=== PATIENT | female | born 1950 | race Caucasian/White ===

== ENCOUNTER 2023-04-22 11:38 | Emergency (ER) | payer MEDICARE, SELFPAY ==
[2023-04-22 11:50] VITALS: BP 220/110; PULSE 64; O2SAT 99; BMI 34.2
[2023-04-22 11:53] VITALS: BP 210/89; BP 237/104; PULSE 63; RESP 18; TEMP 37.1; O2SAT 97
--- NOTE | 2023-04-22 12:09 | PC.NURSE ---
a&ox4, vss and up to date aside from being hypertensive. pt did not take medications this morning. 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 denies pain/any sx. nose clip applied. no sob/noted. respirations even/unlabored. family bedside. call ness placed within reach.
--- OUTSIDE RECORDS SUMMARY | 2023-04-22 12:22 | XMS_ITS | Continuity of Care Document ---
Author Name Unknown Organization [facility] Onel Taye lt Address [address] [place] [address]- Care Team Providers Care Gym Manager Name Role Phone Virginia PEREZ, Brian Sanford Primary Care Physician [phone] Encounter [facility] Date(s): 04/25/19 - 05/05/19 [facility] Adult [address] [place] [address]- [facility] Attending Physician: Admtr, Temo8 Admitting Physician: AdmtrAnalilia Referring Physician: Admtr, Ar8 Allergies, Adverse Reactions, Alerts Substance Reaction Severity Status NIFEdipine Active amLODIPine-atorvastatin Reso lved Immunizations Given and Recorded Vaccine Date Status Refusal Reason Influenza Virus Vaccine (oldterm) 02/21/19 Recorde d Influenza Virus Vaccine (oldterm) 1 03/17/11 Given Influenza Virus Vaccine (oldterm) 2 04/07/09 Given influenza virus vaccine, inactivated 03/19/18 Marko rded influenza virus vaccine, inactivated 12/30/16 Marko rded influenza virus vaccine, inactivated 02/19/15 Marko rded influenza virus vaccine, inactivated 01/21/14 Give n influenza virus vaccine, inactivated 3 02/08/13 Gi rachael pneumococcal 13-valent vaccine 03/22/17 Given hepatitis B adult vaccine 4 10/18/13 Given hepatitis B adult vaccine 05/21/13 Given hepatitis B adult vaccine 5 04/18/13 Given Hepatitis A Adult Vaccine 6 04/18/13 Given Zoster Vaccine Live 7 02/02/13 Recorded influ virus vac, H1N1, inactive(oldterm) 8 03/12/12 Given FluLaval (oldterm) 03/08/10 Given tetanus/diphtheria/pertussis, acel(Tdap) 08/06/09 Given Influenza Inactive (IM) (oldterm) 03/26/08 Given Influenza Inactive (IM) (oldterm) 9 03/21/07 Given Tetanus Toxoid Vaccine (oldterm) 05/01/99 Given Pneumococcal Vaccine (oldterm) 10 01/31/99 Given 1Admin Note: [facility] 2Admin Note: per pt [facility]cvd [facility] 3Admin Note: FLUARIX 4Result Comment: [10/18/2013] #3 5Result Comment: [04/18/2013] #1 6Result Comment: [04/18/2013] #1 7[facility] History: [facility] [place] 8Admin Note: rcvd elsewhere 9Admin Note: rcvd elsewhere 10Admin Note: historical data Medications Aerochamber See Instructions, # 1 units, Maintenance, dx: asthma use w/ albuterol MDI, 12/01/14 15:22:56, Compound Start Date: 12/01/14 Status: Ordered aspirin 81 mg oral tablet 1 tablet, By Mouth, Daily, # 30 tablet, 0 Refills, Maintenance, Tablet Start Date: 02/19/10 Status: Ordered atorvastatin 20 mg oral tablet 1 tablet = 20 mg, By Mouth, Daily, # 90 tablet, 1 Refills, Soft Stop, 04/15/19 10:41:44 EST, [facility], 157, cm, 03/07/19 14:39:28 EST, Height, 87.9, kg, 10/21/17 9:09:44 EDT,Dry Weight Start Date: 04/15/19 Status: Ordered Caltrate 600 + D oral tablet 1 tablet, By Mouth, 2 times a day, # 60 tablet, 11 Refills, Maintenance, 02/07/18 7:34:22 EDT, Tablet Start Date: 02/07/18 Status: Ordered fluticasone 50 mcg/inh nasal spray 1 sprays, Nares, Both, 2 times a day, # 3 each, 2 Refills, Maintenance, 06/05/17 13:36:23, [place], 1sprays Nares, Both 2 times a day Start Date: 06/05/17 Status: Ordered folic acid 1 mg oral tablet 1 mg, 1, tablet, By Mouth, Daily, # 90 tablet, Refills 0, Tot. Refills 0, Maintenance, 12/06/16 9:36:33, Route to Pharmacy Electronically, [id number], [facility] Start Date: 12/06/16 Status: Ordered hydroCHLOROthiazide 12.5 mg oral capsule 1 capsule = 12.5 mg, By Mouth, Daily, # 90 capsule, 3 Refills, Maintenance, 01/04/19 7:47:00 EDT, Capsule Start Date: 01/04/19 Status: Ordered labetalol 200 mg oral tablet 1 tablet = 200 mg, By Mouth, 2 times a day, # 180 tablet, 3 Refills, Maintenance, 04/15/19 10:41:39EST, Tablet, [facility], ID# [id number], 157, cm, 03/07/19 14:39:28 EST, Height, 87.9, kg, 10/21/17 9:09:44 EDT, Dry Weight Start Date: 04/15/19 Status: Ordered levothyroxine 150 mcg (0.15 mg) oral tablet See Instructions, TAKE 1 TABLET 6 DAYS A WEEK, # 78 tablet, 3 Refills, Soft Stop, 04/15/19 10:41:38EST, [facility], 157, cm, 03/07/19 14:39:28 EST, Height, 87.9, kg, 10/21/17 9:09:44 EDT, Dry Weight Start Date: 04/15/19 Status: Ordered losartan 100 mg oral tablet 1 tablet = 100 mg, By Mouth, Daily, # 90 tablet, 3 Refills, Maintenance, 01/04/19 7:46:50 EDT, Tablet Start Date: 01/04/19 Status: Ordered metFORMIN 1000 mg oral tablet 1 tablet = 1,000 mg, By Mouth, 2 times a day, # 180 tablet, 3 Refills, Maintenance, 04/15/19 10:41:37 EST, Tablet, [facility], ID# [id number], 157, cm, 03/07/19 14:39:28 EST, Height, 87.9, kg, 10/21/17 9:09:44 EDT, Dry Weight Start Date: 04/15/19 Stop Date: 04/09/20 Status: Ordered One Touch Delica Lancets See Instructions, # 1 box, Refills 3, Tot. Refills 3, Maintenance, 1 box = 100 lancets Please use as directed to test BS bid for DM 250.00, 08/26/14 11:06:58, Compound Start Date: 08/26/14 Status: Ordered ONE TOUCH ULTRA MINI TEST STRIPS ONE TOUCH ULTRA MINI TEST STRIPS, See Instructions, # 200 each, Refills 1, Tot. Refills 1, Maintenance, dx: DM E11.9 Pt tests 2X daily, 12/22/16 9:55:04, Compound Start Date: 12/22/16 Status: Ordered ONE TOUCH ULTRA MINI TEST STRIPS ONE TOUCH ULTRA MINI TEST STRIPS, See Instructions, # 200 each, Refills 3, Tot. Refills 3, Maintenance, dx: DM E11.9 Pt tests 1X daily, 08/25/16 16:37:35, Compound Start Date: 08/25/16 Status: Ordered One Touch UltraSoft Lancets See Instructions, # 200 each, Refills 1, Tot. Refills 1, Maintenance, Test Blood sugar twice a day Dx: E11.9, 12/22/16 9:57:44, Compound Start Date: 12/22/16 Status: Ordered ProAir HFA 90 mcg/inh inhalation aerosol with adapter 2, puffs, Inhalation, Every 4 hours, PRN, # 3 each, Refills 0, Tot. Refills 0, Maintenance, 06/12/17 16:51:34, Aerosol, Route to Pharmacy Electronically, [id number], [facility] Start Date: 06/12/17 Status: Ordered traZODone 100 mg oral tablet 100 mg, 1, tablet, By Mouth, Daily at bedtime, ID # [id number], # 90 tablet, Refills 3, Tot. Refills3, Maintenance, 04/15/19 10:41:38 EST, Route to Pharmacy Electronically, [facility], 157, cm, 03/07/19 14:39:28 EST, Height, 87.... Start Date: 04/15/19 Status: Ordered Ventolin HFA 108 mcg/inh inhalation aerosol with adapter 1 puffs, Inhalation, 4 times a day, PRN for wheezing, # 3 each, 3 Refills, Maintenance, 04/25/19 14:03:00 EST, Aerosol, [facility], 157, cm, 04/25/19 13:53:00 EST, Height, 87.9, kg, 10/21/17 9:09:00 EDT, Dry Weight Start Date: 04/25/19 Status: Ordered Ventolin HFA 108 mcg/inh inhalation aerosol with adapter 1 puffs, Inhalation, 4 times a day, PRN for wheezing, [facility], # 1 each, 0 Refills, Maintenance, 04/25/19 14:04:00 EST, Aerosol, [id number], 157, cm, 04/25/19 13:53:00 EST, Height, 87.9, kg, 10/21/17 9:09:00 EDT, Dry Weight Start Date: 04/25/19 Status: Ordered Vitamin B12 See Instructions, 0, 0, 06/09/05 12:50:42, 1000 mcg Intramuscular;once a month, Print BRAYDEN Number, Constant Indicator Start Date: 06/09/05 Status: Ordered Problem List Condition Effective Dates Status Health Status Inform ant Acquired hypothyroidism(Confirmed) Active Asthma(Confirmed) 1 Active Benign Essential Hypertension(Confirmed) Active Diabetes mellitus type 2, controlled(Confirmed) 2 Active Familial hyperlipidemia(Confirmed) Active Fatty liver(Confirmed) 3, 4, 5 Active Homocysteine;elevated(Confirmed) Active Insomnia(Confirmed) Active Mitral insufficiency(Confirm ed) 6, 7, 8, 9 Active Osteopenia(Confirmed) 10 02/06/18 Active Trigger thumb(Confirmed) Active Vitamin B12 deficiency (non anemic)(Confirmed) Active 1mild intermiitent,no indication controller 2education completed 3no need biopy per Dr byers 4no other etiology per labs 5per ultrasound 6mild moderate 7discussed new AHA guidlines; no need antibiotics 8discussed new 9Echo 2004, antibiotic prophylaxis 10frax 14/0.7 Procedures Procedure Date Related Diagnosis Body Site Status Dual-energy X-ray absorptiom etry (DXA), bone density study, 1 or more sites; axial skeleton (eg, hips, pelvis, spine) 1 02/11/10 Completed Radiologic examination, ches t, 2 views, frontal and lateral; 2 11/18/09 Co mpleted 1normal 2nad Social History Social History Type Response Smoking Status Never smoker entered on: 04/18/13 Sex
--- OUTSIDE RECORDS SUMMARY | 2023-04-22 12:22 | XMS_ITS | Continuity of Care Document ---
Author Name Unknown Organization [facility] Taye lt Address [address] [place] [address]- Care Team Providers Care Scenic Designer Name Role Phone Virginia PEREZ, Brian Sanford Primary Care Physician [facility]counter [facility] Date(s): 08/09/21 - 09/08/21 [facility] Adult [address] [place] [address]- Allergies, Adverse Reactions, Alerts Substance Reaction Severity Status NIFEdipine Active amLODIPine-atorvastatin Reso lved Immunizations Given and Recorded Vaccine Date Status Refusal Reason influenza virus vaccine, inactivated 02/16/21 Give n influenza virus vaccine, inactivated 01/21/20 Give n influenza virus vaccine, inactivated 03/19/18 Marko rded influenza virus vaccine, inactivated 12/30/16 Marko rded influenza virus vaccine, inactivated 02/19/15 Marko rded influenza virus vaccine, inactivated 01/21/14 Give n influenza virus vaccine, inactivated 1 02/08/13 Gi rachael SARS-CoV-2 (COVID-19) mRNA BNT-162b2 vac 07/07/20 Given SARS-CoV-2 (COVID-19) mRNA BNT-162b2 vac 06/16/20 Given Influenza Virus Vaccine (oldterm) 02/21/19 Recorde d Influenza Virus Vaccine (oldterm) 2 03/17/11 Given Influenza Virus Vaccine (oldterm) 3 04/07/09 Given pneumococcal 13-valent vaccine 03/22/17 Given hepatitis B [...] Vaccine (oldterm) 10 01/31/99 Given 1Admin Note: FLU[facility]IX 2Admin Note: [facility] 3Admin Note: per pt rcvd [facility] 4Result Comment: [10/18/2013] #3 5Result Comment: [04/18/2013] #1 6Result Comment: [04/18/2013] #1 7Location History: [facility] 8Admin Note: rcvd elsewhere 9Admin Note: rcvd elsewhere 10Admin Note: historical data Medications Aerochamber See Instructions, # 1 units, Maintenance, dx: asthma use w/ albuterol MDI, 12/01/14 15:22:56, Compound Start Date: 12/01/14 Status: Ordered aspirin 81 mg oral tablet 1 tablet, By Mouth, Daily, # 30 tablet, 0 Refills, Maintenance, Tablet Start Date: 02/19/10 Status: Ordered atorvastatin 20 mg oral tablet 1 tablet, By Mouth, Daily, # 90 tablet, 1 Refills, [facility], 157, cm, 10/07/20 13:35:00 EDT, Height Start Date: 04/19/21 Status: Ordered Caltrate 600 + D oral tablet 1 tablet, By Mouth, 2 times a day, # 60 tablet, 11 Refills, Maintenance, 02/07/18 7:34:22 EDT, Tablet Start Date: 02/07/18 Status: Ordered fluticasone 50 mcg/inh nasal spray 1 sprays, Nares, Both, 2 times a day, # 3 each, 2 Refills, Maintenance, 05/17/19 11:44:00 EST, [place], [facility], 1 sprays Nares, Both 2 times a day, 157, cm, 05/17/19 11:39:00EST, Height, 87.9, kg, 10/21/17 9:09:00 EDT, Dry We... Start Date: 05/17/19 Status: Ordered folic acid 1 mg oral tablet 1 mg, 1, tablet, By Mouth, Daily, # 90 tablet, Refills 0, Tot. Refills 0, Maintenance, 12/06/16 9:36:33, Route to Pharmacy Electronically, [id number], [facility] Start Date: 12/06/16 Status: Ordered hydroCHLOROthiazide 12.5 mg oral capsule 1 capsule = 12.5 mg, By Mouth, Daily, # 90 capsule, 3 Refills, Maintenance, 05/06/21 11:25:00 EST, Capsule, [facility], 157, cm, 10/07/20 13:35:00 EDT, Height Start Date: 05/06/21 Status: Ordered labetalol 200 mg oral tablet 1 tablet, By Mouth, 2 times a day, # 180 tablet, 3 Refills, [facility], 157, cm, 10/07/20 13:35:00 EDT, Height Start Date: 04/21/21 Status: Ordered levothyroxine 150 mcg (0.15 mg) oral tablet See Instructions, TAKE 1 TABLET 6 DAYS A WEEK, # 78 tablet, 1 Refills, Soft Stop, 01/22/21 12:47:00EDT, [facility], 157, cm, 10/07/20 13:35:00 EDT, Height Start Date: 01/22/21 Status: Ordered losartan 100 mg oral tablet 1 tablet, By Mouth, Daily, # 90 tablet, 1 Refills, [facility], 157, cm, 10/07/20 13:35:00 EDT, Height Start Date: 04/19/21 Status: Ordered metFORMIN 1000 mg oral tablet 1 tablet, By Mouth, 2 times a day, # 180 tablet, 1 Refills, [facility], 157, cm, 10/07/20 13:35:00 EDT, Height Start Date: 04/19/21 Status: Ordered One Touch Delica Lancets See [...] 9:55:04, Compound Start Date: 12/22/16 Status: Ordered One Touch UltraSoft Lancets See Instructions, # 200 each, Refills 1, Tot. Refills 1, Maintenance, Test Blood sugar twice a day Dx: E11.9, 12/22/16 9:57:44, Compound Start Date: 12/22/16 Status: Ordered traZODone 100 mg oral tablet 1, tablet, By Mouth, Daily at bedtime, # 90 tablet, Refills 1, Route to Pharmacy Electronically, [facility], 157, cm, 10/07/20 13:35:00 EDT, Height Start Date: 04/19/21 Status: Ordered Ventolin HFA 108 mcg/inh inhalation aerosol with adapter 1 puffs, Inhalation, 4 times a day, PRN for wheezing, # 3 each, 3 Refills, Maintenance, 04/25/19 14:03:00 EST, Aerosol, [facility], 157, cm, 04/25/19 13:53:00 EST, Height, 87.9, kg, 10/21/17 9:09:00 EDT, Dry Weight Start Date: 04/25/19 Status: Ordered Vitamin B12 See Instructions, 0, 0, 06/09/05 12:50:42, 1000 mcg Intramuscular;once a month, Print BRAYDEN Number, Constant Indicator Start Date: 06/09/05 Status: Ordered Problem List Condition Effective Dates Status Health Status Inform ant Acquired hypothyroidism(Confirmed) Active Aphthous ulcer of mouth(Confirmed) Active Asthma(Confirmed) 1 Active Benign Essential Hypertension(Confirmed) Active Diabetes mellitus type 2, controlled(Confirmed) 2 Active Familial hyperlipidemia(Confirmed) Active Fatty liver(Confirmed) 3, 4, 5 Active Elevated homocysteine(Confirmed) Active Insomnia(Confirmed) Active Mitral insufficiency(Confirm ed) 6, 7, 8, 9 Active Osteopenia BMD (Confirmed) 10 02/06/18 Active Low iron per GI;scheduled EGD/colonoscvopy(Confirmed) 09/08/21 Active Trigger thumb(Confirmed) Active Vitamin B12 deficiency (non anemic)(Confirmed) Active 1mild intermiitent,no indication controller 2education completed 3no need biopy per Dr byers 4no other etiology per labs 5per ultrasound 6mild moderate 7discussed new AHA guidlines; no need antibiotics 8discussed new 9Echo 2004, antibiotic prophylaxis 10frax 14/0.7 Social History Social History Type Response Smoking Status Never smoker entered on: 04/18/13 Sex
--- OUTSIDE RECORDS SUMMARY | 2023-04-22 12:22 | XMS_ITS | Continuity of Care Document ---
Author Name Unknown Organization [facility] Address [address] [place] [address]- Care Team Providers Care Paper Plate Machine Tender Name Role Phone Emperatriz PEREZ, Benigno Stout Primary Care Physician Encounter [facility] Date(s): 02/03/22 - 03/05/22 [facility] [address] [place] [address]- Attending Physician: Analilia Morocho Admitting Physician: Analilia Morocho Referring Physician: AdmtrAnalilia Allergies, Adverse Reactions, Alerts Substance Reaction Severity Status NIFEdipine Active theophylline 1 Active amLODIPine-atorvastatin Reso lved 1extreme headache Immunizations Given and Recorded Vaccine Date Status Refusal Reason influenza virus vaccine, inactivated 1 02/07/22 Gi rachael influenza virus vaccine, inactivated 02/16/21 Give n influenza virus vaccine, inactivated 01/21/20 Give n influenza virus vaccine, inactivated 01/31/19 Marko rded influenza virus vaccine, inactivated 03/23/18 Marko rded influenza virus vaccine, inactivated 03/19/18 Marko rded influenza virus vaccine, inactivated 12/30/16 Marko rded influenza virus vaccine, inactivated 02/19/15 Marko rded influenza virus vaccine, inactivated 01/21/14 Give n influenza virus vaccine, inactivated 2 02/08/13 Gi rachael SARS-CoV-2 (COVID-19) mRNA BNT-162b2 vac 01/21/21 Recorded SARS-CoV-2 (COVID-19) mRNA BNT-162b2 vac 07/07/20 Given SARS-CoV-2 (COVID-19) mRNA BNT-162b2 vac 06/16/20 Given Influenza Virus Vaccine (oldterm) 02/21/19 Recorde d Influenza Virus Vaccine (oldterm) 3 03/17/11 Given Influenza Virus Vaccine (oldterm) 4 04/07/09 Given pneumococcal 13-valent vaccine 03/22/17 Given hepatitis B adult vaccine 5 10/18/13 Given hepatitis B adult vaccine 05/21/13 Given hepatitis B adult vaccine 6 04/18/13 Given Hepatitis A Adult Vaccine 7 04/18/13 Given Zoster Vaccine Live 8 02/02/13 Recorded influ virus vac, H1N1, inactive(oldterm) 9 03/12/12 Given FluLaval (oldterm) 03/08/10 Given tetanus/diphtheria/pertussis, acel(Tdap) 08/06/09 Given Influenza Inactive (IM) (oldterm) 03/26/08 Given Influenza Inactive (IM) (oldterm) 10 03/21/07 Give n Tetanus Toxoid Vaccine (oldterm) 05/01/99 Given Pneumococcal Vaccine (oldterm) 11 01/31/99 Given 1Result Comment: [facility]# [id number] 2Admin Note: FLUARIX 3Admin Note: [facility] 4Admin Note: per pt rcvd deven 5Result Comment: [10/18/2013] #3 6Result Comment: [04/18/2013] #1 7Result Comment: [04/18/2013] #1 8Location History: [facility] [place] 9Admin Note: rcvd elsewhere 10Admin Note: rcvd elsewhere 11Admin Note: historical data Medications aspirin 81 mg oral tablet 1 tablet, By Mouth, Daily, # 30 tablet, 0 Refills, Maintenance, Tablet Start Date: 02/19/10 Status: Ordered atorvastatin 20 mg oral tablet 1 tablet, By Mouth, Daily, # 90 tablet, 1 Refills, 09/29/21 16:13:00 EDT, [facility], 157, cm, 10/07/20 13:35:00 EDT, Height Start Date: 09/29/21 Status: Ordered Caltrate 600 + D oral tablet 1 tablet, By Mouth, 2 times a day, # 60 tablet, 11 Refills, Maintenance, 02/07/18 7:34:22 EDT, Tablet Start Date: 02/07/18 Status: Ordered ferrous sulfate 325 mg oral enteric coated tablet See Instructions, Take one tablet By Mouth every other day. Take with vitamin C to help absorption,# 45 tablet, Refills 0, Tot. Refills 0, Maintenance, 02/17/22 10:59:00 EDT, Instructions Replace Required Details, Route to Pharmacy Electronically, CV... Start Date: 02/17/22 Status: Ordered fluticasone 50 mcg/inh nasal spray 1 sprays, Nares, Both, 2 times a day, # 3 each, 1 Refills, Maintenance, 09/14/21 12:04:00 EDT, [place], [facility], 1 sprays Nares, Both 2 times a day, 157, cm, 10/07/20 13:35:00EDT, Height Start Date: 09/14/21 Status: Ordered folic acid 1 mg oral tablet 1 mg, 1, tablet, By Mouth, Daily, # 90 tablet, Refills 0, Tot. Refills 0, Maintenance, 12/06/16 9:36:33, Route to Pharmacy Electronically, [id number], [facility] Start Date: 12/06/16 Status: Ordered hydroCHLOROthiazide 12.5 mg oral capsule 1 capsule = 12.5 mg, By Mouth, Daily, # 90 capsule, 3 Refills, Maintenance, 05/06/21 11:25:00 EST, Capsule, [facility], 157, cm, 10/07/20 13:35:00 EDT, Height Start Date: 05/06/21 Status: Ordered labetalol 200 mg oral tablet 1 tablet, By Mouth, 2 times a day, # 180 tablet, 3 Refills, [facility], 157, cm, 10/07/20 13:35:00 EDT, Height Start Date: 04/21/21 Status: Ordered levothyroxine 0.112 mg oral tablet 1 tablet = 112 mcg, By Mouth, Daily, # 90 tablet, 3 Refills, Maintenance, 12/22/21 8:04:00 EDT, [facility], Partial fill upon patient request if the prescription is for a schedule II opioid drug., 157, cm, 11/18/21 13:13:00 EDT,... Start Date: 12/22/21 Status: Ordered losartan 100 mg oral tablet 1 tablet, By Mouth, Daily, # 90 tablet, 1 Refills, 10/06/21 8:52:00 EDT, [facility], 157, cm, 10/07/20 13:35:00 EDT, Height Start Date: 10/06/21 Status: Ordered metFORMIN 1000 mg oral tablet 1 tablet, By Mouth, 2 times a day, # 180 tablet, 1 Refills, 10/06/21 8:51:00 EDT, [facility], 157, cm, 10/07/20 13:35:00 EDT, Height Start Date: 10/06/21 Status: Ordered traZODone 100 mg oral tablet 1, tablet, By Mouth, Daily at bedtime, # 90 tablet, Refills 1, Tot. Refills 1, 10/06/21 8:53:00 EDT, Route to Pharmacy Electronically, [facility], 157, cm, 10/07/20 13:35:00 EDT, Height Start Date: 10/06/21 Status: Ordered Ventolin HFA 108 mcg/inh inhalation aerosol with adapter 1 puffs, Inhalation, 4 times a day, PRN for wheezing, # 3 each, 3 Refills, Maintenance, 04/25/19 14:03:00 EST, Aerosol, [facility], 157, cm, 04/25/19 13:53:00 EST, Height, 87.9, kg, 10/21/17 9:09:00 EDT, Dry Weight Start Date: 04/25/19 Status: Ordered Vitamin B12 See Instructions, 0, 0, 06/09/05 12:50:42, 1000 mcg Intramuscular;once a month, Print BRAYDEN Number, Constant Indicator Start Date: 06/09/05 Status: Ordered Problem List Condition Confirmation Course Effective Dates Status H ealth Status Informant Acquired hypothyroidism Confirmed Active Aphthous ulcer of mouth Confirmed Active Asthma 1 Confirmed Active Benign Essential Hypertension Confirmed Active Diabetes mellitus type 2, controlled 2 Confirmed Active Diverticulosis sigmoid/coloscpy 2021 Confirmed Active Familial hyperlipidemia Confirmed Active Fatty liver 3, 4, 5 Confirmed Active Elevated homocysteine Confirmed Active Insomnia Confirmed Active Anemia, iron deficiency neg colo/egd 2021 Confirmed 09/08/21 Active Mitral insufficiency 6, 7, 8, 9 Confirmed Active Obese class I Confirmed Active Osteopenia BMD 10 Confirmed 02/06/18 Active Trigger thumb Confirmed Active Vitamin B12 deficiency (non anemic) Confirmed Active 1mild intermiitent,no indication controller 2education completed 3no need biopy per Dr byers 4no other etiology per labs 5per ultrasound 6mild moderate 7discussed new AHA guidlines; no need antibiotics 8discussed new 9Echo 2004, antibiotic prophylaxis 10frax 14/0.7 Social History Social History Type Response Smoking Status Never smoker entered on: 04/18/13 Sex Patient Care team information Personnel Name: Emperatriz PEREZ, Benigno Stout Address: Address: [address] [place] [id number]
--- OUTSIDE RECORDS SUMMARY | 2023-04-22 12:22 | XMS_ITS | Continuity of Care Document ---
Author Name Unknown Organization [facility] Taye lt Address [address] [place] [address]- Care Team Providers Care Grass Farm Laborer Name Role Phone Emperatriz PEREZ, Benigno Stout Primary Care Physician [phone] Encounter [facility] Date(s): 11/16/21 - 12/16/21 [facility] [address] [place] [address]- Allergies, Adverse Reactions, Alerts Substance Reaction Severity Status NIFEdipine Active theophylline 1 Active amLODIPine-atorvastatin Reso lved 1extreme headache Immunizations Given and Recorded Vaccine Date Status Refusal Reason influenza virus vaccine, inactivated 02/16/21 Give n influenza virus vaccine, inactivated 01/21/20 Give n influenza virus vaccine, inactivated 01/31/19 Marko rded influenza virus vaccine, inactivated 03/23/18 Marko rded influenza virus vaccine, inactivated 03/19/18 Marok rded influenza virus vaccine, inactivated 12/30/16 Marko [...] 03/22/17 Given hepatitis B adult vaccine 4 6/20/14 Given hepatitis B adult vaccine 05/21/13 Given [...] center pharm 3Admin Note: per pt rcvd ekozzieewlibertad 4Result Comment: [10/18/2013] #3 5Result Comment: [04/18/2013] #1 6Result Comment: [04/18/2013] #1 7Location History: [facility] 8Admin Note: rcvd elsewhere 9Admin Note: rcvd elsewhere 10Admin Note: historical data Medications Aerochamber See Instructions, # 1 units, Maintenance, dx: asthma use w/ albuterol MDI, 12/01/14 15:22:56, Compound Start Date: 12/01/14 Status: Ordered albuterol CFC free 90 mcg/inh inhalation aerosol 2, puffs, Inhalation, Every 6 hours, # 3 each, Refills 1, Tot. Refills 1, Maintenance, 11/18/21 13:28:00 EDT, Route to Pharmacy Electronically, [id number], [facility], 157, cm, 11/18/21 13:13:00 EDT, He... Start Date: 11/18/21 Status: Ordered aspirin 81 mg oral tablet 1 tablet, By Mouth, Daily, # 30 tablet, 0 Refills, Maintenance, Tablet Start Date: 02/19/10 Status: Ordered atorvastatin 20 mg oral tablet 1 tablet, By Mouth, Daily, # 90 tablet, 1 Refills, 09/29/21 16:13:00 EDT, [facility], 157, cm, 10/07/20 13:35:00 EDT, Height Start Date: 09/29/21 Status: Ordered Caltrate 600 + D oral tablet 1 tablet, By Mouth, 2 times a day, # 60 tablet, 11 Refills, Maintenance, 02/07/18 7:34:22 EDT, Tablet Start Date: 02/07/18 Status: Ordered fluticasone 50 mcg/inh nasal spray 1 sprays, Nares, Both, 2 times a day, # 3 each, 1 Refills, Maintenance, 09/14/21 12:04:00 EDT, [place], [facility], 1 sprays Nares, Both 2 times a day, 157, cm, 10/07/20 13:35:00EDT, Height Start Date: 09/14/21 Status: Ordered folic acid 1 mg oral tablet 1 mg, 1, tablet, By Mouth, Daily, # 90 tablet, Refills 0, Tot. Refills 0, Maintenance, 12/06/16 9:36:33, Route to Pharmacy Electronically, [id number], [facility] Start Date: 12/06/16 Status: Ordered hydroCHLOROthiazide 12.5 mg oral capsule 1 capsule = 12.5 mg, By Mouth, Daily, # 90 capsule, 3 Refills, Maintenance, 05/06/21 11:25:00 EST, Capsule, [facility], 157, cm, 10/07/20 13:35:00 EDT, Height Start Date: 05/06/21 Status: Ordered labetalol 200 mg oral tablet 1 tablet, By Mouth, 2 times a day, # 180 tablet, 3 Refills, [facility], 157, cm, 10/07/20 13:35:00 EDT, Height Start Date: 04/21/21 Status: Ordered levothyroxine 150 mcg (0.15 mg) oral tablet See Instructions, TAKE 1 TABLET 5 DAYS A WEEK, # 78 tablet, 1 Refills, Soft Stop, 10/06/21 8:52:00 EDT, [facility], 157, cm, 10/07/20 13:35:00 EDT, Height Start Date: 10/06/21 Status: Ordered losartan 100 mg oral tablet 1 tablet, By Mouth, Daily, # 90 tablet, 1 Refills, 10/06/21 8:52:00 EDT, [facility], 157, cm, 10/07/20 13:35:00 EDT, Height Start Date: 10/06/21 Status: Ordered metFORMIN 1000 mg oral tablet 1 tablet, By Mouth, 2 times a day, # 180 tablet, 1 Refills, 10/06/21 8:51:00 EDT, [facility], 157, cm, 10/07/20 13:35:00 EDT, Height Start Date: 10/06/21 Status: Ordered One Touch Delica Lancets See [...] 10/06/21 8:53:00 EDT, Route to Pharmacy Electronically, [facility], 157, cm, 10/07/20 13:35:00 EDT, Height Start Date: 10/06/21 Status: Ordered Ventolin HFA 108 mcg/inh inhalation aerosol with adapter 1 puffs, Inhalation, 4 times a day, PRN for wheezing, # 3 each, 3 Refills, Maintenance, 04/25/19 14:03:00 EST, Aerosol, [facility], 157, cm, 04/25/19 13:53:00 EST, Height, [...] Diabetes mellitus type 2, controlled(Confirmed) 2 Active Diverticulosis sigmoid/colos cpy 2021(Confirmed) Active Familial hyperlipidemia(Confirmed) Active Fatty liver(Confirmed) 3, 4, 5 Active Elevated homocysteine(Confirmed) Active Insomnia(Confirmed) Active Anemia, iron deficiency neg colo/egd 2021(Confirmed) 09/08/21 Active Mitral insufficiency(Confirm ed) 6, 7, 8, 9 Active Obese class II(Confirmed) Active Osteopenia BMD (Confirmed) 10 02/06/18 Active Trigger thumb(Confirmed) Active Vitamin [...]
--- OUTSIDE RECORDS SUMMARY | 2023-04-22 12:22 | XMS_ITS | Continuity of Care Document ---
Author Name Unknown Organization [facility] Rodrigo Sykes Taye lt Address [address] [place] [address]- Care Team Providers Care Plasterer Journeyman Name Role Phone Brian Coleman MD Primary Care Physician Encounter [facility] Date(s): 05/17/19 - 05/24/19 [facility] Adult [address] [place] [address]- [place] Encounter Diagnosis Asthma exacerbation(Discharge Diagnosis) - 05/17/19 Low back pain(Discharge Diagnosis) - 05/17/19 Attending Physician: Brian Coleman MD Allergies, Adverse Reactions, Alerts Substance Reaction Severity [...] acel(Tdap) 08/06/09 Given Influenza Inactive (IM) (oldterm) 11/26/08 Given Influenza Inactive (IM) (oldterm) 9 03/21/07 Given Tetanus Toxoid Vaccine (oldterm) 05/01/99 Given Pneumococcal Vaccine (oldterm) 10 01/31/99 Given 1Admin Note: center [facility] 2Admin Note: per pt rcvd eklsewhere 3Admin Note: FLUARIX 4Result Comment: [10/18/2013] #3 5Result Comment: [04/18/2013] #1 6Result Comment: [04/18/2013] #1 7Location History: [facility] 8Admin Note: rcvd elsewhere 9Admin Note: [...] 1 Refills, Soft Stop, 04/15/19 10:41:44 EST, [facility], 157, cm, 03/07/19 14:39:28 EST, Height, 87.9, kg, 10/21/17 9:09:44 EDT,Dry Weight Start Date: 04/15/19 Status: Ordered Caltrate 600 + D oral tablet 1 tablet, By Mouth, 2 times a day, # 60 tablet, 11 Refills, Maintenance, 02/07/18 7:34:22 EDT, Tablet Start Date: 02/07/18 Status: Ordered Flovent HFA 110 mcg/inh inhalation aerosol 2 puffs, Inhalation, 2 times a day, rinse mouth and throat after use, # 12 Gm, 0 Refills, Maintenance, 05/24/19 16:05:00 EST, Aerosol, [id number], 157, cm, 05/17/19 11:39:00 EST, Height, 87.9, kg, 10/21/17 9:09:00 EDT, Dry Weight Start Date: 05/24/19 Status: Ordered fluticasone 50 mcg/inh nasal spray 1 sprays, Nares, Both, 2 times a day, # 3 each, 2 Refills, Maintenance, 05/17/19 11:44:00 EST, [place], [facility], 1 sprays Nares, Both 2 times a day, 157, cm, 05/17/19 11:39:00EST, Height, 87.9, kg, 10/21/17 9:09:00 EDT, Dry We... Start Date: 05/17/19 Status: Ordered folic acid 1 mg oral tablet 1 mg, 1, tablet, By Mouth, Daily, # 90 tablet, Refills 0, Tot. Refills 0, Maintenance, 12/06/16 9:36:33, Route to Pharmacy Electronically, [id number], [facility] Start Date: 12/06/16 Status: Ordered hydroCHLOROthiazide 12.5 mg oral capsule 1 capsule = 12.5 mg, By Mouth, Daily, # 90 capsule, 3 Refills, Maintenance, 01/04/19 7:47:00 EDT, Capsule Start Date: 01/04/19 Status: Ordered labetalol 200 mg oral tablet 1 tablet = 200 mg, By Mouth, 2 times a day, # 180 tablet, 3 Refills, Maintenance, 04/15/19 10:41:39EST, Tablet, [facility], ID# [id number], 157, cm, 03/07/19 14:39:28 EST, Height, 87.9, kg, 10/21/17 9:09:44 EDT, Dry Weight Start Date: 04/15/19 Status: Ordered levothyroxine 150 mcg (0.15 mg) oral tablet See Instructions, TAKE 1 TABLET 6 DAYS A WEEK, # 78 tablet, 3 Refills, Soft Stop, 04/15/19 10:41:38EST, [facility], 157, cm, 03/07/19 14:39:28 EST, Height, [...] 3 Refills, Maintenance, 04/15/19 10:41:37 EST, Tablet, [facility], ID# [id number], 157, cm, 03/07/19 14:39:28 EST, Height, 87.9, [...] By Mouth, Daily at bedtime, ID # [id number], # 90 tablet, Refills 3, Tot. Refills3, Maintenance, 04/15/19 10:41:38 EST, Route to Pharmacy Electronically, [facility], 157, cm, 03/07/19 14:39:28 EST, Height, 87.... Start Date: 04/15/19 Status: Ordered Ventolin HFA 108 mcg/inh inhalation aerosol with adapter 1 puffs, Inhalation, 4 times a day, PRN for wheezing, # 3 each, 3 Refills, Maintenance, 04/25/19 14:03:00 EST, Aerosol, [facility] [place] [facility], [facility], cm, 04/25/19 13:53:00 EST, Height, [...] new 9Echo 2004, antibiotic prophylaxis 10frax 14/0.7 Diagnosis Diagnosis Type Effective Dates Health Status Clinical Service Informant Asthma exacerbation Discharge Diagnosis 05/17/19 Low back pain Discharge Diagnosis 05/17/19 Vital Signs Most recent to oldest [Reference Range]: 1 2 Height 157 cm (05/17/19 11:39 AM) 157 cm (05/17/19 11:23 AM) Weight 84.8 kg (05/17/19 11:23 AM) Oxygen Saturation [94-100 %] 98 % (05/17/19 11:23 AM) Pulse Rate [55-90 bpm] 64 bpm (05/17/19 11:23 AM) Body Mass Index [18.5-24.99] 34.4 *>HHI* (05/17/19 11:23 AM) Blood Pressure [90-138/55-84 mm Hg] 124/ 80mm Hg (05/17/19 11:23 AM) Respiratory Rate [16-30 br/min] 16 br/mi n (05/17/19 11:39 AM) Temperature [96.8-100.4 DegF] 98.4 DegF (05/17/19 11:39 AM) Mode of Delivery (Oxygen) Room air (05/17/19 11:23 AM) Blood pressure sites Arm, right (05/17/19 11:23 AM) Temperature Route Oral (05/17/19 11:39 AM) Weight Obtained Via Standing scale (05/17/19 11:23 AM) Social History Social History Type Response Smoking Status Never smoker entered on: 04/18/13 Sex
--- OUTSIDE RECORDS SUMMARY | 2023-04-22 12:22 | XMS_ITS | Continuity of Care Document ---
Author Name Unknown Organization [facility] Address [address] [place] [address]- Care Team Providers Care Fixed Capital Clerk Name Role Phone Benigno Awan MD Primary Care Physician [phone] Encounter 03/18/22 - 03/25/22 [facility] [address], [address] [place] [address]- Attending Physician: Benigno Awan MD Admitting Physician: Benigno Awan MD Referring Physician: Benigno Awan MD Allergies, Adverse Reactions, Alerts Substance Reaction [...] Vaccine (oldterm) 11 01/31/99 Given 1Result Comment: [facility]# [id number] 2Admin Note: FLUARIX 3Admin Note: [facility] 4Admin Note: per pt rcvd deven 5Result Comment: [10/18/2013] #3 6Result Comment: [04/18/2013] #1 7Result Comment: [04/18/2013] #1 8Location History: [facility] daniella falk 9Admin Note: rcvd elsewhere 10Admin Note: rcvd elsewhere 11Admin Note: historical data Medications aspirin 81 mg oral tablet 1 tablet, By Mouth, Daily, # 30 tablet, 0 Refills, Maintenance, Tablet Start Date: 02/19/10 Status: Ordered atorvastatin 20 mg oral tablet 1 tablet, By Mouth, Daily, # 90 tablet, 1 Refills, 09/29/21 16:13:00 EDT, [facility], 157, cm, 10/07/20 13:35:00 [...] each, 1 Refills, Maintenance, 09/14/21 12:04:00 EDT, [place], [facility], 1 sprays Nares, Both 2 times a day, 157, cm, 10/07/20 13:35:00EDT, Height Start Date: 09/14/21 Status: Ordered folic acid 1 mg oral tablet 1 mg, 1, tablet, By Mouth, Daily, # 90 tablet, Refills 0, Tot. Refills 0, Maintenance, 12/06/16 9:36:33, Route to Pharmacy Electronically, [id number], [facility] Start Date: 12/06/16 Status: Ordered hydroCHLOROthiazide 12.5 mg oral capsule 1 capsule = 12.5 mg, By Mouth, Daily, # 90 capsule, 3 Refills, Maintenance, 05/06/21 11:25:00 EST, Capsule, [facility], 157, cm, 10/07/20 13:35:00 EDT, Height Start Date: 05/06/21 Status: Ordered labetalol 200 mg oral tablet 1 tablet, By Mouth, 2 times a day, # 180 tablet, 3 Refills, [facility], 157, cm, 10/07/20 13:35:00 EDT, Height Start Date: 04/21/21 Status: Ordered levothyroxine 0.112 mg oral tablet 1 tablet = 112 mcg, By Mouth, Daily, # 90 tablet, 3 Refills, Maintenance, 12/22/21 8:04:00 EDT, [facility], Partial fill upon patient request if the prescription is for a schedule II opioid drug., 157, cm, 11/18/21 13:13:00 EDT,... Start Date: 12/22/21 Status: Ordered losartan 100 mg oral tablet 1 tablet, By Mouth, Daily, # 90 tablet, 1 Refills, 10/06/21 8:52:00 EDT, [facility], 157, cm, 10/07/20 13:35:00 EDT, Height Start Date: 10/06/21 Status: Ordered metFORMIN 1000 mg oral tablet 1 tablet, By Mouth, 2 times a day, # 180 tablet, 1 Refills, 10/06/21 8:51:00 EDT, [facility], 157, cm, 10/07/20 13:35:00 EDT, Height Start Date: 10/06/21 Status: Ordered traZODone 100 mg oral tablet 1, tablet, By Mouth, Daily at bedtime, # 90 tablet, Refills 1, Tot. Refills 1, 10/06/21 8:53:00 EDT, Route to Pharmacy Electronically, [facility], 157, cm, 10/07/20 13:35:00 EDT, Height Start Date: 10/06/21 Status: Ordered Ventolin HFA 108 mcg/inh inhalation aerosol with adapter 1 puffs, Inhalation, 4 times a day, PRN for wheezing, # 3 each, 3 Refills, Maintenance, 04/25/19 14:03:00 EST, Aerosol, [facility], 157, cm, 04/25/19 13:53:00 [...] new 9Echo 2004, antibiotic prophylaxis 10frax 14/0.7 Results Radiology Reports * Exam Date Time Procedure Performing Provider Status 03/18/22 12:04 PM MM Digital Mammo Screening Rashard Merlos; Auth (Verified) Notes: (MM Digital Mammo Screening) Reason For Exam: z12.31 screening RESULT: MM Digital Mammo Screening PROCEDURE: MM Digital Mammo Screening INDICATION: Screening for breast cancer. No known palpable abnormalities. COMPARISON: Priors, most recent dated 03/17/2021 TECHNIQUE: Full-field digital CC and MLO 3D tomosynthesis images of both breasts were acquired. Computer-aided detection (CAD) was utilized in the interpretation of this study. DENSITY: The breast tissue is almost entirely fatty. FINDINGS: No suspicious masses, suspicious microcalcifications, or areas of architectural distortion are seen in either breast to suggest malignancy. IMPRESSION: No mammographic evidence of malignancy. RECOMMENDATION: Annual mammographic screening BI-RADS: 1 (Negative) Lay letter mailed to patient WSN: [id number] Ordering Physician: Benigno Awan Dictated By: Latesha Tovar MD Dictated Date/Time: 03/18/22 3:04 pm Reviewed By: Latesha Tovar MD Signed By: Latesha Tovar MD Signed Date/Time: 03/18/22 3:04 pm Transcribed By: ABIMAEL Jockey Valet Date/Time: 03/18/22 3:01 pm Birads: Social History Social History Type Response Smoking Status Never smoker entered on: 04/18/13 Sex MG Breast Screening * [facility] , CIS S: TRANSCRIBE Latesha Tovar MD: VERIFY Event Display: Result: Authored Date: [id number] PROCEDURE: MM Digital Mammo Screening INDICATION: Screening for breast cancer. No known palpable abnormalities. COMPARISON: Priors, most recent dated 03/17/2021 TECHNIQUE: Full-field digital CC and MLO 3D tomosynthesis images of both breasts were acquired. Computer-aided detection (CAD) was utilized in the interpretation of this study. DENSITY: The breast tissue is almost entirely fatty. FINDINGS: No suspicious masses, suspicious microcalcifications, or areas of architectural distortion are seen in either breast to suggest malignancy. IMPRESSION: No mammographic evidence of malignancy. RECOMMENDATION: Annual mammographic screening BI-RADS: 1 (Negative) Lay letter mailed to patient WSN: [id number] Ordering Physician: Benigno Awan Dictated By: Latesha Tovar MD Dictated Date/Time: 03/18/22 3:04 pm Reviewed By: Latesha Tovar MD Signed By: Latesha Tovar MD Signed Date/Time: 03/18/22 3:04 pm Transcribed By: ABIMAEL Jockey Valet Date/Time: 03/18/22 3:01 pm Birads: Patient Care team information Care Team Personnel Name: Jazz Wakefield NP Position: [facility] PCO Associate Professional Member Role: Lifetime Consulting Provider Address: Address: [address] [place] [id number]- Name: Benigno Awan MD Position: [facility] Primary Care Physician Member Role: PCP Address: Address: [address] [place] [id number]- Name: Nati Salomon RN Position: [facility] RN Member Role: Primary Care Nurse Care Team Related Persons Name: JOSE ALFONSO Address: home [address] [place] [id number]
--- OUTSIDE RECORDS SUMMARY | 2023-04-22 12:22 | XMS_ITS | Continuity of Care Document ---
Author Name Unknown Organization [facility] Taye lt Address [address] [place] [address]- Care Team Providers Care Test Conductor Name Role Phone Emperatriz PEREZ, Benigno Stout Primary Care Physician Encounter [facility] Date(s): 03/15/23 - 04/14/23 [facility] Adult [address] [place] [address]- Allergies, Adverse Reactions, Alerts Substance Reaction Severity Status NIFEdipine Active theophylline 1 Active amLODIPine-atorvastatin Reso lved 1extreme headache Immunizations Given and Recorded Vaccine Date Status Refusal Reason influenza virus vaccine, inactivated 04/11/23 Marko rded influenza virus vaccine, inactivated 1 02/07/22 Gi archael influenza virus vaccine, inactivated 02/16/21 Give n [...] vaccine, inactivated 2 02/08/13 Gi rachael SARS-CoV-2 mRNA ([id number]) vax 12/08/21 Recorded SARS-CoV-2 (COVID-19) mRNA BNT-162b2 vac 01/21/21 Recorded [...] Vaccine (oldterm) 11 01/31/99 Given 1Result Comment: [facility]# [id number] 2Admin Note: [facility] 3Admin Note: [facility] 4Admin Note: per pt rcvd deven 5Result Comment: [10/18/2013] #3 6Result Comment: [04/18/2013] #1 7Result Comment: [04/18/2013] #1 8Location History: [facility] d[facility]ella [place] 9Admin Note: rcvd elsewhere 10Admin Note: rcvd elsewhere 11Admin Note: historical data Medications aspirin 81 mg oral tablet 1 tablet, By Mouth, Daily, # 30 tablet, 0 Refills, Maintenance, Tablet Start Date: 02/19/10 Status: Ordered atorvastatin 20 mg oral tablet 1 tablet, By Mouth, Daily, # 90 tablet, 1 Refills, 01/30/23 11:50:00 EDT, [facility], 155.2, cm, 11/22/22 14:28:00 EDT, Height, 83.8, kg, 05/26/22 11:19:00 EST, Dry Weight Start Date: 01/30/23 Status: Ordered Caltrate 600 + D oral tablet 1 tablet, By Mouth, 2 times a day, # 60 tablet, 11 Refills, Maintenance, 02/07/18 7:34:22 EDT, Tablet Start Date: 02/07/18 Status: Ordered chlorhexidine topical 0.12% liquid 15 mL = 0.018 Gm, By Mouth, 2 times a day, swish and spit; do not swallow, # 473 mL, 0 Refills, Maintenance, 04/20/22 16:50:00 EST, Liquid, [facility]/pharmacy #[id number], Partial fill upon patient request if the prescription is for a schedule II opioid drug., 15... Start Date: 04/20/22 Status: Ordered ferrous sulfate 325 mg oral [...] day, # 3 each, 1 Refills, Maintenance, 12/12/22 7:03:00 EDT, [place], [facility], 1 sprays Nares, Both 2 times a day, 155.2, cm, 11/22/22 14:28:00 EDT, Height, 83.8, kg, 05/26/22 11:19:00 EST, Dry... Start Date: 12/12/22 Status: Ordered folic acid 1 mg oral tablet 1 mg, 1, tablet, By Mouth, Daily, # 90 tablet, Refills 0, Tot. Refills 0, Maintenance, 12/06/16 9:36:33, Route to Pharmacy Electronically, [id number], [facility] Start Date: 12/06/16 Status: Ordered Freestyle Lite Lancets See Instructions, # 200 each, Refills 3, Tot. Refills 3, Maintenance, use as directed for Type 2 Diabetes Mellitus, E11.65, 03/30/23 5:38:00 EST, Supply, 155.2, cm, 11/22/22 14:28:00 EDT, Height, 83.8, kg, 05/26/22 11:19:00 EST, Dry Weight Start Date: 03/30/23 Stop Date: 07/28/23 Status: Ordered Freestyle Lite Monitor See Instructions, # 1 each, Maintenance, Check BS daily and prn, Dx: T2DM, E11.65, 12/14/22 6:58:00EDT, Supply, 155.2, cm, 11/22/22 14:28:00 EDT, Height, 83.8, kg, 05/26/22 11:19:00 EST, Dry Weight Start Date: 12/14/22 Status: Ordered Freestyle Lite Test Strips See Instructions, # 200 each, Refills 3, Tot. Refills 3, Maintenance, use as directed for Type 2 Diabetes Mellitus, E11.65, 03/30/23 5:38:00 EST, Supply, 155.2, cm, 11/22/22 14:28:00 EDT, Height, 83.8, kg, 05/26/22 11:19:00 EST, Dry Weight Start Date: 03/30/23 Stop Date: 07/28/23 Status: Ordered hydroCHLOROthiazide 12.5 mg oral capsule 1 capsule = 12.5 mg, By Mouth, Daily, # 90 capsule, 3 Refills, Maintenance, 07/15/22 5:49:00 EDT, Capsule, [facility], 157, cm, 06/17/22 10:48:00 EST, Height, 83.8, kg, 05/26/22 11:19:00 EST, Dry Weight Start Date: 07/15/22 Status: Ordered labetalol 200 mg oral tablet 1 tablet, By Mouth, 2 times a day, # 180 tablet, 3 Refills, 07/15/22 5:49:00 EDT, [facility], 157, cm, 06/17/22 10:48:00 EST, Height, 83.8, kg, 05/26/22 11:19:00 EST, Dry Weight Start Date: 07/15/22 Status: Ordered levothyroxine 0.112 mg oral tablet 1 tablet = 112 mcg, By Mouth, Daily, # 90 tablet, 1 Refills, Maintenance, 02/14/23 12:23:00 EDT, [facility], Partial fill upon patient request if the prescription is for a schedule II opioid drug., 155.2, cm, 11/22/22 14:28:00 E... Start Date: 02/14/23 Status: Ordered losartan 100 mg oral tablet 1 tablet, By Mouth, Daily, # 90 tablet, 1 Refills, Maintenance, 11/18/22 15:06:00 EDT, [facility], 157, cm, 06/17/22 10:48:00 EST, Height, 83.8, kg, 05/26/22 11:19:00 EST, Dry Weight Start Date: 11/18/22 Status: Ordered metFORMIN 1000 mg oral tablet 1 tablet, By Mouth, 2 times a day, # 180 tablet, 1 Refills, 01/30/23 11:49:00 EDT, [facility], 155.2, cm, 11/22/22 14:28:00 EDT, Height, 83.8, kg, 05/26/22 11:19:00 EST, Dry Weight Start Date: 01/30/23 Status: Ordered ONE TOUCH ULTRA MINI TEST STRIPS ONE TOUCH ULTRA MINI TEST STRIPS, See Instructions, # 200 each, Refills 3, Tot. Refills 3, Maintenance, dx: DM E11.9 Pt tests 2X daily, 06/20/22 5:28:00 EST, Compound, 157, cm, 06/17/22 10:48:00 EST,Height, 83.8, kg, 05/26/22 11:19:00 EST, Dry Weight Start Date: 06/20/22 Status: Ordered traZODone 100 mg oral tablet 1, tablet, By Mouth, Daily at bedtime, # 90 tablet, Refills 1, Tot. Refills 1, 01/30/23 11:50:00 EDT, Route to Pharmacy Electronically, [facility], 155.2, cm, 11/22/22 14:28:00EDT, Height, 83.8, kg, 05/26/22 11:19:00 EST, Dry W... Start Date: 01/30/23 Status: Ordered Ventolin HFA 108 mcg/inh inhalation aerosol with adapter 1 puffs, Inhalation, 4 times a day, PRN for wheezing, # 3 each, 2 Refills, Maintenance, 03/28/23 10:30:00 EST, Aerosol, [facility], 155.2, cm, 03/16/23 8:41:00 EST, Height, 83.8, kg, 05/26/22 11:19:00 EST, Dry Weight Start Date: 03/28/23 Status: Ordered Vitamin B12 See Instructions, 0, [...] on: 04/18/13 Sex Patient Care team information Care Team Personnel Name: Ashu GRAY, Jazz Valentin Position: [facility] PCO Associate Professional Member Role: Lifetime Consulting Provider Address: Address: [address] [place] [id number]- Name: Emperatriz PEREZ, Benigno Stout Position: [facility] Physician - Primary Care Member Role: PCP Address: Address: [address] [place] [address]- [place] Name: Nati Salomon RN Position: [facility] RN Member Role: Primary Care Nurse Care Team Related Persons Name: JOSE ALFONSO Address: home [address] [place] [address]
--- OUTSIDE RECORDS SUMMARY | 2023-04-22 12:22 | XMS_ITS | Continuity of Care Document ---
Author Name Unknown Organization [facility] Taye lt Address [address] [place] [address]- Care Team Providers Care Play Therapist Name Role Phone Virginia PEREZ, Brian Sanford Primary Care Physician Encounter [facility] Date(s): 04/25/19 - 05/02/19 [facility] Adult [address] [place] [address]- [place] Encounter Diagnosis Sinusitis, acute(Discharge Diagnosis) - 04/25/19 Cough(Discharge Diagnosis) - 04/25/19 Attending Physician: Brynn GRAY, Karin Lamas Allergies, Adverse Reactions, Alerts Substance Reaction Severity [...] Comment: [04/18/2013] #1 7[facility] 8Admin Note: rcvd elsewhere 9Admin Note: rcvd elsewhere 10Admin Note: historical data Medications Aerochamber See Instructions, # 1 units, Maintenance, dx: asthma use w/ albuterol MDI, 12/01/14 15:22:56, Compound Start Date: 12/01/14 Status: Ordered amoxicillin 500 mg oral tablet 1 tablet = 500 mg, By Mouth, 3 times a day, for 10 days, # 30 tablet, 0 Refills, Acute 05/05/19 14:07:00 EST, 04/25/19 14:07:00 EST, Tablet, [facility]/pharmacy #[id number], 157, cm, 04/25/19 13:53:00 EST, Height, 87.9, kg, 10/21/17 9:09:00 EDT, Dry Weight Start Date: 04/25/19 Stop Date: 05/05/19 Status: Ordered aspirin 81 mg oral tablet 1 tablet, By Mouth, Daily, # 30 tablet, 0 Refills, Maintenance, Tablet Start Date: 02/19/10 Status: Ordered atorvastatin 20 mg oral tablet 1 tablet = 20 mg, By Mouth, Daily, # 90 tablet, 1 Refills, Soft Stop, 04/15/19 10:41:44 EST, [facility], 157, cm, 03/07/19 14:39:28 EST, [...] 3 each, 2 Refills, Maintenance, 06/05/17 13:36:23, [place], 1sprays Nares, Both 2 times a day Start Date: 06/05/17 Status: Ordered folic acid 1 mg oral tablet 1 mg, 1, tablet, By Mouth, Daily, # 90 tablet, Refills 0, Tot. Refills 0, Maintenance, 12/06/16 9:36:33, Route to Pharmacy Electronically, [id number], [facility] Start Date: 12/06/16 Status: Ordered hydroCHLOROthiazide 12.5 mg oral capsule 1 capsule = 12.5 mg, By Mouth, Daily, # 90 capsule, 3 Refills, Maintenance, 01/04/19 7:47:00 EDT, Capsule Start Date: 01/04/19 Status: Ordered labetalol 200 mg oral tablet 1 tablet = 200 mg, By Mouth, 2 times a day, # 180 tablet, 3 Refills, Maintenance, 04/15/19 10:41:39EST, Tablet, [facility], ID# [id number], 157, cm, 03/07/19 14:39:28 EST, Height, 87.9, kg, 10/21/17 9:09:44 EDT, Dry Weight Start Date: 04/15/19 Status: Ordered levothyroxine 150 mcg (0.15 mg) oral tablet See Instructions, TAKE 1 TABLET 6 DAYS A WEEK, # 78 tablet, 3 Refills, Soft Stop, 04/15/19 10:41:38EST, [facility], 157, cm, 03/07/19 14:39:28 EST, [...] 3 Refills, Maintenance, 04/15/19 10:41:37 EST, Tablet, [facility], ID# [id number], 157, cm, 03/07/19 14:39:28 EST, Height, 87.9, [...] 06/12/17 16:51:34, Aerosol, Route to Pharmacy Electronically, [id number], [facility] Start Date: 06/12/17 Status: Ordered traZODone 100 mg oral tablet 100 mg, 1, tablet, By Mouth, Daily at bedtime, ID # [id number], # 90 tablet, Refills 3, Tot. Refills3, Maintenance, 04/15/19 10:41:38 EST, Route to Pharmacy Electronically, [facility], 157, cm, 03/07/19 14:39:28 EST, Height, 87.... Start Date: 04/15/19 Status: Ordered Ventolin HFA 108 mcg/inh inhalation aerosol with adapter 1 puffs, Inhalation, 4 times a day, PRN for wheezing, # 3 each, 3 Refills, Maintenance, 04/25/19 14:03:00 EST, Aerosol, [facility], 157, cm, 04/25/19 13:53:00 EST, Height, 87.9, kg, 10/21/17 9:09:00 EDT, Dry Weight Start Date: 04/25/19 Status: Ordered Ventolin HFA 108 mcg/inh inhalation aerosol with adapter 1 puffs, Inhalation, 4 times a day, PRN for wheezing, [facility], # 1 each, 0 Refills, Maintenance, 04/25/19 14:04:00 EST, Aerosol, [facility]/pharmacy #[id number], 157, cm, 04/25/19 13:53:00 EST, Height, [...] Diagnosis Diagnosis Type Effective Dates Health Status Cl inical Service Informant Sinusitis, acute Discharge Diagnosis 04/25/19 Cough Discharge Diagnosis 04/25/19 Vital Signs Most recent to oldest [Reference Range]: 1 Height 157 cm (04/25/19 1:53 PM) Weight 85.8 kg (04/25/19 1:53 PM) Oxygen Saturation [94-100 %] 97 % (04/25/19 1:53 PM) Pulse Rate [55-90 bpm] 63 bpm (04/25/19 1:53 PM) Body Mass Index [18.5-24.99] 34.81 *>HHI* (04/25/19 1:53 PM) Blood Pressure [90-138/55-84 mm Hg] 128/ 82mm Hg (04/25/19 1:53 PM) Temperature [96.8-100.4 DegF] 98.1 DegF (04/25/19 1:53 PM) Blood pressure sites Arm, left (04/25/19 1:53 PM) Temperature Route Oral (04/25/19 1:53 PM) Social History Social History Type Response Smoking Status Never smoker entered on: 04/18/13 Sex
--- OUTSIDE RECORDS SUMMARY | 2023-04-22 12:22 | XMS_ITS | Continuity of Care Document ---
Author Name Unknown Organization [facility] Taye lt Address [address] [place] [address]- Care Team Providers Care Firearms Model Maker Name Role Phone Brian Coleman MD Primary Care Physician Encounter [facility] Date(s): 02/16/21 - 02/23/21 [facility] Adult [address] [place] [address]- Attending Physician: Brian Coleman MD Allergies, Adverse [...] #1 6Result Comment: [04/18/2013] #1 7Location History: [facility] [place] 8Admin Note: rcvd elsewhere 9Admin Note: rcvd [...] # 90 tablet, 1 Refills, Soft Stop, 10/30/20 13:20:00 EDT, [facility], 157, cm, 10/07/20 13:35:00 EDT, Height Start Date: 10/30/20 Status: Ordered Caltrate 600 + D oral tablet 1 tablet, By Mouth, 2 times a day, # 60 tablet, 11 Refills, Maintenance, 02/07/18 7:34:22 EDT, Tablet Start Date: 02/07/18 Status: Ordered fluticasone 50 mcg/inh nasal spray 1 sprays, Nares, Both, 2 times a day, # 3 each, 2 Refills, Maintenance, 05/17/19 11:44:00 EST, [place], [facility], 1 sprays Nares, Both 2 times a day, 157, cm, 05/17/19 11:39:00EST, Height, 87.9, kg, 10/21/17 9:09:00 EDT, Dry We... Start Date: 05/17/19 Status: Ordered folic acid 1 mg oral tablet 1 mg, 1, tablet, By Mouth, Daily, # 90 tablet, Refills 0, Tot. Refills 0, Maintenance, 12/06/16 9:36:33, Route to Pharmacy Electronically, [id number], [facility] Start Date: 12/06/16 Status: Ordered hydroCHLOROthiazide 12.5 mg oral capsule 1 capsule = 12.5 mg, By Mouth, Daily, # 90 capsule, 3 Refills, Maintenance, 02/03/20 8:25:00 EDT, Capsule, [facility], 157, cm, 10/21/19 16:24:00 EDT, Height Start Date: 02/03/20 Status: Ordered labetalol 200 mg oral tablet 1 tablet = 200 mg, By Mouth, 2 times a day, # 180 tablet, 3 Refills, Maintenance, 05/06/20 11:26:00EST, Tablet, [facility], ID# [id number], 157, cm, 10/21/19 16:24:00 EDT, Height Start Date: 05/06/20 Status: Ordered levothyroxine 150 mcg (0.15 mg) oral tablet See Instructions, TAKE 1 TABLET 6 DAYS A WEEK, # 78 tablet, 1 Refills, Soft Stop, 01/22/21 12:47:00EDT, [facility], 157, cm, 10/07/20 13:35:00 EDT, Height Start Date: 01/22/21 Status: Ordered losartan 100 mg oral tablet 1 tablet = 100 mg, By Mouth, Daily, # 90 tablet, 1 Refills, Maintenance, 10/30/20 13:20:00 EDT, Tablet, [facility], 157, cm, 10/07/20 13:35:00 EDT, Height Start Date: 10/30/20 Status: Ordered metFORMIN 1000 mg oral tablet 1 tablet = 1,000 mg, By Mouth, 2 times a day, # 180 tablet, 1 Refills, Maintenance, 10/30/20 13:20:00 EDT, Tablet, [facility], ID# [id number], 157, cm, 10/07/20 13:35:00 EDT, Height Start Date: 10/30/20 Status: Ordered One Touch Delica Lancets See [...] By Mouth, Daily at bedtime, ID # [id number], # 90 tablet, Refills 1, Tot. Refills1, Maintenance, 10/30/20 13:20:00 EDT, Route to Pharmacy Electronically, [facility], 157, cm, 10/07/20 13:35:00 EDT, Height Start Date: 10/30/20 Status: Ordered Ventolin HFA 108 mcg/inh inhalation aerosol with adapter 1 puffs, Inhalation, 4 times a day, PRN for wheezing, # 3 each, 3 Refills, Maintenance, 04/25/19 14:03:00 EST, Aerosol, [facility], 157, cm, 04/25/19 13:53:00 EST, Height, [...]
--- OUTSIDE RECORDS SUMMARY | 2023-04-22 12:22 | XMS_ITS | Continuity of Care Document ---
Author Name Unknown Organization [facility] Taye lt Address [address] [place] [address]- Care Team Providers Care Railroad Commissioner Name Role Phone Virginia PEREZ, Brian Sanford Primary Care Physician [phone] [facility]counter [facility] Date(s): 12/26/19 - 01/25/20 [facility] Adult [address] [place] [address]- [facility] Allergies, Adverse Reactions, Alerts Substance Reaction Severity Status NIFEdipine Active amLODIPine-atorvastatin Reso lved Immunizations Given and Recorded Vaccine Date Status Refusal Reason influenza virus vaccine, inactivated 01/21/20 Give n influenza virus vaccine, inactivated 03/19/18 Marko rded influenza virus vaccine, inactivated 12/30/16 Marko rded influenza virus vaccine, inactivated 02/19/15 Marko rded influenza virus vaccine, inactivated 01/21/14 Give n influenza virus vaccine, inactivated 1 02/08/13 Gi rachael Influenza Virus Vaccine (oldterm) 02/21/19 Recorde d [...] center pharm 3Admin Note: per pt rcvd deven 4Result Comment: [10/18/2013] #3 5Result Comment: [04/18/2013] #1 6Result Comment: [04/18/2013] #1 7Location History: [facility] [place] 8Admin Note: rcvd elsewhere 9Admin Note: rcvd [...] # 90 tablet, 1 Refills, Soft Stop, 11/11/19 11:08:00 EDT, [facility], 157, cm, 10/21/19 16:24:00 EDT, Height, Dry Weight Start Date: 11/11/19 Status: Ordered atorvastatin 20 mg oral tablet 1 tablet = 20 mg, By Mouth, Daily, # 14 tablet, 0 Refills, Soft Stop, 11/11/19 11:08:00 EDT, [facility]/pharmacy #[id number], Emergency supply pt awaiting mailorder shipment., 157, cm, 10/21/19 16:24:00 EDT, Height, Dry Weight Start Date: 11/11/19 Stop Date: 11/25/19 Status: Ordered Caltrate 600 + D oral tablet 1 tablet, By Mouth, 2 times a day, # 60 tablet, 11 Refills, Maintenance, 02/07/18 7:34:22 EDT, Tablet Start Date: 02/07/18 Status: Ordered fluticasone 50 mcg/inh nasal spray 1 sprays, Nares, Both, 2 times a day, # 3 each, 2 Refills, Maintenance, 05/17/19 11:44:00 EST, [place], [facility], 1 sprays Nares, Both 2 times a day, 157, cm, 05/17/19 11:39:00EST, Height, 87.9, kg, 10/21/17 9:09:00 EDT, Dry We... Start Date: 05/17/19 Status: Ordered folic acid 1 mg oral tablet 1 mg, 1, tablet, By Mouth, Daily, # 90 tablet, Refills 0, Tot. Refills 0, Maintenance, 12/06/16 9:36:33, Route to Pharmacy Electronically, [id number], [facility] Start Date: 12/06/16 Status: Ordered hydroCHLOROthiazide 12.5 mg oral capsule 1 capsule = 12.5 mg, By Mouth, Daily, # 90 capsule, 3 Refills, Maintenance, 01/04/19 7:47:00 EDT, Capsule Start Date: 01/04/19 Status: Ordered labetalol 200 mg oral tablet 1 tablet = 200 mg, By Mouth, 2 times a day, # 180 tablet, 3 Refills, Maintenance, 04/15/19 10:41:39EST, Tablet, [facility], ID# [id number], 157, cm, 03/07/19 14:39:28 EST, Height, 87.9, kg, 10/21/17 9:09:44 EDT, Dry Weight Start Date: 04/15/19 Status: Ordered levothyroxine 150 mcg (0.15 mg) oral tablet See Instructions, TAKE 1 TABLET 6 DAYS A WEEK, # 78 tablet, 3 Refills, Soft Stop, 04/15/19 10:41:38EST, [facility], 157, cm, 03/07/19 14:39:28 EST, Height, 87.9, kg, 10/21/17 9:09:44 EDT, Dry Weight Start Date: 04/15/19 Status: Ordered losartan 100 mg oral tablet 1 tablet = 100 mg, By Mouth, Daily, # 90 tablet, 1 Refills, Maintenance, 12/18/19 12:19:00 EDT, Tablet, [facility], 157, cm, 10/21/19 16:24:00 EDT, Height Start Date: 12/18/19 Status: Ordered metFORMIN 1000 mg oral tablet 1 tablet = 1,000 mg, By Mouth, 2 times a day, # 180 tablet, 1 Refills, Maintenance, 06/04/19 6:30:00 EST, Tablet, [facility], ID# [id number], 157, cm, 05/30/19 15:57:00 EST, Height, 87.9, kg, 10/21/17 9:09:00 EDT, Dry Weight Start Date: 06/04/19 Status: Ordered One Touch Delica Lancets See [...] By Mouth, Daily at bedtime, ID # [id number], # 90 tablet, Refills 3, Tot. Refills3, Maintenance, 04/15/19 10:41:38 EST, Route to Pharmacy Electronically, [facility], 157, cm, 03/07/19 14:39:28 EST, Height, 87.... Start Date: 04/15/19 Status: Ordered Ventolin HFA 108 mcg/inh inhalation aerosol with adapter 1 puffs, Inhalation, 4 times a day, PRN for wheezing, # 3 each, 3 Refills, Maintenance, 04/25/19 14:03:00 EST, Aerosol, [facility], 157, cm, 04/25/19 13:53:00 EST, Height, [...]
--- OUTSIDE RECORDS SUMMARY | 2023-04-22 12:22 | XMS_ITS | Continuity of Care Document ---
Author Name Unknown Organization [facility] Taye lt Address [address] [place] [address]- Care Team Providers Care Cobbler Mckay Name Role Phone Emperatriz PEREZ, Benigno Stout Primary Care Physician Encounter [facility] Date(s): 06/08/22 - 07/08/22 [facility] Adult [address] [place] [address]- Allergies, Adverse Reactions, Alerts Substance Reaction Severity [...] inactivated 2 02/08/13 Gi rachael SARS-CoV-2 mRNA ([id number]-[id number]) vax 12/08/21 Recorded SARS-CoV-2 (COVID-19) mRNA BNT-162b2 vac 01/21/21 Recorded SARS-CoV-2 (COVID-19) mRNA BNT-162b2 vac 07/07/20 Given SARS-CoV-2 (COVID-19) mRNA BNT-162b2 vac 06/16/20 Given Influenza Virus Vaccine (oldterm) 02/21/19 Recorde d Influenza Virus Vaccine (oldterm) 3 11/17/11 Given Influenza Virus Vaccine (oldterm) 4 04/07/09 [...] Vaccine (oldterm) 11 01/31/99 Given 1Result Comment: [facility]# [id number] 2Admin Note: FLUARIX 3Admin Note: [facility] 4Admin Note: per pt rcvd deven 5Result Comment: [10/18/2013] #3 6Result Comment: [04/18/2013] #1 7Result Comment: [04/18/2013] #1 8Location History: [facility] daniella falk 9Admin Note: rcvd elsewhere 10Admin Note: rcvd elsewhere 11Admin Note: historical data Medications aspirin 81 mg oral tablet 1 tablet, By Mouth, Daily, # 30 tablet, 0 Refills, Maintenance, Tablet Start Date: 02/19/10 Status: Ordered atorvastatin 20 mg oral tablet 1 tablet, By Mouth, Daily, # 90 tablet, 1 Refills, 05/06/22 11:13:00 EST, [facility], 157, cm, 04/20/22 16:03:00 EST, Height, 83.9, kg, 02/16/22 14:17:00 EDT, Dry Weight Start Date: 05/06/22 Status: Ordered Caltrate 600 + D oral tablet 1 tablet, By Mouth, 2 times a day, # 60 tablet, 11 Refills, Maintenance, 02/07/18 7:34:22 EDT, Tablet Start Date: 02/07/18 Status: Ordered chlorhexidine topical 0.12% liquid 15 mL = 0.018 Gm, By Mouth, 2 times a day, swish and spit; do not swallow, # 473 mL, 0 Refills, Maintenance, 04/20/22 16:50:00 EST, Liquid, [facility]/pharmacy #[id number], Partial fill upon patient [...] each, 1 Refills, Maintenance, 09/14/21 12:04:00 EDT, [place], [facility], 1 sprays Nares, Both 2 times a day, 157, cm, 10/07/20 13:35:00EDT, Height Start Date: 09/14/21 Status: Ordered folic acid 1 mg oral tablet 1 mg, 1, tablet, By Mouth, Daily, # 90 tablet, Refills 0, Tot. Refills 0, Maintenance, 12/06/16 9:36:33, Route to Pharmacy Electronically, [id number], [facility] Start Date: 12/06/16 Status: Ordered hydroCHLOROthiazide 12.5 mg oral capsule 1 capsule = 12.5 mg, By Mouth, Daily, # 90 capsule, 3 Refills, Maintenance, 05/06/21 11:25:00 EST, Capsule, [facility], 157, cm, 10/07/20 13:35:00 EDT, Height Start Date: 05/06/21 Status: Ordered labetalol 200 mg oral tablet 1 tablet, By Mouth, 2 times a day, # 180 tablet, 3 Refills, [facility], 157, cm, 10/07/20 13:35:00 EDT, Height Start Date: 04/21/21 Status: Ordered levothyroxine 0.112 mg oral tablet 1 tablet = 112 mcg, By Mouth, Daily, # 90 tablet, 3 Refills, Maintenance, 12/22/21 8:04:00 EDT, [facility], Partial fill upon patient request if the prescription is for a schedule II opioid drug., 157, cm, 11/18/21 13:13:00 EDT,... Start Date: 12/22/21 Status: Ordered losartan 100 mg oral tablet 1 tablet, By Mouth, Daily, # 90 tablet, 1 Refills, 10/06/21 8:52:00 EDT, [facility], 157, cm, 10/07/20 13:35:00 EDT, Height Start Date: 10/06/21 Status: Ordered metFORMIN 1000 mg oral tablet 1 tablet, By Mouth, 2 times a day, # 180 tablet, 1 Refills, 07/04/22 12:11:00 EST, [facility], 157, cm, 06/17/22 10:48:00 EST, Height, 83.8, kg, 05/26/22 11:19:00 EST, Dry Weight Start Date: 07/04/22 Status: Ordered ONE TOUCH ULTRA MINI TEST [...] 90 tablet, Refills 1, Tot. Refills 1, 05/06/22 11:14:00 EST, Route to Pharmacy Electronically, [facility], 157, cm, 04/20/22 16:03:00 EST, Height, 83.9, kg, 02/16/22 14:17:00 EDT, Dry Weight Start Date: 05/06/22 Status: Ordered Ventolin HFA 108 mcg/inh inhalation aerosol with adapter 1 puffs, Inhalation, 4 times a day, PRN for wheezing, # 3 each, 3 Refills, Maintenance, 04/25/19 14:03:00 EST, Aerosol, [facility], 157, cm, 04/25/19 13:53:00 [...] Team Personnel Name: Jazz Wakefield NP [facility] PC[facility] Associate Professional Member Role: Lifetime Consulting Provider Address: Address: [address] [place] [address]- Name: Benigno Awan MD Position[facility] Primary Care Physician Member Role: PCP Address: Address: [address] [place] [address]- Name: Nati Salomon RN Position[facility] RN Member Role: Primary Care Nurse Care Team Related Persons Name: LILYMOONJOSE Address: home [address] [place] [address]
--- OUTSIDE RECORDS SUMMARY | 2023-04-22 12:22 | XMS_ITS | Continuity of Care Document ---
Author Name Unknown Organization [facility] Taye lt Address [address] [place] [address]- Care Team Providers Care Roof Panel Hanger Name Role Phone Virginia PEREZ, Brian Sanford Primary Care Physician Encounter [facility] Date(s): 05/07/20 - 06/06/20 [facility] [address] [place] [address]- Allergies, Adverse Reactions, Alerts Substance Reaction Severity [...] #1 6Result Comment: [04/18/2013] #1 7Location History: [facility] daniella [facility] 8Admin Note: rcvd elsewhere 9Admin Note: rcvd [...] # 90 tablet, 1 Refills, Soft Stop, 05/06/20 11:26:00 EST, [facility], 157, cm, 10/21/19 16:24:00 EDT, Height Start Date: 05/06/20 Status: Ordered Caltrate 600 + D oral tablet 1 tablet, By Mouth, 2 times a day, # 60 tablet, 11 Refills, Maintenance, 02/07/18 7:34:22 EDT, Tablet Start Date: 02/07/18 Status: Ordered fluticasone 50 mcg/inh nasal spray 1 sprays, Nares, Both, 2 times a day, # 3 each, 2 Refills, Maintenance, 05/17/19 11:44:00 EST, [place], [facility], 1 sprays Nares, Both 2 times a day, 157, cm, 05/17/19 11:39:00EST, Height, 87.9, kg, 10/21/17 9:09:00 EDT, Dry We... Start Date: 05/17/19 Status: Ordered folic acid 1 mg oral tablet 1 mg, 1, tablet, By Mouth, Daily, # 90 tablet, Refills 0, Tot. Refills 0, Maintenance, 12/06/16 9:36:33, Route to Pharmacy Electronically, [id number], [facility] Start Date: 12/06/16 Status: Ordered hydroCHLOROthiazide 12.5 mg oral capsule 1 capsule = 12.5 mg, By Mouth, Daily, # 90 capsule, 3 Refills, Maintenance, 02/03/20 8:25:00 EDT, Capsule, [facility], 157, cm, 10/21/19 16:24:00 EDT, Height Start Date: 02/03/20 Status: Ordered labetalol 200 mg oral tablet 1 tablet = 200 mg, By Mouth, 2 times a day, # 180 tablet, 3 Refills, Maintenance, 05/06/20 11:26:00EST, Tablet, [facility], ID# [id number], 157, cm, 10/21/19 16:24:00 EDT, Height Start Date: 05/06/20 Status: Ordered levothyroxine 150 mcg (0.15 mg) oral tablet See Instructions, TAKE 1 TABLET 6 DAYS A WEEK, # 78 tablet, 3 Refills, Soft Stop, 02/03/20 8:25:00 EDT, [facility], 157, cm, 10/21/19 16:24:00 EDT, Height, Dry Weight Start Date: 02/03/20 Status: Ordered losartan 100 mg oral tablet 1 tablet = 100 mg, By Mouth, Daily, # 90 tablet, 0 Refills, Maintenance, 05/06/20 10:56:00 EST, Tablet, [facility], 157, cm, 10/21/19 16:24:00 EDT, Height Start Date: 05/06/20 Status: Ordered metFORMIN 1000 mg oral tablet 1 tablet = 1,000 mg, By Mouth, 2 times a day, # 180 tablet, 0 Refills, Maintenance, 05/06/20 10:56:00 EST, Tablet, [facility], ID# [id number], 157, cm, 10/21/19 16:24:00 EDT, Height Start Date: 05/06/20 Status: Ordered One Touch Delica Lancets See [...] By Mouth, Daily at bedtime, ID # [id number], # 90 tablet, Refills 1, Tot. Refills1, Maintenance, 05/06/20 10:56:00 EST, Route to Pharmacy Electronically, [facility], 157, cm, 10/21/19 16:24:00 EDT, Height Start Date: 05/06/20 Status: Ordered Ventolin HFA 108 mcg/inh inhalation aerosol with adapter 1 puffs, Inhalation, 4 times a day, PRN for wheezing, # 3 each, 3 Refills, Maintenance, 04/25/19 14:03:00 EST, Aerosol, [facility], 157, cm, 04/25/19 13:53:00 EST, Height, [...]
--- OUTSIDE RECORDS SUMMARY | 2023-04-22 12:23 | XMS_ITS | Continuity of Care Document ---
Author Name Unknown Organization [facility] Taye lt Address [address] [place] [id number]- Care Team Providers Care Resource Technician Name Role Phone Emperatriz PEREZ, Benigno Stout Primary Care Physician Encounter [facility] Date(s): 04/20/22 - 04/27/22 [facility] Adult [address] [place] [address]- Encounter Diagnosis Aphthous ulcer of mouth(Discharge Diagnosis) - 04/20/22 Attending Physician: Not on Staff, Attending MD Allergies, Adverse Reactions, Alerts Substance Reaction [...] 11 01/31/99 Given 1Result Comment: [facility]# [id number] 2Admin Note: FLUARIX 3Admin Note: [facility] 4Admin Note: per pt rcvd deven 5Result Comment: [10/18/2013] #3 6Result Comment: [04/18/2013] #1 7Result Comment: [04/18/2013] #1 8Location History: [facility] daniella [place] 9Admin Note: rcvd elsewhere 10Admin Note: rcvd elsewhere 11Admin Note: historical data Medications aspirin 81 mg oral tablet 1 tablet, By Mouth, Daily, # 30 tablet, 0 Refills, Maintenance, Tablet Start Date: 02/19/10 Status: Ordered atorvastatin 20 mg oral tablet 1 tablet, By Mouth, Daily, # 90 tablet, 1 Refills, 09/29/21 16:13:00 EDT, [facility], 157, cm, 10/07/20 13:35:00 [...] 0 Refills, Maintenance, 04/20/22 16:50:00 EST, Liquid, [facility]/pharmacy #[id number], Partial fill upon patient request if [...] each, 1 Refills, Maintenance, 09/14/21 12:04:00 EDT, [place], [facility], 1 sprays Nares, Both 2 times a day, 157, cm, 10/07/20 13:35:00EDT, Height Start Date: 09/14/21 Status: Ordered folic acid 1 mg oral tablet 1 mg, 1, tablet, By Mouth, Daily, # 90 tablet, Refills 0, Tot. Refills 0, Maintenance, 12/06/16 9:36:33, Route to Pharmacy Electronically, [id number], [facility] Start Date: 12/06/16 Status: Ordered hydroCHLOROthiazide 12.5 mg oral capsule 1 capsule = 12.5 mg, By Mouth, Daily, # 90 capsule, 3 Refills, Maintenance, 05/06/21 11:25:00 EST, Capsule, [facility], 157, cm, 10/07/20 13:35:00 EDT, Height Start Date: 05/06/21 Status: Ordered labetalol 200 mg oral tablet 1 tablet, By Mouth, 2 times a day, # 180 tablet, 3 Refills, [facility], 157, cm, 10/07/20 13:35:00 EDT, Height Start Date: 04/21/21 Status: Ordered levothyroxine 0.112 mg oral tablet 1 tablet = 112 mcg, By Mouth, Daily, # 90 tablet, 3 Refills, Maintenance, 12/22/21 8:04:00 EDT, [facility], Partial fill upon patient request if the prescription is for a schedule II opioid drug., 157, cm, 11/18/21 13:13:00 EDT,... Start Date: 12/22/21 Status: Ordered losartan 100 mg oral tablet 1 tablet, By Mouth, Daily, # 90 tablet, 1 Refills, 10/06/21 8:52:00 EDT, [facility], 157, cm, 10/07/20 13:35:00 EDT, Height Start Date: 10/06/21 Status: Ordered metFORMIN 1000 mg oral tablet 1 tablet, By Mouth, 2 times a day, # 180 tablet, 1 Refills, 10/06/21 8:51:00 EDT, [facility], 157, cm, 10/07/20 13:35:00 EDT, Height Start Date: 10/06/21 Status: Ordered traZODone 100 mg oral tablet 1, tablet, By Mouth, Daily at bedtime, # 90 tablet, Refills 1, Tot. Refills 1, 10/06/21 8:53:00 EDT, Route to Pharmacy Electronically, [facility], 157, cm, 10/07/20 13:35:00 EDT, Height Start Date: 10/06/21 Status: Ordered Ventolin HFA 108 mcg/inh inhalation aerosol with adapter 1 puffs, Inhalation, 4 times a day, PRN for wheezing, # 3 each, 3 Refills, Maintenance, 04/25/19 14:03:00 EST, Aerosol, [facility], 157, cm, 04/25/19 13:53:00 [...] Dates Health Status Cl inical Service Informant Aphthous ulcer of mouth Discharge Diagnosis 04/20/22 Vital Signs Most recent to oldest [Reference Range]: 1 Height 157 cm (04/20/22 4:03 PM) Weight 83.7 kg (04/20/22 4:03 PM) Oxygen Saturation [94-100 %] 99 % (04/20/22 4:03 PM) Pulse Rate [55-90 bpm] 57 bpm (04/20/22 4:03 PM) Body Mass Index [18.5-24.99 kg/m2] 33.96 kg/m2 *>HHI* (04/20/22 4:03 PM) Blood Pressure [90-138/55-84 mm Hg] 160/ 88mm Hg *H* (04/20/22 4:03 PM) Respiratory Rate [16-30 br/min] 20 br/mi n (04/20/22 4:03 PM) Temperature [96.8-100.4 DegF] 98.3 DegF (04/20/22 4:03 PM) Mode of Delivery (Oxygen) Room air (04/20/22 4:03 PM) Temperature Route Oral (04/20/22 4:03 PM) Weight Obtained Via Standing scale (04/20/22 4:03 PM) Social History Social History Type Response Smoking Status Never smoker entered on: 04/18/13 Sex Patient Care team information Care Team Personnel Name: Jazz Wakefield NP Position: [facility] PCO Associate Professional Member Role: Lifetime Consulting Provider Address: Address: [address] [place] [id number]- [place] Name: Emperatriz PEREZ, Benigno Stout Position: [facility] Primary Care Physician Member Role: PCP Address: Address: [address] [place] [address]- Name: Nati Salomon RN Position: [facility] RN Member Role: Primary Care Nurse Care Team Related Persons Name: JOSE ALFONSO Address: home [address] [place] [address]
--- OUTSIDE RECORDS SUMMARY | 2023-04-22 12:23 | XMS_ITS | Continuity of Care Document ---
Author Name Unknown Organization [facility] Address [address] [facility], [address] [place] [address]- Care Team Providers Care Propagation Manager Name Role Phone Brian Coleman MD Primary Care Physician Encounter 03/17/21 - 03/24/21 [facility] [address], [address] [place] [address]- Attending Physician: Brian Coleman MD Admitting Physician: Brian Coleman MD Referring Physician: Brian Coleman MD Allergies, Adverse Reactions, [...] #1 6Result Comment: [04/18/2013] #1 7Location History: [facility]ella [facility] 8Admin Note: rcvd elsewhere 9Admin Note: rcvd [...] 1 Refills, Soft Stop, 10/30/20 13:20:00 EDT, [facility], 157, cm, 10/07/20 13:35:00 EDT, Height Start Date: 10/30/20 Status: Ordered Caltrate 600 + D oral tablet 1 tablet, By Mouth, 2 times a day, # 60 tablet, 11 Refills, Maintenance, 02/07/18 7:34:22 EDT, Tablet Start Date: 02/07/18 Status: Ordered fluticasone 50 mcg/inh nasal spray 1 sprays, Nares, Both, 2 times a day, # 3 each, 2 Refills, Maintenance, 05/17/19 11:44:00 EST, [place], [facility], 1 sprays Nares, Both 2 times a day, 157, cm, 05/17/19 11:39:00EST, Height, 87.9, kg, 10/21/17 9:09:00 EDT, Dry We... Start Date: 05/17/19 Status: Ordered folic acid 1 mg oral tablet 1 mg, 1, tablet, By Mouth, Daily, # 90 tablet, Refills 0, Tot. Refills 0, Maintenance, 12/06/16 9:36:33, Route to Pharmacy Electronically, [id number], [facility] Start Date: 12/06/16 Status: Ordered hydroCHLOROthiazide 12.5 mg oral capsule 1 capsule = 12.5 mg, By Mouth, Daily, # 90 capsule, 3 Refills, Maintenance, 02/03/20 8:25:00 EDT, Capsule, [facility], 157, cm, 10/21/19 16:24:00 EDT, Height Start Date: 02/03/20 Status: Ordered labetalol 200 mg oral tablet 1 tablet = 200 mg, By Mouth, 2 times a day, # 180 tablet, 3 Refills, Maintenance, 05/06/20 11:26:00EST, Tablet, [facility], ID# [id number], 157, cm, 10/21/19 16:24:00 EDT, Height Start Date: 05/06/20 Status: Ordered levothyroxine 150 mcg (0.15 mg) oral tablet See Instructions, TAKE 1 TABLET 6 DAYS A WEEK, # 78 tablet, 1 Refills, Soft Stop, 01/22/21 12:47:00EDT, [facility], 157, cm, 10/07/20 13:35:00 EDT, Height Start Date: 01/22/21 Status: Ordered losartan 100 mg oral tablet 1 tablet = 100 mg, By Mouth, Daily, # 90 tablet, 1 Refills, Maintenance, 10/30/20 13:20:00 EDT, Tablet, [facility], 157, cm, 10/07/20 13:35:00 EDT, Height Start Date: 10/30/20 Status: Ordered metFORMIN 1000 mg oral tablet 1 tablet = 1,000 mg, By Mouth, 2 times a day, # 180 tablet, 1 Refills, Maintenance, 10/30/20 13:20:00 EDT, Tablet, [facility], ID# [id number], 157, cm, 10/07/20 13:35:00 EDT, Height Start [...] By Mouth, Daily at bedtime, ID # [id number], # 90 tablet, Refills 1, Tot. Refills1, Maintenance, 10/30/20 13:20:00 EDT, Route to Pharmacy Electronically, [facility], 157, cm, 10/07/20 13:35:00 EDT, Height Start Date: 10/30/20 Status: Ordered Ventolin HFA 108 mcg/inh inhalation aerosol with adapter 1 puffs, Inhalation, 4 times a day, PRN for wheezing, # 3 each, 3 Refills, Maintenance, 04/25/19 14:03:00 EST, Aerosol, [facility], 157, cm, 04/25/19 13:53:00 EST, Height, [...] guidlines; no need antibiotics 8discussed new 9Echo 2003, antibiotic prophylaxis 10frax 14/0.7 Social History Social History Type Response Smoking Status Never smoker entered on: 04/18/13 Sex
--- OUTSIDE RECORDS SUMMARY | 2023-04-22 12:23 | XMS_ITS | Continuity of Care Document ---
Author Name Unknown Organization [facility] Address [address] [place] [address]- Care Team Providers Care Environmental Health Sanitarian Name Role Phone Emperatriz PEREZ, Benigno Stout Primary Care Physician [phone] [place] [facility] [place]/21[place]22 - 12/21/22 [facility] [address] [place] [address]- Allergies, Adverse Reactions, Alerts Substance Reaction Severity [...] inactivated 2 02/08/13 Gi rachael SARS-CoV-2 mRNA (kxloflf-lggb-ifmwm) vax 12/08/21 Recorded SARS-CoV-2 (COVID-19) mRNA BNT-162b2 [...] Vaccine (oldterm) 11 01/31/99 Given 1Result Comment: [facility]# [id number] 2Admin Note: FLUARIX 3Admin Note: [facility] 4Admin Note: per pt rcvd deven 5Result Comment: [10/18/2013] #3 6Result Comment: [04/18/2013] #1 7Result Comment: [04/18/2013] #1 8Location History: [facility] daniella falk 9Admin Note: rcvd elsewhere 10Admin Note: rcvd elsewhere 11Admin Note: historical data Medications aspirin 81 mg oral tablet 1 tablet, By Mouth, Daily, # 30 tablet, 0 Refills, Maintenance, Tablet Start Date: 02/19/10 Status: Ordered atorvastatin 20 mg oral tablet 1 tablet, By Mouth, Daily, # 90 tablet, 1 Refills, 09/21/22 13:03:00 EDT, [facility], 157, cm, 06/17/22 10:48:00 EST, Height, 83.8, kg, 05/26/22 11:19:00 EST, Dry Weight Start Date: 09/21/22 Status: Ordered Caltrate 600 + D oral tablet 1 tablet, By Mouth, 2 times a day, # 60 tablet, 11 Refills, Maintenance, 02/07/18 7:34:22 EDT, Tablet Start Date: 02/07/18 Status: Ordered chlorhexidine topical 0.12% liquid 15 mL = 0.018 Gm, By Mouth, 2 times a day, swish and spit; do not swallow, # 473 mL, 0 Refills, Maintenance, 04/20/22 16:50:00 EST, Liquid, [facility]/pharmacy #[id number], Partial fill upon patient request [...] each, 1 Refills, Maintenance, 12/12/22 7:03:00 EDT, [place], [facility], 1 sprays Nares, Both 2 times a day, 155.2, cm, 11/22/22 14:28:00 EDT, Height, 83.8, kg, 05/26/22 11:19:00 EST, Dry... Start Date: 12/12/22 Status: Ordered folic acid 1 mg oral tablet 1 mg, 1, tablet, By Mouth, Daily, # 90 tablet, Refills 0, Tot. Refills 0, Maintenance, 12/06/16 9:36:33, Route to Pharmacy Electronically, [id number], [facility] Start Date: 12/06/16 Status: Ordered Freestyle Lite Lancets See Instructions, for 30 days, # 200 each, Refills 3, Tot. Refills 3, Hard Stop 03/30/23 5:38:00 EST, use as directed for Type 2 Diabetes Mellitus, 11/30/22 5:38:00 EDT, Supply, 155.2, cm, 11/22/22 14:28:00 EDT, Height, 83.8, kg, 05/26/22 11:19:00 EST... Start Date: 11/30/22 Stop Date: 03/30/23 Status: Ordered Freestyle Lite Lancets See Instructions, [...] Ordered Freestyle Lite Test Strips See Instructions, for 30 days, # 200 each, Refills 3, Tot. Refills 3, Hard Stop 03/30/23 5:38:00 EST, use as directed for Type 2 Diabetes Mellitus, 11/30/22 5:38:00 EDT, Supply, 155.2, cm, 11/22/22 14:28:00 EDT, Height, 83.8, kg, 05/26/22 11:19:00 EST... Start Date: 11/30/22 Stop Date: 03/30/23 Status: Ordered Freestyle Lite Test Strips See [...] 3 Refills, Maintenance, 07/15/22 5:49:00 EDT, Capsule, [facility], 157, cm, 06/17/22 10:48:00 EST, Height, 83.8, kg, 05/26/22 11:19:00 EST, Dry Weight Start Date: 07/15/22 Status: Ordered labetalol 200 mg oral tablet 1 tablet, By Mouth, 2 times a day, # 180 tablet, 3 Refills, 07/15/22 5:49:00 EDT, [facility], 157, cm, 06/17/22 10:48:00 EST, Height, 83.8, kg, 05/26/22 11:19:00 EST, Dry Weight Start Date: 07/15/22 Status: Ordered levothyroxine 0.112 mg oral tablet 1 tablet = 112 mcg, By Mouth, Daily, # 90 tablet, 3 Refills, Maintenance, 12/22/21 8:04:00 EDT, [facility], Partial fill upon patient request if the prescription is for a schedule II opioid drug., 157, cm, 11/18/21 13:13:00 EDT,... Start Date: 12/22/21 Status: Ordered losartan 100 mg oral tablet 1 tablet, By Mouth, Daily, # 90 tablet, 1 Refills, Maintenance, 11/18/22 15:06:00 EDT, Pharmacy, 157, cm, 06/17/22 10:48:00 EST, Height, 83.8, kg, 05/26/22 11:19:00 EST, Dry Weight Start Date: 11/18/22 Status: Ordered metFORMIN 1000 mg oral tablet 1 tablet, By Mouth, 2 times a day, # 180 tablet, 1 Refills, 07/04/22 12:11:00 EST, [facility], 157, cm, 06/17/22 10:48:00 EST, [...] 90 tablet, Refills 1, Tot. Refills 1, 09/21/22 13:03:00 EDT, Route to Pharmacy Electronically, [facility], 157, cm, 06/17/22 10:48:00 EST, Height, 83.8, kg, 05/26/22 11:19:00 EST, Dry Weight Start Date: 09/21/22 Status: Ordered triamcinolone 0.1% topical ointment 1 application, Topically, 3 times a day, for 7 days, # 30 Gm, 5 Refills, Acute 01/03/23 5:10:00 EDT, 11/22/22 5:10:00 EDT, Ointment, [facility], Partial fill upon patient request if the prescription is for a schedule II opioid d... Start Date: 11/22/22 Stop Date: 01/03/23 Status: Ordered Ventolin HFA 108 mcg/inh inhalation aerosol with adapter 1 puffs, Inhalation, 4 times a day, PRN for wheezing, # 3 each, 3 Refills, Maintenance, 04/25/19 14:03:00 EST, Aerosol, [facility], 157, cm, 04/25/19 13:53:00 EST, [...] 7, 8, 9 Confirmed Active Obese class II Confirmed Active Osteopenia BMD 10 Confirmed 02/06/18 [...] Personnel Name: Ashu GRAY, Jazz Valentin Position: [facility] PCO Associate Professional Member Role: Lifetime Consulting Provider Address: Address: [address] [place] [address]- Name: Emperatriz PEREZ, Benigno Stout Position: [facility] Physician - Primary Care Member Role: PCP Address: Address: [address] [place] [address]- Name: Nati Salomon RN Position: [facility] RN Member Role: Primary Care Nurse Care Team Related Persons Name: JOSE ALFONSO Address: home [address] [place] [address]
--- OUTSIDE RECORDS SUMMARY | 2023-04-22 12:23 | XMS_ITS | Continuity of Care Document ---
Author Name Unknown Organization [facility] Taye lt Address [address] [place] [address]- Care Team Providers Care Corporate Concierge Name Role Phone Virginia PEREZ, Brian Sanford Primary Care Physician [facility] Date[facility]s): 06/04/21 - 07/04/21 [facility] Adult [address] [place] [address]- Allergies, Adverse Reactions, Alerts Substance Reaction Severity [...] #1 6Result Comment: [04/18/2013] #1 7Location History: [facility] 8Admin Note: rcvd elsewhere 9Admin Note: rcvd [...] Mouth, Daily, # 90 tablet, 1 Refills, [facility], 157, cm, 10/07/20 [...] each, 2 Refills, Maintenance, 05/17/19 11:44:00 EST, [place], Pharmacy, 1 sprays Nares, Both 2 times a day, 157, cm, 05/17/19 11:39:00EST, Height, 87.9, kg, 10/21/17 9:09:00 EDT, Dry We... Start Date: 05/17/19 Status: Ordered folic acid 1 mg oral tablet 1 mg, 1, tablet, By Mouth, Daily, # 90 tablet, Refills 0, Tot. Refills 0, Maintenance, 12/06/16 9:36:33, Route to Pharmacy Electronically, [id number], [facility] Start Date: 12/06/16 Status: Ordered hydroCHLOROthiazide 12.5 mg oral capsule 1 capsule = 12.5 mg, By Mouth, Daily, # 90 capsule, 3 Refills, Maintenance, 05/06/21 11:25:00 EST, Caps[place], Pharmacy, 157, cm, 10/07/20 13:35:00 EDT, Height Start Date: 05/06/21 Status: Ordered labetalol 200 mg oral tablet 1 tablet, By Mouth, 2 times a day, # 180 tablet, 3 Refills, [facility], 157, cm, 10/07/20 13:35:00 EDT, Height Start Date: 04/21/21 Status: Ordered levothyroxine 150 mcg (0.15 mg) oral tablet See Instructions, TAKE 1 TABLET 6 DAYS A WEEK, # 78 tablet, 1 Refills, Soft Stop, 01/22/21 12:47:00EDT, Pharmacy, 157, cm, 10/07/20 13:35:00 EDT, Height Start Date: 01/22/21 Status: Ordered losartan 100 mg oral tablet 1 tablet, By Mouth, Daily, # 90 tablet, 1 Refills, [facility], 157, cm, 10/07/20 13:35:00 EDT, Height Start Date: 04/19/21 Status: Ordered metFORMIN 1000 mg oral tablet 1 tablet, By Mouth, 2 times a day, # 180 tablet, 1 Refills, [facility], 157, cm, 10/07/20 [...] tablet, Refills 1, Route to Pharmacy Electronically, [facility], 157, cm, 10/07/20 13:35:00 EDT, Height Start Date: 04/19/21 Status: Ordered Ventolin HFA 108 mcg/inh inhalation aerosol with adapter 1 puffs, Inhalation, 4 times a day, PRN for wheezing, # 3 each, 3 Refills, Maintenance, 04/25/19 14:03:00 EST, Aerosol, Pharmacy, 157, cm, 04/25/19 13:53:00 EST, Height, [...]
--- OUTSIDE RECORDS SUMMARY | 2023-04-22 12:23 | XMS_ITS | Continuity of Care Document ---
Author Name Unknown Organization [facility] Taye lt Address [address] [place] [address]- Care Team Providers Care Frame Wirer Name Role Phone Virginia PEREZ, Brian Sanford Primary Care Physician Encounter [facility] Date(s): 07/03/20 - 08/02/20 [facility] Adult [address] [place] [address]- Allergies, Adverse Reactions, Alerts Substance Reaction Severity Status NIFEdipine Active amLODIPine-atorvastatin Reso lved Immunizations Given and Recorded Vaccine Date Status Refusal Reason SARS-CoV-2 (COVID-19) mRNA BNT-162b2 vac 07/07/20 Given SARS-CoV-2 (COVID-19) mRNA BNT-162b2 vac 06/16/20 Given influenza virus vaccine, inactivated 01/21/20 Give n [...] #1 6Result Comment: [04/18/2013] #1 7Location History: [facility] 8Admin Note: rcvd elsewhere 9Admin Note: rcvd [...] 1 Refills, Soft Stop, 05/06/20 11:26:00 EST, [facility], 157, cm, 10/21/19 16:24:00 EDT, Height Start Date: 05/06/20 Status: Ordered Caltrate 600 + D oral tablet 1 tablet, By Mouth, 2 times a day, # 60 tablet, 11 Refills, Maintenance, 02/07/18 7:34:22 EDT, Tablet Start Date: 02/07/18 Status: Ordered fluticasone 50 mcg/inh nasal spray 1 sprays, Nares, Both, 2 times a day, # 3 each, 2 Refills, Maintenance, 05/17/19 11:44:00 EST, [place], [facility], 1 sprays Nares, Both 2 times a day, 157, cm, 05/17/19 11:39:00EST, Height, 87.9, kg, 10/21/17 9:09:00 EDT, Dry We... Start Date: 05/17/19 Status: Ordered folic acid 1 mg oral tablet 1 mg, 1, tablet, By Mouth, Daily, # 90 tablet, Refills 0, Tot. Refills 0, Maintenance, 12/06/16 9:36:33, Route to Pharmacy Electronically, [id number], [facility] Start Date: 12/06/16 Status: Ordered hydroCHLOROthiazide 12.5 mg oral capsule 1 capsule = 12.5 mg, By Mouth, Daily, # 90 capsule, 3 Refills, Maintenance, 02/03/20 8:25:00 EDT, Capsule, [facility], 157, cm, 10/21/19 16:24:00 EDT, Height Start Date: 02/03/20 Status: Ordered labetalol 200 mg oral tablet 1 tablet = 200 mg, By Mouth, 2 times a day, # 180 tablet, 3 Refills, Maintenance, 05/06/20 11:26:00EST, Tablet, [facility], ID# [id number], 157, cm, 10/21/19 16:24:00 EDT, Height Start Date: 05/06/20 Status: Ordered levothyroxine 150 mcg (0.15 mg) oral tablet See Instructions, TAKE 1 TABLET 6 DAYS A WEEK, # 78 tablet, 3 Refills, Soft Stop, 02/03/20 8:25:00 EDT, [facility], 157, cm, 10/21/19 16:24:00 EDT, Height, Dry Weight Start Date: 02/03/20 Status: Ordered losartan 100 mg oral tablet 1 tablet = 100 mg, By Mouth, Daily, # 90 tablet, 0 Refills, Maintenance, 05/06/20 10:56:00 EST, Tablet, [facility], 157, cm, 10/21/19 16:24:00 EDT, Height Start Date: 05/06/20 Status: Ordered meclizine 25 mg oral tablet 1 tablet = 25 mg, By Mouth, 3 times a day, PRN for dizziness, for 30 days, # 30 tablet, 0 Refills, Acute 08/19/20 10:30:00 EDT, 07/20/20 10:30:00 EDT, Tablet, [facility] #[id number], 157, cm, 07/20/20 10:11:00 EDT, Height Start Date: 07/20/20 Stop Date: 08/19/20 Status: Ordered metFORMIN 1000 mg oral tablet 1 tablet = 1,000 mg, By Mouth, 2 times a day, # 180 tablet, 0 Refills, Maintenance, 05/06/20 10:56:00 EST, Tablet, [facility], ID# [id number], 157, cm, 10/21/19 16:24:00 EDT, Height Start [...] By Mouth, Daily at bedtime, ID # [id number], # 90 tablet, Refills 1, Tot. Refills1, Maintenance, 05/06/20 10:56:00 EST, Route to Pharmacy Electronically, [facility], 157, cm, 10/21/19 16:24:00 EDT, Height Start Date: 05/06/20 Status: Ordered Ventolin HFA 108 mcg/inh inhalation aerosol with adapter 1 puffs, Inhalation, 4 times a day, PRN for wheezing, # 3 each, 3 Refills, Maintenance, 04/25/19 14:03:00 EST, Aerosol, [facility], 157, cm, 04/25/19 [...]
--- OUTSIDE RECORDS SUMMARY | 2023-04-22 12:23 | XMS_ITS | Continuity of Care Document ---
Author Name Unknown Organization [facility] Taye lt Address [address] [place] [phone]- Care Team Providers Care Guide Dog Trainer Name Role Phone Emperatriz PEREZ, Benigno Stout Primary Care Physician [phone] Encounter [facility] Date(s): 11/18/21 - 11/25/21 [facility] Adult [address] [place] [address]- Encounter Diagnosis Medicare annual wellness visit, subsequent(Discharge Diagnosis) - 11/16/21 Diabetes mellitus type 2, controlled(Discharge Diagnosis) - 11/16/21 Benign Essential Hypertension(Discharge Diagnosis) - 11/16/21 Familial hyperlipidemia(Discharge Diagnosis) - 11/16/21 Acquired hypothyroidism(Discharge Diagnosis) - 11/16/21 Elevated homocysteine(Discharge Diagnosis) - 11/16/21 Vitamin B12 deficiency (non anemic)(Discharge Diagnosis) - 11/16/21 Asthma(Discharge Diagnosis) - 11/16/21 Fatty liver(Discharge Diagnosis) - 11/16/21 Mitral insufficiency(Discharge Diagnosis) - 11/16/21 Osteopenia BMD (Discharge Diagnosis) - 11/16/21 Anemia, iron deficiency neg colo/egd 2021(Discharge Diagnosis) - 11/16/21 Attending Physician: Virginia PEREZ, Brian Sanford Allergies, Adverse Reactions, Alerts Substance Reaction Severity [...] [04/18/2013] #1 7[facility] 8Admin Note: rcvd elsewhere 9Admin Note: rcvd elsewhere 10Admin Note: historical data Medications Aerochamber See Instructions, # 1 units, Maintenance, dx: asthma use w/ albuterol MDI, 12/01/14 15:22:56, Compound Start Date: 12/01/14 Status: Ordered albuterol CFC free 90 mcg/inh inhalation aerosol 2, puffs, Inhalation, Every 6 hours, # 3 each, Refills 1, Tot. Refills 1, Maintenance, 11/18/21 13:28:00 EDT, Route to Pharmacy Electronically, [id number], [facility], 157, cm, 11/18/21 13:13:00 EDT, He... Start Date: 11/18/21 Status: Ordered aspirin 81 mg oral tablet 1 tablet, By Mouth, Daily, # 30 tablet, 0 Refills, Maintenance, Tablet Start Date: 02/19/10 Status: Ordered atorvastatin 20 mg oral tablet 1 tablet, By Mouth, Daily, # 90 tablet, 1 Refills, 09/29/21 16:13:00 EDT, [facility], 157, cm, 10/07/20 13:35:00 EDT, [...] each, 1 Refills, Maintenance, 09/14/21 12:04:00 EDT, [place], [facility], 1 sprays Nares, Both 2 times a day, 157, cm, 10/07/20 13:35:00EDT, Height Start Date: 09/14/21 Status: Ordered folic acid 1 mg oral tablet 1 mg, 1, tablet, By Mouth, Daily, # 90 tablet, Refills 0, Tot. Refills 0, Maintenance, 12/06/16 9:36:33, Route to Pharmacy Electronically, [id number], [facility] Start Date: 12/06/16 Status: Ordered hydroCHLOROthiazide 12.5 mg oral capsule 1 capsule = 12.5 mg, By Mouth, Daily, # 90 capsule, 3 Refills, Maintenance, 05/06/21 11:25:00 EST, Capsule, [facility], 157, cm, 10/07/20 13:35:00 EDT, Height Start Date: 05/06/21 Status: Ordered labetalol 200 mg oral tablet 1 tablet, By Mouth, 2 times a day, # 180 tablet, 3 Refills, [facility], 157, cm, 10/07/20 13:35:00 EDT, Height Start Date: 04/21/21 Status: Ordered levothyroxine 150 mcg (0.15 mg) oral tablet See Instructions, TAKE 1 TABLET 5 DAYS A WEEK, # 78 tablet, 1 Refills, Soft Stop, 10/06/21 8:52:00 EDT, [facility], 157, cm, 10/07/20 13:35:00 EDT, Height Start Date: 10/06/21 Status: Ordered losartan 100 mg oral tablet 1 tablet, By Mouth, Daily, # 90 tablet, 1 Refills, 10/06/21 8:52:00 EDT, [facility], 157, cm, 10/07/20 13:35:00 EDT, Height Start Date: 10/06/21 Status: Ordered metFORMIN 1000 mg oral tablet 1 tablet, By Mouth, 2 times a day, # 180 tablet, 1 Refills, 10/06/21 8:51:00 EDT, [facility], 157, cm, 10/07/20 13:35:00 EDT, [...] to Pharmacy Electronically, [facility], 157, cm, 10/07/20 13:35:00 EDT, Height Start Date: 10/06/21 Status: Ordered Ventolin HFA 108 mcg/inh inhalation aerosol with adapter 1 puffs, Inhalation, 4 times a day, PRN for wheezing, # 3 each, 3 Refills, Maintenance, 04/25/19 14:03:00 EST, Aerosol, [facility], 157, cm, 04/25/19 13:53:00 EST, [...] new 9Echo 2003, antibiotic prophylaxis 10frax 14/0.7 Diagnosis Diagnosis Type Effective Dates Health Status Clinical Service Informant Medicare annual wellness visit, subsequent Discharge Diagnosis 11/16/21 Diabetes mellitus type 2, controlled Discharge Diagnosis 11/16/21 Benign Essential Hypertension Discharge Diagnosis 11/16/21 Familial hyperlipidemia Discharge Diagnosis 11/16/21 Acquired hypothyroidism Discharge Diagnosis 11/16/21 Elevated homocysteine Discharge Diagnosis 11/16/21 Asthma Discharge Diagnosis 11/16/21 Fatty liver Discharge Diagnosis 11/16/21 Vitamin B12 deficiency (non anemic) Discharge Diagnosis 11/16/21 Osteopenia BMD Discharge Diagnosis 11/16/21 Mitral insufficiency Discharge Diagnosis 11/16/21 Anemia, iron deficiency neg colo/egd 2021 Discharge Diagnosis 11/16/21 Vital Signs Most recent to oldest [Reference Range]: 1 2 Height 157 cm (11/18/21 1:13 PM) 157 cm (11/18/21 12:51 PM) Weight 86.6 kg (11/18/21 12:51 PM) Oxygen Saturation [94-100 %] 98 % (11/18/21 12:51 PM) Pulse Rate [55-90 bpm] 61 bpm (11/18/21 12:51 PM) Body Mass Index [18.5-24.99] 35.13 *>HHI* (11/18/21 12:51 PM) Blood Pressure [90-138/55-84 mm Hg] 139/ 76mm Hg *H* (11/18/21 12:51 PM) Respiratory Rate [16-30 br/min] 16 br/mi n (11/18/21 12:51 PM) Temperature [96.8-100.4 DegF] 98.0 DegF (11/18/21 12:51 PM) Mode of Delivery (Oxygen) Room air (11/18/21 12:51 PM) Blood pressure sites Arm, left (11/18/21 12:51 PM) Temperature Route Oral (11/18/21 12:51 PM) Weight Obtained Via Standing scale (11/18/21 12:51 PM) Social History Social History Type Response Smoking Status Never smoker entered on: 04/18/13 Sex
--- OUTSIDE RECORDS SUMMARY | 2023-04-22 12:23 | XMS_ITS | Continuity of Care Document ---
Author Name Unknown Organization [facility] [place] Taye lt Address [address] [place] [address]- Care Team Providers Care Project Architect Name Role Phone Emperatriz PEREZ, Benigno Stout Primary Care Physician [facility] Date[facility]s): 12/20/21 - 01/19/22 [facility] [place] Adult [address] [place] [address]- Allergies, Adverse Reactions, Alerts Substance Reaction Severity [...] #1 6Result Comment: [04/18/2013] #1 7Location History: [facility] 8Admin Note: rcvd elsewhere 9Admin [...] 11/18/21 13:28:00 EDT, Route to Pharmacy Electronically, [id number], [facility], 157, cm, 11/18/21 13:13:00 EDT, He... Start Date: 11/18/21 Status: Ordered aspirin 81 mg oral tablet 1 tablet, By Mouth, Daily, # 30 tablet, 0 Refills, Maintenance, Tablet Start Date: 02/19/10 Status: Ordered atorvastatin 20 mg oral tablet 1 tablet, By Mouth, Daily, # 90 tablet, 1 Refills, 09/29/21 16:13:00 EDT, [facility], 157, cm, 10/07/20 13:35:00 [...] each, 1 Refills, Maintenance, 09/14/21 12:04:00 EDT, [place], [facility], 1 sprays Nares, Both 2 times a day, 157, cm, 10/07/20 13:35:00EDT, Height Start Date: 09/14/21 Status: Ordered folic acid 1 mg oral tablet 1 mg, 1, tablet, By Mouth, Daily, # 90 tablet, Refills 0, Tot. Refills 0, Maintenance, 12/06/16 9:36:33, Route to Pharmacy Electronically, [id number], [facility] Start Date: 12/06/16 Status: Ordered hydroCHLOROthiazide 12.5 mg oral capsule 1 capsule = 12.5 mg, By Mouth, Daily, # 90 capsule, 3 Refills, Maintenance, 05/06/21 11:25:00 EST, Capsule, [facility], 157, cm, 10/07/20 13:35:00 EDT, Height Start Date: 05/06/21 Status: Ordered labetalol 200 mg oral tablet 1 tablet, By Mouth, 2 times a day, # 180 tablet, 3 Refills, [facility], 157, cm, 10/07/20 13:35:00 EDT, Height Start Date: 04/21/21 Status: Ordered levothyroxine 0.112 mg oral tablet 1 tablet = 112 mcg, By Mouth, Daily, # 90 tablet, 3 Refills, Maintenance, 12/22/21 8:04:00 EDT, [facility], Partial fill upon patient request if the prescription is for a schedule II opioid drug., 157, cm, 11/18/21 13:13:00 EDT,... Start Date: 12/22/21 Status: Ordered losartan 100 mg oral tablet 1 tablet, By Mouth, Daily, # 90 tablet, 1 Refills, 10/06/21 8:52:00 EDT, [facility], 157, cm, 10/07/20 13:35:00 EDT, Height Start Date: 10/06/21 Status: Ordered metFORMIN 1000 mg oral tablet 1 tablet, By Mouth, 2 times a day, # 180 tablet, 1 Refills, 10/06/21 8:51:00 EDT, [facility], 157, cm, 10/07/20 13:35:00 [...] 10/06/21 8:53:00 EDT, Route to Pharmacy Electronically, [facility], 157, cm, 10/07/20 13:35:00 EDT, Height Start Date: 10/06/21 Status: Ordered Ventolin HFA 108 mcg/inh inhalation aerosol with adapter 1 puffs, Inhalation, 4 times a day, PRN for wheezing, # 3 each, 3 Refills, Maintenance, 04/25/19 14:03:00 EST, Aerosol, [facility], 157, cm, 04/25/19 13:53:00 EST, [...] Status Never smoker entered on: 04/18/13 Sex Care Team Personnel Name: Benigno Awan MD Address: [address] [place] [address] [place] [address]-
--- OUTSIDE RECORDS SUMMARY | 2023-04-22 12:23 | XMS_ITS | Continuity of Care Document ---
Author Name Unknown Organization [facility] Taye Address [address] [place] [id number]- Care Team Providers Care Portal Architect Name Role Phone Brian Coleman MD Primary Care Physician [phone] [facility]s): 03[facility]21 - 07/04/21 [facility] Adult [address] [place] [address]- Encounter Diagnosis Medicare annual wellness visit, subsequent(Discharge Diagnosis) - 05/18/21 Diabetes mellitus type 2, controlled(Discharge Diagnosis) - 05/18/21 Familial hyperlipidemia(Discharge Diagnosis) - 05/18/21 Benign Essential Hypertension(Discharge Diagnosis) - 05/18/21 Osteopenia BMD (Discharge Diagnosis) - 05/18/21 Acquired hypothyroidism(Discharge Diagnosis) - 05/18/21 Elevated homocysteine(Discharge Diagnosis) - 05/18/21 Vitamin B12 deficiency (non anemic)(Discharge Diagnosis) - 05/18/21 Fatty liver(Discharge Diagnosis) - 05/18/21 Mitral insufficiency(Discharge Diagnosis) - 05/18/21 Attending Physician: Brian Coleman MD Allergies, Adverse [...] Comment: [04/18/2013] #1 7[facility] History[facility] 8Admin Note: rcvd elsewhere 9Admin Note: [...] Mouth, Daily, # 90 tablet, 1 Refills, [facility], 157, cm, 10/07/20 13:35:00 [...] each, 2 Refills, Maintenance, 05/17/19 11:44:00 EST, [place], [facility], 1 sprays Nares, Both 2 times a day, 157, cm, 05/17/19 11:39:00EST, Height, 87.9, kg, 10/21/17 9:09:00 EDT, Dry We... Start Date: 05/17/19 Status: Ordered folic acid 1 mg oral tablet 1 mg, 1, tablet, By Mouth, Daily, # 90 tablet, Refills 0, Tot. Refills 0, Maintenance, 12/06/16 9:36:33, Route to Pharmacy Electronically, [id number], [facility] Start Date: 12/06/16 Status: Ordered hydroCHLOROthiazide 12.5 mg oral capsule 1 capsule = 12.5 mg, By Mouth, Daily, # 90 capsule, 3 Refills, Maintenance, 05/06/21 11:25:00 EST, Capsule, [facility], 157, cm, 10/07/20 13:35:00 EDT, Height Start Date: 05/06/21 Status: Ordered labetalol 200 mg oral tablet 1 tablet, By Mouth, 2 times a day, # 180 tablet, 3 Refills, [facility], 157, cm, 10/07/20 13:35:00 EDT, Height Start Date: 04/21/21 Status: Ordered levothyroxine 150 mcg (0.15 mg) oral tablet See Instructions, TAKE 1 TABLET 6 DAYS A WEEK, # 78 tablet, 1 Refills, Soft Stop, 01/22/21 12:47:00EDT, [facility], 157, cm, 10/07/20 13:35:00 EDT, Height Start Date: 01/22/21 Status: Ordered losartan 100 mg oral tablet 1 tablet, By Mouth, Daily, # 90 tablet, 1 Refills, [facility], 157, cm, 10/07/20 13:35:00 EDT, Height Start Date: 04/19/21 Status: Ordered metFORMIN 1000 mg oral tablet 1 tablet, By Mouth, 2 times a day, # 180 tablet, 1 Refills, [facility], 157, cm, [...] tablet, Refills 1, Route to Pharmacy Electronically, [facility], 157, cm, 10/07/20 13:35:00 EDT, Height Start Date: 04/19/21 Status: Ordered Ventolin HFA 108 mcg/inh inhalation aerosol with adapter 1 puffs, Inhalation, 4 times a day, PRN for wheezing, # 3 each, 3 Refills, Maintenance, 04/25/19 14:03:00 EST, Aerosol, [facility], 157, cm, 04/25/19 13:53:00 EST, Height, [...] Medicare annual wellness visit, subsequent Discharge Diagnosis 05/18/21 Diabetes mellitus type 2, controlled Discharge Diagnosis 05/18/21 Familial hyperlipidemia Discharge Diagnosis 05/18/21 Benign Essential Hypertension Discharge Diagnosis 05/18/21 Osteopenia BMD Discharge Diagnosis 05/18/21 Acquired hypothyroidism Discharge Diagnosis 05/18/21 Elevated homocysteine Discharge Diagnosis 05/18/21 Vitamin B12 deficiency (non anemic) Discharge Diagnosis 05/18/21 Fatty liver Discharge Diagnosis 05/18/21 Mitral insufficiency Discharge Diagnosis 05/18/21 Social History Social History Type Response Smoking Status Never smoker entered on: 04/18/13 Sex
--- OUTSIDE RECORDS SUMMARY | 2023-04-22 12:23 | XMS_ITS | Continuity of Care Document ---
Author Name Unknown Organization [facility] Address [address] [place] [address]- Care Team Providers Care Varnish Thinner Name Role Phone Emperatriz PEREZ, Benigno Stout Primary Care Physician [phone] [place] [facility] [place](s): 02/16/22 - 03/18/22 [facility] [address] [place] [address]- Allergies, Adverse Reactions, Alerts Substance Reaction Severity [...] Vaccine (oldterm) 11 01/31/99 Given 1Result Comment: [facility]# [id number] 2Admin Note: FLUARIX 3Admin Note: center [facility] 4Admin Note: per pt rcvd eklsewhere 5Result Comment: [10/18/2013] #3 6Result Comment: [04/18/2013] #1 7Result Comment: [04/18/2013] #1 8Location History: [facility] 9Admin Note: rcvd elsewhere 10Admin Note: rcvd elsewhere 11Admin Note: historical data Medications aspirin 81 mg oral tablet 1 tablet, By Mouth, Daily, # 30 tablet, 0 Refills, Maintenance, Tablet Start Date: 02/19/10 Status: Ordered atorvastatin 20 mg oral tablet 1 tablet, By Mouth, Daily, # 90 tablet, 1 Refills, 09/29/21 16:13:00 EDT, [facility], 157, cm, 10/07/20 13:35:00 EDT, [...] each, 1 Refills, Maintenance, 09/14/21 12:04:00 EDT, [place], [facility], 1 sprays Nares, Both 2 times a day, 157, cm, 10/07/20 13:35:00EDT, Height Start Date: 09/14/21 Status: Ordered folic acid 1 mg oral tablet 1 mg, 1, tablet, By Mouth, Daily, # 90 tablet, Refills 0, Tot. Refills 0, Maintenance, 12/06/16 9:36:33, Route to Pharmacy Electronically, [id number], [facility] Start Date: 12/06/16 Status: Ordered hydroCHLOROthiazide 12.5 mg oral capsule 1 capsule = 12.5 mg, By Mouth, Daily, # 90 capsule, 3 Refills, Maintenance, 05/06/21 11:25:00 EST, Capsule, [facility], 157, cm, 10/07/20 13:35:00 EDT, Height Start Date: 05/06/21 Status: Ordered labetalol 200 mg oral tablet 1 tablet, By Mouth, 2 times a day, # 180 tablet, 3 Refills, [facility], 157, cm, 10/07/20 13:35:00 EDT, Height Start Date: 04/21/21 Status: Ordered levothyroxine 0.112 mg oral tablet 1 tablet = 112 mcg, By Mouth, Daily, # 90 tablet, 3 Refills, Maintenance, 12/22/21 8:04:00 EDT, [facility], Partial fill upon patient request if the prescription is for a schedule II opioid drug., 157, cm, 11/18/21 13:13:00 EDT,... Start Date: 12/22/21 Status: Ordered losartan 100 mg oral tablet 1 tablet, By Mouth, Daily, # 90 tablet, 1 Refills, 10/06/21 8:52:00 EDT, [facility], 157, cm, 10/07/20 13:35:00 EDT, Height Start Date: 10/06/21 Status: Ordered metFORMIN 1000 mg oral tablet 1 tablet, By Mouth, 2 times a day, # 180 tablet, 1 Refills, 10/06/21 8:51:00 EDT, [facility], 157, cm, 10/07/20 13:35:00 EDT, Height Start Date: 10/06/21 Status: Ordered traZODone 100 mg oral tablet 1, tablet, By Mouth, Daily at bedtime, # 90 tablet, Refills 1, Tot. Refills 1, 10/06/21 8:53:00 EDT, Route to Pharmacy Electronically, [facility], 157, cm, 10/07/20 13:35:00 EDT, [...] team information Care Team Personnel Name: Ashu APPLICATION TESTER, Jazz Valentin Position: [facility] PCO Associate Professional Member Role: Lifetime Consulting Provider Address: Address: [address] [place] [address]- Name: Benigno Awan MD Position: [facility] Primary Care Physician Member Role: PCP Address: Address: [address] [place] [id number]- Name: Nati Salomon RN Position: [facility] RN Member Role: Primary Care Nurse Care Team Related Persons Name: JOSE ALFONSO Address: home [address] [place] [address]
--- OUTSIDE RECORDS SUMMARY | 2023-04-22 12:23 | XMS_ITS | Continuity of Care Document ---
Author Name Unknown Organization [facility] Taye lt Address [address] [place] [address]- Care Team Providers Care Dressed Poultry Grader Name Role Phone Brian Coleman MD Primary Care Physician [place] [facility] [place]/20 [facility] Adult [address] [place] [address]- Attending Physician: Brian Coleman MD Allergies, Adverse [...] #1 6Result Comment: [04/18/2013] #1 7Location History: [facility] [place] 8Admin Note: rcvd elsewhere 9Admin Note: rcvd [...] 1 Refills, Soft Stop, 05/06/20 11:26:00 EST, [facility], 157, cm, 10/21/19 16:24:00 EDT, [...] each, 2 Refills, Maintenance, 05/17/19 11:44:00 EST, [place], [facility], 1 sprays Nares, Both 2 times a day, 157, cm, 05/17/19 11:39:00EST, Height, 87.9, kg, 10/21/17 9:09:00 EDT, Dry We... Start Date: 05/17/19 Status: Ordered folic acid 1 mg oral tablet 1 mg, 1, tablet, By Mouth, Daily, # 90 tablet, Refills 0, Tot. Refills 0, Maintenance, 12/06/16 9:36:33, Route to Pharmacy Electronically, [id number], [facility] Start Date: 12/06/16 Status: Ordered hydroCHLOROthiazide 12.5 mg oral capsule 1 capsule = 12.5 mg, By Mouth, Daily, # 90 capsule, 3 Refills, Maintenance, 02/03/20 8:25:00 EDT, Caps[place], [facility], 157, cm, 10/21/19 16:24:00 EDT, Height Start Date: 02/03/20 Status: Ordered labetalol 200 mg oral tablet 1 tablet = 200 mg, By Mouth, 2 times a day, # 180 tablet, 3 Refills, Maintenance, 05/06/20 11:26:00EST, Tablet, [facility], ID# [id number], 157, cm, 10/21/19 16:24:00 EDT, Height Start Date: 05/06/20 Status: Ordered levothyroxine 150 mcg (0.15 mg) oral tablet See Instructions, TAKE 1 TABLET 6 DAYS A WEEK, # 78 tablet, 3 Refills, Soft Stop, 02/03/20 8:25:00 EDT, [facility], 157, cm, 10/21/19 16:24:00 EDT, Height, Dry Weight Start Date: 02/03/20 Status: Ordered losartan 100 mg oral tablet 1 tablet = 100 mg, By Mouth, Daily, # 90 tablet, 0 Refills, Maintenance, 05/06/20 10:56:00 EST, Tablet, [facility], 157, cm, 10/21/19 16:24:00 EDT, Height Start Date: 05/06/20 Status: Ordered metFORMIN 1000 mg oral tablet 1 tablet = 1,000 mg, By Mouth, 2 times a day, # 180 tablet, 0 Refills, Maintenance, 05/06/20 10:56:00 EST, Tablet, [facility], ID# [id number], 157, cm, 10/21/19 16:24:00 EDT, Height Start [...] By Mouth, Daily at bedtime, ID # [id number], # 90 tablet, Refills 1, Tot. Refills1, Maintenance, 05/06/20 10:56:00 EST, Route to Pharmacy Electronically, [facility], 157, cm, 10/21/19 16:24:00 EDT, Height Start Date: 05/06/20 Status: Ordered Ventolin HFA 108 mcg/inh inhalation aerosol with adapter 1 puffs, Inhalation, 4 times a day, PRN for wheezing, # 3 each, 3 Refills, Maintenance, 04/25/19 14:03:00 EST, Aerosol, [facility], 157, cm, 04/25/19 13:53:00 EST, [...] 6, 7, 8, 9 Active Osteopenia BMD 2017(Confirmed) 10 02/06/18 Active Trigger thumb(Confirmed) Active Vitamin [...]
--- OUTSIDE RECORDS SUMMARY | 2023-04-22 12:23 | XMS_ITS | Continuity of Care Document ---
Author Name Unknown Organization [facility] Taye lt Address [address] [place] [address]- Care Team Providers Care Farm Consultant Name Role Phone Virginia PEREZ, Brian Sanford Primary Care Physician [phone] Encounter [facility] Date(s): 05/28/20 - 06/27/20 [facility] Adult [address] [place] [address]- Allergies, Adverse Reactions, Alerts Substance Reaction Severity Status NIFEdipine Active amLODIPine-atorvastatin Reso lved Immunizations Given and Recorded Vaccine Date Status Refusal Reason SARS-CoV-2 (COVID-19) mRNA BNT-162b2 vac 06/16/20 Given [...] Given FluLaval (oldterm) 03/08/10 Given tetanus/diphtheria/pertussis, acel(Tdap) 4/8/10 Given Influenza Inactive (IM) (oldterm) 03/26/08 Given Influenza Inactive (IM) (oldterm) 9 03/21/07 Given Tetanus Toxoid Vaccine (oldterm) 05/01/99 Given Pneumococcal Vaccine (oldterm) 10 01/31/99 Given 1Admin Note: FLUARIX 2Admin Note: [facility] 3Admin Note: per pt rcvd [facility]klsewhere 4Result Comment: [10/18/2013] #3 5Result Comment: [04/18/2013] #1 6Result Comment: [04/18/2013] #1 7[facility] History[facility] [place] 8Admin Note: rcvd elsewhere 9Admin Note: rcvd [...] 1 Refills, Soft Stop, 05/06/20 11:26:00 EST, [facility], 157, cm, 10/21/19 16:24:00 EDT, Height Start Date: 05/06/20 Status: Ordered Caltrate 600 + D oral tablet 1 tablet, By Mouth, 2 times a day, # 60 tablet, 11 Refills, Maintenance, 02/07/18 7:34:22 EDT, Tablet Start Date: 02/07/18 Status: Ordered fluticasone 50 mcg/inh nasal spray 1 sprays, Nares, Both, 2 times a day, # 3 each, 2 Refills, Maintenance, 05/17/19 11:44:00 EST, [place], [facility], 1 sprays Nares, Both 2 times a day, 157, cm, 05/17/19 11:39:00EST, Height, 87.9, kg, 10/21/17 9:09:00 EDT, Dry We... Start Date: 05/17/19 Status: Ordered folic acid 1 mg oral tablet 1 mg, 1, tablet, By Mouth, Daily, # 90 tablet, Refills 0, Tot. Refills 0, Maintenance, 12/06/16 9:36:33, Route to Pharmacy Electronically, [id number], [facility] Start Date: 12/06/16 Status: Ordered hydroCHLOROthiazide 12.5 mg oral capsule 1 capsule = 12.5 mg, By Mouth, Daily, # 90 capsule, 3 Refills, Maintenance, 02/03/20 8:25:00 EDT, Capsule, [facility], 157, cm, 10/21/19 16:24:00 EDT, Height Start Date: 02/03/20 Status: Ordered labetalol 200 mg oral tablet 1 tablet = 200 mg, By Mouth, 2 times a day, # 180 tablet, 3 Refills, Maintenance, 05/06/20 11:26:00EST, Tablet, [facility], ID# [id number], 157, cm, 10/21/19 16:24:00 EDT, Height Start Date: 05/06/20 Status: Ordered levothyroxine 150 mcg (0.15 mg) oral tablet See Instructions, TAKE 1 TABLET 6 DAYS A WEEK, # 78 tablet, 3 Refills, Soft Stop, 02/03/20 8:25:00 EDT, [facility], 157, cm, 10/21/19 16:24:00 EDT, Height, Dry Weight Start Date: 02/03/20 Status: Ordered losartan 100 mg oral tablet 1 tablet = 100 mg, By Mouth, Daily, # 90 tablet, 0 Refills, Maintenance, 05/06/20 10:56:00 EST, Tablet, [facility], 157, cm, 10/21/19 16:24:00 EDT, Height Start Date: 05/06/20 Status: Ordered metFORMIN 1000 mg oral tablet 1 tablet = 1,000 mg, By Mouth, 2 times a day, # 180 tablet, 0 Refills, Maintenance, 05/06/20 10:56:00 EST, Tablet, [facility], ID# [id number], 157, cm, 10/21/19 16:24:00 EDT, Height Start [...] By Mouth, Daily at bedtime, ID # [id number], # 90 tablet, Refills 1, Tot. Refills1, Maintenance, 05/06/20 10:56:00 EST, Route to Pharmacy Electronically, [facility], 157, cm, 10/21/19 16:24:00 EDT, Height [...]
--- OUTSIDE RECORDS SUMMARY | 2023-04-22 12:23 | XMS_ITS | Continuity of Care Document ---
Author Name Unknown Organization [facility] Taye [facility] Address [address] [place] [address]- Care Team Providers Care Senior Linux Engineer Name Role Phone Emperatriz PEREZ, Benigno Stout Primary Care Physician [phone] [facility] [place] Date(s): 02/07/22 - 02/14/22 [facility] Adult [address] [place] [address]- Attending Physician: Phillip Hill MD Allergies, Adverse Reactions, Alerts Substance Reaction [...] (oldterm) 4 04/07/09 Given pneumococcal 13-valent vaccine 11/22/17 Given hepatitis B adult vaccine 5 10/18/13 [...] Vaccine (oldterm) 11 01/31/99 Given 1Result Comment: [facility]# [id number] 2Admin Note: FLUARIX 3Admin Note: [facility] 4Admin Note: per pt rcvd eklsewhere 5Result Comment: [10/18/2013] #3 6Result Comment: [04/18/2013] #1 7Result Comment: [04/18/2013] #1 8Location History: [facility] 9Admin Note: rcvd elsewhere 10Admin Note: rcvd elsewhere 11Admin Note: historical data Medications Aerochamber See Instructions, # 1 units, Maintenance, dx: asthma use w/ albuterol MDI, 12/01/14 15:22:56, Compound Start Date: 12/01/14 Status: Ordered albuterol CFC free 90 mcg/inh inhalation aerosol 2, puffs, Inhalation, Every 6 hours, # 3 each, Refills 1, Tot. Refills 1, Maintenance, 11/18/21 13:28:00 EDT, Route to Pharmacy Electronically, [id number], [facility], 157, cm, 11/18/21 13:13:00 EDT, He... Start Date: 11/18/21 Status: Ordered aspirin 81 mg oral tablet 1 tablet, By Mouth, Daily, # 30 tablet, 0 Refills, Maintenance, Tablet Start Date: 02/19/10 Status: Ordered atorvastatin 20 mg oral tablet 1 tablet, By Mouth, Daily, # 90 tablet, 1 Refills, 09/29/21 16:13:00 EDT, [facility], 157, cm, 10/07/20 13:35:00 [...] each, 1 Refills, Maintenance, 09/14/21 12:04:00 EDT, [place], [facility], 1 sprays Nares, Both 2 times a day, 157, cm, 10/07/20 13:35:00EDT, Height Start Date: 09/14/21 Status: Ordered folic acid 1 mg oral tablet 1 mg, 1, tablet, By Mouth, Daily, # 90 tablet, Refills 0, Tot. Refills 0, Maintenance, 12/06/16 9:36:33, Route to Pharmacy Electronically, [id number], [facility] Start Date: 12/06/16 Status: Ordered hydroCHLOROthiazide 12.5 mg oral capsule 1 capsule = 12.5 mg, By Mouth, Daily, # 90 capsule, 3 Refills, Maintenance, 05/06/21 11:25:00 EST, Capsule, [facility], 157, cm, 10/07/20 13:35:00 EDT, Height Start Date: 05/06/21 Status: Ordered labetalol 200 mg oral tablet 1 tablet, By Mouth, 2 times a day, # 180 tablet, 3 Refills, [facility], 157, cm, 10/07/20 13:35:00 EDT, Height Start Date: 04/21/21 Status: Ordered levothyroxine 0.112 mg oral tablet 1 tablet = 112 mcg, By Mouth, Daily, # 90 tablet, 3 Refills, Maintenance, 12/22/21 8:04:00 EDT, [facility], Partial fill upon patient request if the prescription is for a schedule II opioid drug., 157, cm, 11/18/21 13:13:00 EDT,... Start Date: 12/22/21 Status: Ordered losartan 100 mg oral tablet 1 tablet, By Mouth, Daily, # 90 tablet, 1 Refills, 10/06/21 8:52:00 EDT, [facility], 157, cm, 10/07/20 13:35:00 EDT, Height Start Date: 10/06/21 Status: Ordered metFORMIN 1000 mg oral tablet 1 tablet, By Mouth, 2 times a day, # 180 tablet, 1 Refills, 10/06/21 8:51:00 EDT, [facility], 157, cm, 10/07/20 13:35:00 [...] 10/06/21 8:53:00 EDT, Route to Pharmacy Electronically, [facility], 157, cm, 10/07/20 13:35:00 EDT, Height Start Date: 10/06/21 Status: Ordered Ventolin HFA 108 mcg/inh inhalation aerosol with adapter 1 puffs, Inhalation, 4 times a day, PRN for wheezing, # 3 each, 3 Refills, Maintenance, 04/25/19 14:03:00 EST, Aerosol, [facility], 157, cm, 04/25/19 13:53:00 [...] Name: Emperatriz PEREZ, Benigno Stout Address: Address: [address] [place] [address], [place] [address]
--- OUTSIDE RECORDS SUMMARY | 2023-04-22 12:23 | XMS_ITS | Continuity of Care Document ---
Author Name Unknown Organization [facility] Taye lt Address [address] [place] [address]- Care Team Providers Care Medical Claims Analyst Name Role Phone Virginia PEREZ, Brian Sanford Primary Care Physician Encounter [facility] [place] Date(s): 07/20/20 - 07/27/20 [facility] Adult [address] [place] [address]- Encounter Diagnosis Vertigo(Discharge Diagnosis) - 07/20/20 Attending Physician: Ashu SECTION REPAIRER, Jazz Valentin Allergies, Adverse Reactions, Alerts Substance Reaction Severity [...] #1 6Result Comment: [04/18/2013] #1 7Location History: [facility] [place] 8Admin Note: rcvd elsewhere 9Admin Note: rcvd [...] 1 Refills, Soft Stop, 05/06/20 11:26:00 EST, [facility], 157, cm, 10/21/19 16:24:00 EDT, Height Start Date: 05/06/20 Status: Ordered Caltrate 600 + D oral tablet 1 tablet, By Mouth, 2 times a day, # 60 tablet, 11 Refills, Maintenance, 02/07/18 7:34:22 EDT, Tablet Start Date: 02/07/18 Status: Ordered fluticasone 50 mcg/inh nasal spray 1 sprays, Nares, Both, 2 times a day, # 3 each, 2 Refills, Maintenance, 05/17/19 11:44:00 EST, [place], [facility], 1 sprays Nares, Both 2 times a day, 157, cm, 05/17/19 11:39:00EST, Height, 87.9, kg, 10/21/17 9:09:00 EDT, Dry We... Start Date: 05/17/19 Status: Ordered folic acid 1 mg oral tablet 1 mg, 1, tablet, By Mouth, Daily, # 90 tablet, Refills 0, Tot. Refills 0, Maintenance, 12/06/16 9:36:33, Route to Pharmacy Electronically, [id number], [facility] Start Date: 12/06/16 Status: Ordered hydroCHLOROthiazide 12.5 mg oral capsule 1 capsule = 12.5 mg, By Mouth, Daily, # 90 capsule, 3 Refills, Maintenance, 02/03/20 8:25:00 EDT, Capsule, [facility], 157, cm, 10/21/19 16:24:00 EDT, Height Start Date: 02/03/20 Status: Ordered labetalol 200 mg oral tablet 1 tablet = 200 mg, By Mouth, 2 times a day, # 180 tablet, 3 Refills, Maintenance, 05/06/20 11:26:00EST, Tablet, [facility], ID# [id number], 157, cm, 10/21/19 16:24:00 EDT, Height Start Date: 05/06/20 Status: Ordered levothyroxine 150 mcg (0.15 mg) oral tablet See Instructions, TAKE 1 TABLET 6 DAYS A WEEK, # 78 tablet, 3 Refills, Soft Stop, 02/03/20 8:25:00 EDT, [facility], 157, cm, 10/21/19 16:24:00 EDT, Height, Dry Weight Start Date: 02/03/20 Status: Ordered losartan 100 mg oral tablet 1 tablet = 100 mg, By Mouth, Daily, # 90 tablet, 0 Refills, Maintenance, 05/06/20 10:56:00 EST, Tablet, [facility], 157, cm, 10/21/19 16:24:00 EDT, Height Start Date: 05/06/20 Status: Ordered meclizine 25 mg oral tablet 1 tablet = 25 mg, By Mouth, 3 times a day, PRN for dizziness, for 30 days, # 30 tablet, 0 Refills, Acute 04/21/21 10:30:00 EDT, 07/20/20 10:30:00 EDT, Tablet, [id number], 157, cm, 07/20/20 10:11:00 EDT, Height Start Date: 07/20/20 Stop Date: 08/19/20 Status: Ordered metFORMIN 1000 mg oral tablet 1 tablet = 1,000 mg, By Mouth, 2 times a day, # 180 tablet, 0 Refills, Maintenance, 05/06/20 10:56:00 EST, Tablet, [facility], ID# [id number], 157, cm, 10/21/19 16:24:00 EDT, Height Start [...] By Mouth, Daily at bedtime, ID # [id number], # 90 tablet, Refills 1, Tot. Refills1, Maintenance, 05/06/20 10:56:00 EST, Route to Pharmacy Electronically, [facility], 157, cm, 10/21/19 16:24:00 EDT, Height Start Date: 05/06/20 Status: Ordered Ventolin HFA 108 mcg/inh inhalation aerosol with adapter 1 puffs, Inhalation, 4 times a day, PRN for wheezing, # 3 each, 3 Refills, Maintenance, 04/25/19 14:03:00 EST, Aerosol, [facility], 157, cm, 04/25/19 13:53:00 EST, Height, [...] Diagnosis Diagnosis Type Effective Dates Health Status Clini shawn Service Informant Vertigo Discharge Diagnosis 07/20/20 Vital Signs Most recent to oldest [Reference Range]: 1 Height 157 cm (07/20/20 10:11 AM) Weight 83.0 kg (07/20/20 10:11 AM) Oxygen Saturation [94-100 %] 98 % (07/20/20 10:11 AM) Pulse Rate [55-90 bpm] 66 bpm (07/20/20 10:11 AM) Body Mass Index [18.5-24.99] 33.67 *>HHI* (07/20/20 10:11 AM) Blood Pressure [90-138/55-84 mm Hg] 146/ 84mm Hg *H* (07/20/20 10:11 AM) Respiratory Rate [16-30 br/min] 12 br/mi n *L* (07/20/20 10:11 AM) Temperature [96.8-100.4 DegF] 98.2 DegF (07/20/20 10:11 AM) Mode of Delivery (Oxygen) Room air (07/20/20 10:11 AM) Blood pressure sites Arm, left (07/20/20 10:11 AM) Temperature Route Oral (07/20/20 10:11 AM) Weight Obtained Via Standing scale (07/20/20 10:11 AM) Social History Social History Type Response Smoking Status Never smoker entered on: 04/18/13 Sex
--- OUTSIDE RECORDS SUMMARY | 2023-04-22 12:23 | XMS_ITS | Continuity of Care Document ---
Author Name Unknown Organization [facility] Taye lt Address [address] [place] [address]- Care Team Providers Care Receiving Worker Name Role Phone Virginia PEREZ, Brian Sanford Primary Care Physician [phone] [place] [facility] [place] 05/06/20 - 06/05/20 [facility] Adult [address] [place] [address]- Allergies, Adverse Reactions, Alerts Substance Reaction Severity [...] [04/18/2013] #1 7[facility] History[facility] [place] 8Admin Note: rcvd elsewhere 9Admin Note: rcvd [...] 1 Refills, Soft Stop, 05/06/20 11:26:00 EST, [facility], 157, cm, 10/21/19 16:24:00 EDT, Height Start Date: 05/06/20 Status: Ordered Caltrate 600 + D oral tablet 1 tablet, By Mouth, 2 times a day, # 60 tablet, 11 Refills, Maintenance, 02/07/18 7:34:22 EDT, Tablet Start Date: 02/07/18 Status: Ordered fluticasone 50 mcg/inh nasal spray 1 sprays, Nares, Both, 2 times a day, # 3 each, 2 Refills, Maintenance, 05/17/19 11:44:00 EST, [place], [facility], 1 sprays Nares, Both 2 times a day, 157, cm, 05/17/19 11:39:00EST, Height, 87.9, kg, 10/21/17 9:09:00 EDT, Dry We... Start Date: 05/17/19 Status: Ordered folic acid 1 mg oral tablet 1 mg, 1, tablet, By Mouth, Daily, # 90 tablet, Refills 0, Tot. Refills 0, Maintenance, 12/06/16 9:36:33, Route to Pharmacy Electronically, [id number], [facility] Start Date: 12/06/16 Status: Ordered hydroCHLOROthiazide 12.5 mg oral capsule 1 capsule = 12.5 mg, By Mouth, Daily, # 90 capsule, 3 Refills, Maintenance, 02/03/20 8:25:00 EDT, Capsule, [facility], 157, cm, 10/21/19 16:24:00 EDT, Height Start Date: 02/03/20 Status: Ordered labetalol 200 mg oral tablet 1 tablet = 200 mg, By Mouth, 2 times a day, # 180 tablet, 3 Refills, Maintenance, 05/06/20 11:26:00EST, Tablet, [facility], ID# [id number], 157, cm, 10/21/19 16:24:00 EDT, Height Start Date: 05/06/20 Status: Ordered levothyroxine 150 mcg (0.15 mg) oral tablet See Instructions, TAKE 1 TABLET 6 DAYS A WEEK, # 78 tablet, 3 Refills, Soft Stop, 02/03/20 8:25:00 EDT, [facility], 157, cm, 10/21/19 16:24:00 EDT, Height, Dry Weight Start Date: 02/03/20 Status: Ordered losartan 100 mg oral tablet 1 tablet = 100 mg, By Mouth, Daily, # 90 tablet, 0 Refills, Maintenance, 05/06/20 10:56:00 EST, Tablet, [facility], 157, cm, 10/21/19 16:24:00 EDT, Height Start Date: 05/06/20 Status: Ordered metFORMIN 1000 mg oral tablet 1 tablet = 1,000 mg, By Mouth, 2 times a day, # 180 tablet, 0 Refills, Maintenance, 05/06/20 10:56:00 EST, Tablet, [facility], ID# [id number], 157, cm, 10/21/19 16:24:00 EDT, Height Start [...] By Mouth, Daily at bedtime, ID # [id number], # 90 tablet, Refills 1, Tot. Refills1, Maintenance, 05/06/20 10:56:00 EST, Route to Pharmacy Electronically, [facility], 157, cm, 10/21/19 16:24:00 EDT, Height Start Date: 05/06/20 Status: Ordered Ventolin HFA 108 mcg/inh inhalation aerosol with adapter 1 puffs, Inhalation, 4 times a day, PRN for wheezing, # 3 each, 3 Refills, Maintenance, 04/25/19 14:03:00 EST, Aerosol, [facility], 157, cm, 04/25/19 13:53:00 EST, [...]
--- OUTSIDE RECORDS SUMMARY | 2023-04-22 12:23 | XMS_ITS | Continuity of Care Document ---
Author Name Unknown Organization [facility] Onel Taye lt Address [address] [place] [id number]- Care Team Providers Care Menswear Salesperson Name Role Phone Brian Coleman MD Primary Care Physician Encounter [facility] Date(s): 05/30/19 - 06/06/19 [facility] Adult [address] [place] [address]- [place] Encounter Diagnosis Thrush(Discharge Diagnosis) - 05/30/19 Aphthous ulcer of mouth(Discharge Diagnosis) - 05/30/19 Attending Physician: Brian Coleman MD Allergies, Adverse [...] [04/18/2013] #1 7[facility] History[facility] 8Admin Note: rcvd elsewhere 9Admin Note: rcvd [...] 1 Refills, Soft Stop, 04/15/19 10:41:44 EST, [facility], 157, cm, 03/07/19 14:39:28 EST, Height, 87.9, kg, 10/21/17 9:09:44 EDT,Dry Weight Start Date: 04/15/19 Status: Ordered Caltrate 600 + D oral tablet 1 tablet, By Mouth, 2 times a day, # 60 tablet, 11 Refills, Maintenance, 02/07/18 7:34:22 EDT, Tablet Start Date: 02/07/18 Status: Ordered chlorhexidine topical 0.12% liquid 15 mL = 0.018 Gm, By Mouth, 2 times a day, # 480 mL, 0 Refills, Maintenance, 05/30/19 16:01:00 EST,Liquid, [facility]/pharmacy #[id number], 15 mL By Mouth 2 times a day, 157, cm, 05/30/19 15:57:00 EST, Height, 87.9, kg, 10/21/17 9:09:00 EDT, Dry Weight Start Date: 05/30/19 Status: Ordered fluticasone 50 mcg/inh nasal spray 1 sprays, Nares, Both, 2 times a day, # 3 each, 2 Refills, Maintenance, 05/17/19 11:44:00 EST, [place], [facility], 1 sprays Nares, Both 2 times a day, 157, cm, 05/17/19 11:39:00EST, Height, 87.9, kg, 10/21/17 9:09:00 EDT, Dry We... Start Date: 05/17/19 Status: Ordered folic acid 1 mg oral tablet 1 mg, 1, tablet, By Mouth, Daily, # 90 tablet, Refills 0, Tot. Refills 0, Maintenance, 12/06/16 9:36:33, Route to Pharmacy Electronically, [id number], [facility] Start Date: 12/06/16 Status: Ordered hydroCHLOROthiazide 12.5 mg oral capsule 1 capsule = 12.5 mg, By Mouth, Daily, # 90 capsule, 3 Refills, Maintenance, 01/04/19 7:47:00 EDT, Capsule Start Date: 01/04/19 Status: Ordered labetalol 200 mg oral tablet 1 tablet = 200 mg, By Mouth, 2 times a day, # 180 tablet, 3 Refills, Maintenance, 04/15/19 10:41:39EST, Tablet, [facility], ID# [id number], 157, cm, 03/07/19 14:39:28 EST, Height, 87.9, kg, 10/21/17 9:09:44 EDT, Dry Weight Start Date: 04/15/19 Status: Ordered levothyroxine 150 mcg (0.15 mg) oral tablet See Instructions, TAKE 1 TABLET 6 DAYS A WEEK, # 78 tablet, 3 Refills, Soft Stop, 04/15/19 10:41:38EST, [facility], 157, cm, 03/07/19 14:39:28 EST, Height, [...] 1 Refills, Maintenance, 06/04/19 6:30:00 EST, Tablet, [facility], ID# [id number], 157, cm, 05/30/19 15:57:00 EST, Height, 87.9, [...] By Mouth, Daily at bedtime, ID # [id number], # 90 tablet, Refills 3, Tot. Refills3, Maintenance, 04/15/19 10:41:38 EST, Route to Pharmacy Electronically, [facility], 157, cm, 03/07/19 14:39:28 EST, Height, 87.... Start Date: 04/15/19 Status: Ordered Ventolin HFA 108 mcg/inh inhalation aerosol with adapter 1 puffs, Inhalation, 4 times a day, PRN for wheezing, # 3 each, 3 Refills, Maintenance, 04/25/19 14:03:00 EST, Aerosol, [facility], 157, cm, 04/25/19 13:53:00 EST, Height, [...] Dates Health Status Cl inical Service Informant Thrush Discharge Diagnosis 05/30/19 Aphthous ulcer of mouth Discharge Diagnosis 05/30/19 Vital Signs Most recent to oldest [Reference Range]: 1 2 Height 157 cm (05/30/19 3:57 PM) 157 cm (05/30/19 3:40 PM) Weight 84.7 kg (05/30/19 3:40 PM) Oxygen Saturation [94-100 %] 98 % (05/30/19 3:40 PM) Pulse Rate [55-90 bpm] 70 bpm (05/30/19 3:40 PM) Body Mass Index [18.5-24.99] 34.36 *>HHI* (05/30/19 3:40 PM) Blood Pressure [90-138/55-84 mm Hg] 134/ 76mm Hg (05/30/19 3:57 PM) 162/80mm Hg *H* (05/30/19 3:40 PM) Respiratory Rate [16-30 br/min] 18 br/mi n (05/30/19 3:40 PM) Temperature [96.8-100.4 DegF] 97.9 DegF (05/30/19 3:40 PM) Blood pressure sites Arm, left (05/30/19 3:57 PM) Arm, left (05/30/19 3:40 PM) Temperature Route Oral (05/30/19 3:40 PM) Social History Social History Type Response Smoking Status Never smoker entered on: 04/18/13 Sex
--- OUTSIDE RECORDS SUMMARY | 2023-04-22 12:23 | XMS_ITS | Continuity of Care Document ---
Author Name Unknown Organization [facility] [place] Address [address] [place] [address]- Care Team Providers Care Contract Law Specialist Name Role Phone Brian Coleman MD Primary Care Physician [phone] Encounter 01/06/21 - 01/13/21 [facility] [address], [address] [place] [address]- Attending Physician: Brian Coleman MD Admitting Physician: [...] #1 6Result Comment: [04/18/2013] #1 7Location History: [facility] 8Admin Note: rcvd elsewhere 9Admin Note: rcvd [...] 1 Refills, Soft Stop, 10/30/20 13:20:00 EDT, [facility], 157, cm, 10/07/20 13:35:00 [...] each, 2 Refills, Maintenance, 05/17/19 11:44:00 EST, [place], [facility], 1 sprays Nares, Both 2 times a day, 157, cm, 05/17/19 11:39:00EST, Height, 87.9, kg, 10/21/17 9:09:00 EDT, Dry We... Start Date: 05/17/19 Status: Ordered folic acid 1 mg oral tablet 1 mg, 1, tablet, By Mouth, Daily, # 90 tablet, Refills 0, Tot. Refills 0, Maintenance, 12/06/16 9:36:33, Route to Pharmacy Electronically, [id number], [facility] Start Date: 12/06/16 Status: Ordered hydroCHLOROthiazide 12.5 mg oral capsule 1 capsule = 12.5 mg, By Mouth, Daily, # 90 capsule, 3 Refills, Maintenance, 02/03/20 8:25:00 EDT, Capsule, [facility], 157, cm, 10/21/19 16:24:00 EDT, Height Start Date: 02/03/20 Status: Ordered labetalol 200 mg oral tablet 1 tablet = 200 mg, By Mouth, 2 times a day, # 180 tablet, 3 Refills, Maintenance, 05/06/20 11:26:00EST, Tablet, [facility], ID# [id number], 157, cm, 10/21/19 16:24:00 EDT, Height Start Date: 05/06/20 Status: Ordered levothyroxine 150 mcg (0.15 mg) oral tablet See Instructions, TAKE 1 TABLET 6 DAYS A WEEK, # 78 tablet, 3 Refills, Soft Stop, 02/03/20 8:25:00 EDT, [facility], 157, cm, 10/21/19 16:24:00 EDT, Height, Dry Weight Start Date: 02/03/20 Status: Ordered losartan 100 mg oral tablet 1 tablet = 100 mg, By Mouth, Daily, # 90 tablet, 1 Refills, Maintenance, 10/30/20 13:20:00 EDT, Tablet, [facility], 157, cm, 10/07/20 13:35:00 EDT, Height Start Date: 10/30/20 Status: Ordered metFORMIN 1000 mg oral tablet 1 tablet = 1,000 mg, By Mouth, 2 times a day, # 180 tablet, 1 Refills, Maintenance, 10/30/20 13:20:00 EDT, Tablet, [facility], ID# [id number], 157, cm, 10/07/20 13:35:00 EDT, Height Start [...] By Mouth, Daily at bedtime, ID # [id number], # 90 tablet, Refills 1, Tot. Refills1, Maintenance, 10/30/20 13:20:00 EDT, Route to Pharmacy Electronically, [facility], 157, cm, 10/07/20 13:35:00 EDT, Height Start Date: 10/30/20 Status: Ordered Ventolin HFA 108 mcg/inh inhalation aerosol with adapter 1 puffs, Inhalation, 4 times a day, PRN for wheezing, # 3 each, 3 Refills, Maintenance, 04/25/19 14:03:00 EST, Aerosol, [facility], 157, cm, 04/25/19 13:53:00 [...] Procedure Date Related Diagnosis Body Site Status DEXA of hip and spine osteoenia 01/13/21 Completed Results Radiology Reports * Exam Date Time Procedure Performing Provider Status 01/06/21 2:04 PM Dexa Bone Density (Axial) Ashleigh Hankins (Verified) Notes: (Dexa Bone Density (Axial)) Reason For Exam: Osteopenia RESULT: DEXA BONE DENSITY (AXIAL) Bone Density Report Name: YAN MCGINNIS Age: 71 Sex: Female Ethnicity: White Date of : 1950 Indication: POSTMENOPAUSAL. Referring Provider: BRIAN COLEMAN Study: Bone densitometry was performed. Exam Date: January 06, 2021 Accession number: [id number] Bone Density: Region BMD T-score Z-score Classification AP Spine (L2, L3) 1.025 -0.3 1.8 Normal Femoral Neck (Left) 0.729 -1.1 0.7 Osteopenia Total Hip (Left) 0.868 -0.6 0.8 Normal World Health Organization criteria for BMD impression classify patients as: Normal (T-score at or above -1.0), Osteopenia (T-score between -1.0 and -2.5), or Osteoporosis (T-score at or below -2.5). 10-year Fracture Risk(1): Major Osteoporotic Fracture 14% Hip Fracture 1.5% Reported Risk Factors: [place] (), Neck BMD=0.729, BMI=32.8, parental fracture (1) FRAX(R) Version 3.00. Fracture probability calculated for an untreated patient. Fracture probability may be lower if the patient has received treatment. Previous Exams: Region Exam Age BMD T-score BMD Change BMD Change Date g/cm2 vs Baseline vs Previous AP Spine(L2, L3) 01/06/2021 71 1.025 -0.3 -11.9%* -4.1%* 02/01/2018 68 1.069 0.1 -8.1%* -8.1%* 02/11/2010 60 1.164 1.0 Total Hip(Left) 01/06/2021 71 0.868 -0.6 -7.0%* -7.4%* 02/01/2018 68 0.938 0.0 0.5% 0.5% 02/11/2010 60 0.933 -0.1 Femoral Neck(Left) 01/06/2021 71 0.729 -1.1 -5.6%* -0.2% 02/01/2018 68 0.731 -1.1 -5.4%* -5.4%* 02/11/2010 60 0.773 -0.7 *Denotes significance at 95% confidence level, LSC for AP Spine = 0.022 g/cm2, LSC for Total Hip = 0.027 g/cm2 Clinical Information Provided by Patient: Parent has had a hip fracture Has used the following medications: Vitamin D, Calcium, LEVOTHYROXINE Patient maximum height was 63.5 Menopause Age: 57 Onset of m[age] at age 65.5 Number of children 1 Impression: The patient has osteopenia as determined by WHO criteria. Based on the results of the patient's bone density assessment, the risk of future fracture increases approximately two fold for each 1.0 SD decrease in T-score. However, low BMD is not the only risk factor for a future fragility fracture. Other clinical risk factors for osteoporotic fracture should be considered in ascertaining this patient's future fracture risk including the patient's age, previous osteoporotic (fragility) fracture, estrogen deficiency/hypogonadism, risk of falling, use of medications implicated in bone loss (glucocorticoids), family history of osteoporotic fracture, diseases and conditions associated with bone loss, low body weight, smoking, high bone turnover, etc. Combining low BMD and other clinical risk factors result in a more precise assessment of future fracture risk. Secondary causes for osteoporosis, such as osteomalacia, other metabolic bone disorders, and diseases and conditions that may contribute to accelerated bone loss may have to be considered depending on the clinical situation. A repeat bone density assessment should be considered in two years. Reported by: Kylee Fernandes M.D. on 01/13/2021 1:30:00 PM. Dictated By: Kylee Fernandes MD Dictated Date/Time: 01/13/21 1:30 pm Reviewed By: Kylee Fernandes MD Signed By: Kylee Fernandes MD Signed Date/Time: 01/13/21 1:30 pm Transcribed By: ABIMAEL Transcribed Date/Time: 01/13/21 1:30 pm Social History Social History Type Response Smoking Status Never smoker entered on: 04/18/13 Sex
--- OUTSIDE RECORDS SUMMARY | 2023-04-22 12:23 | XMS_ITS | Continuity of Care Document ---
Author Name Unknown Organization [facility] Address [address] [place] [address]- Care Team Providers Care Meter Changes Records Clerk Name Role Phone Benigno Awan MD Primary Care Physician [phone] Encounter [facility] Date(s): 02/03/22 - 11/12/22 [facility] [address] [place] [address]- Discharge Disposition: A-D/C Home Attending Physician: Chaz Potter MD Admitting Physician: hCaz Potter MD Referring Physician: Benigno Awan MD Allergies, [...] inactivated 2 02/08/13 Gi rachael SARS-CoV-2 mRNA ([id number]) vax 12/08/21 Recorded SARS-CoV-2 (COVID-19) mRNA BNT-162b2 [...] Vaccine (oldterm) 11 01/31/99 Given 1Result Comment: [facility]# [id number] 2Admin Note: FLUARIX 3Admin Note: center pharm 4Admin Note: per pt rcvd eklsewhere 5Result Comment: [10/18/2013] #3 6Result Comment: [04/18/2013] #1 7Result Comment: [04/18/2013] #1 8Location History: [facility] 9Admin Note: rcvd elsewhere 10Admin Note: rcvd elsewhere 11Admin Note: historical data Medications aspirin 81 mg oral tablet 1 tablet, By Mouth, Daily, # 30 tablet, 0 Refills, Maintenance, Tablet Start Date: 02/19/10 Status: Ordered atorvastatin 20 mg oral tablet 1 tablet, By Mouth, Daily, # 90 tablet, 1 Refills, 09/21/22 13:03:00 EDT, [facility], 157, cm, 06/17/22 10:48:00 [...] 0 Refills, Maintenance, 04/20/22 16:50:00 EST, Liquid, [facility]/pharmacy #[id number], Partial fill upon [...] each, 1 Refills, Maintenance, 09/14/21 12:04:00 EDT, [place], [facility], 1 sprays Nares, Both 2 times a day, 157, cm, 10/07/20 13:35:00EDT, Height Start Date: 09/14/21 Status: Ordered folic acid 1 mg oral tablet 1 mg, 1, tablet, By Mouth, Daily, # 90 tablet, Refills 0, Tot. Refills 0, Maintenance, 12/06/16 9:36:33, Route to Pharmacy Electronically, [id number], [facility] Start Date: 12/06/16 Status: Ordered hydroCHLOROthiazide 12.5 mg oral capsule 1 capsule = 12.5 mg, By Mouth, Daily, # 90 capsule, 3 Refills, Maintenance, 07/15/22 5:49:00 EDT, Capsule, [facility], 157, cm, 06/17/22 10:48:00 EST, Height, 83.8, kg, 05/26/22 11:19:00 EST, Dry Weight Start Date: 07/15/22 Status: Ordered labetalol 200 mg oral tablet 1 tablet, By Mouth, 2 times a day, # 180 tablet, 3 Refills, 07/15/22 5:49:00 EDT, [facility], 157, cm, 06/17/22 10:48:00 EST, Height, 83.8, kg, 05/26/22 11:19:00 EST, Dry Weight Start Date: 07/15/22 Status: Ordered levothyroxine 0.112 mg oral tablet 1 tablet = 112 mcg, By Mouth, Daily, # 90 tablet, 3 Refills, Maintenance, 12/22/21 8:04:00 EDT, [facility], Partial fill upon patient request if the prescription is for a schedule II opioid drug., 157, cm, 11/18/21 13:13:00 EDT,... Start Date: 12/22/21 Status: Ordered losartan 100 mg oral tablet 1 tablet, By Mouth, Daily, # 90 tablet, 1 Refills, Maintenance, 11/11/22 4:47:00 EDT, [facility], 157, cm, 06/17/22 10:48:00 EST, Height, 83.8, kg, 05/26/22 11:19:00 EST, Dry Weight Start Date: 11/11/22 Status: Ordered metFORMIN 1000 mg oral tablet 1 tablet, By Mouth, 2 times a day, # 180 tablet, 1 Refills, 07/04/22 12:11:00 EST, [facility], 157, cm, 06/17/22 10:48:00 [...] 09/21/22 13:03:00 EDT, Route to Pharmacy Electronically, [facility], 157, cm, 06/17/22 10:48:00 EST, Height, 83.8, kg, 05/26/22 11:19:00 EST, Dry Weight Start Date: 09/21/22 Status: Ordered Ventolin HFA 108 mcg/inh inhalation aerosol with adapter 1 puffs, Inhalation, 4 times a day, PRN for wheezing, # 3 each, 3 Refills, Maintenance, 04/25/19 14:03:00 EST, Aerosol, [facility], 157, cm, 04/25/19 13:53:00 [...] new 9Echo 2004, antibiotic prophylaxis 10frax 14/0.7 Vital Signs Most recent to oldest [Reference Range]: 1 2 Height 157 cm (05/26/22 11:19 AM) 157 cm (02/16/22 2:17 PM) Weight 83.8 kg (05/26/22 11:19 AM) 83.9 kg (02/16/22 2:17 PM) Oxygen Saturation [94-100 %] 95 % (05/26/22 11:19 AM) 98 % (02/16/22 2:17 PM) Pulse Rate [55-90 bpm] 61 bpm (05/26/22 11:19 AM) 55 bpm (02/16/22 2:17 PM) Body Mass Index [18.5-24.99 kg/m2] 34 kg /m2 *>HHI* (05/26/22 11:19 AM) 34.04 kg/m2 *>HHI* (02/16/22 2:17 PM) Blood Pressure [90-138/55-84 mm Hg] 170/ 80mm Hg *H* (05/26/22 11:19 AM) 186/76mm Hg *H* (02/16/22 2:17 PM) Temperature [96.8-100.4 DegF] 98.1 DegF (05/26/22 11:19 AM) 98.6 DegF (02/16/22 2:17 PM) Blood pressure sites Arm, left (05/26/22 11:19 AM) Arm, left (02/16/22 2:17 PM) Temperature Route Temporal (05/26/22 11:19 AM) Oral (02/16/22 2:17 PM) Dry Weight 83.8 kg (05/26/22 11:19 AM) 83.9 kg (02/16/22 2:17 PM) Weight Obtained Via Standing scale (05/26/22 11:19 AM) Standing scale (02/16/22 2:17 PM) Dry Weight Obtained Via Standing scale (05/26/22 11:19 AM) Standing scale (02/16/22 2:17 PM) Social History Social History Type Response Smoking Status Never smoker entered on: 04/18/13 Sex Laboratory * Event Display: Serological Investigation Report Authored Date: Patient Name: YAN MCGINNIS Lab Patient : 1950 (Age: 72) Collection Date: 02/16/2022 Accession Date: 02/16/2022 Sign Out Date: 02/23/2022 Tissue Source: 1:TMS Direct Antiglobulin Test Final Diagnosis: SEROLOGICAL INVESTIGATION/CONSULTATION REPORT REASON FOR REPORT: Results from Direct Antiglobulin Testing Clinical Data: Diagnosis: Iron Deficiency Anemia Previous History: Serological Testing Problems: No record of serological testing problems at [facility] Transfusion History: No electronic record of transfusion at [facility] LABORATORY INVESTIGATION RED CELL STUDIES DIRECT ANTIGLOBULIN TEST: Negative with Polyspecific, Anti-IgG and Dajx-R9s-G9t antisera ASSESSMENT: Antibody or complement binding to the red blood cell is undetectable using conventional antiglobulin testing. Absence of immunoglobulin or complement binding to the red blood cell membrane usually implies non-immune causes for the anemia. Clinical correlation and pertinent additional laboratory testing are advised. It should be noted that a subset of patient with immune mediated hemolysis, however, can have a negative direct antiglobulin test (i.e., Augie??? Negative Autoimmune Hemolytic Anemia). RECOMMENDATIONS: Continued hemolysis of unknown etiology, or suspicion of enhanced immune mediated red blood cell clearance are indications for repeat and/or more sensitive immunoserologic investigations. For a further discussion of this report, please contact the Transfusion Medicine Service at [phone]. Primary Pathologist:Jeffrey Leung, Ph.D, M.D. electronically signed out by: Jeffrey Leung, Ph.D, M.D. / JEREMIAS Phone #: [phone], On-Call Pathologist: [id number] Note * Vicki Damon: PERFORM, SIGN, VERIFY Event Display: Patient Education/Instruction Authored Date: [id number] [facility] *Heme/Onc Adult Clinical Summary Name YAN MCGINNIS Age 72 Years 1950 PCP Benigno Awan MD PCP Visit Date 02/03/2022 09:15:00 Additional Instructions: Scheduled Appointments?? Future Appointments ?*B[facility] ?[address],??[address] ?Phone:??--?Fax:??-- ?Appt. Date:??06/13/2022?11:05 AM ?Scheduled Provider:??Emperatriz PEREZ, Benigno Stout Follow-Up Instructions ?? With: Address: When: Chaz Potter [address] [place] [address] [place] [address] Business (1) 02/24/2023 1:00 AM Diagnosis Medications: Please continue your medications until treatment is completed or stopped by your provider. Discuss any questions related to medications with your provider. New Medications [facility], [address] [place] [address] [phone], [phone] Ferrous Sulfate (ferrous sulfate 325 mg oral enteric coated tablet) Take one tablet By Mouth every other day. Take with vitamin C to help absorption. Refills: 0. Next Dose: Medications to Continue Taking That Have Changed These medications were not printed or sent to your pharmacy - Albuterol (Ventolin HFA 108 mcg/inh inhalation aerosol with adapter) 1 puff(s) Inhalation 4 timesa day as needed for wheezing. Refills: 3. Next Dose: Medications to Continue with No Changes These medications were not printed or sent to your pharmacy Aspirin (aspirin 81 mg oral tablet) 1 tab(s) Oral Daily. Next Dose: Atorvastatin (atorvastatin 20 mg oral tablet) 1 tab(s) Oral Daily. Refills: 1. Next Dose: Calcium And Vitamin D Combination (Caltrate 600 + D oral tablet) 1 tab(s) Oral twice a day. Refills: 11. Next Dose: Chlorhexidine Topical (chlorhexidine topical 0.12% liquid) 15 Milliliter Oral twice a day. swish and spit; do not swallow. Refills: 0. Next Dose: Cyanocobalamin (Vitamin B12) See Instructions. 1000 mcg Intramuscular;once a month. Next Dose: Fluticasone Nasal (fluticasone 50 mcg/inh nasal spray) 1 spray(s) Nares, Both twice a day. Refills:1. Next Dose: Folic Acid (folic acid 1 mg oral tablet) 1 tab(s) Oral Daily. Refills: 0. Next Dose: Hydrochlorothiazide (hydroCHLOROthiazide 12.5 mg oral capsule) 1 capsule Oral Daily. Refills: 3. Next Dose: Labetalol (labetalol 200 mg oral tablet) 1 tab(s) Oral twice a day. Refills: 3. Next Dose: Levothyroxine (levothyroxine 0.112 mg oral tablet) 1 tab(s) Oral Daily. Refills: 3. Next Dose: Losartan (losartan 100 mg oral tablet) 1 tab(s) Oral Daily. Refills: 1. Next Dose: Metformin (metFORMIN 1000 mg oral tablet) 1 tab(s) Oral twice a day. Refills: 1. Next Dose: Trazodone (traZODone 100 mg oral tablet) 1 tab(s) Oral Daily at Bedtime. Refills: 1. Next Dose: No Longer Take the Following Medications Durable Medical Equipment (Aerochamber) dx: asthma use w/ albuterol MDI. Refills: 0. Durable Medical Equipment (One Touch Delica Lancets) 1 box = 100 lancets Please use as directed to test BS bid for DM 250.00. Refills: 3. Durable Medical Equipment (ONE TOUCH ULTRA MINI TEST STRIPS) dx: DM E11.9 Pt tests 2X daily. Refills: 1. Durable Medical Equipment (One Touch UltraSoft Lancets) Test Blood sugar twice a day Dx: E11.9. Refills: 1. Allergy Info:?? amLODIPine-atorvastatin; theophylline; NIFEdipine Medications Given This Visit Future Orders ?No future orders Vital Signs Height 157 cm Weight 83.8 kg BMI 34 kg/m2 Blood Pressure 170 mm Hg/80 mm Hg Temperature 98.1 DegF Pulse Rate 61 bpm Respiratory Rate 02 Sat Mode of Delivery 95 %/ You can now view a summary of your hospital visit from the comfort of your home through a free online portal called [employer] is a website that allows you to securely view your medical information including discharge summary, medications and follow-up visits. ??You can alsosend a secure electronic message to your doctor???s office to request appointments, renew medications or just ask a question. You can enroll at [email or web address] or register during your next office visit. Disclaimer:?? The information provided is of a general nature and is intended to be used in conjunction with the recommendations and advice of your health care practitioner. ??Every effort has been made to ensure that the information provided is accurate and complete at the time it is provided to you however, as your needs change, or, as new ??information becomes available, different or additional instructions may be required. If you have questions, please consult with your primary care provider or pharmacist, as appropriate. ??This information is not intended to serve as substitution for assessment and evaluation by a qualified health care provider. If you do not have a primary care provider, you may find a [facility] provider by calling [facility] [employer] at [phone]. For information about the plan of care including goals and instructions for your diagnosis, please see the patient education orders section of this document. Patient Education Materials?? The content of this educational material or handout may have been modified, supplemented, or adapted from its original content and format to support your individualized medical care. Patient Care team information Care Team Personnel Name: Ashu GARY, Jazz Valentin Position: [facility] PCO Associate Professional Member Role: Lifetime Consulting Provider Address: Address: [address] [place] [address] Name: Emperatriz PEREZ, Benigno Stout Position: [facility] Physician - Primary Care Member Role: PCP Address: Address: [address] [place] [address] Name: Nait Salomon RN Position: [facility] RN Member Role: Primary Care Nurse Care Team Related Persons Name: LILYJOSE MUSTAFA Address: home [address] [place] [address]
--- OUTSIDE RECORDS SUMMARY | 2023-04-22 12:23 | XMS_ITS | Continuity of Care Document ---
Author Name Unknown Organization [facility] Address [address] [place] [address]- Care Team Providers Care Email Developer Name Role Phone Emperatriz PEREZ, Benigno Stout Primary Care Physician Encounter [facility] Date(s): 11/10/22 - 12/10/22 [facility] [address] [place] [address]- Allergies, Adverse Reactions, Alerts Substance Reaction Severity [...] inactivated 2 02/08/13 Gi rachael SARS-CoV-2 mRNA (ynrdwkp-gquj-bcskc) vax 12/08/21 Recorded SARS-CoV-2 (COVID-19) mRNA BNT-162b2 [...] Vaccine (oldterm) 11 01/31/99 Given 1Result Comment: [facility]# [id number] 2Admin Note: FLUARIX 3Admin Note: [facility] 4Admin Note: per pt rcvd deven 5Result Comment: [10/18/2013] #3 6Result Comment: [04/18/2013] #1 7Result Comment: [04/18/2013] #1 8Location History: [facility] daniella falk 9Admin Note: rcvd elsewhere 10Admin Note: rcvd elsewhere 11Admin Note: historical data Medications aspirin 81 mg oral tablet 1 tablet, By Mouth, Daily, # 30 tablet, 0 Refills, Maintenance, Tablet Start Date: 02/19/10 Status: Ordered atorvastatin 20 mg oral tablet 1 tablet, By Mouth, Daily, # 90 tablet, 1 Refills, 09/21/22 13:03:00 EDT, [facility], 157, cm, 06/17/22 10:48:00 EST, Height, [...] 0 Refills, Maintenance, 04/20/22 16:50:00 EST, Liquid, [facility]/pharmacy #[id number], Partial fill upon patient request if [...] each, 1 Refills, Maintenance, 09/14/21 12:04:00 EDT, [place], [facility], 1 sprays Nares, Both 2 times a day, 157, cm, 10/07/20 13:35:00EDT, Height Start Date: 09/14/21 Status: Ordered folic acid 1 mg oral tablet 1 mg, 1, tablet, By Mouth, Daily, # 90 tablet, Refills 0, Tot. Refills 0, Maintenance, 12/06/16 9:36:33, Route to Pharmacy Electronically, [id number], [facility] Start Date: 12/06/16 Status: Ordered Freestyle Lite Lancets See Instructions, # 200 each, Refills 3, Tot. Refills 3, Maintenance, use as directed for Type 2 Diabetes Mellitus, 11/30/22 5:38:00 EDT, Supply, 155.2, cm, 11/22/22 14:28:00 EDT, Height, 83.8, kg, 05/26/22 11:19:00 EST, Dry Weight Start Date: 11/30/22 Stop Date: 03/30/23 Status: Ordered Freestyle Lite Monitor See Instructions, # 1 each, Maintenance, Check BS daily and prn, Dx: T2DM, 11/30/22 5:37:00 EDT, Supply, 155.2, cm, 11/22/22 14:28:00 EDT, Height, 83.8, kg, 05/26/22 11:19:00 EST, Dry Weight Start Date: 11/30/22 Status: Ordered Freestyle Lite Test Strips See Instructions, # 200 each, Refills 3, Tot. Refills 3, Maintenance, use as directed for Type 2 Diabetes Mellitus, 11/30/22 5:38:00 EDT, Supply, 155.2, cm, 11/22/22 14:28:00 EDT, Height, 83.8, kg, 05/26/22 11:19:00 EST, Dry Weight Start Date: 11/30/22 Stop Date: 03/30/23 Status: Ordered hydroCHLOROthiazide 12.5 mg oral capsule 1 capsule = 12.5 mg, By Mouth, Daily, # 90 capsule, 3 Refills, Maintenance, 07/15/22 5:49:00 EDT, Capsule, [facility], 157, cm, 06/17/22 10:48:00 EST, Height, 83.8, kg, 05/26/22 11:19:00 EST, Dry Weight Start Date: 07/15/22 Status: Ordered labetalol 200 mg oral tablet 1 tablet, By Mouth, 2 times a day, # 180 tablet, 3 Refills, 07/15/22 5:49:00 EDT, [facility], 157, cm, 06/17/22 10:48:00 EST, Height, 83.8, kg, 05/26/22 11:19:00 EST, Dry Weight Start Date: 07/15/22 Status: Ordered levothyroxine 0.112 mg oral tablet 1 tablet = 112 mcg, By Mouth, Daily, # 90 tablet, 3 Refills, Maintenance, 12/22/21 8:04:00 EDT, [facility], Partial fill upon patient request if the prescription is for a schedule II opioid drug., 157, cm, 11/18/21 13:13:00 EDT,... Start Date: 12/22/21 Status: Ordered losartan 100 mg oral tablet 1 tablet, By Mouth, Daily, # 90 tablet, 1 Refills, Maintenance, 11/18/22 15:06:00 EDT, [facility], 157, cm, 06/17/22 10:48:00 EST, Height, 83.8, kg, 05/26/22 11:19:00 EST, Dry Weight Start Date: 11/18/22 Status: Ordered metFORMIN 1000 mg oral tablet 1 tablet, By Mouth, 2 times a day, # 180 tablet, 1 Refills, 07/04/22 12:11:00 EST, [facility], 157, cm, 06/17/22 10:48:00 EST, Height, [...] 09/21/22 13:03:00 EDT, Route to Pharmacy Electronically, [facility], 157, cm, 06/17/22 10:48:00 EST, Height, 83.8, kg, 05/26/22 11:19:00 EST, Dry Weight Start Date: 09/21/22 Status: Ordered triamcinolone 0.1% topical ointment 1 application, Topically, 3 times a day, for 7 days, # 30 Gm, 5 Refills, Acute 01/03/23 5:10:00 EDT, 11/22/22 5:10:00 EDT, Ointment, [facility], Partial fill upon patient request if the prescription is for a schedule II opioid d... Start Date: 11/22/22 Stop Date: 01/03/23 Status: Ordered Ventolin HFA 108 mcg/inh inhalation aerosol with adapter 1 puffs, Inhalation, 4 times a day, PRN for wheezing, # 3 each, 3 Refills, Maintenance, 04/25/19 14:03:00 EST, Aerosol, [facility], 157, cm, 04/25/19 13:53:00 EST, Height, [...] Personnel Name: Ashu GRAY, Jazz Valentin Position: [facility] PCO Associate Professional Member Role: Lifetime Consulting Provider Address: Address: [address] [place] [phone]- Name: Benigno Awan MD Position: [facility] Physician - Primary Care Member Role: PCP Address: Address: [address] [place] [address]- Name: Nati Salomon RN Position: [facility] RN Member Role: Primary Care Nurse Care Team Related Persons Name: JOSE ALFONSO Address: home [address] [place] [address]
--- OUTSIDE RECORDS SUMMARY | 2023-04-22 12:23 | XMS_ITS | Continuity of Care Document ---
Author Name Unknown Organization [facility] Address [address] [place] [address]- Care Team Providers Care Tire Setter Name Role Phone Virginia PEREZ, Brian Sanford Primary Care Physician Encounter [facility] Date(s): 07/30/20 - 08/29/20 [facility] [address] [place] [address]- Allergies, Adverse Reactions, Alerts Substance Reaction Severity [...] #1 6Result Comment: [04/18/2013] #1 7Location History: [facility] daniella ne 8Admin Note: rcvd elsewhere 9Admin Note: rcvd [...] 1 Refills, Soft Stop, 05/06/20 11:26:00 EST, [facility], 157, cm, 10/21/19 16:24:00 EDT, [...] each, 2 Refills, Maintenance, 05/17/19 11:44:00 EST, [place], [facility], 1 sprays Nares, Both 2 times a day, 157, cm, 05/17/19 11:39:00EST, Height, 87.9, kg, 10/21/17 9:09:00 EDT, Dry We... Start Date: 05/17/19 Status: Ordered folic acid 1 mg oral tablet 1 mg, 1, tablet, By Mouth, Daily, # 90 tablet, Refills 0, Tot. Refills 0, Maintenance, 12/06/16 9:36:33, Route to Pharmacy Electronically, [id number], [facility] Start Date: 12/06/16 Status: Ordered hydroCHLOROthiazide 12.5 mg oral capsule 1 capsule = 12.5 mg, By Mouth, Daily, # 90 capsule, 3 Refills, Maintenance, 02/03/20 8:25:00 EDT, Capsule, [facility], 157, cm, 10/21/19 16:24:00 EDT, Height Start Date: 02/03/20 Status: Ordered labetalol 200 mg oral tablet 1 tablet = 200 mg, By Mouth, 2 times a day, # 180 tablet, 3 Refills, Maintenance, 05/06/20 11:26:00EST, Tablet, [facility], ID# [id number], 157, cm, 10/21/19 16:24:00 EDT, Height Start Date: 05/06/20 Status: Ordered levothyroxine 150 mcg (0.15 mg) oral tablet See Instructions, TAKE 1 TABLET 6 DAYS A WEEK, # 78 tablet, 3 Refills, Soft Stop, 02/03/20 8:25:00 EDT, [facility], 157, cm, 10/21/19 16:24:00 EDT, Height, Dry Weight Start Date: 02/03/20 Status: Ordered losartan 100 mg oral tablet 1 tablet = 100 mg, By Mouth, Daily, # 90 tablet, 0 Refills, Maintenance, 05/06/20 10:56:00 EST, Tablet, [facility], 157, cm, 10/21/19 16:24:00 EDT, Height Start Date: 05/06/20 Status: Ordered metFORMIN 1000 mg oral tablet 1 tablet = 1,000 mg, By Mouth, 2 times a day, # 180 tablet, 0 Refills, Maintenance, 05/06/20 10:56:00 EST, Tablet, [facility], ID# [id number], 157, cm, 10/21/19 16:24:00 EDT, Height Start [...] By Mouth, Daily at bedtime, ID # [id number], # 90 tablet, Refills 1, Tot. Refills1, Maintenance, 05/06/20 10:56:00 EST, Route to Pharmacy Electronically, [facility], 157, cm, 10/21/19 16:24:00 EDT, Height Start Date: 05/06/20 Status: Ordered Ventolin HFA 108 mcg/inh inhalation aerosol with adapter 1 puffs, Inhalation, 4 times a day, PRN for wheezing, # 3 each, 3 Refills, Maintenance, 04/25/19 14:03:00 EST, Aerosol, [facility], 157, cm, 04/25/19 13:53:00 EST, [...]
--- OUTSIDE RECORDS SUMMARY | 2023-04-22 12:23 | XMS_ITS | Continuity of Care Document ---
Author Name Unknown Organization [facility] Taye lt Address [address] [place] [address]- Care Team Providers Care Blood Bank Booking Clerk Name Role Phone Virginia PEREZ, Brian Sanford Primary Care Physician [phone] [facility]counter [facility] Date(s): 07/08/21 - 08/07/21 [facility] Adult [address] [place] [address]- Allergies, Adverse Reactions, Alerts Substance Reaction Severity [...] #1 6Result Comment: [04/18/2013] #1 7Location History: [facility] 8Admin Note: rcvd elsewhere 9Admin Note: [...] Mouth, Daily, # 90 tablet, 1 Refills, [facility], 157, cm, 10/07/20 13:35:00 [...] each, 2 Refills, Maintenance, 05/17/19 11:44:00 EST, [place], [facility], 1 sprays Nares, Both 2 times a day, 157, cm, 05/17/19 11:39:00EST, Height, 87.9, kg, 10/21/17 9:09:00 EDT, Dry We... Start Date: 05/17/19 Status: Ordered folic acid 1 mg oral tablet 1 mg, 1, tablet, By Mouth, Daily, # 90 tablet, Refills 0, Tot. Refills 0, Maintenance, 12/06/16 9:36:33, Route to Pharmacy Electronically, [id number], [facility] Start Date: 12/06/16 Status: Ordered hydroCHLOROthiazide 12.5 mg oral capsule 1 capsule = 12.5 mg, By Mouth, Daily, # 90 capsule, 3 Refills, Maintenance, 05/06/21 11:25:00 EST, Caps[place], [facility], 157, cm, 10/07/20 13:35:00 EDT, Height Start Date: 05/06/21 Status: Ordered labetalol 200 mg oral tablet 1 tablet, By Mouth, 2 times a day, # 180 tablet, 3 Refills, [facility], 157, cm, 10/07/20 13:35:00 EDT, Height Start Date: 04/21/21 Status: Ordered levothyroxine 150 mcg (0.15 mg) oral tablet See Instructions, TAKE 1 TABLET 6 DAYS A WEEK, # 78 tablet, 1 Refills, Soft Stop, 01/22/21 12:47:00EDT, [facility], 157, cm, 10/07/20 13:35:00 EDT, Height Start Date: 01/22/21 Status: Ordered losartan 100 mg oral tablet 1 tablet, By Mouth, Daily, # 90 tablet, 1 Refills, [facility], 157, cm, 10/07/20 13:35:00 EDT, Height Start Date: 04/19/21 Status: Ordered metFORMIN 1000 mg oral tablet 1 tablet, By Mouth, 2 times a day, # 180 tablet, 1 Refills, [facility], 157, cm, 10/07/20 13:35:00 [...] tablet, Refills 1, Route to Pharmacy Electronically, [facility], 157, cm, 10/07/20 13:35:00 EDT, Height Start Date: 04/19/21 Status: Ordered Ventolin HFA 108 mcg/inh inhalation aerosol with adapter 1 puffs, Inhalation, 4 times a day, PRN for wheezing, # 3 each, 3 Refills, Maintenance, 04/25/19 14:03:00 EST, Aerosol, [facility], 157, cm, 04/25/19 13:53:00 [...]
--- OUTSIDE RECORDS SUMMARY | 2023-04-22 12:23 | XMS_ITS | Continuity of Care Document ---
Author Name Unknown Organization [facility] Taye lt Address [address] [place] [address]- Care Team Providers Care Grades 7 8 Tutor Name Role Phone Emperatriz PEREZ, Benigno Stout Primary Care Physician [facility] Date[facility]s): 11/18/22 - 12/18/22 [facility] Adult [address] [place] [address]- Allergies, Adverse Reactions, Alerts Substance Reaction Severity [...] inactivated 2 02/08/13 Gi rachael SARS-CoV-2 mRNA ([id number]) vax 12/08/21 Recorded SARS-CoV-2 (COVID-19) mRNA BNT-162b2 [...] Vaccine (oldterm) 11 01/31/99 Given 1Result Comment: [facility]# [id number] 2Admin Note: FLUARIX 3Admin Note: [facility] 4Admin Note: per pt rcvd deven 5Result Comment: [10/18/2013] #3 6Result Comment: [04/18/2013] #1 7Result Comment: [04/18/2013] #1 8Location History: [facility] 9Admin Note: rcvd elsewhere 10Admin Note: rcvd elsewhere 11Admin Note: historical data Medications aspirin 81 mg oral tablet 1 tablet, By Mouth, Daily, # 30 tablet, 0 Refills, Maintenance, Tablet Start Date: 02/19/10 Status: Ordered atorvastatin 20 mg oral tablet 1 tablet, By Mouth, Daily, # 90 tablet, 1 Refills, 09/21/22 13:03:00 EDT, [facility], 157, cm, 06/17/22 10:48:00 EST, [...] 0 Refills, Maintenance, 04/20/22 16:50:00 EST, Liquid, [facility]/pharmacy #[id number], Partial fill upon patient [...] each, 1 Refills, Maintenance, 12/12/22 7:03:00 EDT, [place], [facility], 1 sprays Nares, Both 2 times a day, 155.2, cm, 11/22/22 14:28:00 EDT, Height, 83.8, kg, 05/26/22 11:19:00 EST, Dry... Start Date: 12/12/22 Status: Ordered folic acid 1 mg oral tablet 1 mg, 1, tablet, By Mouth, Daily, # 90 tablet, Refills 0, Tot. Refills 0, Maintenance, 12/06/16 9:36:33, Route to Pharmacy Electronically, [id number], [facility] Start Date: 12/06/16 [...] 3 Refills, Maintenance, 07/15/22 5:49:00 EDT, Capsule, [facility], 157, cm, 06/17/22 10:48:00 EST, Height, 83.8, kg, 05/26/22 11:19:00 EST, Dry Weight Start Date: 07/15/22 Status: Ordered labetalol 200 mg oral tablet 1 tablet, By Mouth, 2 times a day, # 180 tablet, 3 Refills, 07/15/22 5:49:00 EDT, [facility], 157, cm, 06/17/22 10:48:00 EST, Height, 83.8, kg, 05/26/22 11:19:00 EST, Dry Weight Start Date: 07/15/22 Status: Ordered levothyroxine 0.112 mg oral tablet 1 tablet = 112 mcg, By Mouth, Daily, # 90 tablet, 3 Refills, Maintenance, 12/22/21 8:04:00 EDT, [facility], Partial fill upon patient request if the prescription is for a schedule II opioid drug., 157, cm, 11/18/21 13:13:00 EDT,... Start Date: 12/22/21 Status: Ordered losartan 100 mg oral tablet 1 tablet, By Mouth, Daily, # 90 tablet, 1 Refills, Maintenance, 11/18/22 15:06:00 EDT, [facility], 157, cm, 06/17/22 10:48:00 EST, Height, 83.8, kg, 05/26/22 11:19:00 EST, Dry Weight Start Date: 11/18/22 Status: Ordered metFORMIN 1000 mg oral tablet 1 tablet, By Mouth, 2 times a day, # 180 tablet, 1 Refills, 07/04/22 12:11:00 EST, [facility], 157, cm, 06/17/22 10:48:00 EST, [...] 09/21/22 13:03:00 EDT, Route to Pharmacy Electronically, [facility], 157, cm, 06/17/22 10:48:00 EST, Height, 83.8, kg, 05/26/22 11:19:00 EST, Dry Weight Start Date: 09/21/22 Status: Ordered triamcinolone 0.1% topical ointment 1 application, Topically, 3 times a day, for 7 days, # 30 Gm, 5 Refills, Acute 01/03/23 5:10:00 EDT, 11/22/22 5:10:00 EDT, Ointment, [facility], Partial fill upon patient request if the prescription is for a schedule II opioid d... Start Date: 11/22/22 Stop Date: 01/03/23 Status: Ordered Ventolin HFA 108 mcg/inh inhalation aerosol with adapter 1 puffs, Inhalation, 4 times a day, PRN for wheezing, # 3 each, 3 Refills, Maintenance, 04/25/19 14:03:00 EST, Aerosol, [facility], 157, cm, 04/25/19 13:53:00 EST, [...] Personnel Name: Ashu GRAY, Jazz Valentin Position: [facility] PCO Associate Professional Member Role: Lifetime Consulting Provider Address: Address: [address] [place] [address]- Name: Emperatriz PEREZ, Benigno Stout Position: [facility] Physician - Primary Care Member Role: PCP Address: Address: [address] [place] [address]- Name: Aime GEIGER, Nati Position: [facility] RN Member Role: Primary Care Nurse Care Team Related Persons Name: JOSE ALFONSO Address: home [address] [place] [address]
--- OUTSIDE RECORDS SUMMARY | 2023-04-22 12:24 | XMS_ITS | Continuity of Care Document ---
Author Name Unknown Organization [facility] Taye lt Address [address] [place] [address]- Care Team Providers Care Engineer Geophysical Laboratory Name Role Phone Virginia PEREZ, Brian Sanford Primary Care Physician [facility] Date[facility]s): 12/18/19 - 01/17/20 [facility] Adult [address] [place] [address]- [facility] Allergies, Adverse Reactions, Alerts Substance Reaction Severity [...] #1 6Result Comment: [04/18/2013] #1 7Location History: [facility] [place] 8Admin Note: rcvd elsewhere [...] 1 Refills, Soft Stop, 11/11/19 11:08:00 EDT, [facility], 157, cm, 10/21/19 16:24:00 EDT, Height, Dry Weight Start Date: 11/11/19 Status: Ordered atorvastatin 20 mg oral tablet 1 tablet = 20 mg, By Mouth, Daily, # 14 tablet, 0 Refills, Soft Stop, 11/11/19 11:08:00 EDT, [facility]/pharmacy #[id number], Emergency supply pt awaiting mailorder shipment., [...] each, 2 Refills, Maintenance, 05/17/19 11:44:00 EST, [place], [facility], 1 sprays Nares, Both 2 times a day, 157, cm, 05/17/19 11:39:00EST, Height, 87.9, kg, 10/21/17 9:09:00 EDT, Dry We... Start Date: 05/17/19 Status: Ordered folic acid 1 mg oral tablet 1 mg, 1, tablet, By Mouth, Daily, # 90 tablet, Refills 0, Tot. Refills 0, Maintenance, 12/06/16 9:36:33, Route to Pharmacy Electronically, [id number], [facility] Start Date: 12/06/16 Status: Ordered hydroCHLOROthiazide 12.5 mg oral capsule 1 capsule = 12.5 mg, By Mouth, Daily, # 90 capsule, 3 Refills, Maintenance, 01/04/19 7:47:00 EDT, Capsule Start Date: 01/04/19 Status: Ordered labetalol 200 mg oral tablet 1 tablet = 200 mg, By Mouth, 2 times a day, # 180 tablet, 3 Refills, Maintenance, 04/15/19 10:41:39EST, Tablet, [facility], ID# [id number], 157, cm, 03/07/19 14:39:28 EST, Height, 87.9, kg, 10/21/17 9:09:44 EDT, Dry Weight Start Date: 04/15/19 Status: Ordered levothyroxine 150 mcg (0.15 mg) oral tablet See Instructions, TAKE 1 TABLET 6 DAYS A WEEK, # 78 tablet, 3 Refills, Soft Stop, 04/15/19 10:41:38EST, [facility], 157, cm, 03/07/19 14:39:28 EST, Height, 87.9, kg, 10/21/17 9:09:44 EDT, Dry Weight Start Date: 04/15/19 Status: Ordered losartan 100 mg oral tablet 1 tablet = 100 mg, By Mouth, Daily, # 90 tablet, 1 Refills, Maintenance, 12/18/19 12:19:00 EDT, Tablet, [facility], 157, cm, 10/21/19 16:24:00 EDT, Height Start Date: 8/19/20 Status: Ordered metFORMIN 1000 mg oral tablet 1 tablet = 1,000 mg, By Mouth, 2 times a day, # 180 tablet, 1 Refills, Maintenance, 06/04/19 6:30:00 EST, Tablet, [facility], ID# [id number], 157, cm, 05/30/19 15:57:00 EST, Height, 87.9, [...] By Mouth, Daily at bedtime, ID # [id number], # 90 tablet, Refills 3, Tot. Refills3, Maintenance, 04/15/19 10:41:38 EST, Route to Pharmacy Electronically, [facility], 157, cm, 03/07/19 14:39:28 EST, Height, 87.... Start Date: 04/15/19 Status: Ordered Ventolin HFA 108 mcg/inh inhalation aerosol with adapter 1 puffs, Inhalation, 4 times a day, PRN for wheezing, # 3 each, 3 Refills, Maintenance, 04/25/19 14:03:00 EST, Aerosol, [facility], 157, cm, 04/25/19 13:53:00 EST, [...]
--- OUTSIDE RECORDS SUMMARY | 2023-04-22 12:24 | XMS_ITS | Continuity of Care Document ---
Author Name Unknown Organization [facility] Taye lt Address [address] [place] [address]- Care Team Providers Care Transformer Inspector Name Role Phone Emperatriz PEREZ, Benigno Stout Primary Care Physician Encounter [facility] Date(s): 02/08/23 - 03/10/23 [facility] Adult [address] [place] [address]- Allergies, Adverse Reactions, Alerts Substance Reaction Severity [...] inactivated 2 02/08/13 Gi rachael SARS-CoV-2 mRNA ([id number]) vax 12/08/21 Recorded SARS-CoV-2 (COVID-19) mRNA BNT-162b2 [...] 11 01/31/99 Given 1Result Comment: [facility]# [id number] 2Admin Note: FLUARIX 3Admin Note: [facility] 4Admin Note: per pt rcvd ekrodrick 5Result Comment: [10/18/2013] #3 6Result Comment: [04/18/2013] #1 7Result Comment: [04/18/2013] #1 8Location History: [facility] [place] 9Admin Note: rcvd elsewhere 10Admin Note: rcvd elsewhere 11Admin Note: historical data Medications aspirin 81 mg oral tablet 1 tablet, By Mouth, Daily, # 30 tablet, 0 Refills, Maintenance, Tablet Start Date: 02/19/10 Status: Ordered atorvastatin 20 mg oral tablet 1 tablet, By Mouth, Daily, # 90 tablet, 1 Refills, 01/30/23 11:50:00 EDT, [facility], 155.2, cm, 11/22/22 14:28:00 EDT, Height, [...] 0 Refills, Maintenance, 04/20/22 16:50:00 EST, Liquid, [facility]/pharmacy #[id number], Partial fill upon [...] each, 1 Refills, Maintenance, 12/12/22 7:03:00 EDT, [place], [facility], 1 sprays Nares, Both 2 times a day, 155.2, cm, 11/22/22 14:28:00 EDT, Height, 83.8, kg, 05/26/22 11:19:00 EST, Dry... Start Date: 12/12/22 Status: Ordered folic acid 1 mg oral tablet 1 mg, 1, tablet, By Mouth, Daily, # 90 tablet, Refills 0, Tot. Refills 0, Maintenance, 12/06/16 9:36:33, Route to Pharmacy Electronically, [id number], [facility] Start Date: 12/06/16 [...] 3 Refills, Maintenance, 07/15/22 5:49:00 EDT, Capsule, [facility], 157, cm, 06/17/22 10:48:00 EST, Height, 83.8, kg, 05/26/22 11:19:00 EST, Dry Weight Start Date: 07/15/22 Status: Ordered labetalol 200 mg oral tablet 1 tablet, By Mouth, 2 times a day, # 180 tablet, 3 Refills, 07/15/22 5:49:00 EDT, [facility], 157, cm, 06/17/22 10:48:00 EST, Height, 83.8, kg, 05/26/22 11:19:00 EST, Dry Weight Start Date: 07/15/22 Status: Ordered levothyroxine 0.112 mg oral tablet 1 tablet = 112 mcg, By Mouth, Daily, # 90 tablet, 1 Refills, Maintenance, 02/14/23 12:23:00 EDT, [facility], Partial fill upon patient request if the prescription is for a schedule II opioid drug., 155.2, cm, 11/22/22 14:28:00 E... Start Date: 02/14/23 Status: Ordered losartan 100 mg oral tablet 1 tablet, By Mouth, Daily, # 90 tablet, 1 Refills, Maintenance, 11/18/22 15:06:00 EDT, [facility], 157, cm, 06/17/22 10:48:00 EST, Height, 83.8, kg, 05/26/22 11:19:00 EST, Dry Weight Start Date: 11/18/22 Status: Ordered metFORMIN 1000 mg oral tablet 1 tablet, By Mouth, 2 times a day, # 180 tablet, 1 Refills, 01/30/23 11:49:00 EDT, [facility], 155.2, cm, 11/22/22 14:28:00 EDT, Height, [...] 01/30/23 11:50:00 EDT, Route to Pharmacy Electronically, [facility], 155.2, cm, 11/22/22 14:28:00EDT, Height, 83.8, kg, 05/26/22 11:19:00 EST, Dry W... Start Date: 01/30/23 Status: Ordered Ventolin HFA 108 mcg/inh inhalation aerosol with adapter 1 puffs, Inhalation, 4 times a day, PRN for wheezing, # 3 each, 3 Refills, Maintenance, 02/17/23 6:33:00 EDT, Aerosol, [facility], 155.2, cm, 11/22/22 14:28:00 EDT, Height, 83.8, kg, 05/26/22 11:19:00 EST, Dry Weight Start Date: 02/17/23 Status: Ordered Vitamin B12 See Instructions, 0, [...] Team Personnel Name: Jazz Wakefield NP Position: [facility] PCO Associate Professional Member Role: Lifetime Consulting Provider Address: Address: [address] [place] [id number]- Name: Benigno Awan MD Position: [facility] Physician - Primary Care Member Role: PCP Address: Address: [address] [place] [id number]- Name: Nati Salomon RN Position: [facility] RN Member Role: Primary Care Nurse Care Team Related Persons Name: JOSE ALFONSO Address: home [address] [place] [address]
--- OUTSIDE RECORDS SUMMARY | 2023-04-22 12:24 | XMS_ITS | Continuity of Care Document ---
Author Name Unknown Organization [facility] Taye lt Address [address] [place] [address]- Care Team Providers Care Vegetable Thinner Name Role Phone Virginia PEREZ, Brian Sanford Primary Care Physician [facility] Date(s): 08/03/21 - 09/02/21 [facility] Adult [address] [place] [address]- Allergies, Adverse Reactions, Alerts Substance Reaction Severity [...] #1 6Result Comment: [04/18/2013] #1 7Location History: [facility] 8Admin Note: rcvd elsewhere 9Admin [...] Mouth, Daily, # 90 tablet, 1 Refills, [facility], 157, cm, 10/07/20 [...] each, 2 Refills, Maintenance, 05/17/19 11:44:00 EST, [place], [facility], 1 sprays Nares, Both 2 times a day, 157, cm, 05/17/19 11:39:00EST, Height, 87.9, kg, 10/21/17 9:09:00 EDT, Dry We... Start Date: 05/17/19 Status: Ordered folic acid 1 mg oral tablet 1 mg, 1, tablet, By Mouth, Daily, # 90 tablet, Refills 0, Tot. Refills 0, Maintenance, 12/06/16 9:36:33, Route to Pharmacy Electronically, [id number], [facility] Start Date: 12/06/16 Status: Ordered hydroCHLOROthiazide 12.5 mg oral capsule 1 capsule = 12.5 mg, By Mouth, Daily, # 90 capsule, 3 Refills, Maintenance, 05/06/21 11:25:00 EST, Capsule, [facility], 157, cm, 10/07/20 13:35:00 EDT, Height Start Date: 05/06/21 Status: Ordered labetalol 200 mg oral tablet 1 tablet, By Mouth, 2 times a day, # 180 tablet, 3 Refills, [facility], 157, cm, 10/07/20 13:35:00 EDT, Height Start Date: 04/21/21 Status: Ordered levothyroxine 150 mcg (0.15 mg) oral tablet See Instructions, TAKE 1 TABLET 6 DAYS A WEEK, # 78 tablet, 1 Refills, Soft Stop, 01/22/21 12:47:00EDT, [facility], 157, cm, 10/07/20 13:35:00 EDT, Height Start Date: 01/22/21 Status: Ordered losartan 100 mg oral tablet 1 tablet, By Mouth, Daily, # 90 tablet, 1 Refills, [facility], 157, cm, 10/07/20 13:35:00 EDT, Height Start Date: 04/19/21 Status: Ordered metFORMIN 1000 mg oral tablet 1 tablet, By Mouth, 2 times a day, # 180 tablet, 1 Refills, [facility], 157, cm, 10/07/20 [...] tablet, Refills 1, Route to Pharmacy Electronically, [facility], 157, cm, 10/07/20 13:35:00 EDT, Height Start Date: 04/19/21 Status: Ordered Ventolin HFA 108 mcg/inh inhalation aerosol with adapter 1 puffs, Inhalation, 4 times a day, PRN for wheezing, # 3 each, 3 Refills, Maintenance, 04/25/19 14:03:00 EST, Aerosol, [facility], 157, cm, 04/25/19 13:53:00 EST, [...]
--- OUTSIDE RECORDS SUMMARY | 2023-04-22 12:24 | XMS_ITS | Continuity of Care Document ---
Author Name Unknown Organization [facility] Taye lt Address [address] [place] [address]- Care Team Providers Care Rn New Graduate Name Role Phone Virginia PEREZ, Brian Sanford Primary Care Physician [phone] [place] [facility] [place] Date(s): 04/13/20 - 05/13/20 [facility] Adult [address] [place] [address]- Allergies, Adverse Reactions, Alerts Substance Reaction Severity [...] #1 6Result Comment: [04/18/2013] #1 7Location History: [facility] 8Admin Note: rcvd elsewhere [...] 1 Refills, Soft Stop, 05/06/20 11:26:00 EST, [facility], 157, cm, 10/21/19 16:24:00 EDT, [...] each, 2 Refills, Maintenance, 05/17/19 11:44:00 EST, [place], [facility], 1 sprays Nares, Both 2 times a day, 157, cm, 05/17/19 11:39:00EST, Height, 87.9, kg, 10/21/17 9:09:00 EDT, Dry We... Start Date: 05/17/19 Status: Ordered folic acid 1 mg oral tablet 1 mg, 1, tablet, By Mouth, Daily, # 90 tablet, Refills 0, Tot. Refills 0, Maintenance, 12/06/16 9:36:33, Route to Pharmacy Electronically, [id number], [facility] Start Date: 12/06/16 Status: Ordered hydroCHLOROthiazide 12.5 mg oral capsule 1 capsule = 12.5 mg, By Mouth, Daily, # 90 capsule, 3 Refills, Maintenance, 02/03/20 8:25:00 EDT, Capsule, [facility], 157, cm, 10/21/19 16:24:00 EDT, Height Start Date: 02/03/20 Status: Ordered labetalol 200 mg oral tablet 1 tablet = 200 mg, By Mouth, 2 times a day, # 180 tablet, 3 Refills, Maintenance, 05/06/20 11:26:00EST, Tablet, [facility], ID# [id number], 157, cm, 10/21/19 16:24:00 EDT, Height Start Date: 05/06/20 Status: Ordered levothyroxine 150 mcg (0.15 mg) oral tablet See Instructions, TAKE 1 TABLET 6 DAYS A WEEK, # 78 tablet, 3 Refills, Soft Stop, 02/03/20 8:25:00 EDT, [facility], 157, cm, 10/21/19 16:24:00 EDT, Height, Dry Weight Start Date: 02/03/20 Status: Ordered losartan 100 mg oral tablet 1 tablet = 100 mg, By Mouth, Daily, # 90 tablet, 0 Refills, Maintenance, 05/06/20 10:56:00 EST, Tablet, [facility], 157, cm, 10/21/19 16:24:00 EDT, Height Start Date: 05/06/20 Status: Ordered metFORMIN 1000 mg oral tablet 1 tablet = 1,000 mg, By Mouth, 2 times a day, # 180 tablet, 0 Refills, Maintenance, 05/06/20 10:56:00 EST, Tablet, [facility], ID# [id number], 157, cm, 10/21/19 16:24:00 EDT, Height Start Date: 05/06/20 Status: Ordered nystatin 825906 u/ml oral suspension 5 mL = 500,000 units, By Mouth, 4 times a day, for 7 days, swish and swallow, # 140 mL, 0 Refills, Acute 05/14/20 11:55:00 EST, 05/07/20 11:55:00 EST, Suspension, [facility]/pharmacy #[id number], Partial fill upon patient request if the prescription is for a sched... Start Date: 05/07/20 Stop Date: 05/14/20 Status: Ordered One Touch Delica Lancets See [...] By Mouth, Daily at bedtime, ID # [id number], # 90 tablet, Refills 1, Tot. Refills1, Maintenance, 05/06/20 10:56:00 EST, Route to Pharmacy Electronically, [facility], 157, cm, 10/21/19 16:24:00 EDT, Height Start Date: 05/06/20 Status: Ordered Ventolin HFA 108 mcg/inh inhalation aerosol with adapter 1 puffs, Inhalation, 4 times a day, PRN for wheezing, # 3 each, 3 Refills, Maintenance, 04/25/19 14:03:00 EST, Aerosol, [facility], 157, cm, 04/25/19 13:53:00 EST, [...]
--- OUTSIDE RECORDS SUMMARY | 2023-04-22 12:24 | XMS_ITS | Continuity of Care Document ---
Author Name Unknown Organization [facility] Taye lt Address [address] [place] [address]- Care Team Providers Care Machine Lead Burner Name Role Phone Benigno Awan MD Primary Care Physician [phone] [place] [facility] [place]22 - 11/29/22 [facility] Adult [address] [place] [address]- Attending Physician: Benigno Awan MD Allergies, Adverse Reactions, [...] inactivated 2 02/08/13 Gi rachael SARS-CoV-2 mRNA (xmwmqjt-deri-tzmap) vax 12/08/21 Recorded SARS-CoV-2 (COVID-19) mRNA BNT-162b2 [...] 11 01/31/99 Given 1Result Comment: [facility]# [id number] 2Admin Note: FLUARIX 3Admin Note: [facility] 4Admin Note: per pt rcvd deven 5Result Comment: [10/18/2013] #3 6Result Comment: [04/18/2013] #1 7Result Comment: [04/18/2013] #1 8[facility] 9Admin Note: rcvd elsewhere 10Admin Note: rcvd elsewhere 11Admin Note: historical data Medications aspirin 81 mg oral tablet 1 tablet, By Mouth, Daily, # 30 tablet, 0 Refills, Maintenance, Tablet Start Date: 02/19/10 Status: Ordered atorvastatin 20 mg oral tablet 1 tablet, By Mouth, Daily, # 90 tablet, 1 Refills, 09/21/22 13:03:00 EDT, [facility], 157, cm, 06/17/22 10:48:00 [...] 0 Refills, Maintenance, 04/20/22 16:50:00 EST, Liquid, [facility]/pharmacy #[id number], Partial fill upon patient [...] each, 1 Refills, Maintenance, 09/14/21 12:04:00 EDT, [place], [facility], 1 sprays Nares, Both 2 times a day, 157, cm, 10/07/20 13:35:00EDT, Height Start Date: 09/14/21 Status: Ordered folic acid 1 mg oral tablet 1 mg, 1, tablet, By Mouth, Daily, # 90 tablet, Refills 0, Tot. Refills 0, Maintenance, 12/06/16 9:36:33, Route to Pharmacy Electronically, [id number], [facility] Start Date: 12/06/16 Status: Ordered hydroCHLOROthiazide 12.5 mg oral capsule 1 capsule = 12.5 mg, By Mouth, Daily, # 90 capsule, 3 Refills, Maintenance, 07/15/22 5:49:00 EDT, Caps[place], [facility], 157, cm, 06/17/22 10:48:00 EST, Height, 83.8, kg, 05/26/22 11:19:00 EST, Dry Weight Start Date: 07/15/22 Status: Ordered labetalol 200 mg oral tablet 1 tablet, By Mouth, 2 times a day, # 180 tablet, 3 Refills, 07/15/22 5:49:00 EDT, [facility], 157, cm, 06/17/22 10:48:00 EST, Height, 83.8, kg, 05/26/22 11:19:00 EST, Dry Weight Start Date: 07/15/22 Status: Ordered levothyroxine 0.112 mg oral tablet 1 tablet = 112 mcg, By Mouth, Daily, # 90 tablet, 3 Refills, Maintenance, 12/22/21 8:04:00 EDT, [facility], Partial fill upon patient request if the prescription is for a schedule II opioid drug., 157, cm, 11/18/21 13:13:00 EDT,... Start Date: 12/22/21 Status: Ordered losartan 100 mg oral tablet 1 tablet, By Mouth, Daily, # 90 tablet, 1 Refills, Maintenance, 11/18/22 15:06:00 EDT, [facility], 157, cm, 06/17/22 10:48:00 EST, Height, 83.8, kg, 05/26/22 11:19:00 EST, Dry Weight Start Date: 11/18/22 Status: Ordered metFORMIN 1000 mg oral tablet 1 tablet, By Mouth, 2 times a day, # 180 tablet, 1 Refills, 07/04/22 12:11:00 EST, [facility], 157, cm, 06/17/22 10:48:00 [...] 09/21/22 13:03:00 EDT, Route to Pharmacy Electronically, [facility], 157, cm, 06/17/22 10:48:00 EST, Height, 83.8, kg, 05/26/22 11:19:00 EST, Dry Weight Start Date: 09/21/22 Status: Ordered triamcinolone 0.1% topical ointment 1 application, Topically, 3 times a day, for 7 days, # 30 Gm, 5 Refills, Acute 01/03/23 5:10:00 EDT, 11/22/22 5:10:00 EDT, Oint[place], [facility], Partial fill upon patient [...] recent to oldest [Reference Range]: 1 Height 155.2 cm (11/22/22 2:28 PM) Weight 86.5 kg (11/22/22 2:28 PM) Oxygen Saturation [94-100 %] 96 % (11/22/22 2:28 PM) Pulse Rate [55-90 bpm] 59 bpm (11/22/22 2:28 PM) Body Mass Index [18.5-24.99 kg/m2] 35.91 kg/m2 *>HHI* (11/22/22 2:28 PM) Blood Pressure [90-138/55-84 mm Hg] 137/ 84mm Hg (11/22/22 2:28 PM) Mode of Delivery (Oxygen) Room air (11/22/22 2:28 PM) Blood pressure sites Arm, left (11/22/22 2:28 PM) Weight Obtained Via Standing scale (11/22/22 2:28 PM) Social History Social History Type Response Smoking Status Never smoker entered on: 04/18/13 Sex Patient Care team information Care Team Personnel Name: Ashu GRAY, Jazz Valentin Position: [facility] PCO Associate Professional Member Role: Lifetime Consulting Provider Address: Address: [address] [place] [address]- Name: Benigno Awan MD Position: [facility] Physician - Primary Care Member Role: PCP Address: Address: [address] [place] [address]- Name: Nati Salomon RN Position: [facility] RN Member Role: Primary Care Nurse Care Team Related Persons Name: JOSE ALFONSO Address: home [address] [place] [address]
--- OUTSIDE RECORDS SUMMARY | 2023-04-22 12:24 | XMS_ITS | Continuity of Care Document ---
Author Name Unknown Organization [facility] Onel Taye lt Address [address] [place] [address]- Care Team Providers Care Male Model Name Role Phone Emperatriz PEREZ, Benigno Stout Primary Care Physician Encounter [facility] Date(s): 03/08/23 - 04/07/23 [facility] Adult [address] [place] [address]- Allergies, Adverse Reactions, Alerts Substance Reaction Severity [...] inactivated 2 02/08/13 Gi rachael SARS-CoV-2 mRNA (pumipco-wjuh-sfmns) vax 12/08/21 Recorded SARS-CoV-2 (COVID-19) mRNA BNT-162b2 vac 01/21/21 Recorded SARS-CoV-2 (COVID-19) mRNA BNT-162b2 vac 07/07/20 Given SARS-CoV-2 (COVID-19) mRNA BNT-162b2 vac 06/16/20 Given Influenza Virus Vaccine (oldterm) 02/21/19 Recorde d Influenza Virus Vaccine (oldterm) 3 03/17/11 Given Influenza Virus Vaccine (oldterm) 4 12/8/09 Given pneumococcal 13-valent vaccine 03/22/17 Given hepatitis [...] Vaccine (oldterm) 11 01/31/99 Given 1Result Comment: [facility]# [id number] 2Admin Note: FLUARIX 3Admin Note: [facility] 4Admin Note: per pt rcvd deven 5Result Comment: [10/18/2013] #3 6Result Comment: [04/18/2013] #1 7Result Comment: [04/18/2013] #1 8Location History: [facility] daniella falk 9Admin Note: rcvd elsewhere 10Admin Note: rcvd elsewhere 11Admin Note: historical data Medications aspirin 81 mg oral tablet 1 tablet, By Mouth, Daily, # 30 tablet, 0 Refills, Maintenance, Tablet Start Date: 02/19/10 Status: Ordered atorvastatin 20 mg oral tablet 1 tablet, By Mouth, Daily, # 90 tablet, 1 Refills, 01/30/23 11:50:00 EDT, [facility], 155.2, cm, 11/22/22 14:28:00 EDT, Height, [...] 0 Refills, Maintenance, 04/20/22 16:50:00 EST, Liquid, [facility]/pharmacy #[id number], Partial fill upon patient request if [...] each, 1 Refills, Maintenance, 12/12/22 7:03:00 EDT, [place], [facility], 1 sprays Nares, Both 2 times a day, 155.2, cm, 11/22/22 14:28:00 EDT, Height, 83.8, kg, 05/26/22 11:19:00 EST, Dry... Start Date: 12/12/22 Status: Ordered folic acid 1 mg oral tablet 1 mg, 1, tablet, By Mouth, Daily, # 90 tablet, Refills 0, Tot. Refills 0, Maintenance, 12/06/16 9:36:33, Route to Pharmacy Electronically, [id number], [facility] Start Date: 12/06/16 [...] 3 Refills, Maintenance, 07/15/22 5:49:00 EDT, Caps[place], [facility], 157, cm, 06/17/22 10:48:00 EST, Height, 83.8, kg, 05/26/22 11:19:00 EST, Dry Weight Start Date: 07/15/22 Status: Ordered labetalol 200 mg oral tablet 1 tablet, By Mouth, 2 times a day, # 180 tablet, 3 Refills, 07/15/22 5:49:00 EDT, [facility], 157, cm, 06/17/22 10:48:00 EST, Height, 83.8, kg, 05/26/22 11:19:00 EST, Dry Weight Start Date: 07/15/22 Status: Ordered levothyroxine 0.112 mg oral tablet 1 tablet = 112 mcg, By Mouth, Daily, # 90 tablet, 1 Refills, Maintenance, 02/14/23 12:23:00 EDT, [facility], Partial fill upon patient request if the prescription is for a schedule II opioid drug., 155.2, cm, 11/22/22 14:28:00 E... Start Date: 02/14/23 Status: Ordered losartan 100 mg oral tablet 1 tablet, By Mouth, Daily, # 90 tablet, 1 Refills, Maintenance, 11/18/22 15:06:00 EDT, [facility], 157, cm, 06/17/22 10:48:00 EST, Height, 83.8, kg, 05/26/22 11:19:00 EST, Dry Weight Start Date: 11/18/22 Status: Ordered metFORMIN 1000 mg oral tablet 1 tablet, By Mouth, 2 times a day, # 180 tablet, 1 Refills, 01/30/23 11:49:00 EDT, [facility], 155.2, cm, 11/22/22 14:28:00 EDT, Height, [...] Dry Weight Start Date: 06/20/22 Status: Ordered oxymetazoline 0.05% nasal spray 2 sprays, Nares, Both, 2 times a day, for 4 week(s), not to exceed 2 doses/day. When used in combination with Flonase can be used up to 4 weeks without rhinitis medicamentosa. Stop use once symptoms resolve., # 15 mL, 0 Refills, Acute 04/13/23 9:48:00... Start Date: 03/16/23 Stop Date: 04/13/23 Status: Ordered traZODone 100 mg oral tablet 1, tablet, By Mouth, Daily at bedtime, # 90 tablet, Refills 1, Tot. Refills 1, 01/30/23 11:50:00 EDT, Route to Pharmacy Electronically, [facility], 155.2, cm, 11/22/22 14:28:00EDT, Height, 83.8, kg, 05/26/22 11:19:00 EST, Dry W... Start Date: 01/30/23 Status: Ordered Ventolin HFA 108 mcg/inh inhalation aerosol with adapter 1 puffs, Inhalation, 4 times a day, PRN for wheezing, # 3 each, 2 Refills, Maintenance, 03/28/23 10:30:00 EST, Aerosol, [facility], 155.2, cm, 03/16/23 8:41:00 EST, Height, [...] Team Personnel Name: Jazz Wakefield NP Position: [facility] PCO Associate Professional Member Role: Lifetime Consulting Provider Address: Address: [address] [place] [address]- Name: Benigno Awan MD Position: [facility] Physician - Primary Care Member Role: PCP Address: Address: [address] [place], [place] [address], [place] [address]- [place] Name: Aime GEIGER, Nati Position: S RN Member Role: Primary Care Nurse Care Team Related Persons Name: JOSE ALFONSO Address: home [address] [place] [address]
--- OUTSIDE RECORDS SUMMARY | 2023-04-22 12:24 | XMS_ITS | Continuity of Care Document ---
Author Name Unknown Organization [facility] Taye lt Address [address] [place] [address]- Care Team Providers Care Crown Assembly Machine Set Up Mechanic Name Role Phone Emperatriz PEREZ, Benigno Stout Primary Care Physician [phone] Encounter [facility] Date(s): 03/16/23 - 03/23/23 [facility] Adult [address] [place] [address]- Attending Physician: Alyx Beavers Brian Allergies, Adverse Reactions, Alerts Substance Reaction Severity [...] inactivated 2 02/08/13 Gi rachael SARS-CoV-2 mRNA (vdneggw-lgkj-hsoke) vax 12/08/21 Recorded SARS-CoV-2 (COVID-19) mRNA BNT-162b2 [...] Vaccine (oldterm) 11 01/31/99 Given 1Result Comment: [facility]# [id number] 2Admin Note: FLUARIX 3Admin Note: [facility] 4Admin Note: per pt rcvd deven 5Result Comment: [10/18/2013] #3 6Result Comment: [04/18/2013] #1 7Result Comment: [04/18/2013] #1 8[facility] 9Admin Note: rcvd elsewhere 10Admin Note: rcvd elsewhere 11Admin Note: historical data Medications aspirin 81 mg oral tablet 1 tablet, By Mouth, Daily, # 30 tablet, 0 Refills, Maintenance, Tablet Start Date: 02/19/10 Status: Ordered atorvastatin 20 mg oral tablet 1 tablet, By Mouth, Daily, # 90 tablet, 1 Refills, 01/30/23 11:50:00 EDT, [facility], 155.2, cm, 11/22/22 14:28:00 EDT, [...] Maintenance, 04/20/22 16:50:00 EST, Liquid, [facility]/pharmacy #[id number], Partial fill upon patient request if [...] each, 1 Refills, Maintenance, 12/12/22 7:03:00 EDT, [place], [facility], 1 sprays Nares, Both 2 times a day, 155.2, cm, 11/22/22 14:28:00 EDT, Height, 83.8, kg, 05/26/22 11:19:00 EST, Dry... Start Date: 12/12/22 Status: Ordered folic acid 1 mg oral tablet 1 mg, 1, tablet, By Mouth, Daily, # 90 tablet, Refills 0, Tot. Refills 0, Maintenance, 12/06/16 9:36:33, Route to Pharmacy Electronically, [id number], [facility] Start Date: 12/06/16 [...] 5:49:00 EDT, Capsule, [facility], 157, cm, 06/17/22 10:48:00 EST, Height, 83.8, kg, 05/26/22 11:19:00 EST, Dry Weight Start Date: 07/15/22 Status: Ordered labetalol 200 mg oral tablet 1 tablet, By Mouth, 2 times a day, # 180 tablet, 3 Refills, 07/15/22 5:49:00 EDT, [facility], 157, cm, 06/17/22 10:48:00 EST, Height, 83.8, kg, 05/26/22 11:19:00 EST, Dry Weight Start Date: 07/15/22 Status: Ordered levothyroxine 0.112 mg oral tablet 1 tablet = 112 mcg, By Mouth, Daily, # 90 tablet, 1 Refills, Maintenance, 02/14/23 12:23:00 EDT, [facility], Partial fill upon patient request if the prescription is for a schedule II opioid drug., 155.2, cm, 11/22/22 14:28:00 E... Start Date: 02/14/23 Status: Ordered losartan 100 mg oral tablet 1 tablet, By Mouth, Daily, # 90 tablet, 1 Refills, Maintenance, 11/18/22 15:06:00 EDT, [facility], 157, cm, 06/17/22 10:48:00 EST, Height, 83.8, kg, 05/26/22 11:19:00 EST, Dry Weight Start Date: 11/18/22 Status: Ordered metFORMIN 1000 mg oral tablet 1 tablet, By Mouth, 2 times a day, # 180 tablet, 1 Refills, 01/30/23 11:49:00 EDT, [facility], 155.2, cm, 11/22/22 14:28:00 EDT, [...] 01/30/23 11:50:00 EDT, Route to Pharmacy Electronically, [facility], 155.2, cm, 11/22/22 14:28:00EDT, Height, 83.8, kg, 05/26/22 11:19:00 EST, Dry W... Start Date: 01/30/23 Status: Ordered Ventolin HFA 108 mcg/inh inhalation aerosol with adapter 1 puffs, Inhalation, 4 times a day, PRN for wheezing, # 3 each, 3 Refills, Maintenance, 02/17/23 6:33:00 EDT, Aerosol, [facility], 155.2, cm, 11/22/22 14:28:00 EDT, [...] oldest [Reference Range]: 1 Height 155.2 cm (03/16/23 8:41 AM) Weight 82 kg (03/16/23 8:41 AM) Body Mass Index [18.5-24.99 kg/m2] 34.04 kg/m2 *>HHI* (03/16/23 8:41 AM) Social History Social History Type Response Smoking Status Never smoker entered on: 04/18/13 Sex Patient Care team information Care Team Personnel Name: Ashu MOTORCYCLE BUILDER, Jazz Valentin Position: [facility] PCO Associate Professional Member Role: Lifetime Consulting Provider Address: Address: [address] [place] [id number]- Name: Benigno Awan MD Position: [facility] Physician - Primary Care Member Role: PCP Address: Address: [address] [place] [id number]- Name: Nati Salomon RN Position: [facility] RN Member Role: Primary Care Nurse Care Team Related Persons Name: JOSE ALFONSO Address: home [address] [place] [address]
--- OUTSIDE RECORDS SUMMARY | 2023-04-22 12:24 | XMS_ITS | Continuity of Care Document ---
Author Name Unknown Organization [facility] Taye lt Address [address] [place] [address]- Care Team Providers Care Quality Technician Fiberglass Name Role Phone Brian Coleman MD Primary Care Physician [phone] Encounter [facility] Date(s): 10/07/20 - 10/14/20 [facility] Adult [address] [place] [address]- Encounter Diagnosis Diabetes mellitus type 2, controlled(Discharge Diagnosis) - 10/05/20 Benign Essential Hypertension(Discharge Diagnosis) - 10/05/20 Familial hyperlipidemia(Discharge Diagnosis) - 10/05/20 Acquired hypothyroidism(Discharge Diagnosis) - 10/05/20 Asthma(Discharge Diagnosis) - 10/05/20 Vitamin B12 deficiency (non anemic)(Discharge Diagnosis) - 10/05/20 Fatty liver(Discharge Diagnosis) - 10/05/20 Osteopenia BMD 2018(Discharge Diagnosis) - 10/05/20 BMI 34.0-34.9,adult(Discharge Diagnosis) - 10/07/20 Attending Physician: Brian Coleman MD Allergies, Adverse [...] center pharm 3Admin Note: per pt rcvd ekrodrick 4Result Comment: [10/18/2013] #3 5Result Comment: [04/18/2013] #1 6Result Comment: [04/18/2013] #1 7Location History: [facility] 8Admin Note: rcvd elsewhere 9Admin Note: [...] 1 Refills, Soft Stop, 05/06/20 11:26:00 EST, [facility], 157, cm, 10/21/19 16:24:00 [...] each, 2 Refills, Maintenance, 05/17/19 11:44:00 EST, [place], [facility], 1 sprays Nares, Both 2 times a day, 157, cm, 05/17/19 11:39:00EST, Height, 87.9, kg, 10/21/17 9:09:00 EDT, Dry We... Start Date: 05/17/19 Status: Ordered folic acid 1 mg oral tablet 1 mg, 1, tablet, By Mouth, Daily, # 90 tablet, Refills 0, Tot. Refills 0, Maintenance, 12/06/16 9:36:33, Route to Pharmacy Electronically, [id number], [facility] Start Date: 12/06/16 Status: Ordered hydroCHLOROthiazide 12.5 mg oral capsule 1 capsule = 12.5 mg, By Mouth, Daily, # 90 capsule, 3 Refills, Maintenance, 02/03/20 8:25:00 EDT, Capsule, [facility], 157, cm, 10/21/19 16:24:00 EDT, Height Start Date: 02/03/20 Status: Ordered labetalol 200 mg oral tablet 1 tablet = 200 mg, By Mouth, 2 times a day, # 180 tablet, 3 Refills, Maintenance, 05/06/20 11:26:00EST, Tablet, [facility], ID# [id number], 157, cm, 10/21/19 16:24:00 EDT, Height Start Date: 05/06/20 Status: Ordered levothyroxine 150 mcg (0.15 mg) oral tablet See Instructions, TAKE 1 TABLET 6 DAYS A WEEK, # 78 tablet, 3 Refills, Soft Stop, 02/03/20 8:25:00 EDT, [facility], 157, cm, 10/21/19 16:24:00 EDT, Height, Dry Weight Start Date: 02/03/20 Status: Ordered losartan 100 mg oral tablet 1 tablet = 100 mg, By Mouth, Daily, # 90 tablet, 0 Refills, Maintenance, 05/06/20 10:56:00 EST, Tablet, [facility], 157, cm, 10/21/19 16:24:00 EDT, Height Start Date: 05/06/20 Status: Ordered metFORMIN 1000 mg oral tablet 1 tablet = 1,000 mg, By Mouth, 2 times a day, # 180 tablet, 0 Refills, Maintenance, 05/06/20 10:56:00 EST, Tablet, [facility], ID# [id number], 157, cm, 10/21/19 16:24:00 EDT, Height Start [...] By Mouth, Daily at bedtime, ID # [id number], # 90 tablet, Refills 1, Tot. Refills1, Maintenance, 05/06/20 10:56:00 EST, Route to Pharmacy Electronically, [facility], 157, cm, 10/21/19 16:24:00 EDT, Height Start Date: 05/06/20 Status: Ordered Ventolin HFA 108 mcg/inh inhalation aerosol with adapter 1 puffs, Inhalation, 4 times a day, PRN for wheezing, # 3 each, 3 Refills, Maintenance, 04/25/19 14:03:00 EST, Aerosol, [facility], 157, cm, 04/25/19 13:53:00 [...] Effective Dates Health Status Clinical Service Informant Diabetes mellitus type 2, controlled Discharge Diagnosis 10/05/20 Benign Essential Hypertension Discharge Diagnosis 10/05/20 Familial hyperlipidemia Discharge Diagnosis 10/05/20 Acquired hypothyroidism Discharge Diagnosis 10/05/20 Asthma Discharge Diagnosis 10/05/20 Vitamin B12 deficiency (non anemic) Discharge Diagnosis 10/05/20 Fatty liver Discharge Diagnosis 10/05/20 Osteopenia BMD 2017 Discharge Diagnosis 10/05/20 BMI 34.0-34.9,adult Discharge Diagnosis 10/07/20 Vital Signs Most recent to oldest [Reference Range]: 1 2 3 Height 157 cm (10/07/20 1:35 PM) 157 cm (10/07/20 1:26 PM) 157 cm (10/07/20 1:22 PM) Weight 84.3 kg (10/07/20 1:22 PM) Oxygen Saturation [94-100 %] 97 % (10/07/20 1:22 PM) Pulse Rate [55-90 bpm] 60 bpm (10/07/20 1:22 PM) Body Mass Index [18.5-24.99] 34.2 *>HHI* (10/07/20 1:22 PM) Blood Pressure [90-138/55-84 mm Hg] 110/76mm Hg (10/07/20 1:35 PM) 138/70mm Hg (10/07/20 1:26 PM) 160/88mm Hg *H* (10/07/20 1:22 PM) Respiratory Rate [16-30 br/min] 16 br/min (10/07/20 1:22 PM) Blood pressure sites Arm, left (10/07/20 1:35 PM) Arm, left (10/07/20 1:26 PM) Arm, left (10/07/20 1:22 PM) Social History Social History Type Response Smoking Status Never smoker entered on: 04/18/13 Sex
--- OUTSIDE RECORDS SUMMARY | 2023-04-22 12:24 | XMS_ITS | Continuity of Care Document ---
Author Name Unknown Organization [facility] Taye lt Address [address] [place] [address]- Care Team Providers Care Truck Shop Mechanic Name Role Phone Virginia PEREZ, Brian Sanford Primary Care Physician [phone] Encounter [facility] Date(s): 07/20/20 - 08/19/20 [facility] Adult [address] [place] [address]- Attending Physician: Admtr, Ar8 Admitting Physician: Admtr, Ar8 Referring Physician: Admtr, Ar8 Allergies, Adverse Reactions, [...] #1 6Result Comment: [04/18/2013] #1 7Location History: [facility] 8Admin Note: rcvd elsewhere [...] 1 Refills, Soft Stop, 05/06/20 11:26:00 EST, [facility], 157, cm, 10/21/19 16:24:00 EDT, Height Start Date: 05/06/20 Status: Ordered Caltrate 600 + D oral tablet 1 tablet, By Mouth, 2 times a day, # 60 tablet, 11 Refills, Maintenance, 02/07/18 7:34:22 EDT, Tablet Start Date: 02/07/18 Status: Ordered fluticasone 50 mcg/inh nasal spray 1 sprays, Nares, Both, 2 times a day, # 3 each, 2 Refills, Maintenance, 05/17/19 11:44:00 EST, [place], [facility], 1 sprays Nares, Both 2 times a day, 157, cm, 05/17/19 11:39:00EST, Height, 87.9, kg, 10/21/17 9:09:00 EDT, Dry We... Start Date: 05/17/19 Status: Ordered folic acid 1 mg oral tablet 1 mg, 1, tablet, By Mouth, Daily, # 90 tablet, Refills 0, Tot. Refills 0, Maintenance, 12/06/16 9:36:33, Route to Pharmacy Electronically, [id number], [facility] Start Date: 12/06/16 Status: Ordered hydroCHLOROthiazide 12.5 mg oral capsule 1 capsule = 12.5 mg, By Mouth, Daily, # 90 capsule, 3 Refills, Maintenance, 02/03/20 8:25:00 EDT, Capsule, [facility], 157, cm, 10/21/19 16:24:00 EDT, Height Start Date: 02/03/20 Status: Ordered labetalol 200 mg oral tablet 1 tablet = 200 mg, By Mouth, 2 times a day, # 180 tablet, 3 Refills, Maintenance, 05/06/20 11:26:00EST, Tablet, [facility], ID# [id number], 157, cm, 10/21/19 16:24:00 EDT, Height Start Date: 05/06/20 Status: Ordered levothyroxine 150 mcg (0.15 mg) oral tablet See Instructions, TAKE 1 TABLET 6 DAYS A WEEK, # 78 tablet, 3 Refills, Soft Stop, 02/03/20 8:25:00 EDT, [facility], 157, cm, 10/21/19 16:24:00 EDT, Height, Dry Weight Start Date: 02/03/20 Status: Ordered losartan 100 mg oral tablet 1 tablet = 100 mg, By Mouth, Daily, # 90 tablet, 0 Refills, Maintenance, 05/06/20 10:56:00 EST, Tablet, [facility], 157, cm, 10/21/19 16:24:00 EDT, Height Start Date: 05/06/20 Status: Ordered metFORMIN 1000 mg oral tablet 1 tablet = 1,000 mg, By Mouth, 2 times a day, # 180 tablet, 0 Refills, Maintenance, 05/06/20 10:56:00 EST, Tablet, [facility], ID# [id number], 157, cm, 10/21/19 16:24:00 EDT, Height Start [...] By Mouth, Daily at bedtime, ID # [id number], # 90 tablet, Refills 1, Tot. Refills1, Maintenance, 05/06/20 10:56:00 EST, Route to Pharmacy Electronically, [facility], 157, cm, 10/21/19 16:24:00 EDT, Height Start Date: 05/06/20 Status: Ordered Ventolin HFA 108 mcg/inh inhalation aerosol with adapter 1 puffs, Inhalation, 4 times a day, PRN for wheezing, # 3 each, 3 Refills, Maintenance, 04/25/19 14:03:00 EST, Aerosol, [facility], 157, cm, 04/25/19 13:53:00 EST, Height, 87.9, kg, 10/21/17 9:09:00 EDT, Dry Weight Start Date: 04/25/19 Status: Ordered Vitamin B12 See Instructions, 0, 0, 06/09/05 12:50:42, 1000 mcg Intramuscular;once a month, Print BRAYDEN Number, Constant Indicator Start Date: 2/9/06 Status: Ordered Problem List Condition Effective Dates [...] new 9Echo 2003, antibiotic prophylaxis 10frax 14/0.7 Procedures Procedure Date [...]
--- OUTSIDE RECORDS SUMMARY | 2023-04-22 12:24 | XMS_ITS | Continuity of Care Document ---
Author Name Unknown Organization [facility] Taye lt Address [address] [place] [address]- Care Team Providers Care Warning Analyst Name Role Phone Virginia PEREZ, Brian Sanford Primary Care Physician [facility] Date[facility]s): 05/30/19 - 06/09/19 [facility] Adult [address] [place] [address]- [facility] Attending Physician: Admtr, Temo8 Admitting Physician: AdmtrAnalilia [...] [04/18/2013] #1 7Location History[facility] [place] 8Admin Note: rcvd elsewhere 9Admin Note: rcvd [...] 1 Refills, Soft Stop, 04/15/19 10:41:44 EST, [facility], 157, cm, 03/07/19 14:39:28 EST, [...] mL, 0 Refills, Maintenance, 05/30/19 16:01:00 EST,Liquid, [id number], 15 mL By Mouth 2 times a day, 157, cm, 05/30/19 15:57:00 EST, Height, 87.9, kg, 10/21/17 9:09:00 EDT, Dry Weight Start Date: 05/30/19 Status: Ordered fluticasone 50 mcg/inh nasal spray 1 sprays, Nares, Both, 2 times a day, # 3 each, 2 Refills, Maintenance, 05/17/19 11:44:00 EST, [employer], [facility], 1 sprays Nares, Both 2 times a day, 157, cm, 05/17/19 11:39:00EST, Height, 87.9, kg, 10/21/17 9:09:00 EDT, Dry We... Start Date: 05/17/19 Status: Ordered folic acid 1 mg oral tablet 1 mg, 1, tablet, By Mouth, Daily, # 90 tablet, Refills 0, Tot. Refills 0, Maintenance, 12/06/16 9:36:33, Route to Pharmacy Electronically, [id number], [facility] Start Date: 12/06/16 Status: Ordered hydroCHLOROthiazide 12.5 mg oral capsule 1 capsule = 12.5 mg, By Mouth, Daily, # 90 capsule, 3 Refills, Maintenance, 01/04/19 7:47:00 EDT, Capsule Start Date: 01/04/19 Status: Ordered labetalol 200 mg oral tablet 1 tablet = 200 mg, By Mouth, 2 times a day, # 180 tablet, 3 Refills, Maintenance, 04/15/19 10:41:39EST, Tablet, [facility], ID# [id number], 157, cm, 03/07/19 14:39:28 EST, Height, 87.9, kg, 10/21/17 9:09:44 EDT, Dry Weight Start Date: 04/15/19 Status: Ordered levothyroxine 150 mcg (0.15 mg) oral tablet See Instructions, TAKE 1 TABLET 6 DAYS A WEEK, # 78 tablet, 3 Refills, Soft Stop, 04/15/19 10:41:38EST, [facility], 157, cm, 03/07/19 14:39:28 EST, [...] 1 Refills, Maintenance, 06/04/19 6:30:00 EST, Tablet, [facility], ID# [id number], 157, cm, 05/30/19 15:57:00 EST, Height, 87.9, [...] By Mouth, Daily at bedtime, ID # [id number], # 90 tablet, Refills 3, Tot. Refills3, Maintenance, 04/15/19 10:41:38 EST, Route to Pharmacy Electronically, [facility], 157, cm, 03/07/19 14:39:28 EST, Height, 87.... Start Date: 04/15/19 Status: Ordered Ventolin HFA 108 mcg/inh inhalation aerosol with adapter 1 puffs, Inhalation, 4 times a day, PRN for wheezing, # 3 each, 3 Refills, Maintenance, 04/25/19 14:03:00 EST, Aerosol, [facility], 157, cm, 04/25/19 13:53:00 EST, [...]
--- OUTSIDE RECORDS SUMMARY | 2023-04-22 12:24 | XMS_ITS | Continuity of Care Document ---
Author Name Unknown Organization [facility] Taye lt Address [address] [place] [address]- Care Team Providers Care Sustainable Agriculture Specialist Name Role Phone Emperatriz PEREZ, Benigno Stout Primary Care Physician [facility] Date[facility]s): 11/08/22 - 12/08/22 [facility] Adult [address] [place] [address]- Allergies, Adverse Reactions, Alerts Substance Reaction Severity [...] inactivated 2 02/08/13 Gi rachael SARS-CoV-2 mRNA ([id number]) vax 12/08/21 Recorded SARS-CoV-2 (COVID-19) mRNA BNT-162b2 [...] Vaccine (oldterm) 11 01/31/99 Given 1Result Comment: [facility]# [id number] 2Admin Note: FLU[facility]IX 3Admin Note: [facility] 4Admin Note: per pt rcvd deven 5Result Comment: [10/18/2013] #3 6Result Comment: [04/18/2013] #1 7Result Comment: [04/18/2013] #1 8Location History: [facility] [place] 9Admin Note: rcvd elsewhere [...] 0 Refills, Maintenance, 04/20/22 16:50:00 EST, Liquid, [id number], Partial fill upon patient request if [...] each, 1 Refills, Maintenance, 09/14/21 12:04:00 EDT, [place], [facility], 1 sprays Nares, Both 2 times a day, 157, cm, 10/07/20 13:35:00EDT, Height Start Date: 09/14/21 Status: Ordered folic acid 1 mg oral tablet 1 mg, 1, tablet, By Mouth, Daily, # 90 tablet, Refills 0, Tot. Refills 0, Maintenance, 12/06/16 9:36:33, Route to Pharmacy Electronically, [id number], [facility] Start Date: 12/06/16 [...] tablet, 3 Refills, Maintenance, 12/22/21 8:04:00 EDT, [facility], Partial fill upon patient request if the prescription is for a schedule II opioid drug., 157, cm, 11/18/21 13:13:00 EDT,... Start Date: 12/22/21 Status: Ordered losartan 100 mg oral tablet 1 tablet, By Mouth, Daily, # 90 tablet, 1 Refills, Maintenance, 11/18/22 15:06:00 EDT, [facility], 157, cm, 06/17/22 10:48:00 EST, [...] Refills, Maintenance, 04/25/19 14:03:00 EST, Aerosol, [facility], 157, cm, 04/25/19 13:53:00 EST, Height, [...] Personnel Name: Ashu GRAY, Jazz Valentin Position: [facility] PCO Associate Professional Member Role: Lifetime Consulting Provider Address: Address: [address] [place] [address]- Name: Benigno Awan MD Position: [facility] Physician - Primary Care Member Role: PCP Address: Address: [address] [place] [address]- Name: Nati Salomon RN Position: [facility] RN Member Role: Primary Care Nurse Care Team Related Persons Name: LILYJOSE MUSTAFA Address: home [address] [place] [address]
--- OUTSIDE RECORDS SUMMARY | 2023-04-22 12:24 | XMS_ITS | Continuity of Care Document ---
Author Name Unknown Organization [facility] Taye lt Address [address] [place] [address]- Care Team Providers Care Syrup Shed Supervisor Name Role Phone Virginia PEREZ, Brian Sanford Primary Care Physician Encounter [facility] Date(s): 07/28/20 - 08/27/20 [facility] Adult [address] [place] [address]- Allergies, Adverse Reactions, Alerts Substance Reaction Severity [...] #1 6Result Comment: [04/18/2013] #1 7Location History: [facility] [place] 8Admin Note: rcvd elsewhere 9Admin Note: rcvd [...] 1 Refills, Soft Stop, 05/06/20 11:26:00 EST, [facility], 157, cm, 10/21/19 16:24:00 [...] each, 2 Refills, Maintenance, 05/17/19 11:44:00 EST, [place], [facility], 1 sprays Nares, Both 2 times a day, 157, cm, 05/17/19 11:39:00EST, Height, 87.9, kg, 10/21/17 9:09:00 EDT, Dry We... Start Date: 05/17/19 Status: Ordered folic acid 1 mg oral tablet 1 mg, 1, tablet, By Mouth, Daily, # 90 tablet, Refills 0, Tot. Refills 0, Maintenance, 12/06/16 9:36:33, Route to Pharmacy Electronically, [id number], [facility] Start Date: 12/06/16 Status: Ordered hydroCHLOROthiazide 12.5 mg oral capsule 1 capsule = 12.5 mg, By Mouth, Daily, # 90 capsule, 3 Refills, Maintenance, 02/03/20 8:25:00 EDT, Capsule, [facility], 157, cm, 10/21/19 16:24:00 EDT, Height Start Date: 02/03/20 Status: Ordered labetalol 200 mg oral tablet 1 tablet = 200 mg, By Mouth, 2 times a day, # 180 tablet, 3 Refills, Maintenance, 05/06/20 11:26:00EST, Tablet, [facility], ID# [id number], 157, cm, 10/21/19 16:24:00 EDT, Height Start Date: 05/06/20 Status: Ordered levothyroxine 150 mcg (0.15 mg) oral tablet See Instructions, TAKE 1 TABLET 6 DAYS A WEEK, # 78 tablet, 3 Refills, Soft Stop, 02/03/20 8:25:00 EDT, [facility], 157, cm, 10/21/19 16:24:00 EDT, Height, Dry Weight Start Date: 02/03/20 Status: Ordered losartan 100 mg oral tablet 1 tablet = 100 mg, By Mouth, Daily, # 90 tablet, 0 Refills, Maintenance, 05/06/20 10:56:00 EST, Tablet, [facility], 157, cm, 10/21/19 16:24:00 EDT, Height Start Date: 05/06/20 Status: Ordered metFORMIN 1000 mg oral tablet 1 tablet = 1,000 mg, By Mouth, 2 times a day, # 180 tablet, 0 Refills, Maintenance, 05/06/20 10:56:00 EST, Tablet, [facility], ID# [id number], 157, cm, 10/21/19 16:24:00 EDT, Height Start [...] By Mouth, Daily at bedtime, ID # [id number], # 90 tablet, Refills 1, Tot. Refills1, Maintenance, 05/06/20 10:56:00 EST, Route to Pharmacy Electronically, [facility], 157, cm, 10/21/19 16:24:00 EDT, Height Start Date: 05/06/20 Status: Ordered Ventolin HFA 108 mcg/inh inhalation aerosol with adapter 1 puffs, Inhalation, 4 times a day, PRN for wheezing, # 3 each, 3 Refills, Maintenance, 04/25/19 14:03:00 EST, Aerosol, [facility], 157, cm, 04/25/19 13:53:00 [...]
--- OUTSIDE RECORDS SUMMARY | 2023-04-22 12:24 | XMS_ITS | Continuity of Care Document ---
Author Name Unknown Organization [facility] Taye lt Address [address] [place] [address]- Care Team Providers Care Vacuum Cleaner Repair Person Name Role Phone Emperatriz PEREZ, Benigno Stout Primary Care Physician [facility] Date[facility]s): 12/22/21 - 01/21/22 [facility] Adult [address] [place] [address]- Allergies, Adverse Reactions, Alerts Substance Reaction Severity [...] #1 6Result Comment: [04/18/2013] #1 7Location History: [facility] 8Admin Note: rcvd elsewhere 9Admin [...] 11/18/21 13:28:00 EDT, Route to Pharmacy Electronically, [id number], [facility], 157, cm, 11/18/21 13:13:00 EDT, He... Start Date: 11/18/21 Status: Ordered aspirin 81 mg oral tablet 1 tablet, By Mouth, Daily, # 30 tablet, 0 Refills, Maintenance, Tablet Start Date: 02/19/10 Status: Ordered atorvastatin 20 mg oral tablet 1 tablet, By Mouth, Daily, # 90 tablet, 1 Refills, 09/29/21 16:13:00 EDT, [facility], 157, cm, 10/07/20 13:35:00 EDT, [...] each, 1 Refills, Maintenance, 09/14/21 12:04:00 EDT, [place], [facility], 1 sprays Nares, Both 2 times a day, 157, cm, 10/07/20 13:35:00EDT, Height Start Date: 09/14/21 Status: Ordered folic acid 1 mg oral tablet 1 mg, 1, tablet, By Mouth, Daily, # 90 tablet, Refills 0, Tot. Refills 0, Maintenance, 12/06/16 9:36:33, Route to Pharmacy Electronically, [id number], [facility] Start Date: 12/06/16 Status: Ordered hydroCHLOROthiazide 12.5 mg oral capsule 1 capsule = 12.5 mg, By Mouth, Daily, # 90 capsule, 3 Refills, Maintenance, 05/06/21 11:25:00 EST, Capsule, [facility], 157, cm, 10/07/20 13:35:00 EDT, [...] tablet, 3 Refills, Maintenance, 12/22/21 8:04:00 EDT, [facility], Partial fill upon patient request if the prescription is for a schedule II opioid drug., 157, cm, 11/18/21 13:13:00 EDT,... Start Date: 12/22/21 Status: Ordered losartan 100 mg oral tablet 1 tablet, By Mouth, Daily, # 90 tablet, 1 Refills, 10/06/21 8:52:00 EDT, [facility], 157, cm, 10/07/20 13:35:00 EDT, Height Start Date: 10/06/21 Status: Ordered metFORMIN 1000 mg oral tablet 1 tablet, By Mouth, 2 times a day, # 180 tablet, 1 Refills, 10/06/21 8:51:00 EDT, [facility], 157, cm, 10/07/20 13:35:00 EDT, [...] 8:53:00 EDT, Route to Pharmacy Electronically, [facility], 157, cm, 10/07/20 13:35:00 EDT, Height Start Date: 10/06/21 Status: Ordered Ventolin HFA 108 mcg/inh inhalation aerosol with adapter 1 puffs, Inhalation, 4 times a day, PRN for wheezing, # 3 each, 3 Refills, Maintenance, 04/25/19 14:03:00 EST, Aerosol, [facility], 157, cm, 04/25/19 13:53:00 [...] Team Personnel Name: Benigno Awan MD Address: [address] [place] [address] [place] [address]-
--- OUTSIDE RECORDS SUMMARY | 2023-04-22 12:24 | XMS_ITS | Continuity of Care Document ---
Author Name Unknown Organization [facility] Taye lt Address [address] [place] [address]- Care Team Providers Care Film Or Tape Librarian Name Role Phone Emperatriz PEREZ, Benigno Stout Primary Care Physician [facility]s): 11/16/21 - 12/16/21 [facility] Adult [address] [place] [address]- Allergies, Adverse Reactions, Alerts Substance Reaction Severity [...] #1 6Result Comment: [04/18/2013] #1 7Location History: [facility] 8Admin Note: rcvd elsewhere 9Admin Note: [...] 11/18/21 13:28:00 EDT, Route to Pharmacy Electronically, [id number], [facility], 157, cm, 11/18/21 13:13:00 EDT, He... Start Date: 11/18/21 Status: Ordered aspirin 81 mg oral tablet 1 tablet, By Mouth, Daily, # 30 tablet, 0 Refills, Maintenance, Tablet Start Date: 02/19/10 Status: Ordered atorvastatin 20 mg oral tablet 1 tablet, By Mouth, Daily, # 90 tablet, 1 Refills, 09/29/21 16:13:00 EDT, [facility], 157, cm, 10/07/20 13:35:00 EDT, [...] each, 1 Refills, Maintenance, 09/14/21 12:04:00 EDT, [place], [facility], 1 sprays Nares, Both 2 times a day, 157, cm, 10/07/20 13:35:00EDT, Height Start Date: 09/14/21 Status: Ordered folic acid 1 mg oral tablet 1 mg, 1, tablet, By Mouth, Daily, # 90 tablet, Refills 0, Tot. Refills 0, Maintenance, 12/06/16 9:36:33, Route to Pharmacy Electronically, [id number], [facility] Start Date: 12/06/16 Status: Ordered hydroCHLOROthiazide 12.5 mg oral capsule 1 capsule = 12.5 mg, By Mouth, Daily, # 90 capsule, 3 Refills, Maintenance, 05/06/21 11:25:00 EST, Capsule, [facility], 157, cm, 10/07/20 13:35:00 EDT, Height Start Date: 05/06/21 Status: Ordered labetalol 200 mg oral tablet 1 tablet, By Mouth, 2 times a day, # 180 tablet, 3 Refills, [facility], 157, cm, 10/07/20 13:35:00 EDT, Height Start Date: 04/21/21 Status: Ordered levothyroxine 150 mcg (0.15 mg) oral tablet See Instructions, TAKE 1 TABLET 5 DAYS A WEEK, # 78 tablet, 1 Refills, Soft Stop, 10/06/21 8:52:00 EDT, [facility], 157, cm, 10/07/20 13:35:00 EDT, Height Start Date: 10/06/21 Status: Ordered losartan 100 mg oral tablet 1 tablet, By Mouth, Daily, # 90 tablet, 1 Refills, 10/06/21 8:52:00 EDT, [facility], 157, cm, 10/07/20 13:35:00 EDT, Height Start Date: 10/06/21 Status: Ordered metFORMIN 1000 mg oral tablet 1 tablet, By Mouth, 2 times a day, # 180 tablet, 1 Refills, 10/06/21 8:51:00 EDT, [facility], 157, cm, 10/07/20 13:35:00 EDT, [...] 10/06/21 8:53:00 EDT, Route to Pharmacy Electronically, [facility], 157, cm, 10/07/20 13:35:00 EDT, Height Start Date: 10/06/21 Status: Ordered Ventolin HFA 108 mcg/inh inhalation aerosol with adapter 1 puffs, Inhalation, 4 times a day, PRN for wheezing, # 3 each, 3 Refills, Maintenance, 04/25/19 14:03:00 EST, Aerosol, [facility], 157, cm, 04/25/19 13:53:00 [...]
--- OUTSIDE RECORDS SUMMARY | 2023-04-22 12:24 | XMS_ITS | Continuity of Care Document ---
Author Name Unknown Organization [facility] Taye Address [address] [place] [id number]- Care Team Providers Care Electrotype Finisher Name Role Phone Virginia PEREZ, Brian Sanford Primary Care Physician [phone] [facility] Date[facility]s): 06/04/21 - 07/04/21 [facility] Adult [address] [place] [address]- Attending Physician: AdmAnalilia schuster Admitting Physician: AdmtrAnalilia Referring Physician: Admtr, Ar8 [...] #1 6Result Comment: [04/18/2013] #1 7Location History: [facility] 8Admin Note: rcvd elsewhere 9Admin Note: [...] Mouth, Daily, # 90 tablet, 1 Refills, [facility], 157, cm, 10/07/20 [...] each, 2 Refills, Maintenance, 05/17/19 11:44:00 EST, [place], [facility], 1 sprays Nares, Both 2 times a day, 157, cm, 05/17/19 11:39:00EST, Height, 87.9, kg, 10/21/17 9:09:00 EDT, Dry We... Start Date: 05/17/19 Status: Ordered folic acid 1 mg oral tablet 1 mg, 1, tablet, By Mouth, Daily, # 90 tablet, Refills 0, Tot. Refills 0, Maintenance, 12/06/16 9:36:33, Route to Pharmacy Electronically, [id number], [facility] Start Date: 12/06/16 Status: Ordered hydroCHLOROthiazide 12.5 mg oral capsule 1 capsule = 12.5 mg, By Mouth, Daily, # 90 capsule, 3 Refills, Maintenance, 05/06/21 11:25:00 EST, Capsule, [facility], 157, cm, 10/07/20 13:35:00 EDT, Height Start Date: 05/06/21 Status: Ordered labetalol 200 mg oral tablet 1 tablet, By Mouth, 2 times a day, # 180 tablet, 3 Refills, [facility], 157, cm, 10/07/20 13:35:00 EDT, Height Start Date: 04/21/21 Status: Ordered levothyroxine 150 mcg (0.15 mg) oral tablet See Instructions, TAKE 1 TABLET 6 DAYS A WEEK, # 78 tablet, 1 Refills, Soft Stop, 01/22/21 12:47:00EDT, [facility], 157, cm, 10/07/20 13:35:00 EDT, Height Start Date: 01/22/21 Status: Ordered losartan 100 mg oral tablet 1 tablet, By Mouth, Daily, # 90 tablet, 1 Refills, [facility], 157, cm, 10/07/20 13:35:00 EDT, Height Start Date: 04/19/21 Status: Ordered metFORMIN 1000 mg oral tablet 1 tablet, By Mouth, 2 times a day, # 180 tablet, 1 Refills, [facility], [...] tablet, Refills 1, Route to Pharmacy Electronically, [facility], 157, cm, 10/07/20 [...]
--- OUTSIDE RECORDS SUMMARY | 2023-04-22 12:24 | XMS_ITS | Continuity of Care Document ---
Author Name Unknown Organization [facility] Taye lt Address [address] [place] [address]- Care Team Providers Care Information Systems Project Manager Name Role Phone Brian Coleman MD Primary Care Physician [phone] Encounter [facility] Date(s): 05/07/20 - 05/14/20 [facility] Adult [address] [place] [address]- Encounter Diagnosis Thrush(Discharge Diagnosis) - 05/07/20 Attending Physician: Brian Coleman MD Allergies, Adverse [...] #1 6Result Comment: [04/18/2013] #1 7Location History: [facility] [place] 8Admin Note: rcvd elsewhere 9Admin Note: rcvd [...] 1 Refills, Soft Stop, 05/06/20 11:26:00 EST, [facility], 157, cm, 10/21/19 16:24:00 [...] each, 2 Refills, Maintenance, 05/17/19 11:44:00 EST, [place], [facility], 1 sprays Nares, Both 2 times a day, 157, cm, 05/17/19 11:39:00EST, Height, 87.9, kg, 10/21/17 9:09:00 EDT, Dry We... Start Date: 05/17/19 Status: Ordered folic acid 1 mg oral tablet 1 mg, 1, tablet, By Mouth, Daily, # 90 tablet, Refills 0, Tot. Refills 0, Maintenance, 12/06/16 9:36:33, Route to Pharmacy Electronically, [id number], [facility] Start Date: 12/06/16 Status: Ordered hydroCHLOROthiazide 12.5 mg oral capsule 1 capsule = 12.5 mg, By Mouth, Daily, # 90 capsule, 3 Refills, Maintenance, 02/03/20 8:25:00 EDT, Capsule, [facility], 157, cm, 10/21/19 16:24:00 EDT, Height Start Date: 02/03/20 Status: Ordered labetalol 200 mg oral tablet 1 tablet = 200 mg, By Mouth, 2 times a day, # 180 tablet, 3 Refills, Maintenance, 05/06/20 11:26:00EST, Tablet, [facility], ID# [id number], 157, cm, 10/21/19 16:24:00 EDT, Height Start Date: 05/06/20 Status: Ordered levothyroxine 150 mcg (0.15 mg) oral tablet See Instructions, TAKE 1 TABLET 6 DAYS A WEEK, # 78 tablet, 3 Refills, Soft Stop, 02/03/20 8:25:00 EDT, [facility], 157, cm, 10/21/19 16:24:00 EDT, Height, Dry Weight Start Date: 02/03/20 Status: Ordered losartan 100 mg oral tablet 1 tablet = 100 mg, By Mouth, Daily, # 90 tablet, 0 Refills, Maintenance, 05/06/20 10:56:00 EST, Tablet, [facility], 157, cm, 10/21/19 16:24:00 EDT, Height Start Date: 05/06/20 Status: Ordered metFORMIN 1000 mg oral tablet 1 tablet = 1,000 mg, By Mouth, 2 times a day, # 180 tablet, 0 Refills, Maintenance, 05/06/20 10:56:00 EST, Tablet, [facility], ID# [id number], 157, cm, 10/21/19 16:24:00 EDT, Height Start [...] By Mouth, Daily at bedtime, ID # [id number], # 90 tablet, Refills 1, Tot. Refills1, Maintenance, 05/06/20 10:56:00 EST, Route to Pharmacy Electronically, [facility], 157, cm, 10/21/19 16:24:00 [...] Dates Health Status Clini shawn Service Informant Thrush Discharge Diagnosis 05/07/20 Vital Signs Most recent to oldest [Reference Range]: 1 Height 157 cm (05/07/20 9:45 AM) Social History Social History Type Response Smoking Status Never smoker entered on: 04/18/13 Sex
--- OUTSIDE RECORDS SUMMARY | 2023-04-22 12:24 | XMS_ITS | Continuity of Care Document ---
Author Name Unknown Organization [facility] Onel Taye lt Address [address] [place] [address]- Care Team Providers Care Insurance Solicitor Name Role Phone Emperatriz PEREZ, Benigno Stout Primary Care Physician [phone] Encounter [facility] Date(s): 02/20/23 - 03/22/23 [facility] Adult [address] [place] [address]- Allergies, Adverse Reactions, Alerts Substance Reaction Severity [...] inactivated 2 02/08/13 Gi rachael SARS-CoV-2 mRNA ([id number]) vax 12/08/21 Recorded SARS-CoV-2 (COVID-19) mRNA BNT-162b2 [...] Vaccine (oldterm) 11 01/31/99 Given 1Result Comment: [facility]# [id number] 2Admin Note: [facility] 3Admin Note: [facility] 4Admin Note: per pt rcvd deven 5Result Comment: [10/18/2013] #3 6Result Comment: [04/18/2013] #1 7Result Comment: [04/18/2013] #1 8Location History: [facility] [place] 9Admin Note: rcvd elsewhere 10Admin Note: rcvd elsewhere 11Admin Note: historical data Medications aspirin 81 mg oral tablet 1 tablet, By Mouth, Daily, # 30 tablet, 0 Refills, Maintenance, Tablet Start Date: 02/19/10 Status: Ordered atorvastatin 20 mg oral tablet 1 tablet, By Mouth, Daily, # 90 tablet, 1 Refills, 01/30/23 11:50:00 EDT, [facility], 155.2, cm, 11/22/22 14:28:00 EDT, Height, [...] 0 Refills, Maintenance, 04/20/22 16:50:00 EST, [place], [facility]/pharmacy #[id number], Partial fill upon patient [...] each, 1 Refills, Maintenance, 12/12/22 7:03:00 EDT, [place], [facility], 1 sprays Nares, Both 2 times a day, 155.2, cm, 11/22/22 14:28:00 EDT, Height, 83.8, kg, 05/26/22 11:19:00 EST, Dry... Start Date: 12/12/22 Status: Ordered folic acid 1 mg oral tablet 1 mg, 1, tablet, By Mouth, Daily, # 90 tablet, Refills 0, Tot. Refills 0, Maintenance, 12/06/16 9:36:33, Route to Pharmacy Electronically, [id number], [facility] Start Date: 12/06/16 [...] 02/14/23 12:23:00 EDT, [facility], Partial fill upon patient request if the prescription is for a schedule II opioid drug., 155.2, cm, 11/22/22 14:28:00 E... Start Date: 02/14/23 Status: Ordered losartan 100 mg oral tablet 1 tablet, By Mouth, Daily, # 90 tablet, 1 Refills, Maintenance, 11/18/22 15:06:00 EDT, [facility], 157, cm, 06/17/22 10:48:00 EST, Height, 83.8, kg, 05/26/22 11:19:00 EST, Dry Weight Start Date: 11/18/22 Status: Ordered metFORMIN 1000 mg oral tablet 1 tablet, By Mouth, 2 times a day, # 180 tablet, 1 Refills, 01/30/23 11:49:00 EDT, [facility], 155.2, cm, 11/22/22 14:28:00 EDT, Height, [...] [facility], 155.2, cm, 11/22/22 14:28:00EDT, Height, 83.8, kg, 05/26/22 11:19:00 EST, Dry W... Start Date: 01/30/23 Status: Ordered Ventolin HFA 108 mcg/inh inhalation aerosol with adapter 1 puffs, Inhalation, 4 times a day, PRN for wheezing, # 3 each, 3 Refills, Maintenance, 02/17/23 6:33:00 EDT, Aerosol, [facility], 155.2, cm, 11/22/22 14:28:00 EDT, Height, 83.8, kg, 05/26/22 11:19:00 EST, Dry Weight Start Date: 02/17/23 Status: Ordered Vitamin B12 See Instructions, 0, 0, 06/09/05 12:50:42, 1000 mcg Intramuscular;once a month, Print BARYDEN Number, Constant Indicator Start Date: 06/09/05 Status: [...] Personnel Name: Ashu GRAY, Jazz Valentin Position: [facility] PCO Associate Professional Member Role: Lifetime Consulting Provider Address: Address: [address] [place] [id number]- Name: Benigno Aawn MD Position: [facility] Physician - Primary Care Member Role: PCP Address: Address: [address] [place] [id number]- Name: Nati Salomon RN Position: [facility] RN Member Role: Primary Care Nurse Care Team Related Persons Name: JOSE ALFONSO Address: home [address] [place] [address]
--- OUTSIDE RECORDS SUMMARY | 2023-04-22 12:24 | XMS_ITS | Continuity of Care Document ---
Author Name Unknown Organization [facility] Onel Taye lt Address [address] [place] [address]- Care Team Providers Care Gear Cutter Name Role Phone Brian Coleman MD Primary Care Physician Encounter [facility] Date(s): 01/21/20 - 01/28/20 [facility] Adult [address] [place] [address]- [facility] Attending Physician: Brian Coleman MD Allergies, Adverse [...] #1 6Result Comment: [04/18/2013] #1 7Location History: [facility] [place] 8Admin Note: rcvd elsewhere 9Admin Note: rcvd [...] 1 Refills, Soft Stop, 11/11/19 11:08:00 EDT, [facility], [facility], cm, 10/21/19 16:24:00 EDT, Height, Dry Weight Start Date: 11/11/19 Status: Ordered atorvastatin 20 mg oral tablet 1 tablet = 20 mg, By Mouth, Daily, # 14 tablet, 0 Refills, Soft Stop, 11/11/19 11:08:00 EDT, [facility]/pharmacy #[id number], Emergency supply pt awaiting mailorder [...] each, 2 Refills, Maintenance, 05/17/19 11:44:00 EST, [place], [facility], 1 sprays Nares, Both 2 times a day, 157, cm, 05/17/19 11:39:00EST, Height, 87.9, kg, 10/21/17 9:09:00 EDT, Dry We... Start Date: 05/17/19 Status: Ordered folic acid 1 mg oral tablet 1 mg, 1, tablet, By Mouth, Daily, # 90 tablet, Refills 0, Tot. Refills 0, Maintenance, 12/06/16 9:36:33, Route to Pharmacy Electronically, [id number], [facility] Start Date: 12/06/16 Status: Ordered hydroCHLOROthiazide 12.5 mg oral capsule 1 capsule = 12.5 mg, By Mouth, Daily, # 90 capsule, 3 Refills, Maintenance, 01/04/19 7:47:00 EDT, Capsule Start Date: 01/04/19 Status: Ordered labetalol 200 mg oral tablet 1 tablet = 200 mg, By Mouth, 2 times a day, # 180 tablet, 3 Refills, Maintenance, 04/15/19 10:41:39EST, Tablet, [facility], ID# [id number], 157, cm, 03/07/19 14:39:28 EST, Height, 87.9, kg, 10/21/17 9:09:44 EDT, Dry Weight Start Date: 04/15/19 Status: Ordered levothyroxine 150 mcg (0.15 mg) oral tablet See Instructions, TAKE 1 TABLET 6 DAYS A WEEK, # 78 tablet, 3 Refills, Soft Stop, 04/15/19 10:41:38EST, [facility], 157, cm, 03/07/19 14:39:28 EST, Height, 87.9, kg, 10/21/17 9:09:44 EDT, Dry Weight Start Date: 04/15/19 Status: Ordered losartan 100 mg oral tablet 1 tablet = 100 mg, By Mouth, Daily, # 90 tablet, 1 Refills, Maintenance, 12/18/19 12:19:00 EDT, Tablet, [facility], 157, cm, 10/21/19 16:24:00 EDT, Height Start Date: 12/18/19 Status: Ordered metFORMIN 1000 mg oral tablet 1 tablet = 1,000 mg, By Mouth, 2 times a day, # 180 tablet, 1 Refills, Maintenance, 06/04/19 6:30:00 EST, Tablet, [facility], ID# [id number], 157, cm, 05/30/19 15:57:00 EST, Height, 87.9, [...] By Mouth, Daily at bedtime, ID # [id number], # 90 tablet, Refills 3, Tot. Refills3, Maintenance, 04/15/19 10:41:38 EST, Route to Pharmacy Electronically, [facility], 157, cm, 03/07/19 14:39:28 EST, Height, 87.... Start Date: 04/15/19 Status: Ordered Ventolin HFA 108 mcg/inh inhalation aerosol with adapter 1 puffs, Inhalation, 4 times a day, PRN for wheezing, # 3 each, 3 Refills, Maintenance, 04/25/19 14:03:00 EST, Aerosol, [facility], 157, cm, 04/25/19 13:53:00 EST, [...]
--- OUTSIDE RECORDS SUMMARY | 2023-04-22 12:24 | XMS_ITS | Continuity of Care Document ---
Author Name Unknown Organization [facility] Taye lt Address [address] [place] [address]- Care Team Providers Care Certified Pedorthotist Name Role Phone [place] PEREZ, Brian Sanford Primary Care Physician Encounter [facility] Date(s): 09/04/20 - 10/04/20 [facility] Adult [address] [place] [address]- Allergies, Adverse Reactions, Alerts Substance Reaction Severity [...] #1 6Result Comment: [04/18/2013] #1 7Location History: [facility] [place] 8Admin Note: rcvd elsewhere 9Admin Note: rcvd [...] 1 Refills, Soft Stop, 05/06/20 11:26:00 EST, [facility], 157, cm, 10/21/19 16:24:00 [...] each, 2 Refills, Maintenance, 05/17/19 11:44:00 EST, [place], [facility], 1 sprays Nares, Both 2 times a day, 157, cm, 05/17/19 11:39:00EST, Height, 87.9, kg, 10/21/17 9:09:00 EDT, Dry We... Start Date: 05/17/19 Status: Ordered folic acid 1 mg oral tablet 1 mg, 1, tablet, By Mouth, Daily, # 90 tablet, Refills 0, Tot. Refills 0, Maintenance, 12/06/16 9:36:33, Route to Pharmacy Electronically, [id number], [facility] Start Date: 12/06/16 Status: Ordered hydroCHLOROthiazide 12.5 mg oral capsule 1 capsule = 12.5 mg, By Mouth, Daily, # 90 capsule, 3 Refills, Maintenance, 02/03/20 8:25:00 EDT, Capsule, [facility], 157, cm, 10/21/19 16:24:00 EDT, Height Start Date: 02/03/20 Status: Ordered labetalol 200 mg oral tablet 1 tablet = 200 mg, By Mouth, 2 times a day, # 180 tablet, 3 Refills, Maintenance, 05/06/20 11:26:00EST, Tablet, [facility], ID# [id number], 157, cm, 10/21/19 16:24:00 EDT, Height Start Date: 05/06/20 Status: Ordered levothyroxine 150 mcg (0.15 mg) oral tablet See Instructions, TAKE 1 TABLET 6 DAYS A WEEK, # 78 tablet, 3 Refills, Soft Stop, 02/03/20 8:25:00 EDT, [facility], 157, cm, 10/21/19 16:24:00 EDT, Height, Dry Weight Start Date: 02/03/20 Status: Ordered losartan 100 mg oral tablet 1 tablet = 100 mg, By Mouth, Daily, # 90 tablet, 0 Refills, Maintenance, 05/06/20 10:56:00 EST, Tablet, [facility], 157, cm, 10/21/19 16:24:00 EDT, Height Start Date: 05/06/20 Status: Ordered metFORMIN 1000 mg oral tablet 1 tablet = 1,000 mg, By Mouth, 2 times a day, # 180 tablet, 0 Refills, Maintenance, 05/06/20 10:56:00 EST, Tablet, [facility], ID# [id number], 157, cm, 10/21/19 16:24:00 EDT, Height Start [...] By Mouth, Daily at bedtime, ID # [id number], # 90 tablet, Refills 1, Tot. Refills1, Maintenance, 05/06/20 10:56:00 EST, Route to Pharmacy Electronically, [facility], 157, cm, 10/21/19 16:24:00 EDT, Height Start Date: 05/06/20 Status: Ordered Ventolin HFA 108 mcg/inh inhalation aerosol with adapter 1 puffs, Inhalation, 4 times a day, PRN for wheezing, # 3 each, 3 Refills, Maintenance, 04/25/19 14:03:00 EST, Aerosol, [facility], 157, cm, 04/25/19 13:53:00 [...]
--- OUTSIDE RECORDS SUMMARY | 2023-04-22 12:24 | XMS_ITS | Continuity of Care Document ---
Author Name Unknown Organization [facility] Taye lt Address [address] [place] [address]- Care Team Providers Care Clinical Trial Data Manager Name Role Phone [place] PEREZ, Brian Sanford Primary Care Physician [phone] Encounter [facility] Date(s): 05/06/20 - 06/05/20 [facility] Adult [address] [place] [address]- Allergies, Adverse Reactions, Alerts Substance Reaction Severity [...] [04/18/2013] #1 7[facility] [place] 8Admin Note: rcvd elsewhere 9Admin Note: rcvd [...] 1 Refills, Soft Stop, 05/06/20 11:26:00 EST, Pharmacy, 157, cm, 10/21/19 16:24:00 EDT, Height Start Date: 05/06/20 Status: Ordered Caltrate 600 + D oral tablet 1 tablet, By Mouth, 2 times a day, # 60 tablet, 11 Refills, Maintenance, 02/07/18 7:34:22 EDT, Tablet Start Date: 02/07/18 Status: Ordered fluticasone 50 mcg/inh nasal spray 1 sprays, Nares, Both, 2 times a day, # 3 each, 2 Refills, Maintenance, 05/17/19 11:44:00 EST, [place], Pharmacy, 1 sprays Nares, Both 2 times a day, 157, cm, 05/17/19 11:39:00EST, Height, 87.9, kg, 10/21/17 9:09:00 EDT, Dry We... Start Date: 05/17/19 Status: Ordered folic acid 1 mg oral tablet 1 mg, 1, tablet, By Mouth, Daily, # 90 tablet, Refills 0, Tot. Refills 0, Maintenance, 12/06/16 9:36:33, Route to Pharmacy Electronically, [id number], [facility] Start Date: 12/06/16 Status: Ordered hydroCHLOROthiazide 12.5 mg oral capsule 1 capsule = 12.5 mg, By Mouth, Daily, # 90 capsule, 3 Refills, Maintenance, 02/03/20 8:25:00 EDT, Capsule, Pharmacy, 157, cm, 10/21/19 16:24:00 EDT, Height Start Date: 02/03/20 Status: Ordered labetalol 200 mg oral tablet 1 tablet = 200 mg, By Mouth, 2 times a day, # 180 tablet, 3 Refills, Maintenance, 05/06/20 11:26:00EST, Tablet, Pharmacy, ID# [id number], 157, cm, 10/21/19 16:24:00 EDT, Height Start Date: 05/06/20 Status: Ordered levothyroxine 150 mcg (0.15 mg) oral tablet See Instructions, TAKE 1 TABLET 6 DAYS A WEEK, # 78 tablet, 3 Refills, Soft Stop, 02/03/20 8:25:00 EDT, Pharmacy, 157, cm, 10/21/19 16:24:00 EDT, Height, Dry Weight Start Date: 02/03/20 Status: Ordered losartan 100 mg oral tablet 1 tablet = 100 mg, By Mouth, Daily, # 90 tablet, 0 Refills, Maintenance, 05/06/20 10:56:00 EST, Tablet, Pharmacy, 157, cm, 10/21/19 16:24:00 EDT, Height Start Date: 05/06/20 Status: Ordered metFORMIN 1000 mg oral tablet 1 tablet = 1,000 mg, By Mouth, 2 times a day, # 180 tablet, 0 Refills, Maintenance, 05/06/20 10:56:00 EST, Tablet, Pharmacy, ID# [id number], 157, cm, 10/21/19 16:24:00 EDT, Height Start [...] By Mouth, Daily at bedtime, ID # [id number], # 90 tablet, Refills 1, Tot. Refills1, Maintenance, 05/06/20 10:56:00 EST, Route to Pharmacy Electronically, Pharmacy, 157, cm, 10/21/19 16:24:00 EDT, Height [...] 2education completed 3no need biopy per Dr ybers 4no other etiology per labs 5per ultrasound 6mild moderate 7discussed new AHA guidlines; no need antibiotics 8discussed new 9Echo 2004, antibiotic prophylaxis 10frax 14/0.7 Social History Social History Type Response Smoking Status Never smoker entered on: 04/18/13 Sex
--- OUTSIDE RECORDS SUMMARY | 2023-04-22 12:24 | XMS_ITS | Continuity of Care Document ---
Author Name Unknown Organization [facility] Taye lt Address [address] [place] [address]- Care Team Providers Care Speech Language Pathologist Travel Name Role Phone [place] PEREZ, Brian Sanford Primary Care Physician [phone] Encounter [facility] Date(s): 04/30/20 - 05/30/20 [facility] Adult [address] [place] [address]- Allergies, Adverse Reactions, Alerts Substance Reaction Severity [...] #1 6Result Comment: [04/18/2013] #1 7Location History: [facility] [place] 8Admin Note: rcvd elsewhere [...] 1 Refills, Soft Stop, 05/06/20 11:26:00 EST, [facility], 157, cm, 10/21/19 16:24:00 EDT, Height Start Date: 05/06/20 Status: Ordered Caltrate 600 + D oral tablet 1 tablet, By Mouth, 2 times a day, # 60 tablet, 11 Refills, Maintenance, 02/07/18 7:34:22 EDT, Tablet Start Date: 02/07/18 Status: Ordered fluticasone 50 mcg/inh nasal spray 1 sprays, Nares, Both, 2 times a day, # 3 each, 2 Refills, Maintenance, 05/17/19 11:44:00 EST, [place], [facility], 1 sprays Nares, Both 2 times a day, 157, cm, 05/17/19 11:39:00EST, Height, 87.9, kg, 10/21/17 9:09:00 EDT, Dry We... Start Date: 05/17/19 Status: Ordered folic acid 1 mg oral tablet 1 mg, 1, tablet, By Mouth, Daily, # 90 tablet, Refills 0, Tot. Refills 0, Maintenance, 12/06/16 9:36:33, Route to Pharmacy Electronically, [id number], [facility] Start Date: 12/06/16 Status: Ordered hydroCHLOROthiazide 12.5 mg oral capsule 1 capsule = 12.5 mg, By Mouth, Daily, # 90 capsule, 3 Refills, Maintenance, 02/03/20 8:25:00 EDT, Capsule, [facility], 157, cm, 10/21/19 16:24:00 EDT, Height Start Date: 02/03/20 Status: Ordered labetalol 200 mg oral tablet 1 tablet = 200 mg, By Mouth, 2 times a day, # 180 tablet, 3 Refills, Maintenance, 05/06/20 11:26:00EST, Tablet, [facility], ID# [id number], 157, cm, 10/21/19 16:24:00 EDT, Height Start Date: 05/06/20 Status: Ordered levothyroxine 150 mcg (0.15 mg) oral tablet See Instructions, TAKE 1 TABLET 6 DAYS A WEEK, # 78 tablet, 3 Refills, Soft Stop, 02/03/20 8:25:00 EDT, [facility], 157, cm, 10/21/19 16:24:00 EDT, Height, Dry Weight Start Date: 02/03/20 Status: Ordered losartan 100 mg oral tablet 1 tablet = 100 mg, By Mouth, Daily, # 90 tablet, 0 Refills, Maintenance, 05/06/20 10:56:00 EST, Tablet, [facility], 157, cm, 10/21/19 16:24:00 EDT, Height Start Date: 05/06/20 Status: Ordered metFORMIN 1000 mg oral tablet 1 tablet = 1,000 mg, By Mouth, 2 times a day, # 180 tablet, 0 Refills, Maintenance, 05/06/20 10:56:00 EST, Tablet, [facility], ID# [id number], 157, cm, 10/21/19 16:24:00 EDT, Height Start Date: 05/06/20 Status: Ordered nystatin 343482 u/ml oral suspension 5 mL = 500,000 units, By Mouth, 4 times a day, for 7 days, swish and swallow, # 140 mL, 0 Refills, Acute 06/04/20 9:33:00 EST, 05/28/20 9:33:00 EST, Susp[place], [facility]/pharmacy #[id number], Partial fill upon patient request if the prescription is for a schedul... Start Date: 05/28/20 Stop Date: 06/04/20 Status: Ordered One Touch Delica Lancets See [...] By Mouth, Daily at bedtime, ID # [id number], # 90 tablet, Refills 1, Tot. Refills1, Maintenance, 05/06/20 10:56:00 EST, Route to Pharmacy Electronically, [facility], 157, cm, 10/21/19 16:24:00 EDT, Height Start Date: 05/06/20 Status: Ordered Ventolin HFA 108 mcg/inh inhalation aerosol with adapter 1 puffs, Inhalation, 4 times a day, PRN for wheezing, # 3 each, 3 Refills, Maintenance, 04/25/19 14:03:00 EST, Aerosol, [facility], 157, cm, 04/25/19 13:53:00 EST, Height, [...]
--- OUTSIDE RECORDS SUMMARY | 2023-04-22 12:24 | XMS_ITS | Continuity of Care Document ---
Author Name Unknown Organization [facility] Taye lt Address [address] [place] [address]- Care Team Providers Care Mold Capper Helper Name Role Phone Virginia PEREZ, Brian Sanford Primary Care Physician [place] [facility]06[place] - 08/05/20 [facility] Adult [address] [place] [address]- Allergies, Adverse Reactions, Alerts Substance Reaction Severity [...] #1 6Result Comment: [04/18/2013] #1 7Location History: [facility] [place] 8Admin Note: rcvd elsewhere 9Admin Note: [...] Refills, Soft Stop, 05/06/20 11:26:00 EST, [facility], 157, cm, 10/21/19 16:24:00 EDT, [...] each, 2 Refills, Maintenance, 05/17/19 11:44:00 EST, [place], [facility], 1 sprays Nares, Both 2 times a day, 157, cm, 05/17/19 11:39:00EST, Height, 87.9, kg, 10/21/17 9:09:00 EDT, Dry We... Start Date: 05/17/19 Status: Ordered folic acid 1 mg oral tablet 1 mg, 1, tablet, By Mouth, Daily, # 90 tablet, Refills 0, Tot. Refills 0, Maintenance, 12/06/16 9:36:33, Route to Pharmacy Electronically, [id number], [facility] Start Date: 12/06/16 Status: Ordered hydroCHLOROthiazide 12.5 mg oral capsule 1 capsule = 12.5 mg, By Mouth, Daily, # 90 capsule, 3 Refills, Maintenance, 02/03/20 8:25:00 EDT, Capsule, [facility], 157, cm, 10/21/19 16:24:00 EDT, Height Start Date: 02/03/20 Status: Ordered labetalol 200 mg oral tablet 1 tablet = 200 mg, By Mouth, 2 times a day, # 180 tablet, 3 Refills, Maintenance, 05/06/20 11:26:00EST, Tablet, [facility], ID# [id number], 157, cm, 10/21/19 16:24:00 EDT, Height Start Date: 05/06/20 Status: Ordered levothyroxine 150 mcg (0.15 mg) oral tablet See Instructions, TAKE 1 TABLET 6 DAYS A WEEK, # 78 tablet, 3 Refills, Soft Stop, 02/03/20 8:25:00 EDT, [facility], 157, cm, 10/21/19 16:24:00 EDT, Height, Dry Weight Start Date: 02/03/20 Status: Ordered losartan 100 mg oral tablet 1 tablet = 100 mg, By Mouth, Daily, # 90 tablet, 0 Refills, Maintenance, 05/06/20 10:56:00 EST, Tablet, [facility], 157, cm, 10/21/19 16:24:00 EDT, Height Start Date: 05/06/20 Status: Ordered meclizine 25 mg oral tablet 1 tablet = 25 mg, By Mouth, 3 times a day, PRN for dizziness, for 30 days, # 30 tablet, 0 Refills, Acute 08/19/20 10:30:00 EDT, 07/20/20 10:30:00 EDT, Tablet, [facility]/pharmacy #[id number], 157, cm, 07/20/20 10:11:00 EDT, Height Start Date: 07/20/20 Stop Date: 08/19/20 Status: Ordered metFORMIN 1000 mg oral tablet 1 tablet = 1,000 mg, By Mouth, 2 times a day, # 180 tablet, 0 Refills, Maintenance, 05/06/20 10:56:00 EST, Tablet, [facility], ID# [id number], 157, cm, 10/21/19 16:24:00 EDT, Height Start [...] By Mouth, Daily at bedtime, ID # [id number], # 90 tablet, Refills 1, Tot. Refills1, Maintenance, 05/06/20 10:56:00 EST, Route to Pharmacy Electronically, [facility], 157, cm, 10/21/19 16:24:00 EDT, [...]
--- OUTSIDE RECORDS SUMMARY | 2023-04-22 12:25 | XMS_ITS | Continuity of Care Document ---
Author Name Unknown Organization [facility] Taye lt Address [address] [place] [address]- Care Team Providers Care Mail Room Clerk Name Role Phone Emperatriz PEREZ, Benigno Stout Primary Care Physician [phone] Encounter [facility] Date(s): 11/19/21 - 12/19/21 [facility] [address] [place] [address]- Allergies, Adverse Reactions, Alerts Substance Reaction Severity Status NIFEdipine Active theophylline 1 Active amLODIPine-atorvastatin Reso lved 1extreme headache Immunizations Given and Recorded Vaccine Date Status Refusal Reason influenza virus vaccine, inactivated 02/16/21 Give n influenza virus vaccine, inactivated 01/21/20 Give n influenza virus vaccine, inactivated 01/31/19 Marko rded influenza virus vaccine, inactivated 03/23/18 Amrko rded influenza virus vaccine, inactivated 03/19/18 Marko [...] #1 6Result Comment: [04/18/2013] #1 7Location History: [facility] 8Admin Note: rcvd elsewhere 9Admin [...] 11/18/21 13:28:00 EDT, Route to Pharmacy Electronically, [id number], [facility], 157, cm, 11/18/21 13:13:00 EDT, He... Start Date: 11/18/21 Status: Ordered aspirin 81 mg oral tablet 1 tablet, By Mouth, Daily, # 30 tablet, 0 Refills, Maintenance, Tablet Start Date: 02/19/10 Status: Ordered atorvastatin 20 mg oral tablet 1 tablet, By Mouth, Daily, # 90 tablet, 1 Refills, 09/29/21 16:13:00 EDT, [facility], 157, [...] each, 1 Refills, Maintenance, 09/14/21 12:04:00 EDT, [place], [facility], 1 sprays Nares, Both 2 times a day, 157, cm, 10/07/20 13:35:00EDT, Height Start Date: 09/14/21 Status: Ordered folic acid 1 mg oral tablet 1 mg, 1, tablet, By Mouth, Daily, # 90 tablet, Refills 0, Tot. Refills 0, Maintenance, 12/06/16 9:36:33, Route to Pharmacy Electronically, [id number], [facility] Start Date: 12/06/16 Status: Ordered hydroCHLOROthiazide 12.5 mg oral capsule 1 capsule = 12.5 mg, By Mouth, Daily, # 90 capsule, 3 Refills, Maintenance, 05/06/21 11:25:00 EST, Capsule, [facility], 157, cm, 10/07/20 13:35:00 EDT, Height Start Date: 05/06/21 Status: Ordered labetalol 200 mg oral tablet 1 tablet, By Mouth, 2 times a day, # 180 tablet, 3 Refills, [facility], 157, cm, 10/07/20 13:35:00 EDT, Height Start Date: 04/21/21 Status: Ordered levothyroxine 150 mcg (0.15 mg) oral tablet See Instructions, TAKE 1 TABLET 5 DAYS A WEEK, # 78 tablet, 1 Refills, Soft Stop, 10/06/21 8:52:00 EDT, [facility], 157, cm, 10/07/20 13:35:00 EDT, Height Start Date: 10/06/21 Status: Ordered losartan 100 mg oral tablet 1 tablet, By Mouth, Daily, # 90 tablet, 1 Refills, 10/06/21 8:52:00 EDT, [facility], 157, cm, 10/07/20 13:35:00 EDT, Height Start Date: 10/06/21 Status: Ordered metFORMIN 1000 mg oral tablet 1 tablet, By Mouth, 2 times a day, # 180 tablet, 1 Refills, 10/06/21 8:51:00 EDT, [facility], 157, [...] 10/06/21 8:53:00 EDT, Route to Pharmacy Electronically, [facility] [...]
--- OUTSIDE RECORDS SUMMARY | 2023-04-22 12:25 | XMS_ITS | Continuity of Care Document ---
Author Name Unknown Organization [facility] Taye lt Address [address] [place] [address]- Care Team Providers Care Furniture Crater Name Role Phone Virginia PEREZ, Brian Sanford Primary Care Physician Encounter [facility] Date(s): 07/27/20 - 08/26/20 [facility] [address] [place] [address]- Allergies, Adverse Reactions, Alerts Substance Reaction Severity [...] #1 6Result Comment: [04/18/2013] #1 7Location History: [facility] [place] 8Admin Note: rcvd elsewhere 9Admin Note: rcvd [...] each, 2 Refills, Maintenance, 05/17/19 11:44:00 EST, [place], Pharmacy, 1 sprays Nares, Both 2 times a day, 157, cm, 05/17/19 11:39:00EST, Height, 87.9, kg, 10/21/17 9:09:00 EDT, Dry We... Start Date: 05/17/19 Status: Ordered folic acid 1 mg oral tablet 1 mg, 1, tablet, By Mouth, Daily, # 90 tablet, Refills 0, Tot. Refills 0, Maintenance, 12/06/16 9:36:33, Route to Pharmacy Electronically, [id number], [facility] Start Date: 12/06/16 [...] Refills, Maintenance, 05/06/20 11:26:00EST, Tablet, Pharmacy, ID# [id number], 157, cm, 10/21/19 16:24:00 EDT, Height Start [...] Maintenance, 05/06/20 10:56:00 EST, Tablet, Pharmacy, ID# [id number], 157, cm, 10/21/19 16:24:00 EDT, Height Start [...] By Mouth, Daily at bedtime, ID # [id number], # 90 tablet, Refills 1, Tot. Refills1, [...]
--- OUTSIDE RECORDS SUMMARY | 2023-04-22 12:25 | XMS_ITS | Continuity of Care Document ---
Author Name Unknown Organization [facility] Taye lt Address [address] [place] [address]- Care Team Providers Care Crutch Maker Name Role Phone Emperatriz PEREZ, Benigno Stout Primary Care Physician Encounter [facility] Date(s): 11/16/22 - 12/16/22 [facility] [address] [place] [address]- Allergies, Adverse Reactions, Alerts Substance Reaction Severity [...] inactivated 2 02/08/13 Gi rachael SARS-CoV-2 mRNA ([id number]) vax 12/08/21 Recorded SARS-CoV-2 (COVID-19) mRNA BNT-162b2 [...] Vaccine (oldterm) 11 01/31/99 Given 1Result Comment: [facility]# [id number] 2Admin Note: [facility] 3Admin Note: [facility] 4Admin Note: per pt rcvd deven 5Result Comment: [10/18/2013] #3 6Result Comment: [04/18/2013] #1 7Result Comment: [04/18/2013] #1 8Location History: [facility] [place] 9Admin Note: rcvd elsewhere 10Admin Note: rcvd elsewhere 11Admin Note: historical data Medications aspirin 81 mg oral tablet 1 tablet, By Mouth, Daily, # 30 tablet, 0 Refills, Maintenance, Tablet Start Date: 02/19/10 Status: Ordered atorvastatin 20 mg oral tablet 1 tablet, By Mouth, Daily, # 90 tablet, 1 Refills, 09/21/22 13:03:00 EDT, [facility], 157, cm, 06/17/22 10:48:00 EST, [...] 0 Refills, Maintenance, 04/20/22 16:50:00 EST, [place], [facility]/pharmacy #[id number], Partial fill upon patient request if [...] each, 1 Refills, Maintenance, 12/12/22 7:03:00 EDT, [place], [facility], 1 sprays Nares, Both 2 times a day, 155.2, cm, 11/22/22 14:28:00 EDT, Height, 83.8, kg, 05/26/22 11:19:00 EST, Dry... Start Date: 12/12/22 Status: Ordered folic acid 1 mg oral tablet 1 mg, 1, tablet, By Mouth, Daily, # 90 tablet, Refills 0, Tot. Refills 0, Maintenance, 12/06/16 9:36:33, Route to Pharmacy Electronically, [id number], [facility] Start Date: 12/06/16 [...] 3 Refills, Maintenance, 07/15/22 5:49:00 EDT, Capsule, [facility], 157, cm, 06/17/22 10:48:00 EST, Height, 83.8, kg, 05/26/22 11:19:00 EST, Dry Weight Start Date: 07/15/22 Status: Ordered labetalol 200 mg oral tablet 1 tablet, By Mouth, 2 times a day, # 180 tablet, 3 Refills, 07/15/22 5:49:00 EDT, [facility], 157, cm, 06/17/22 10:48:00 EST, Height, 83.8, kg, 05/26/22 11:19:00 EST, Dry Weight Start Date: 07/15/22 Status: Ordered levothyroxine 0.112 mg oral tablet 1 tablet = 112 mcg, By Mouth, Daily, # 90 tablet, 3 Refills, Maintenance, 12/22/21 8:04:00 EDT, [facility], Partial fill upon patient request if [...] 180 tablet, 1 Refills, 07/04/22 12:11:00 EST, [facility], 157, cm, 06/17/22 10:48:00 EST, [...] 09/21/22 13:03:00 EDT, Route to Pharmacy Electronically, [facility], 157, cm, 06/17/22 10:48:00 EST, Height, 83.8, kg, 05/26/22 11:19:00 EST, Dry Weight Start Date: 09/21/22 Status: Ordered triamcinolone 0.1% topical ointment 1 application, Topically, 3 times a day, for 7 days, # 30 Gm, 5 Refills, Acute 01/03/23 5:10:00 EDT, 11/22/22 5:10:00 EDT, Ointment, [facility], Partial fill upon patient request [...] Personnel Name: Ashu GRAY, Jazz Valentin Position: [facility] PCO Associate Professional Member Role: Lifetime Consulting Provider Address: Address: [address] [place] [address]- Name: Emperatriz PEREZ, Benigno Stout Position: [facility] Physician - Primary Care Member Role: PCP Address: Address: [address] [place] [phone]- Name: Aime GEIGER, Nati Position: [facility] RN Member Role: Primary Care Nurse Care Team Related Persons Name: JOSE ALFONSO Address: home [address] [place] [address]
--- OUTSIDE RECORDS SUMMARY | 2023-04-22 12:25 | XMS_ITS | Continuity of Care Document ---
Author Name Unknown Organization [facility] Address [address] [place] [address]- Care Team Providers Care Custodial Supervisor Name Role Phone Emperatriz PEREZ, Benigno Stout Primary Care Physician [phone] Encounter [facility] Date(s): 11/19/21 - 12/19/21 [facility] [address] [place] [address]- Attending Physician: Analilia Morocho Admitting Physician: AdmAnalilia schuster Referring Physician: AdmtrAnalilia Allergies, Adverse Reactions, Alerts [...] 01/31/99 Given 1Admin Note: FLUARIX 2Admin Note: [facility] 3Admin Note: per pt rcvd ekozzieewlibertad 4Result Comment: [10/18/2013] #3 5Result Comment: [04/18/2013] #1 6Result Comment: [04/18/2013] #1 7Location History: [facility] 8Admin Note: rcvd elsewhere 9Admin Note: rcvd elsewhere 10Admin Note: historical data Medications Aerochamber See Instructions, # 1 units, Maintenance, dx: asthma use w/ albuterol MDI, 12/01/14 15:22:56, Compound Start Date: 12/01/14 Status: Ordered albuterol CFC free 90 mcg/inh inhalation aerosol 2, puffs, Inhalation, Every 6 hours, # 3 each, Refills 1, Tot. Refills 1, Maintenance, 11/18/21 13:28:00 EDT, Route to Pharmacy Electronically, [id number], [facility], 157, cm, 11/18/21 13:13:00 EDT, He... Start Date: 11/18/21 Status: Ordered aspirin 81 mg oral tablet 1 tablet, By Mouth, Daily, # 30 tablet, 0 Refills, Maintenance, Tablet Start Date: 02/19/10 Status: Ordered atorvastatin 20 mg oral tablet 1 tablet, By Mouth, Daily, # 90 tablet, 1 Refills, 09/29/21 16:13:00 EDT, [facility], 157, cm, 10/07/20 13:35:00 EDT, Height Start Date: 09/29/21 Status: Ordered Caltrate 600 + D oral tablet 1 tablet, By Mouth, 2 times a day, # 60 tablet, 11 Refills, Maintenance, 02/07/18 7:34:22 EDT, Tablet Start Date: 02/07/18 Status: Ordered fluticasone 50 mcg/inh nasal spray 1 sprays, Nares, Both, 2 times a day, # 3 each, 1 Refills, Maintenance, 09/14/21 12:04:00 EDT, [place], [facility], 1 sprays Nares, Both 2 times a day, 157, cm, 10/07/20 13:35:00EDT, Height Start Date: 09/14/21 Status: Ordered folic acid 1 mg oral tablet 1 mg, 1, tablet, By Mouth, Daily, # 90 tablet, Refills 0, Tot. Refills 0, Maintenance, 12/06/16 9:36:33, Route to Pharmacy Electronically, [id number], [facility] Start Date: 12/06/16 Status: Ordered hydroCHLOROthiazide 12.5 mg oral capsule 1 capsule = 12.5 mg, By Mouth, Daily, # 90 capsule, 3 Refills, Maintenance, 05/06/21 11:25:00 EST, Capsule, [facility], 157, cm, 10/07/20 13:35:00 EDT, Height Start Date: 05/06/21 Status: Ordered labetalol 200 mg oral tablet 1 tablet, By Mouth, 2 times a day, # 180 tablet, 3 Refills, [facility], 157, cm, 10/07/20 13:35:00 EDT, Height Start Date: 04/21/21 Status: Ordered levothyroxine 150 mcg (0.15 mg) oral tablet See Instructions, TAKE 1 TABLET 5 DAYS A WEEK, # 78 tablet, 1 Refills, Soft Stop, 10/06/21 8:52:00 EDT, [facility], 157, cm, 10/07/20 13:35:00 EDT, Height Start Date: 10/06/21 Status: Ordered losartan 100 mg oral tablet 1 tablet, By Mouth, Daily, # 90 tablet, 1 Refills, 10/06/21 8:52:00 EDT, [facility], 157, cm, 10/07/20 13:35:00 EDT, Height Start Date: 10/06/21 Status: Ordered metFORMIN 1000 mg oral tablet 1 tablet, By Mouth, 2 times a day, # 180 tablet, 1 Refills, 10/06/21 8:51:00 EDT, [facility], 157, cm, 10/07/20 13:35:00 EDT, Height [...] 10/06/21 8:53:00 EDT, Route to Pharmacy Electronically, [facility], 157, cm, 10/07/20 13:35:00 EDT, Height Start Date: 10/06/21 Status: Ordered Ventolin HFA 108 mcg/inh inhalation aerosol with adapter 1 puffs, Inhalation, 4 times a day, PRN for wheezing, # 3 each, 3 Refills, Maintenance, 04/25/19 14:03:00 EST, Aerosol, [facility], 157, cm, 04/25/19 13:53:00 EST, Height, [...]
--- OUTSIDE RECORDS SUMMARY | 2023-04-22 12:25 | XMS_ITS | Continuity of Care Document ---
Author Name Unknown Organization [facility] Address [address] [facility] [place] [address]- Care Team Providers Care Legal Entity Controller Name Role Phone Benigno Awan MD Primary Care Physician Encounter 04/12/23 - 04/19/23 [facility] [address], [address] [place] [address]- Attending Physician: Benigno Awan MD Admitting Physician: [...] inactivated 2 02/08/13 Gi rachael SARS-CoV-2 mRNA (dbrswzv-axkh-[id number]) vax 12/08/21 Recorded SARS-CoV-2 (COVID-19) mRNA BNT-162b2 [...] Vaccine (oldterm) 11 01/31/99 Given 1Result Comment: [facility]# [id number] 2Admin Note: [facility] 3[facility] 4Admin Note: per pt rcvd [facility]where 5Result Comment: [10/18/2013] #3 6Result Comment: [04/18/2013] #1 7Result Comment: [04/18/2013] #1 8Location History: [facility] 9Admin Note: rcvd elsewhere 10Admin Note: rcvd [...] each, 1 Refills, Maintenance, 12/12/22 7:03:00 EDT, [place], [facility], 1 sprays Nares, Both 2 times a day, 155.2, cm, 11/22/22 14:28:00 EDT, Height, 83.8, kg, 05/26/22 11:19:00 EST, Dry... Start Date: 12/12/22 Status: Ordered folic acid 1 mg oral tablet 1 mg, 1, tablet, By Mouth, Daily, # 90 tablet, Refills 0, Tot. Refills 0, Maintenance, 12/06/16 9:36:33, Route to Pharmacy Electronically, [id number], [facility] Start Date: 12/06/16 [...] tablet, 1 Refills, Maintenance, 11/18/22 15:06:00 EDT, [facility], 157, [...] 2 Refills, Maintenance, 03/28/23 10:30:00 EST, Aerosol, [facility], 155.2, cm, 03/16/23 8:41:00 EST, Height, [...] Exam Date Time Procedure Performing Provider Status 04/12/23 3:18 PM MM Digital Mammo Screening Anna Marie Trevino; Auth (Verified) Notes: (MM Digital Mammo Screening) Reason For Exam: Z12.31 SCREEN RESULT: MM Digital Mammo Screening PROCEDURE: MM Digital Mammo Screening INDICATION: Screening for breast cancer. No known palpable abnormalities. COMPARISON: [facility] dating back to 03/16/2020. TECHNIQUE: Full-field digital CC and MLO 3D tomosynthesis images of both breasts were acquired. Computer-aided detection (CAD) was utilized in the interpretation of this study. DENSITY: The breast tissue contains scattered areas of fibroglandular density. FINDINGS: No suspicious masses, suspicious microcalcifications, or areas of architectural distortion are seen in either breast to suggest malignancy. IMPRESSION: No mammographic evidence of malignancy. RECOMMENDATION: Annual mammographic screening BI-RADS: 1 (Negative) Lay letter mailed to patient WSN: [id number] Ordering Physician: Benigno Awan Dictated By: Jaci Del Castillo MD, I Dictated Date/Time: 04/12/23 4:46 pm Reviewed By: Jaci Del Castillo MD, I Signed By: Jaci Del Castillo MD, I Signed Date/Time: 04/12/23 4:46 pm Transcribed By: ABIMAEL Meter Installer Date/Time: 04/12/23 4:44 pm Birads: Social History Social History Type Response Smoking Status Never smoker entered on: 04/18/13 Sex Patient Care team information Care Team Personnel Name: Ashu OFFSET PRESS OPERATOR APPRENTICE, Jazz Valentin Position: [facility] PCO Associate Professional Member Role: Lifetime Consulting Provider Address: Address: [address] [place] [address]- Name: Benigno Awan MD Position: [facility] Physician - Primary Care Member Role: PCP Address: Address: [address] [place] [address]- Name: Nati Salomon RN Position: [facility] RN Member Role: Primary Care Nurse Care Team Related Persons Name: JOSE ALFONSO Address: home [address] [place] [id number]
--- OUTSIDE RECORDS SUMMARY | 2023-04-22 12:25 | XMS_ITS | Continuity of Care Document ---
Author Name Unknown Organization [facility] Address [address] [place] [address]- Care Team Providers Care Vehicle Return Associate Name Role Phone Emperatriz PEREZ, Benigno Stout Primary Care Physician Encounter [facility] [facility] Date(s): 11/15/22 - 12/15/22 [facility] [address] [place] [address]- Allergies, Adverse Reactions, Alerts Substance Reaction Severity [...] inactivated 2 02/08/13 Gi rachael SARS-CoV-2 mRNA (utepxck-hvro-oxmen) vax 12/08/21 Recorded SARS-CoV-2 (COVID-19) mRNA BNT-162b2 [...] Vaccine (oldterm) 11 01/31/99 Given 1Result Comment: [employer]# [id number] 2Admin Note: [facility] 3Admin Note: [facility] 4Admin Note: per pt rcvd deven 5Result Comment: [10/18/2013] #3 6Result Comment: [04/18/2013] #1 7Result Comment: [04/18/2013] #1 8Location History: [facility] daniella falk 9Admin Note: rcvd elsewhere 10Admin Note: rcvd elsewhere 11Admin Note: historical data Medications aspirin 81 mg oral tablet 1 tablet, By Mouth, Daily, # 30 tablet, 0 Refills, Maintenance, Tablet Start Date: 02/19/10 Status: Ordered atorvastatin 20 mg oral tablet 1 tablet, By Mouth, Daily, # 90 tablet, 1 Refills, 09/21/22 13:03:00 EDT, [facility], 157, cm, 06/17/22 10:48:00 [...] 0 Refills, Maintenance, 04/20/22 16:50:00 EST, Liquid, [facility] #[id number], Partial fill upon patient request if [...] each, 1 Refills, Maintenance, 12/12/22 7:03:00 EDT, [place], [facility], 1 sprays Nares, Both 2 times a day, 155.2, cm, 11/22/22 14:28:00 EDT, Height, 83.8, kg, 05/26/22 11:19:00 EST, Dry... Start Date: 12/12/22 Status: Ordered folic acid 1 mg oral tablet 1 mg, 1, tablet, By Mouth, Daily, # 90 tablet, Refills 0, Tot. Refills 0, Maintenance, 12/06/16 9:36:33, Route to Pharmacy Electronically, [id number], [facility] Start Date: 12/06/16 [...] 3 Refills, Maintenance, 07/15/22 5:49:00 EDT, Capsule, [facility], 157, cm, 06/17/22 10:48:00 EST, Height, 83.8, kg, 05/26/22 11:19:00 EST, Dry Weight Start Date: 07/15/22 Status: Ordered labetalol 200 mg oral tablet 1 tablet, By Mouth, 2 times a day, # 180 tablet, 3 Refills, 07/15/22 5:49:00 EDT, [facility], 157, cm, 06/17/22 10:48:00 [...] tablet, 1 Refills, Maintenance, 11/18/22 15:06:00 EDT, [facility], 157, cm, 06/17/22 10:48:00 EST, Height, 83.8, kg, 05/26/22 11:19:00 EST, Dry Weight Start Date: 11/18/22 Status: Ordered metFORMIN 1000 mg oral tablet 1 tablet, By Mouth, 2 times a day, # 180 tablet, 1 Refills, 07/04/22 12:11:00 EST, [facility], 157, cm, 06/17/22 10:48:00 [...] 13:03:00 EDT, Route to Pharmacy Electronically, [facility], 157, cm, 06/17/22 10:48:00 EST, Height, 83.8, kg, 05/26/22 11:19:00 EST, Dry Weight Start Date: 09/21/22 Status: Ordered triamcinolone 0.1% topical ointment 1 application, Topically, 3 times a day, for 7 days, # 30 Gm, 5 Refills, Acute 01/03/23 5:10:00 EDT, 11/22/22 5:10:00 EDT, Ointment, [facility], Partial fill upon patient request if the prescription is for a schedule II opioid d... Start Date: 11/22/22 Stop Date: 01/03/23 Status: Ordered Ventolin HFA 108 mcg/inh inhalation aerosol with adapter 1 puffs, Inhalation, 4 times a day, PRN for wheezing, # 3 each, 3 Refills, Maintenance, 04/25/19 14:03:00 EST, Aerosol, [facility], 157, cm, 04/25/19 13:53:00 [...] team information Care Team Personnel Name: Ashu LINER MAN, Jazz Valentin Position: [facility] PCO Associate Professional Member Role: Lifetime Consulting Provider Address: Address: [address] [place] [address]- Name: Emperatriz PEREZ, Benigno Stout Position: [facility] Physician - Primary Care Member Role: PCP Address: Address: [address] [place] [address]- Name: Nati Salomon RN Position: [facility] RN Member Role: Primary Care Nurse Care Team Related Persons Name: JOSE ALFONSO Address: home [address] [place] [address]
--- OUTSIDE RECORDS SUMMARY | 2023-04-22 12:25 | XMS_ITS | Continuity of Care Document ---
Author Name Unknown Organization [facility] [place] Taye lt Address [address] [place] [address]- Care Team Providers Care Integration Assistant Name Role Phone Virginia PEREZ, Brian Sanford Primary Care Physician Encounter [facility] Date(s): 06/01/21 - 07/01/21 [facility] [place] Adult [address] [place] [address]- Allergies, Adverse Reactions, Alerts Substance Reaction Severity [...] #1 6Result Comment: [04/18/2013] #1 7Location History: [facility] 8Admin Note: rcvd elsewhere 9Admin Note: [...] Mouth, Daily, # 90 tablet, 1 Refills, [facility] [...] each, 2 Refills, Maintenance, 05/17/19 11:44:00 EST, [place], [facility], 1 sprays Nares, Both 2 times a day, 157, cm, 05/17/19 11:39:00EST, Height, 87.9, kg, 10/21/17 9:09:00 EDT, Dry We... Start Date: 05/17/19 Status: Ordered folic acid 1 mg oral tablet 1 mg, 1, tablet, By Mouth, Daily, # 90 tablet, Refills 0, Tot. Refills 0, Maintenance, 12/06/16 9:36:33, Route to Pharmacy Electronically, [id number], [facility] Start Date: 12/06/16 Status: Ordered hydroCHLOROthiazide 12.5 mg oral capsule 1 capsule = 12.5 mg, By Mouth, Daily, # 90 capsule, 3 Refills, Maintenance, 05/06/21 11:25:00 EST, Capsule, [facility], 157, cm, 10/07/20 13:35:00 EDT, [...] tablet, 1 Refills, Soft Stop, 01/22/21 12:47:00EDT, [facility], 157, cm, 10/07/20 13:35:00 EDT, Height Start Date: 01/22/21 Status: Ordered losartan 100 mg oral tablet 1 tablet, By Mouth, Daily, # 90 tablet, 1 Refills, [facility], 157, cm, 10/07/20 13:35:00 EDT, Height Start Date: 04/19/21 Status: Ordered metFORMIN 1000 mg oral tablet 1 tablet, By Mouth, 2 times a day, # 180 tablet, 1 Refills, [facility] [...] tablet, Refills 1, Route to Pharmacy Electronically, [facility], [...]
--- OUTSIDE RECORDS SUMMARY | 2023-04-22 12:25 | XMS_ITS | Continuity of Care Document ---
Author Name [facility] Address [address] [place] [address]- Care Team Providers Care Wet Process Miller Head Assistant Name Role Phone Virginia PEREZ, Brian Sanford Primary Care Physician Encounter [facility] Date(s): 01/21/21 - [facility]20/[facility] [address] [place] [address]- [place] Allergies, Adverse Reactions, Alerts Substance Reaction Severity [...] #1 6Result Comment: [04/18/2013] #1 7Location History: [facility] daniella falk 8Admin Note: rcvd elsewhere 9Admin Note: rcvd [...] 1 Refills, Soft Stop, 10/30/20 13:20:00 EDT, [facility], [...] each, 2 Refills, Maintenance, 05/17/19 11:44:00 EST, [place], [facility], 1 sprays Nares, Both 2 times a day, 157, cm, 05/17/19 11:39:00EST, Height, 87.9, kg, 10/21/17 9:09:00 EDT, Dry We... Start Date: 05/17/19 Status: Ordered folic acid 1 mg oral tablet 1 mg, 1, tablet, By Mouth, Daily, # 90 tablet, Refills 0, Tot. Refills 0, Maintenance, 12/06/16 9:36:33, Route to Pharmacy Electronically, [id number], [facility] Start Date: 12/06/16 Status: Ordered hydroCHLOROthiazide 12.5 mg oral capsule 1 capsule = 12.5 mg, By Mouth, Daily, # 90 capsule, 3 Refills, Maintenance, 02/03/20 8:25:00 EDT, Capsule, [facility], 157, cm, 10/21/19 16:24:00 EDT, Height Start Date: 02/03/20 Status: Ordered labetalol 200 mg oral tablet 1 tablet = 200 mg, By Mouth, 2 times a day, # 180 tablet, 3 Refills, Maintenance, 05/06/20 11:26:00EST, Tablet, [facility], ID# [id number], 157, cm, 10/21/19 16:24:00 EDT, Height Start Date: 05/06/20 Status: Ordered levothyroxine 150 mcg (0.15 mg) oral tablet See Instructions, TAKE 1 TABLET 6 DAYS A WEEK, # 78 tablet, 1 Refills, Soft Stop, 01/22/21 12:47:00EDT, [facility], 157, cm, 10/07/20 13:35:00 EDT, Height Start Date: 01/22/21 Status: Ordered losartan 100 mg oral tablet 1 tablet = 100 mg, By Mouth, Daily, # 90 tablet, 1 Refills, Maintenance, 10/30/20 13:20:00 EDT, Tablet, [facility], 157, cm, 10/07/20 13:35:00 EDT, Height Start Date: 10/30/20 Status: Ordered metFORMIN 1000 mg oral tablet 1 tablet = 1,000 mg, By Mouth, 2 times a day, # 180 tablet, 1 Refills, Maintenance, 10/30/20 13:20:00 EDT, Tablet, [facility], ID# [id number], 157, cm, 10/07/20 13:35:00 EDT, Height Start [...] By Mouth, Daily at bedtime, ID # [id number], # 90 tablet, Refills 1, Tot. Refills1, Maintenance, 10/30/20 13:20:00 EDT, Route to Pharmacy Electronically, [facility], 157, cm, 10/07/20 13:35:00 EDT, Height Start Date: 10/30/20 Status: Ordered Ventolin HFA 108 mcg/inh inhalation aerosol with adapter 1 puffs, Inhalation, 4 times a day, PRN for wheezing, # 3 each, 3 Refills, Maintenance, 04/25/19 14:03:00 EST, Aerosol, [facility], 157, cm, 04/25/19 13:53:00 [...]
--- OUTSIDE RECORDS SUMMARY | 2023-04-22 12:25 | XMS_ITS | Continuity of Care Document ---
Author Name Unknown Organization [facility] Address [address] [place] [address]- Care Team Providers Care Projector Operator Name Role Phone Emperatriz PEREZ, Benigno Stout Primary Care Physician [phone] Encounter [facility] [place] Date(s): 11/19/21 - 02/03/22 [facility] [address] [place] [address]- Discharge Disposition: A-D/C Home Attending Physician: Chaz Potter MD Admitting Physician: Chaz Potter MD Referring Physician: Brian Coleman MD Allergies, [...] #1 6Result Comment: [04/18/2013] #1 7Location History: [facility] 8Admin Note: rcvd elsewhere 9Admin Note: [...] 11/18/21 13:28:00 EDT, Route to Pharmacy Electronically, [id number], [facility], 157, cm, 11/18/21 13:13:00 EDT, He... [...] each, 1 Refills, Maintenance, 09/14/21 12:04:00 EDT, [place], [facility], 1 sprays Nares, Both 2 times a day, 157, cm, 10/07/20 13:35:00EDT, Height Start Date: 09/14/21 Status: Ordered folic acid 1 mg oral tablet 1 mg, 1, tablet, By Mouth, Daily, # 90 tablet, Refills 0, Tot. Refills 0, Maintenance, 12/06/16 9:36:33, Route to Pharmacy Electronically, [id number], [facility] Start Date: 12/06/16 [...] day, # 180 tablet, 3 Refills, [facility], 157, cm, 10/07/20 13:35:00 EDT, Height Start Date: 04/21/21 Status: Ordered levothyroxine 0.112 mg oral tablet 1 tablet = 112 mcg, By Mouth, Daily, # 90 tablet, 3 Refills, Maintenance, 12/22/21 8:04:00 EDT, [facility], Partial fill upon patient [...] 3 Refills, Maintenance, 04/25/19 14:03:00 EST, Aerosol, [facility], [facility], cm, 04/25/19 13:53:00 EST, Height, [...] Name: Emperatriz PEREZ, Benigno Stout Address: Address: [address] [place] [id number]
--- OUTSIDE RECORDS SUMMARY | 2023-04-22 12:25 | XMS_ITS | Continuity of Care Document ---
Author Name Unknown Organization [facility] [place] Address [address] [place] [address]- Care Team Providers Care Bag Shop Worker Name Role Phone Emperatriz PEREZ, Benigno Stout Primary Care Physician Encounter [facility] Date(s): 12/22/21 - 01/21/22 [facility] [place] [address] [place] [address]- Allergies, Adverse Reactions, Alerts Substance Reaction Severity [...] #1 6Result Comment: [04/18/2013] #1 7Location History: [facility] 8Admin Note: rcvd elsewhere 9Admin Note: rcvd elsewhere 10Admin Note: historical data Medications Aerochamber See Instructions, # 1 units, Maintenance, dx: asthma use w/ albuterol MDI, 12/01/14 15:22:56, Compound Start Date: 12/01/14 Status: Ordered albuterol CFC free 90 mcg/inh inhalation aerosol 2, puffs, Inhalation, Every 6 hours, # 3 each, Refills 1, Tot. Refills 1, Maintenance, 11/18/21 13:28:00 EDT, Route to Pharmacy Electronically, [id number], [facility], 157, cm, 11/18/21 13:13:00 EDT, He... Start Date: 11/18/21 Status: Ordered aspirin 81 mg oral tablet 1 tablet, By Mouth, Daily, # 30 tablet, 0 Refills, Maintenance, Tablet Start Date: 02/19/10 Status: Ordered atorvastatin 20 mg oral tablet 1 tablet, By Mouth, Daily, # 90 tablet, 1 Refills, 09/29/21 16:13:00 EDT, [facility], 157, cm, 10/07/20 13:35:00 EDT, [...] each, 1 Refills, Maintenance, 09/14/21 12:04:00 EDT, [place], [facility], 1 sprays Nares, Both 2 times a day, 157, cm, 10/07/20 13:35:00EDT, Height Start Date: 09/14/21 Status: Ordered folic acid 1 mg oral tablet 1 mg, 1, tablet, By Mouth, Daily, # 90 tablet, Refills 0, Tot. Refills 0, Maintenance, 12/06/16 9:36:33, Route to Pharmacy Electronically, [id number], [facility] Start Date: 12/06/16 Status: Ordered hydroCHLOROthiazide 12.5 mg oral capsule 1 capsule = 12.5 mg, By Mouth, Daily, # 90 capsule, 3 Refills, Maintenance, 05/06/21 11:25:00 EST, Capsule, [facility], 157, cm, 10/07/20 13:35:00 EDT, Height Start Date: 05/06/21 Status: Ordered labetalol 200 mg oral tablet 1 tablet, By Mouth, 2 times a day, # 180 tablet, 3 Refills, [facility], 157, cm, 10/07/20 [...] 90 tablet, 1 Refills, 10/06/21 8:52:00 EDT, [facility], 157, cm, 10/07/20 13:35:00 EDT, Height Start Date: 10/06/21 Status: Ordered metFORMIN 1000 mg oral tablet 1 tablet, By Mouth, 2 times a day, # 180 tablet, 1 Refills, 10/06/21 8:51:00 EDT, [facility], 157, cm, 10/07/20 13:35:00 EDT, [...] 10/06/21 8:53:00 EDT, Route to Pharmacy Electronically, [facility], 157, cm, 10/07/20 13:35:00 EDT, [...] Team Personnel Name: Benigno Awan MD Address: [address] [place] [address] [place] [address]-
--- OUTSIDE RECORDS SUMMARY | 2023-04-22 12:25 | XMS_ITS | Continuity of Care Document ---
Author Name Unknown Organization [facility]aye lt Address [address] [place] [address]- Care Team Providers Care Assembly Worker Name Role Phone Virginia PEREZ, Brian Sanford Primary Care Physician Encounter [facility] Date(s): 01/22/21 - 02/21/21 [facility] [address] [place] [address]- Allergies, Adverse Reactions, Alerts Substance Reaction Severity [...] #1 6Result Comment: [04/18/2013] #1 7Location History: [facility] 8Admin Note: rcvd elsewhere [...] Soft Stop, 10/30/20 13:20:00 EDT, [facility], 157, cm, 10/07/20 13:35:00 EDT, [...] each, 2 Refills, Maintenance, 05/17/19 11:44:00 EST, [place], [facility], 1 sprays Nares, Both 2 times a day, 157, cm, 05/17/19 11:39:00EST, Height, 87.9, kg, 10/21/17 9:09:00 EDT, Dry We... Start Date: 05/17/19 Status: Ordered folic acid 1 mg oral tablet 1 mg, 1, tablet, By Mouth, Daily, # 90 tablet, Refills 0, Tot. Refills 0, Maintenance, 12/06/16 9:36:33, Route to Pharmacy Electronically, [id number], [facility] Start Date: 12/06/16 Status: Ordered hydroCHLOROthiazide 12.5 mg oral capsule 1 capsule = 12.5 mg, By Mouth, Daily, # 90 capsule, 3 Refills, Maintenance, 02/03/20 8:25:00 EDT, Caps[place], [facility], 157, cm, 10/21/19 16:24:00 EDT, Height Start Date: 02/03/20 Status: Ordered labetalol 200 mg oral tablet 1 tablet = 200 mg, By Mouth, 2 times a day, # 180 tablet, 3 Refills, Maintenance, 05/06/20 11:26:00EST, Tablet, [facility], ID# [id number], 157, cm, 10/21/19 16:24:00 EDT, Height Start Date: 05/06/20 Status: Ordered levothyroxine 150 mcg (0.15 mg) oral tablet See Instructions, TAKE 1 TABLET 6 DAYS A WEEK, # 78 tablet, 1 Refills, Soft Stop, 01/22/21 12:47:00EDT, [facility], 157, cm, 10/07/20 13:35:00 EDT, Height Start Date: 01/22/21 Status: Ordered losartan 100 mg oral tablet 1 tablet = 100 mg, By Mouth, Daily, # 90 tablet, 1 Refills, Maintenance, 10/30/20 13:20:00 EDT, Tablet, [facility], 157, cm, 10/07/20 13:35:00 EDT, Height Start Date: 10/30/20 Status: Ordered metFORMIN 1000 mg oral tablet 1 tablet = 1,000 mg, By Mouth, 2 times a day, # 180 tablet, 1 Refills, Maintenance, 10/30/20 13:20:00 EDT, Tablet, [facility], ID# [id number], 157, cm, 10/07/20 13:35:00 EDT, Height Start [...] By Mouth, Daily at bedtime, ID # [id number], # 90 tablet, Refills 1, Tot. Refills1, Maintenance, 10/30/20 13:20:00 EDT, Route to Pharmacy Electronically, [facility], 157, cm, 10/07/20 13:35:00 EDT, Height Start Date: 10/30/20 Status: Ordered Ventolin HFA 108 mcg/inh inhalation aerosol with adapter 1 puffs, Inhalation, 4 times a day, PRN for wheezing, # 3 each, 3 Refills, Maintenance, 04/25/19 14:03:00 EST, Aerosol, [facility], 157, cm, 04/25/19 13:53:00 EST, [...]
--- OUTSIDE RECORDS SUMMARY | 2023-04-22 12:25 | XMS_ITS | Continuity of Care Document ---
Author Name Unknown Organization [facility] Address [address] [place] [address]- Care Team Providers Care Radar Tester Name Role Phone Emperatriz PEREZ, Benigno Stout Primary Care Physician [phone] Encounter [facility] Date(s): 01/04/22 - 02/03/22 [facility] [address] [place] [address]- Allergies, Adverse Reactions, Alerts Substance Reaction Severity [...] #1 6Result Comment: [04/18/2013] #1 7Location History: [facility] 8Admin Note: rcvd elsewhere 9Admin [...] 11/18/21 13:28:00 EDT, Route to Pharmacy Electronically, [id number], [facility], 157, cm, 11/18/21 13:13:00 EDT, He... Start Date: 11/18/21 Status: Ordered aspirin 81 mg oral tablet 1 tablet, By Mouth, Daily, # 30 tablet, 0 Refills, Maintenance, Tablet Start Date: 02/19/10 Status: Ordered atorvastatin 20 mg oral tablet 1 tablet, By Mouth, Daily, # 90 tablet, 1 Refills, 09/29/21 16:13:00 EDT, [facility], 157, cm, 10/07/20 13:35:00 EDT, Height Start Date: 09/29/21 Status: Ordered Caltrate 600 + D oral tablet 1 tablet, By Mouth, 2 times a day, # 60 tablet, 11 Refills, Maintenance, 02/07/18 7:34:22 EDT, Tablet Start Date: 02/07/18 Status: Ordered fluticasone 50 mcg/inh nasal spray 1 sprays, Nares, Both, 2 times a day, # 3 each, 1 Refills, Maintenance, 09/14/21 12:04:00 EDT, [place], [facility], 1 sprays Nares, Both 2 times a day, 157, cm, 10/07/20 13:35:00EDT, Height Start Date: 09/14/21 Status: Ordered folic acid 1 mg oral tablet 1 mg, 1, tablet, By Mouth, Daily, # 90 tablet, Refills 0, Tot. Refills 0, Maintenance, 12/06/16 9:36:33, Route to Pharmacy Electronically, [id number], [facility] Start Date: 12/06/16 Status: Ordered hydroCHLOROthiazide 12.5 mg oral capsule 1 capsule = 12.5 mg, By Mouth, Daily, # 90 capsule, 3 Refills, Maintenance, 05/06/21 11:25:00 EST, Caps[place], [facility], 157, cm, 10/07/20 13:35:00 EDT, Height Start Date: 05/06/21 Status: Ordered labetalol 200 mg oral tablet 1 tablet, By Mouth, 2 times a day, # 180 tablet, 3 Refills, [facility], 157, cm, 10/07/20 13:35:00 EDT, Height Start Date: 04/21/21 Status: Ordered levothyroxine 0.112 mg oral tablet 1 tablet = 112 mcg, By Mouth, Daily, # 90 tablet, 3 Refills, Maintenance, 12/22/21 8:04:00 EDT, [facility], Partial fill upon patient request if the prescription is for a schedule II opioid drug., 157, cm, 11/18/21 13:13:00 EDT,... Start Date: 12/22/21 Status: Ordered losartan 100 mg oral tablet 1 tablet, By Mouth, Daily, # 90 tablet, 1 Refills, 10/06/21 8:52:00 EDT, [facility], 157, cm, 10/07/20 13:35:00 EDT, Height Start Date: 10/06/21 Status: Ordered metFORMIN 1000 mg oral tablet 1 tablet, By Mouth, 2 times a day, # 180 tablet, 1 Refills, 10/06/21 8:51:00 EDT, [facility], 157, cm, 10/07/20 13:35:00 EDT, Height [...] 10/06/21 8:53:00 EDT, Route to Pharmacy Electronically, [facility], 157, cm, 10/07/20 13:35:00 EDT, Height [...] Emperatriz PEREZ, Benigno Stout Address: Address: [address] [place] [id number]
--- OUTSIDE RECORDS SUMMARY | 2023-04-22 12:25 | XMS_ITS | Continuity of Care Document ---
Author Name Unknown Organization [facility] Taye lt Address [address] [place] [address]- Care Team Providers Care Registered Phlebotomist Part Time Name Role Phone Emperatriz PEREZ, Benigno Stout Primary Care Physician [facility] 07/13/22 - 08/12/22 [facility] Adult [address] [place] [address]- Allergies, Adverse Reactions, Alerts Substance Reaction Severity [...] inactivated 2 02/08/13 Gi rachael SARS-CoV-2 mRNA (fbrxfmd-skbq-fadkg) vax 12/08/21 Recorded SARS-CoV-2 (COVID-19) mRNA BNT-162b2 [...] 01/31/99 Given 1Result Comment: [facility]# [id number] 2Admin Note: FLU[facility]IX 3Admin Note: [facility] 4Admin Note: per pt rcvd deven 5Result Comment: [10/18/2013] #3 6Result Comment: [04/18/2013] #1 7Result Comment: [04/18/2013] #1 8Location History: [facility] 9Admin Note: rcvd elsewhere 10Admin Note: rcvd elsewhere 11Admin Note: historical data Medications aspirin 81 mg oral tablet 1 tablet, By Mouth, Daily, # 30 tablet, 0 Refills, Maintenance, Tablet Start Date: 02/19/10 Status: Ordered atorvastatin 20 mg oral tablet 1 tablet, By Mouth, Daily, # 90 tablet, 1 Refills, 05/06/22 11:13:00 EST, [facility], 157, cm, 04/20/22 16:03:00 [...] Refills, Maintenance, 04/20/22 16:50:00 EST, Liquid, [facility]/pharmacy #[id number], Partial fill upon patient request if the [...] each, 1 Refills, Maintenance, 09/14/21 12:04:00 EDT, [place], [facility], 1 sprays Nares, Both 2 times a day, 157, cm, 10/07/20 13:35:00EDT, Height Start Date: 09/14/21 Status: Ordered folic acid 1 mg oral tablet 1 mg, 1, tablet, By Mouth, Daily, # 90 tablet, Refills 0, Tot. Refills 0, Maintenance, 12/06/16 9:36:33, Route to Pharmacy Electronically, [id number], [facility] Start Date: 12/06/16 Status: Ordered hydroCHLOROthiazide 12.5 mg oral capsule 1 capsule = 12.5 mg, By Mouth, Daily, # 90 capsule, 3 Refills, Maintenance, 07/15/22 5:49:00 EDT, C[place], [facility], 157, cm, 06/17/22 10:48:00 EST, Height, 83.8, kg, 05/26/22 11:19:00 EST, Dry Weight Start Date: 07/15/22 Status: Ordered labetalol 200 mg oral tablet 1 tablet, By Mouth, 2 times a day, # 180 tablet, 3 Refills, 07/15/22 5:49:00 EDT, [facility], 157, cm, 06/17/22 10:48:00 EST, Height, 83.8, kg, 05/26/22 11:19:00 EST, Dry Weight Start Date: 07/15/22 Status: Ordered levothyroxine 0.112 mg oral tablet 1 tablet = 112 mcg, By Mouth, Daily, # 90 tablet, 3 Refills, Maintenance, 12/22/21 8:04:00 EDT, [facility], Partial fill upon patient request if the prescription is for a schedule II opioid drug., 157, cm, 11/18/21 13:13:00 EDT,... Start Date: 12/22/21 Status: Ordered losartan 100 mg oral tablet 1 tablet, By Mouth, Daily, # 90 tablet, 1 Refills, 07/15/22 5:49:00 EDT, [facility], 157, cm, 06/17/22 10:48:00 EST, Height, 83.8, kg, 05/26/22 11:19:00 EST, Dry Weight Start Date: 07/15/22 Status: Ordered metFORMIN 1000 mg oral tablet 1 tablet, By Mouth, 2 times a day, # 180 tablet, 1 Refills, 07/04/22 12:11:00 EST, [facility], 157, cm, 06/17/22 10:48:00 [...] 05/06/22 11:14:00 EST, Route to Pharmacy Electronically, [facility], 157, cm, 04/20/22 16:03:00 [...] Member Role: Lifetime Consulting Provider Address: Address: [address] [place] [address]- Name: Emperatriz PEREZ, Benigno Stout Position: [facility] Primary Care Physician Member Role: PCP Address: Address: [address] [place] [address]- Name: Nati Salomon RN Position: [facility] RN Member Role: Primary Care Nurse Care Team Related Persons Name: JOSE ALFONSO Address: home [address] [place] [address]
--- OUTSIDE RECORDS SUMMARY | 2023-04-22 12:25 | XMS_ITS | Continuity of Care Document ---
Author Name Unknown Organization [facility] Taye lt Address [address] [place] [address]- Care Team Providers Care Therapeutic Riding Instructor Name Role Phone Emperatriz PEREZ, Benigno Stout Primary Care Physician [phone] [facility] Date[facility]s): 11/11/21 - 12/11/21 [facility] Adult [address] [place] [address]- Allergies, Adverse Reactions, Alerts Substance Reaction Severity [...] #1 6Result Comment: [04/18/2013] #1 7Location History: [facility] 8Admin Note: rcvd elsewhere 9Admin [...] 11/18/21 13:28:00 EDT, Route to Pharmacy Electronically, [id number], [facility], 157, cm, 11/18/21 13:13:00 EDT, He... Start Date: 11/18/21 Status: Ordered aspirin 81 mg oral tablet 1 tablet, By Mouth, Daily, # 30 tablet, 0 Refills, Maintenance, Tablet Start Date: 02/19/10 Status: Ordered atorvastatin 20 mg oral tablet 1 tablet, By Mouth, Daily, # 90 tablet, 1 Refills, 09/29/21 16:13:00 EDT, [facility], 157, cm, 10/07/20 13:35:00 [...] each, 1 Refills, Maintenance, 09/14/21 12:04:00 EDT, [place], [facility], 1 sprays Nares, Both 2 times a day, 157, cm, 10/07/20 13:35:00EDT, Height Start Date: 09/14/21 Status: Ordered folic acid 1 mg oral tablet 1 mg, 1, tablet, By Mouth, Daily, # 90 tablet, Refills 0, Tot. Refills 0, Maintenance, 12/06/16 9:36:33, Route to Pharmacy Electronically, [id number], [facility] Start Date: 12/06/16 Status: Ordered hydroCHLOROthiazide 12.5 mg oral capsule 1 capsule = 12.5 mg, By Mouth, Daily, # 90 capsule, 3 Refills, Maintenance, 05/06/21 11:25:00 EST, Capsule, [facility], 157, cm, 10/07/20 13:35:00 EDT, Height Start Date: 05/06/21 Status: Ordered labetalol 200 mg oral tablet 1 tablet, By Mouth, 2 times a day, # 180 tablet, 3 Refills, [facility], 157, cm, 10/07/20 13:35:00 EDT, Height Start Date: 04/21/21 Status: Ordered levothyroxine 150 mcg (0.15 mg) oral tablet See Instructions, TAKE 1 TABLET 5 DAYS A WEEK, # 78 tablet, 1 Refills, Soft Stop, 10/06/21 8:52:00 EDT, [facility], 157, cm, 10/07/20 13:35:00 EDT, Height Start Date: 10/06/21 Status: Ordered losartan 100 mg oral tablet 1 tablet, By Mouth, Daily, # 90 tablet, 1 Refills, 10/06/21 8:52:00 EDT, [facility], 157, cm, 10/07/20 13:35:00 EDT, Height Start Date: 10/06/21 Status: Ordered metFORMIN 1000 mg oral tablet 1 tablet, By Mouth, 2 times a day, # 180 tablet, 1 Refills, 10/06/21 8:51:00 EDT, [facility], 157, cm, 10/07/20 13:35:00 [...] 8:53:00 EDT, Route to Pharmacy Electronically, [facility], 157, cm, 10/07/20 13:35:00 [...]
--- OUTSIDE RECORDS SUMMARY | 2023-04-22 12:25 | XMS_ITS | Continuity of Care Document ---
Author Name Unknown Organization [facility] Taye lt Address [address] [place] [address]- Care Team Providers Care Line Crewman Name Role Phone Benigno wAan MD Primary Care Physician [place] [facility]13[place] 06/20/22 [facility] Adult [address] [place] [address]- Attending Physician: Benigno Awan MD Allergies, Adverse [...] inactivated 2 02/08/13 Gi rachael SARS-CoV-2 mRNA (ofowqtk-krsi-vzdqx) vax 12/08/21 Recorded SARS-CoV-2 (COVID-19) mRNA BNT-162b2 [...] Vaccine (oldterm) 11 01/31/99 Given 1Result Comment: [facility]# [id number] 2Admin Note: [facility] 3Admin Note: [facility] 4Admin Note: per pt rcvd deven 5Result Comment: [10/18/2013] #3 6Result Comment: [04/18/2013] #1 7Result Comment: [04/18/2013] #1 8Location History[facility] 9Admin Note: rcvd elsewhere 10Admin Note: rcvd elsewhere 11Admin Note: historical data Medications aspirin 81 mg oral tablet 1 tablet, By Mouth, Daily, # 30 tablet, 0 Refills, Maintenance, Tablet Start Date: 02/19/10 Status: Ordered atorvastatin 20 mg oral tablet 1 tablet, By Mouth, Daily, # 90 tablet, 1 Refills, 05/06/22 11:13:00 EST, [facility], 157, cm, 04/20/22 16:03:00 EST, [...] 0 Refills, Maintenance, 04/20/22 16:50:00 EST, Liquid, [facility]/pharmacy #[id number], Partial fill upon patient request if [...] each, 1 Refills, Maintenance, 09/14/21 12:04:00 EDT, [place], [facility], 1 sprays Nares, Both 2 times a day, 157, cm, 10/07/20 13:35:00EDT, Height Start Date: 09/14/21 Status: Ordered folic acid 1 mg oral tablet 1 mg, 1, tablet, By Mouth, Daily, # 90 tablet, Refills 0, Tot. Refills 0, Maintenance, 12/06/16 9:36:33, Route to Pharmacy Electronically, [id number], [facility] Start Date: 12/06/16 Status: Ordered hydroCHLOROthiazide 12.5 mg oral capsule 1 capsule = 12.5 mg, By Mouth, Daily, # 90 capsule, 3 Refills, Maintenance, 05/06/21 11:25:00 EST, Capsule, [facility], 157, cm, 10/07/20 13:35:00 EDT, Height Start Date: 05/06/21 Status: Ordered labetalol 200 mg oral tablet 1 tablet, By Mouth, 2 times a day, # 180 tablet, 3 Refills, [facility], 157, cm, 10/07/20 13:35:00 EDT, Height Start Date: 04/21/21 Status: Ordered levothyroxine 0.112 mg oral tablet 1 tablet = 112 mcg, By Mouth, Daily, # 90 tablet, 3 Refills, Maintenance, 12/22/21 8:04:00 EDT, [facility], Partial fill upon patient request if the prescription is for a schedule II opioid drug., 157, cm, 11/18/21 13:13:00 EDT,... Start Date: 12/22/21 Status: Ordered losartan 100 mg oral tablet 1 tablet, By Mouth, Daily, # 90 tablet, 1 Refills, 10/06/21 8:52:00 EDT, [facility], 157, cm, 10/07/20 13:35:00 EDT, Height Start Date: 10/06/21 Status: Ordered metFORMIN 1000 mg oral tablet 1 tablet, By Mouth, 2 times a day, # 180 tablet, 1 Refills, 10/06/21 8:51:00 EDT, [facility], 157, cm, 10/07/20 13:35:00 EDT, Height Start Date: 10/06/21 Status: Ordered ONE TOUCH ULTRA MINI TEST [...] 05/06/22 11:14:00 EST, Route to Pharmacy Electronically, [facility], 157, cm, 04/20/22 16:03:00 EST, Height, 83.9, kg, 02/16/22 14:17:00 EDT, Dry Weight Start Date: 05/06/22 Status: Ordered Ventolin HFA 108 mcg/inh inhalation aerosol with adapter 1 puffs, Inhalation, 4 times a day, PRN for wheezing, # 3 each, 3 Refills, Maintenance, 04/25/19 14:03:00 EST, Aerosol, [facility], 157, cm, 04/25/19 13:53:00 [...] [Reference Range]: 1 2 Height 157 cm (06/13/22 11:24 AM) 157 cm (06/13/22 11:16 AM) Weight 85.9 kg (06/13/22 11:16 AM) Oxygen Saturation [94-100 %] 98 % (06/13/22 11:16 AM) Pulse Rate [55-90 bpm] 66 bpm (06/13/22 11:16 AM) Body Mass Index [18.5-24.99 kg/m2] 34.85 kg/m2 *>HHI* (06/13/22 11:16 AM) Blood Pressure [90-138/55-84 mm Hg] 161/ 85mm Hg *H* (06/13/22 11:24 AM) 170/81mm Hg *H* (06/13/22 11:16 AM) Mode of Delivery (Oxygen) Room air (06/13/22 11:16 AM) Blood pressure sites Arm, left (06/13/22 11:24 AM) Arm, left (06/13/22 11:16 AM) Weight Obtained Via Standing scale (06/13/22 11:16 AM) Social History Social History Type Response Smoking Status Never smoker entered on: 04/18/13 Sex Note * Gregoria Garner: PERFORM, SIGN, VERIFY Event Display: Patient Education/Instruction Authored Date: [id number] [facility] *BMP So Onel Andrea Clinical Summary Name YAN MCGINNIS Age 72 Years 1950 PCP Emperatriz PEREZ, Benigno Stout PCP Visit Date 06/13/2022 10:55:00 Additional Instructions: Scheduled Appointments?? Future Appointments ?No Future Appointments Scheduled Follow-Up Instructions ?? Diagnosis Type 2 diabetes mellitus without complications; Iron deficiency anemia, unspecified Medications: Please continue your medications until treatment is completed or stopped by your provider. Discuss any questions related to medications with your provider. Medications to Continue with No Changes These medications were not printed or sent to your pharmacy Albuterol (Ventolin HFA 108 mcg/inh inhalation aerosol with adapter) 1 puff(s) Inhalation 4 times aday as needed for wheezing. Refills: 3. Next Dose: Aspirin (aspirin 81 mg oral tablet) 1 [...] 1000 mcg Intramuscular;once a month. Next Dose: Ferrous Sulfate (ferrous sulfate 325 mg oral enteric coated tablet) Take one tablet By Mouth every other day. Take with vitamin C to help absorption. Refills: 0. Next Dose: Fluticasone Nasal (fluticasone 50 mcg/inh [...] Daily at Bedtime. Refills: 1. Next Dose: Allergy Info:?? amLODIPine-atorvastatin; theophylline; NIFEdipine Medications Given This Visit Future Orders ?No future orders Vital Signs Height 157 cm Weight 85.9 kg BMI 34.85 kg/m2 Blood Pressure 161 mm Hg/85 mm Hg Temperature Pulse Rate 66 bpm Respiratory Rate 02 Sat Mode of Delivery 98 %/Room air You can now view a summary of your hospital visit from the comfort of your home through a free online portal called [employer]. [employer] is a website that allows you to securely view your medical information including discharge summary, medications and follow-up visits. ??You can alsosend a secure electronic message to your doctor???s office to request appointments, renew medications or just ask a question. You can enroll at [email or web address] or register during your next office visit. [...] primary care provider, you may find a [facility] provider by calling [facility] SeeWhy Link at [phone]. For information about the plan of care including goals and instructions for your diagnosis, please see the patient education orders section of this document. Patient Education Materials?? The content of this educational material or handout may have been modified, supplemented, or adapted from its original content and format to support your individualized medical care. Patient Care team information Care Team Personnel Name: Ashu LOUVER DOOR ASSEMBLER, Jazz L Position: [facility] PCO Associate Professional Member Role: Lifetime Consulting Provider Address: Address: [address] [place] [address]- Name: Benigno Awan MD Position: [facility] Primary Care Physician Member Role: PCP Address: Address: [address] [place] [id number]- Name: Nati Salomon RN Position: [facility] RN Member Role: Primary Care Nurse Care Team Related Persons Name: NATY JOSE Address: home [address] [place] [address]
--- OUTSIDE RECORDS SUMMARY | 2023-04-22 12:25 | XMS_ITS | Continuity of Care Document ---
Author Name Unknown Organization [facility] Taye lt Address [address] [place] [address]- Care Team Providers Care Senior Director Insight Name Role Phone Emperatriz PEREZ, Benigno Stout Primary Care Physician [facility] Date[facility]s): 05/26/22 - 06/25/22 [facility] Adult [address] [place] [address]- Allergies, Adverse Reactions, Alerts Substance Reaction Severity [...] inactivated 2 02/08/13 Gi rachael SARS-CoV-2 mRNA (swzeraf-laus-rtxnt) vax 12/08/21 Recorded SARS-CoV-2 (COVID-19) mRNA BNT-162b2 [...] Vaccine (oldterm) 11 01/31/99 Given 1Result Comment: [facility]# [id number] 2Admin Note: FLU[facility]IX 3Admin Note: [facility] 4Admin Note: per pt rcvd deven 5Result Comment: [10/18/2013] #3 6Result Comment: [04/18/2013] #1 7Result Comment: [04/18/2013] #1 8Location History: [facility] d[facility] falk 9Admin Note: rcvd elsewhere 10Admin Note: rcvd elsewhere 11Admin Note: historical data Medications aspirin 81 mg oral tablet 1 tablet, By Mouth, Daily, # 30 tablet, 0 Refills, Maintenance, Tablet Start Date: 02/19/10 Status: Ordered atorvastatin 20 mg oral tablet 1 tablet, By Mouth, Daily, # 90 tablet, 1 Refills, 05/06/22 11:13:00 EST, [facility], 157, cm, 04/20/22 16:03:00 EST, Height, [...] 0 Refills, Maintenance, 04/20/22 16:50:00 EST, Liquid, [facility]/pharmacy #[id number], Partial fill upon patient request [...] each, 1 Refills, Maintenance, 09/14/21 12:04:00 EDT, [place], [facility], 1 sprays Nares, Both 2 times a day, 157, cm, 10/07/20 13:35:00EDT, Height Start Date: 09/14/21 Status: Ordered folic acid 1 mg oral tablet 1 mg, 1, tablet, By Mouth, Daily, # 90 tablet, Refills 0, Tot. Refills 0, Maintenance, 12/06/16 9:36:33, Route to Pharmacy Electronically, [id number], [facility] Start Date: 12/06/16 [...] a day, # 180 tablet, 3 Refills, [facility], 157, cm, 10/07/20 13:35:00 EDT, Height Start Date: 04/21/21 Status: Ordered levothyroxine 0.112 mg oral tablet 1 tablet = 112 mcg, By Mouth, Daily, # 90 tablet, 3 Refills, Maintenance, 12/22/21 8:04:00 EDT, [facility], Partial fill upon patient [...] 05/06/22 11:14:00 EST, Route to Pharmacy Electronically, [facility], 157, cm, 04/20/22 16:03:00 EST, Height, 83.9, kg, 02/16/22 14:17:00 EDT, Dry Weight Start Date: 05/06/22 Status: Ordered Ventolin HFA 108 mcg/inh inhalation aerosol with adapter 1 puffs, Inhalation, 4 times a day, PRN for wheezing, # 3 each, 3 Refills, Maintenance, 04/25/19 14:03:00 EST, Aerosol, [facility], 157, cm, 04/25/19 13:53:00 EST, [...] Personnel Name: Ashu GRAY, Jazz Valentin Position: [facility] PCO Associate Professional Member Role: Lifetime Consulting Provider Address: Address: [address] [place] [address]- [place] Name: Benigno Awan MD Position: [facility] Primary Care Physician Member Role: PCP Address: Address: [address] [place] [address]- [place] Name: Nati Salomon RN Position: [facility] RN Member Role: Primary Care Nurse Care Team Related Persons Name: JOSE ALFONSO Address: home [address] [place] [address]
--- OUTSIDE RECORDS SUMMARY | 2023-04-22 12:25 | XMS_ITS | Continuity of Care Document ---
Author Name Unknown Organization [facility] Taye lt Address [address] [place] [address]- Care Team Providers Care Inventory Control Manager Name Role Phone [place] PEREZ, Brian Sanford Primary Care Physician Encounter [facility] Date(s): 07/07/20 - 08/06/20 [facility] Adult [address] [place] [address]- Allergies, Adverse Reactions, Alerts Substance Reaction Severity [...] #1 6Result Comment: [04/18/2013] #1 7Location History[facility] 8Admin Note: rcvd elsewhere 9Admin Note: rcvd [...] Refills, Soft Stop, 05/06/20 11:26:00 EST, [facility], 157, cm, 10/21/19 16:24:00 EDT, [...] each, 2 Refills, Maintenance, 05/17/19 11:44:00 EST, [place], [facility], 1 sprays Nares, Both 2 times a day, 157, cm, 05/17/19 11:39:00EST, Height, 87.9, kg, 10/21/17 9:09:00 EDT, Dry We... Start Date: 05/17/19 Status: Ordered folic acid 1 mg oral tablet 1 mg, 1, tablet, By Mouth, Daily, # 90 tablet, Refills 0, Tot. Refills 0, Maintenance, 12/06/16 9:36:33, Route to Pharmacy Electronically, [id number], [facility] Start Date: 12/06/16 Status: Ordered hydroCHLOROthiazide 12.5 mg oral capsule 1 capsule = 12.5 mg, By Mouth, Daily, # 90 capsule, 3 Refills, Maintenance, 02/03/20 8:25:00 EDT, Capsule, [facility], 157, cm, 10/21/19 16:24:00 EDT, Height Start Date: 02/03/20 Status: Ordered labetalol 200 mg oral tablet 1 tablet = 200 mg, By Mouth, 2 times a day, # 180 tablet, 3 Refills, Maintenance, 05/06/20 11:26:00EST, Tablet, [facility], ID# [id number], 157, cm, 10/21/19 16:24:00 EDT, Height Start Date: 05/06/20 Status: Ordered levothyroxine 150 mcg (0.15 mg) oral tablet See Instructions, TAKE 1 TABLET 6 DAYS A WEEK, # 78 tablet, 3 Refills, Soft Stop, 02/03/20 8:25:00 EDT, [facility], 157, cm, 10/21/19 16:24:00 EDT, Height, Dry Weight Start Date: 02/03/20 Status: Ordered losartan 100 mg oral tablet 1 tablet = 100 mg, By Mouth, Daily, # 90 tablet, 0 Refills, Maintenance, 05/06/20 10:56:00 EST, Tablet, [facility], 157, cm, 10/21/19 16:24:00 EDT, Height Start Date: 05/06/20 Status: Ordered meclizine 25 mg oral tablet 1 tablet = 25 mg, By Mouth, 3 times a day, PRN for dizziness, for 30 days, # 30 tablet, 0 Refills, Acute 08/19/20 10:30:00 EDT, 07/20/20 10:30:00 EDT, Tablet, [facility]/pharmacy #[id number], 157, cm, 07/20/20 10:11:00 EDT, Height Start Date: 07/20/20 Stop Date: 08/19/20 Status: Ordered metFORMIN 1000 mg oral tablet 1 tablet = 1,000 mg, By Mouth, 2 times a day, # 180 tablet, 0 Refills, Maintenance, 05/06/20 10:56:00 EST, Tablet, [facility], ID# [id number], 157, cm, 10/21/19 16:24:00 EDT, Height Start [...] By Mouth, Daily at bedtime, ID # [id number], # 90 tablet, Refills 1, Tot. Refills1, Maintenance, 05/06/20 10:56:00 EST, Route to Pharmacy Electronically, [facility], 157, cm, 10/21/19 16:24:00 EDT, [...]
--- OUTSIDE RECORDS SUMMARY | 2023-04-22 12:25 | XMS_ITS | Continuity of Care Document ---
Author Name Unknown Organization [facility] Taye lt Address [address] [place] [address]- Care Team Providers Care Commercial Real Estate Assistant Name Role Phone Brian Coleman MD Primary Care Physician Encounter [facility] Date(s): 10/21/19 - 10/28/19 [facility] Adult [address] [place] [address]- [place] Encounter Diagnosis Medicare annual wellness visit, subsequent(Discharge Diagnosis) - 10/19/19 Diabetes mellitus type 2, controlled(Discharge Diagnosis) - 10/19/19 Benign Essential Hypertension(Discharge Diagnosis) - 10/19/19 Familial hyperlipidemia(Discharge Diagnosis) - 10/19/19 Acquired hypothyroidism(Discharge Diagnosis) - 10/19/19 Asthma(Discharge Diagnosis) - 10/19/19 Fatty liver(Discharge Diagnosis) - 10/19/19 Osteopenia(Discharge Diagnosis) - 10/19/19 Vitamin B12 deficiency (non anemic)(Discharge Diagnosis) - 10/19/19 Elevated homocysteine(Discharge Diagnosis) - 10/19/19 Attending Physician: Brian Coleman MD Allergies, Adverse [...] [04/18/2013] #1 7Location History: [facility] [place] 8Admin Note: rcvd elsewhere 9Admin Note: rcvd [...] Refills, Soft Stop, 04/15/19 10:41:44 EST, [facility], 157, cm, 03/07/19 14:39:28 [...] each, 2 Refills, Maintenance, 05/17/19 11:44:00 EST, [place], [facility], 1 sprays Nares, Both 2 times a day, 157, cm, 05/17/19 11:39:00EST, Height, 87.9, kg, 10/21/17 9:09:00 EDT, Dry We... Start Date: 05/17/19 Status: Ordered folic acid 1 mg oral tablet 1 mg, 1, tablet, By Mouth, Daily, # 90 tablet, Refills 0, Tot. Refills 0, Maintenance, 12/06/16 9:36:33, Route to Pharmacy Electronically, [id number], [facility] Start Date: 12/06/16 Status: Ordered hydroCHLOROthiazide 12.5 mg oral capsule 1 capsule = 12.5 mg, By Mouth, Daily, # 90 capsule, 3 Refills, Maintenance, 01/04/19 7:47:00 EDT, Capsule Start Date: 01/04/19 Status: Ordered labetalol 200 mg oral tablet 1 tablet = 200 mg, By Mouth, 2 times a day, # 180 tablet, 3 Refills, Maintenance, 04/15/19 10:41:39EST, Tablet, [facility], ID# [id number], 157, cm, 03/07/19 14:39:28 EST, Height, 87.9, kg, 10/21/17 9:09:44 EDT, Dry Weight Start Date: 04/15/19 Status: Ordered levothyroxine 150 mcg (0.15 mg) oral tablet See Instructions, TAKE 1 TABLET 6 DAYS A WEEK, # 78 tablet, 3 Refills, Soft Stop, 04/15/19 10:41:38EST, [facility], 157, cm, 03/07/19 14:39:28 [...] Refills, Maintenance, 06/04/19 6:30:00 EST, Tablet, [facility], ID# [id number], 157, cm, 05/30/19 15:57:00 EST, Height, 87.9, [...] By Mouth, Daily at bedtime, ID # [id number], # 90 tablet, Refills 3, Tot. Refills3, Maintenance, 04/15/19 10:41:38 EST, Route to Pharmacy Electronically, [facility], 157, cm, 03/07/19 14:39:28 EST, Height, 87.... Start Date: 04/15/19 Status: Ordered Ventolin HFA 108 mcg/inh inhalation aerosol with adapter 1 puffs, Inhalation, 4 times a day, PRN for wheezing, # 3 each, 3 Refills, Maintenance, 04/25/19 14:03:00 EST, Aerosol, [facility], 157, cm, 04/25/19 13:53:00 EST, [...] Medicare annual wellness visit, subsequent Discharge Diagnosis 10/19/19 Diabetes mellitus type 2, controlled Discharge Diagnosis 10/19/19 Benign Essential Hypertension Discharge Diagnosis 10/19/19 Familial hyperlipidemia Discharge Diagnosis 10/19/19 Acquired hypothyroidism Discharge Diagnosis 10/19/19 Asthma Discharge Diagnosis 10/19/19 Fatty liver Discharge Diagnosis 10/19/19 Osteopenia Discharge Diagnosis 10/19/19 Vitamin B12 deficiency (non anemic) Discharge Diagnosis 10/19/19 Elevated homocysteine Discharge Diagnosis 10/19/19 Vital Signs Most recent to oldest [Reference Range]: 1 2 Height 157 cm (10/21/19 4:24 PM) 157 cm (10/21/19 4:00 PM) Weight 85.4 kg (10/21/19 4:00 PM) Oxygen Saturation [94-100 %] 98 % (10/21/19 4:00 PM) Pulse Rate [55-90 bpm] 68 bpm (10/21/19 4:00 PM) Body Mass Index [18.5-24.99] 34.65 *>HHI* (10/21/19 4:00 PM) Blood Pressure [90-138/55-84 mm Hg] 136/ 78mm Hg (10/21/19 4:24 PM) 156/80mm Hg *H* (10/21/19 4:00 PM) Respiratory Rate [16-30 br/min] 16 br/mi n (10/21/19 4:00 PM) Temperature [96.8-100.4 DegF] 98.4 DegF (10/21/19 4:00 PM) Blood pressure sites Arm, left (10/21/19 4:24 PM) Arm, left (10/21/19 4:00 PM) Temperature Route Oral (10/21/19 4:00 PM) Social History Social History Type Response Smoking Status Never smoker entered on: 04/18/13 Sex
--- OUTSIDE RECORDS SUMMARY | 2023-04-22 12:25 | XMS_ITS | Continuity of Care Document ---
Author Name Unknown Organization [facility] Taye lt Address [address] [place] [address]- Care Team Providers Care Hvac Design Engineer Name Role Phone Emperatriz PEREZ, Benigno Stout Primary Care Physician [facility]counter [facility] Date(s): 04/20/22 - 05/20/22 [facility] Adult [address] [place] [address]- Allergies, Adverse Reactions, Alerts Substance Reaction Severity [...] (oldterm) 11 01/31/99 Given 1Result Comment: [facility]# [id number] 2Admin Note: FLUARIX 3Admin Note: [facility] 4Admin Note: per pt rcvd eklsewhere 5Result Comment: [10/18/2013] #3 6Result Comment: [04/18/2013] #1 7Result Comment: [04/18/2013] #1 8Location History[facility] 9Admin Note: rcvd elsewhere 10Admin Note: rcvd elsewhere 11Admin Note: historical data Medications aspirin 81 mg oral tablet 1 tablet, By Mouth, Daily, # 30 tablet, 0 Refills, Maintenance, Tablet Start Date: 02/19/10 Status: Ordered atorvastatin 20 mg oral tablet 1 tablet, By Mouth, Daily, # 90 tablet, 1 Refills, 05/06/22 11:13:00 EST, [facility], 157, cm, 04/20/22 16:03:00 EST, [...] 0 Refills, Maintenance, 04/20/22 16:50:00 EST, Liquid, [facility]/pharmacy #[id number], Partial fill upon [...] each, 1 Refills, Maintenance, 09/14/21 12:04:00 EDT, [place], [facility], 1 sprays Nares, Both 2 times a day, 157, cm, 10/07/20 13:35:00EDT, Height Start Date: 09/14/21 Status: Ordered folic acid 1 mg oral tablet 1 mg, 1, tablet, By Mouth, Daily, # 90 tablet, Refills 0, Tot. Refills 0, Maintenance, 12/06/16 9:36:33, Route to Pharmacy Electronically, [id number], [facility] Start Date: 12/06/16 Status: Ordered hydroCHLOROthiazide 12.5 mg oral capsule 1 capsule = 12.5 mg, By Mouth, Daily, # 90 capsule, 3 Refills, Maintenance, 05/06/21 11:25:00 EST, Capsule, [facility], 157, cm, 10/07/20 13:35:00 EDT, Height Start Date: 05/06/21 Status: Ordered labetalol 200 mg oral tablet 1 tablet, By Mouth, 2 times a day, # 180 tablet, 3 Refills, [facility], 157, cm, 10/07/20 13:35:00 EDT, Height Start Date: 04/21/21 Status: Ordered levothyroxine 0.112 mg oral tablet 1 tablet = 112 mcg, By Mouth, Daily, # 90 tablet, 3 Refills, Maintenance, 12/22/21 8:04:00 EDT, [facility], Partial fill upon patient request if the prescription is for a schedule II opioid drug., 157, cm, 11/18/21 13:13:00 EDT,... Start Date: 12/22/21 Status: Ordered losartan 100 mg oral tablet 1 tablet, By Mouth, Daily, # 90 tablet, 1 Refills, 10/06/21 8:52:00 EDT, [facility], 157, cm, 10/07/20 13:35:00 EDT, Height Start Date: 10/06/21 Status: Ordered metFORMIN 1000 mg oral tablet 1 tablet, By Mouth, 2 times a day, # 180 tablet, 1 Refills, 10/06/21 8:51:00 EDT, [facility], 157, cm, 10/07/20 13:35:00 EDT, Height Start Date: 10/06/21 Status: Ordered traZODone 100 mg oral tablet 1, tablet, By Mouth, Daily at bedtime, # 90 tablet, Refills 1, Tot. Refills 1, 05/06/22 11:14:00 EST, Route to Pharmacy Electronically, [facility], 157, cm, 04/20/22 16:03:00 EST, Height, 83.9, kg, 02/16/22 14:17:00 EDT, Dry Weight Start Date: 05/06/22 Status: Ordered Ventolin HFA 108 mcg/inh inhalation aerosol with adapter 1 puffs, Inhalation, 4 times a day, PRN for wheezing, # 3 each, 3 Refills, Maintenance, 04/25/19 14:03:00 EST, Aerosol, [facility], 157, cm, 04/25/19 13:53:00 EST, [...] Personnel Name: Ashu GRAY, Jazz Valentin Position: [facility] PCO Associate Professional Member Role: Lifetime Consulting Provider Address: Address: [address] [place] [id number]- [place] Name: Empertariz PEREZ, Benigno Stout Position: [facility] Primary Care Physician Member Role: PCP Address: Address: [address] [place] [address]- Name: Nati Salomon RN Position: [facility] RN Member Role: Primary Care Nurse Care Team Related Persons Name: JOSE ALFONSO Address: home [address] [place] [id number]
--- OUTSIDE RECORDS SUMMARY | 2023-04-22 12:25 | XMS_ITS | Continuity of Care Document ---
Author Name Unknown Organization [facility] Address [address] [place] [address]- Care Team Providers Care Assembler Billiard Table Name Role Phone Virginia PEREZ, Brian Sanford Primary Care Physician [phone] Encounter [facility] Date(s): 01/21/21 - 02/20/21 [facility] [address] [place] [address]- [place] Allergies, Adverse Reactions, Alerts Substance Reaction [...] #1 6Result Comment: [04/18/2013] #1 7Location History: [facility] 8Admin Note: rcvd elsewhere [...] 1 Refills, Soft Stop, 10/30/20 13:20:00 EDT, Pharmacy, 157, cm, 10/07/20 13:35:00 EDT, Height Start Date: 10/30/20 Status: Ordered Caltrate 600 + D oral tablet 1 tablet, By Mouth, 2 times a day, # 60 tablet, 11 Refills, Maintenance, 02/07/18 7:34:22 EDT, Tablet Start Date: 02/07/18 Status: Ordered fluticasone 50 mcg/inh nasal spray 1 sprays, Nares, Both, 2 times a day, # 3 each, 2 Refills, Maintenance, 05/17/19 11:44:00 EST, [place], Pharmacy, 1 sprays Nares, Both 2 times a day, 157, cm, 05/17/19 11:39:00EST, Height, 87.9, kg, 10/21/17 9:09:00 EDT, Dry We... Start Date: 05/17/19 Status: Ordered folic acid 1 mg oral tablet 1 mg, 1, tablet, By Mouth, Daily, # 90 tablet, Refills 0, Tot. Refills 0, Maintenance, 12/06/16 9:36:33, Route to Pharmacy Electronically, [id number], [facility] Start Date: 12/06/16 [...] Refills, Maintenance, 05/06/20 11:26:00EST, Tablet, Pharmacy, ID# [id number], 157, cm, 10/21/19 16:24:00 EDT, Height Start [...] 1 Refills, Maintenance, 10/30/20 13:20:00 EDT, Tablet, Pharmacy, 157, cm, 10/07/20 13:35:00 EDT, Height Start Date: 10/30/20 Status: Ordered metFORMIN 1000 mg oral tablet 1 tablet = 1,000 mg, By Mouth, 2 times a day, # 180 tablet, 1 Refills, Maintenance, 10/30/20 13:20:00 EDT, Tablet, Pharmacy, ID# [id number], 157, cm, 10/07/20 13:35:00 EDT, Height Start [...] By Mouth, Daily at bedtime, ID # [id number], # 90 tablet, Refills 1, Tot. Refills1, Maintenance, 10/30/20 13:20:00 EDT, Route to Pharmacy Electronically, Pharmacy, 157, cm, 10/07/20 13:35:00 EDT, Height [...]
--- OUTSIDE RECORDS SUMMARY | 2023-04-22 12:25 | XMS_ITS | Continuity of Care Document ---
Author Name Unknown Organization [facility] Taye lt Address [address] [place] [address]- Care Team Providers Care Clipper Operator Name Role Phone Emperatriz PEREZ, Benigno Stout Primary Care Physician [phone] Encounter [facility] Date(s): 11/11/22 - 12/11/22 [facility] Adult [address] [place] [address]- Allergies, Adverse Reactions, Alerts Substance Reaction Severity [...] inactivated 2 02/08/13 Gi rachael SARS-CoV-2 mRNA ([id number]) vax 12/08/21 Recorded SARS-CoV-2 (COVID-19) mRNA BNT-162b2 [...] 11 01/31/99 Given 1Result Comment: [facility]# [id number] 2Admin Note: FLUARIX 3Admin Note: [facility] 4Admin Note: per pt rcvd deven 5Result Comment: [10/18/2013] #3 6Result Comment: [04/18/2013] #1 7Result Comment: [04/18/2013] #1 8Location History: [facility] falk 9Admin Note: rcvd elsewhere 10Admin Note: rcvd elsewhere 11Admin Note: historical data Medications aspirin 81 mg oral tablet 1 tablet, By Mouth, Daily, # 30 tablet, 0 Refills, Maintenance, Tablet Start Date: 02/19/10 Status: Ordered atorvastatin 20 mg oral tablet 1 tablet, By Mouth, Daily, # 90 tablet, 1 Refills, 09/21/22 13:03:00 EDT, [facility], [...] 0 Refills, Maintenance, 04/20/22 16:50:00 EST, Liquid, [facility]/pharmacy #[id number], Partial fill upon [...] each, 1 Refills, Maintenance, 09/14/21 12:04:00 EDT, [place], [facility], 1 sprays Nares, Both 2 times a day, 157, cm, 10/07/20 13:35:00EDT, Height Start Date: 09/14/21 Status: Ordered folic acid 1 mg oral tablet 1 mg, 1, tablet, By Mouth, Daily, # 90 tablet, Refills 0, Tot. Refills 0, Maintenance, 12/06/16 9:36:33, Route to Pharmacy Electronically, [id number], [facility] Start Date: 12/06/16 [...] 3 Refills, Maintenance, 07/15/22 5:49:00 EDT, Capsule, [facility], 157, cm, 06/17/22 10:48:00 EST, Height, 83.8, kg, 05/26/22 11:19:00 EST, Dry Weight Start Date: 07/15/22 Status: Ordered labetalol 200 mg oral tablet 1 tablet, By Mouth, 2 times a day, # 180 tablet, 3 Refills, 07/15/22 5:49:00 EDT, [facility], 157, cm, 06/17/22 10:48:00 EST, Height, 83.8, kg, 05/26/22 11:19:00 EST, Dry Weight Start Date: 07/15/22 Status: Ordered levothyroxine 0.112 mg oral tablet 1 tablet = 112 mcg, By Mouth, Daily, # 90 tablet, 3 Refills, Maintenance, 12/22/21 8:04:00 EDT, [facility], Partial fill upon patient request [...] 09/21/22 13:03:00 EDT, Route to Pharmacy Electronically, [facility], 157, cm, 06/17/22 10:48:00 EST, Height, 83.8, kg, 05/26/22 11:19:00 EST, Dry Weight Start Date: 09/21/22 Status: Ordered triamcinolone 0.1% topical ointment 1 application, Topically, 3 times a day, for 7 days, # 30 Gm, 5 Refills, Acute 01/03/23 5:10:00 EDT, 11/22/22 5:10:00 EDT, Ointment, [facility], Partial fill upon patient request if the prescription is for a schedule II opioid d... Start Date: 11/22/22 Stop Date: 01/03/23 Status: Ordered Ventolin HFA 108 mcg/inh inhalation aerosol with adapter 1 puffs, Inhalation, 4 times a day, PRN for wheezing, # 3 each, 3 Refills, Maintenance, 04/25/19 14:03:00 EST, Aerosol, [facility], 157, cm, 04/25/19 13:53:00 [...] Personnel Name: Ashu GRAY, Jazz Valentin Position: [facility] PCO Associate Professional Member Role: Lifetime Consulting Provider Address: Address: [address] [place] [id number]- Name: Benigno Awan MD Position: [facility] Physician - Primary Care Member Role: PCP Address: Address: [address] [place] [id number]- Name: Nati Salomon RN Position: [facility] RN Member Role: Primary Care Nurse Care Team Related Persons Name: LILYJOSE MUSTAFA Address: home [address] [place] [address]
--- OUTSIDE RECORDS SUMMARY | 2023-04-22 12:25 | XMS_ITS | Continuity of Care Document ---
Author Name Unknown Organization [facility] Taye lt Address [address] [place] [address]- Care Team Providers Care Final Operations Technician Name Role Phone Virginia PEREZ, Brian Sanford Primary Care Physician [facility]counter [facility] Date(s): 06/08/20 - 07/08/20 [facility] [address] [place] [address]- Allergies, Adverse Reactions, Alerts Substance Reaction Severity [...] center pharm 3Admin Note: per pt rcvd edven 4Result Comment: [10/18/2013] #3 5Result Comment: [04/18/2013] #1 6Result Comment: [04/18/2013] #1 7Location History: [facility] [place] 8Admin Note: rcvd elsewhere [...] 1 Refills, Soft Stop, 05/06/20 11:26:00 EST, [facility], 157, [...] each, 2 Refills, Maintenance, 05/17/19 11:44:00 EST, [place], [facility], 1 sprays Nares, Both 2 times a day, 157, cm, 05/17/19 11:39:00EST, Height, 87.9, kg, 10/21/17 9:09:00 EDT, Dry We... Start Date: 05/17/19 Status: Ordered folic acid 1 mg oral tablet 1 mg, 1, tablet, By Mouth, Daily, # 90 tablet, Refills 0, Tot. Refills 0, Maintenance, 12/06/16 9:36:33, Route to Pharmacy Electronically, [id number], [facility] Start Date: 12/06/16 Status: Ordered hydroCHLOROthiazide 12.5 mg oral capsule 1 capsule = 12.5 mg, By Mouth, Daily, # 90 capsule, 3 Refills, Maintenance, 02/03/20 8:25:00 EDT, Capsule, [facility], 157, cm, 10/21/19 16:24:00 EDT, Height Start Date: 02/03/20 Status: Ordered labetalol 200 mg oral tablet 1 tablet = 200 mg, By Mouth, 2 times a day, # 180 tablet, 3 Refills, Maintenance, 05/06/20 11:26:00EST, Tablet, [facility], ID# [id number], 157, cm, 10/21/19 16:24:00 EDT, Height Start Date: 05/06/20 Status: Ordered levothyroxine 150 mcg (0.15 mg) oral tablet See Instructions, TAKE 1 TABLET 6 DAYS A WEEK, # 78 tablet, 3 Refills, Soft Stop, 02/03/20 8:25:00 EDT, [facility], 157, cm, 10/21/19 16:24:00 EDT, Height, Dry Weight Start Date: 02/03/20 Status: Ordered losartan 100 mg oral tablet 1 tablet = 100 mg, By Mouth, Daily, # 90 tablet, 0 Refills, Maintenance, 05/06/20 10:56:00 EST, Tablet, [facility], 157, cm, 10/21/19 16:24:00 EDT, Height Start Date: 05/06/20 Status: Ordered metFORMIN 1000 mg oral tablet 1 tablet = 1,000 mg, By Mouth, 2 times a day, # 180 tablet, 0 Refills, Maintenance, 05/06/20 10:56:00 EST, Tablet, [facility], ID# [id number], 157, cm, 10/21/19 16:24:00 EDT, Height Start [...] By Mouth, Daily at bedtime, ID # [id number], # 90 tablet, Refills 1, Tot. Refills1, Maintenance, 05/06/20 10:56:00 EST, Route to Pharmacy Electronically, [facility] [...]
--- OUTSIDE RECORDS SUMMARY | 2023-04-22 12:26 | XMS_ITS | Continuity of Care Document ---
Author Name Unknown Organization [facility] Address [address] [place] [address]- Care Team Providers Care Cloud Developer Name Role Phone Emperatriz PEREZ, Benigno Stout Primary Care Physician [phone] [facility] Date(s): 05/26/22 - 06/25/22 [facility] [address] [place] [address]- Allergies, Adverse Reactions, Alerts Substance Reaction Severity [...] inactivated 2 02/08/13 Gi rachael SARS-CoV-2 mRNA ([id number]) vax 12/08/21 Recorded SARS-CoV-2 (COVID-19) mRNA BNT-162b2 [...] Vaccine (oldterm) 11 01/31/99 Given 1Result Comment: [facility]# [id number] 2Admin Note: FLUARIX 3Admin Note: [facility] 4Admin Note: per pt rcvd deven 5Result Comment: [10/18/2013] #3 6Result Comment: [04/18/2013] #1 7Result Comment: [04/18/2013] #1 8Location History: [facility] 9Admin Note: rcvd elsewhere 10Admin Note: rcvd elsewhere 11Admin Note: historical data Medications aspirin 81 mg oral tablet 1 tablet, By Mouth, Daily, # 30 tablet, 0 Refills, Maintenance, Tablet Start Date: 02/19/10 Status: Ordered atorvastatin 20 mg oral tablet 1 tablet, By Mouth, Daily, # 90 tablet, 1 Refills, 05/06/22 11:13:00 EST, [facility], 157, cm, 04/20/22 16:03:00 EST, Height, [...] 0 Refills, Maintenance, 04/20/22 16:50:00 EST, Liquid, [facility]/pharmacy #[id number], Partial fill upon patient [...] each, 1 Refills, Maintenance, 09/14/21 12:04:00 EDT, [place], [facility], 1 sprays Nares, Both 2 times a day, 157, cm, 10/07/20 13:35:00EDT, Height Start Date: 09/14/21 Status: Ordered folic acid 1 mg oral tablet 1 mg, 1, tablet, By Mouth, Daily, # 90 tablet, Refills 0, Tot. Refills 0, Maintenance, 12/06/16 9:36:33, Route to Pharmacy Electronically, [id number], [facility] Start Date: 12/06/16 Status: Ordered hydroCHLOROthiazide 12.5 mg oral capsule 1 capsule = 12.5 mg, By Mouth, Daily, # 90 capsule, 3 Refills, Maintenance, 05/06/21 11:25:00 EST, Capsule, [facility], 157, cm, 10/07/20 13:35:00 EDT, Height [...] tablet, 1 Refills, 10/06/21 8:52:00 EDT, [facility], 157, cm, 10/07/20 13:35:00 EDT, Height Start Date: 10/06/21 Status: Ordered metFORMIN 1000 mg oral tablet 1 tablet, By Mouth, 2 times a day, # 180 tablet, 1 Refills, 10/06/21 8:51:00 EDT, [facility], 157, cm, 10/07/20 13:35:00 EDT, Height [...] 05/06/22 11:14:00 EST, Route to Pharmacy Electronically, [facility], 157, cm, 04/20/22 16:03:00 EST, Height, 83.9, kg, 02/16/22 14:17:00 EDT, Dry Weight Start Date: 05/06/22 Status: Ordered Ventolin HFA 108 mcg/inh inhalation aerosol with adapter 1 puffs, Inhalation, 4 times a day, PRN for wheezing, # 3 each, 3 Refills, Maintenance, 04/25/19 14:03:00 EST, Aerosol, [facility], 157, cm, 04/25/19 13:53:00 EST, [...] Personnel Name: Ashu GRAY, Jazz Valentin Position: [facility] Associate Professional Member Role: Lifetime Consulting Provider Address: Address: [address] [place] [phone]- [place] Name: Benigno Awan MD Position: [facility] Primary Care Physician Member Role: PCP Address: Address: [address] [place] [phone]- [place] Name: Nati Salomon RN Position: [facility] RN Member Role: Primary Care Nurse Care Team Related Persons Name: LILYMOONJOSE Address: home [address] [place] [address]
--- OUTSIDE RECORDS SUMMARY | 2023-04-22 12:26 | XMS_ITS | Continuity of Care Document ---
Author Name Unknown Organization [facility] [place] Taye lt Address [address] [place] [address]- Care Team Providers Care Bar And Filler Assembler Name Role Phone Emperatriz PEREZ, Benigno Stout Primary Care Physician [facility]counter [facility] Date(s): 12/22/21 - 01/21/22 [facility] [place] Adult [address] [place] [address]- Allergies, Adverse Reactions, Alerts Substance Reaction Severity [...] #1 6Result Comment: [04/18/2013] #1 7Location History: [facility] 8Admin Note: rcvd elsewhere 9Admin Note: [...] 11/18/21 13:28:00 EDT, Route to Pharmacy Electronically, [id number], [facility], 157, cm, 11/18/21 13:13:00 EDT, He... Start Date: 11/18/21 Status: Ordered aspirin 81 mg oral tablet 1 tablet, By Mouth, Daily, # 30 tablet, 0 Refills, Maintenance, Tablet Start Date: 02/19/10 Status: Ordered atorvastatin 20 mg oral tablet 1 tablet, By Mouth, Daily, # 90 tablet, 1 Refills, 09/29/21 16:13:00 EDT, [facility], 157, cm, 10/07/20 13:35:00 [...] each, 1 Refills, Maintenance, 09/14/21 12:04:00 EDT, [place], [facility], 1 sprays Nares, Both 2 times a day, 157, cm, 10/07/20 13:35:00EDT, Height Start Date: 09/14/21 Status: Ordered folic acid 1 mg oral tablet 1 mg, 1, tablet, By Mouth, Daily, # 90 tablet, Refills 0, Tot. Refills 0, Maintenance, 12/06/16 9:36:33, Route to Pharmacy Electronically, [id number], [facility] Start Date: 12/06/16 Status: Ordered hydroCHLOROthiazide 12.5 mg oral capsule 1 capsule = 12.5 mg, By Mouth, Daily, # 90 capsule, 3 Refills, Maintenance, 05/06/21 11:25:00 EST, Capsule, [facility], 157, cm, 10/07/20 13:35:00 EDT, Height Start Date: 05/06/21 Status: Ordered labetalol 200 mg oral tablet 1 tablet, By Mouth, 2 times a day, # 180 tablet, 3 Refills, [facility], 157, cm, 10/07/20 13:35:00 EDT, Height Start Date: 04/21/21 Status: Ordered levothyroxine 0.112 mg oral tablet 1 tablet = 112 mcg, By Mouth, Daily, # 90 tablet, 3 Refills, Maintenance, 12/22/21 8:04:00 EDT, [facility], Partial fill upon patient request if the prescription is for a schedule II opioid drug., 157, cm, 11/18/21 13:13:00 EDT,... Start Date: 12/22/21 Status: Ordered losartan 100 mg oral tablet 1 tablet, By Mouth, Daily, # 90 tablet, 1 Refills, 10/06/21 8:52:00 EDT, [facility], 157, cm, 10/07/20 13:35:00 EDT, Height Start Date: 10/06/21 Status: Ordered metFORMIN 1000 mg oral tablet 1 tablet, By Mouth, 2 times a day, # 180 tablet, 1 Refills, 10/06/21 8:51:00 EDT, [facility], 157, cm, 10/07/20 13:35:00 [...] to Pharmacy Electronically, [facility], 157, cm, 10/07/20 13:35:00 EDT, Height Start Date: 10/06/21 Status: Ordered Ventolin HFA 108 mcg/inh inhalation aerosol with adapter 1 puffs, Inhalation, 4 times a day, PRN for wheezing, # 3 each, 3 Refills, Maintenance, 04/25/19 14:03:00 EST, Aerosol, [facility], 157, cm, 04/25/19 13:53:00 EST, [...] Team Personnel Name: Benigno Awan MD Address: [address] [place] [address] [place] [address]-
--- OUTSIDE RECORDS SUMMARY | 2023-04-22 12:26 | XMS_ITS | Continuity of Care Document ---
Author Name Unknown Organization [facility] Taye lt Address [address] [place] [address]- Care Team Providers Care Replanting Machine Crew Name Role Phone [place] PEREZ, Brian Sanford Primary Care Physician [facility] Date[facility]s): 01/13/21 - 02/12/21 [facility] Adult [address] [place] [address]- Allergies, Adverse Reactions, Alerts Substance Reaction Severity [...] #1 6Result Comment: [04/18/2013] #1 7Location History: [facility] [place] 8Admin Note: rcvd elsewhere 9Admin Note: rcvd [...] 1 Refills, Soft Stop, 10/30/20 13:20:00 EDT, [facility], 157, cm, 10/07/20 [...] each, 2 Refills, Maintenance, 05/17/19 11:44:00 EST, [place], [facility], 1 sprays Nares, Both 2 times a day, 157, cm, 05/17/19 11:39:00EST, Height, 87.9, kg, 10/21/17 9:09:00 EDT, Dry We... Start Date: 05/17/19 Status: Ordered folic acid 1 mg oral tablet 1 mg, 1, tablet, By Mouth, Daily, # 90 tablet, Refills 0, Tot. Refills 0, Maintenance, 12/06/16 9:36:33, Route to Pharmacy Electronically, [id number], [facility] Start Date: 12/06/16 Status: Ordered hydroCHLOROthiazide 12.5 mg oral capsule 1 capsule = 12.5 mg, By Mouth, Daily, # 90 capsule, 3 Refills, Maintenance, 02/03/20 8:25:00 EDT, Capsule, [facility], 157, cm, 10/21/19 16:24:00 EDT, Height Start Date: 02/03/20 Status: Ordered labetalol 200 mg oral tablet 1 tablet = 200 mg, By Mouth, 2 times a day, # 180 tablet, 3 Refills, Maintenance, 05/06/20 11:26:00EST, Tablet, [facility], ID# [id number], 157, cm, 10/21/19 16:24:00 EDT, Height Start Date: 05/06/20 Status: Ordered levothyroxine 150 mcg (0.15 mg) oral tablet See Instructions, TAKE 1 TABLET 6 DAYS A WEEK, # 78 tablet, 1 Refills, Soft Stop, 01/22/21 12:47:00EDT, [facility], 157, cm, 10/07/20 13:35:00 EDT, Height Start Date: 01/22/21 Status: Ordered losartan 100 mg oral tablet 1 tablet = 100 mg, By Mouth, Daily, # 90 tablet, 1 Refills, Maintenance, 10/30/20 13:20:00 EDT, Tablet, [facility], 157, cm, 10/07/20 13:35:00 EDT, Height Start Date: 10/30/20 Status: Ordered metFORMIN 1000 mg oral tablet 1 tablet = 1,000 mg, By Mouth, 2 times a day, # 180 tablet, 1 Refills, Maintenance, 10/30/20 13:20:00 EDT, Tablet, [facility], ID# [id number], 157, cm, 10/07/20 13:35:00 EDT, Height Start [...] By Mouth, Daily at bedtime, ID # [id number], # 90 tablet, Refills 1, Tot. Refills1, Maintenance, 10/30/20 13:20:00 EDT, Route to Pharmacy Electronically, [facility] [...]
--- OUTSIDE RECORDS SUMMARY | 2023-04-22 12:26 | XMS_ITS | Continuity of Care Document ---
Author Name Unknown Organization [facility] Taey lt Address [address] [place] [address]- Care Team Providers Care Computer Graphics Illustrator Name Role Phone [place] PEREZ, Brian Sanford Primary Care Physician Encounter [facility] [place] Date(s): 05/06/20 - 06/05/20 [facility] Adult [address] [place] [address]- Allergies, Adverse Reactions, Alerts Substance Reaction Severity [...] 1 Refills, Soft Stop, 05/06/20 11:26:00 EST, [facility], 157, cm, 10/21/19 16:24:00 EDT, Height Start Date: 05/06/20 Status: Ordered Caltrate 600 + D oral tablet 1 tablet, By Mouth, 2 times a day, # 60 tablet, 11 Refills, Maintenance, 02/07/18 7:34:22 EDT, Tablet Start Date: 02/07/18 Status: Ordered fluticasone 50 mcg/inh nasal spray 1 sprays, Nares, Both, 2 times a day, # 3 each, 2 Refills, Maintenance, 05/17/19 11:44:00 EST, [place], [facility], 1 sprays Nares, Both 2 times a day, 157, cm, 05/17/19 11:39:00EST, Height, 87.9, kg, 10/21/17 9:09:00 EDT, Dry We... Start Date: 05/17/19 Status: Ordered folic acid 1 mg oral tablet 1 mg, 1, tablet, By Mouth, Daily, # 90 tablet, Refills 0, Tot. Refills 0, Maintenance, 12/06/16 9:36:33, Route to Pharmacy Electronically, [id number], [facility] Start Date: 12/06/16 Status: Ordered hydroCHLOROthiazide 12.5 mg oral capsule 1 capsule = 12.5 mg, By Mouth, Daily, # 90 capsule, 3 Refills, Maintenance, 02/03/20 8:25:00 EDT, Capsule, [facility], 157, cm, 10/21/19 16:24:00 EDT, Height Start Date: 02/03/20 Status: Ordered labetalol 200 mg oral tablet 1 tablet = 200 mg, By Mouth, 2 times a day, # 180 tablet, 3 Refills, Maintenance, 05/06/20 11:26:00EST, Tablet, [facility], ID# [id number], 157, cm, 10/21/19 16:24:00 EDT, Height Start Date: 05/06/20 Status: Ordered levothyroxine 150 mcg (0.15 mg) oral tablet See Instructions, TAKE 1 TABLET 6 DAYS A WEEK, # 78 tablet, 3 Refills, Soft Stop, 02/03/20 8:25:00 EDT, [facility], 157, cm, 10/21/19 16:24:00 EDT, Height, Dry Weight Start Date: 02/03/20 Status: Ordered losartan 100 mg oral tablet 1 tablet = 100 mg, By Mouth, Daily, # 90 tablet, 0 Refills, Maintenance, 05/06/20 10:56:00 EST, Tablet, [facility], 157, cm, 10/21/19 16:24:00 EDT, Height Start Date: 05/06/20 Status: Ordered metFORMIN 1000 mg oral tablet 1 tablet = 1,000 mg, By Mouth, 2 times a day, # 180 tablet, 0 Refills, Maintenance, 05/06/20 10:56:00 EST, Tablet, [facility], ID# [id number], 157, cm, 10/21/19 16:24:00 EDT, Height Start [...] By Mouth, Daily at bedtime, ID # [id number], # 90 tablet, Refills 1, Tot. Refills1, Maintenance, 05/06/20 10:56:00 EST, Route to Pharmacy Electronically, [facility], 157, cm, 10/21/19 16:24:00 EDT, Height Start Date: 05/06/20 Status: Ordered Ventolin HFA 108 mcg/inh inhalation aerosol with adapter 1 puffs, Inhalation, 4 times a day, PRN for wheezing, # 3 each, 3 Refills, Maintenance, 04/25/19 14:03:00 EST, Aerosol, [facility], 157, cm, 04/25/19 13:53:00 [...]
--- OUTSIDE RECORDS SUMMARY | 2023-04-22 12:26 | XMS_ITS | Continuity of Care Document ---
Author Name Unknown Organization [facility] Taye Address [address] [place] [address]- Care Team Providers Care Tablet Making Machine Operator Name Role Phone Emperatriz PEREZ, Benigno Stout Primary Care Physician [phone] [place]counter [facility] [place](s): 06/17/22 - 07/17/22 [facility] Adult [address] [place] [address]- Attending Physician: AdmAnalilia schuster Admitting Physician: AdmtrAnalilia [...] inactivated 2 02/08/13 Gi rachael SARS-CoV-2 mRNA ([id number]) vax 12/08/21 Recorded SARS-CoV-2 (COVID-19) mRNA BNT-162b2 [...] Vaccine (oldterm) 11 01/31/99 Given 1Result Comment: [facility]# [id number] 2Admin Note: FLUARIX 3Admin Note: center [facility] 4Admin Note: per pt rcvd [facility]klsewhere 5Result Comment: [10/18/2013] #3 6Result Comment: [04/18/2013] #1 7Result Comment: [04/18/2013] #1 8Location History: [facility] 9Admin Note: rcvd elsewhere 10Admin Note: rcvd elsewhere 11Admin Note: historical data Medications aspirin 81 mg oral tablet 1 tablet, By Mouth, Daily, # 30 tablet, 0 Refills, Maintenance, Tablet Start Date: 02/19/10 Status: Ordered atorvastatin 20 mg oral tablet 1 tablet, By Mouth, Daily, # 90 tablet, 1 Refills, 05/06/22 11:13:00 EST, [facility], 157, cm, 04/20/22 16:03:00 EST, Height, [...] 0 Refills, Maintenance, 04/20/22 16:50:00 EST, Liquid, [id number], Partial fill upon patient request [...] each, 1 Refills, Maintenance, 09/14/21 12:04:00 EDT, [place], [facility], 1 sprays Nares, Both 2 times a day, 157, cm, 10/07/20 13:35:00EDT, Height Start Date: 09/14/21 Status: Ordered folic acid 1 mg oral tablet 1 mg, 1, tablet, By Mouth, Daily, # 90 tablet, Refills 0, Tot. Refills 0, Maintenance, 12/06/16 9:36:33, Route to Pharmacy Electronically, [id number], [facility] Start Date: 12/06/16 Status: Ordered hydroCHLOROthiazide 12.5 mg oral capsule 1 capsule = 12.5 mg, By Mouth, Daily, # 90 capsule, 3 Refills, Maintenance, 07/15/22 5:49:00 EDT, Capsule, [facility], 157, cm, 06/17/22 10:48:00 EST, Height, 83.8, kg, 05/26/22 11:19:00 EST, Dry Weight Start Date: 07/15/22 Status: Ordered labetalol 200 mg oral tablet 1 tablet, By Mouth, 2 times a day, # 180 tablet, 3 Refills, 07/15/22 5:49:00 EDT, [facility], 157, cm, 06/17/22 10:48:00 EST, Height, 83.8, kg, 05/26/22 11:19:00 EST, Dry Weight Start Date: 07/15/22 Status: Ordered levothyroxine 0.112 mg oral tablet 1 tablet = 112 mcg, By Mouth, Daily, # 90 tablet, 3 Refills, Maintenance, 12/22/21 8:04:00 EDT, [facility], Partial fill upon patient request if the prescription is for a schedule II opioid drug., 157, cm, 11/18/21 13:13:00 EDT,... Start Date: 12/22/21 Status: Ordered losartan 100 mg oral tablet 1 tablet, By Mouth, Daily, # 90 tablet, 1 Refills, 07/15/22 5:49:00 EDT, [facility], 157, cm, 06/17/22 10:48:00 EST, Height, 83.8, kg, 05/26/22 11:19:00 EST, Dry Weight Start Date: 07/15/22 Status: Ordered metFORMIN 1000 mg oral tablet 1 tablet, By Mouth, 2 times a day, # 180 tablet, 1 Refills, 07/04/22 12:11:00 EST, [facility], 157, [...] 05/06/22 11:14:00 EST, Route to Pharmacy Electronically, [facility], 157, cm, 04/20/22 16:03:00 EST, Height, [...] Procedure Date Related Diagnosis Body Site Status Colonoscopy sigmoid divert 11/15/21 Completed Fiberoptic esophagoscopy neg 1 11/15/21 Completed Dual-energy X-ray absorptiom etry (DXA), bone density study, 1 or more sites; axial skeleton (eg, hips, pelvis, spine) 2 02/11/10 Completed Radiologic examination, ches t, 2 views, frontal and lateral; 3 11/18/09 Co m[address] upper endoscopy Dr. [place] normal mucosa in the entire esophagus stomach was normal biopsies were taken from the duodenum 2normal 3nad Social History Social History Type Response Smoking Status Never smoker entered on: 04/18/13 Sex EKG study * Event Display: EKG Authored Date: Note * Event Display: Radiology Result Scanned Authored Date: * Event Display: Cardiovascular Result Scanned Authored Date: * Angelica Hunt: PERFORM Event Display: Radiology Results Scanned Authored Date: * Angelica Hunt: PERFORM Event Display: Cardiovascular Results Scanned Authored Date: [id number] * Nuria Lamb: PERFORM, SIGN, VERIFY Event Display: Patient Education/Instruction Authored Date: [facility] [facility] Clinical Summary Person Information Name YAN MCGINNIS Age 62 Years 1950 12:00 AM PCP [place] PEREZ, Brian Sanford PCP Reason for Visit: Allergy Info: amLODIPine-atorvastatin; NIFEdipine Vital Signs Height Weight BMI Blood Pressure / Temperature Pulse Rate Respiratory Rate 02 Sat Mode of Delivery / Medication Information Albuterol (ProAir HFA 90 mcg/inh inhalation aerosol with adapter) 2 puffs, Inhalation, every 6 hours, As Needed, for wheezing, Refills: 3 Amoxicillin-Clavulanate (amoxicillin-clavulanate 875 mg-125 mg oral tablet) 1 tablet, Oral, every 12 hours, with food, 10 days, Refills: 0 Aspirin (aspirin 81 mg oral tablet) 1 tablet, Oral, Daily, Refills: 0 Atorvastatin (atorvastatin 20 mg oral tablet) 1 tablet, Oral, Daily, Refills: 3 Cyanocobalamin (Vitamin B12) , See Instructions, 1000 mcg Intramuscular;once a month, Refills: 0 Durable Medical Equipment (Glucose Test Strips) , See Instructions, one touch ultra;test TID, Refills: 11 Durable Medical Equipment (Glucose Test Strips) , See Instructions, one touch ultra;test TID, Refills: 3 Durable Medical Equipment (Lancets) , See Instructions, BD ultrafine lancets,test TID, Refills: 11 Durable Medical Equipment (Lancets) , See Instructions, BD ultrafine lancets,test TID, Refills: 3 Fluticasone Nasal (Flonase 0.05 mg/inh nasal spray) 2 sprays, Nares, Both, Daily, 30 days, Refills:11 Folic Acid (folic acid 1 mg oral tablet) 1 tablet, Oral, Daily, 30 days, Refills: 3 Hydrochlorothiazide-Valsartan (Diovan HCT 25 mg-320 mg oral tablet) 1 tablet, Oral, Daily, new dose, 30 days, Refills: 3 Labetalol (labetalol 200 mg oral tablet) 1 tablet, Oral, twice a day, 30 days, Refills: 1 Levothyroxine (levothyroxine 150 mcg (0.15 mg) oral tablet) 1 tablet, Oral, Daily, 90 days, Refills: 3 Trazodone (trazodone 100 mg oral tablet) 1 tablet, Oral, Daily at Bedtime, 90 days, Refills: 1 Problem List Date Problem 06/09/05 Mitral insufficiency 03/12/12 Asthma 03/12/12 Acquired hypothyroidism 06/09/05 Homocysteine 03/12/12 Vitamin B12 deficiency (non anemic) 03/12/12 Benign Essential Hypertension 03/12/12 Diabetes mellitus type 2, controlled 03/12/12 Fatty liver 11/27/09 Cholelithiasis 03/03/10 Hypercalcemia 03/12/12 Familial hyperlipidemia 03/12/12 Anxiety If the following labs have been performed in the last year, the most recent result is displayed below. Diagnostic Results Lab Result Value Date Lead Hemoglobin A1C 6.7 03/02/12 LDL 73 03/02/12 HDL 46 03/02/12 Triglycerides 121 03/02/12 Total Cholesterol 143 03/02/12 Disclaimer: The information provided is of a general nature and is intended to be used in conjunction with the recommendations and advice of your health care practitioner. Every effort has been made to ensure that the information provided is accurate and complete at the time it is provided to you however, as your needs change, or, as new information becomes available, different or additional instructions may be required. If you have questions, please consult with your primary care provider or pharmacist, as appropriate. This information is not intended to serve as substitution for assessment and evaluation by a qualified health care provider. If you do not have a primary care provider, you may find a [facility] provider by calling [facility] at [phone]. Patient Education Information Follow-up Details: Patient Education Material: * Angelica Hunt.: PERFORM Event Display: Radiology Results Scanned Authored Date: Patient Care team information Care Team Personnel Name: Ashu GRAY, Jazz Valentin Position: [facility] PCO Associate Professional Member Role: Lifetime Consulting Provider Address: Address: [address] [place] [address]- Name: Benigno Awan MD Position: [facility] Primary Care Physician Member Role: PCP Address: Address: [address] [place] [address]- Name: Nati Salomon RN Position: [facility] RN Member Role: Primary Care Nurse Care Team Related Persons Name: JOSE ALFONSO Address: home [address] [place] [id number]
--- OUTSIDE RECORDS SUMMARY | 2023-04-22 12:26 | XMS_ITS | Continuity of Care Document ---
Author Name Unknown Organization [facility] Taye [place] Address [address] [place] [address]- Care Team Providers Care Bass Viol Repairer Name Role Phone [place] PEREZ, Brian Sanford Primary Care Physician [phone] Encounter [facility] Date(s): 09/04/20 - 10/04/20 [facility] Adult [address] [place] [address]- Allergies, Adverse Reactions, Alerts Substance Reaction Severity [...] #1 6Result Comment: [04/18/2013] #1 7Location History: [facility] [place] 8Admin Note: rcvd elsewhere 9Admin Note: rcvd [...] 1 Refills, Soft Stop, 05/06/20 11:26:00 EST, [facility], 157, cm, 10/21/19 16:24:00 EDT, [...] each, 2 Refills, Maintenance, 05/17/19 11:44:00 EST, [place], [facility], 1 sprays Nares, Both 2 times a day, 157, cm, 05/17/19 11:39:00EST, Height, 87.9, kg, 10/21/17 9:09:00 EDT, Dry We... Start Date: 05/17/19 Status: Ordered folic acid 1 mg oral tablet 1 mg, 1, tablet, By Mouth, Daily, # 90 tablet, Refills 0, Tot. Refills 0, Maintenance, 12/06/16 9:36:33, Route to Pharmacy Electronically, [id number], [facility] Start Date: 12/06/16 Status: Ordered hydroCHLOROthiazide 12.5 mg oral capsule 1 capsule = 12.5 mg, By Mouth, Daily, # 90 capsule, 3 Refills, Maintenance, 02/03/20 8:25:00 EDT, Capsule, [facility], 157, cm, 10/21/19 16:24:00 EDT, Height Start Date: 02/03/20 Status: Ordered labetalol 200 mg oral tablet 1 tablet = 200 mg, By Mouth, 2 times a day, # 180 tablet, 3 Refills, Maintenance, 05/06/20 11:26:00EST, Tablet, [facility], ID# [id number], 157, cm, 10/21/19 16:24:00 EDT, Height Start Date: 05/06/20 Status: Ordered levothyroxine 150 mcg (0.15 mg) oral tablet See Instructions, TAKE 1 TABLET 6 DAYS A WEEK, # 78 tablet, 3 Refills, Soft Stop, 02/03/20 8:25:00 EDT, [facility], 157, cm, 10/21/19 16:24:00 EDT, Height, Dry Weight Start Date: 02/03/20 Status: Ordered losartan 100 mg oral tablet 1 tablet = 100 mg, By Mouth, Daily, # 90 tablet, 0 Refills, Maintenance, 05/06/20 10:56:00 EST, Tablet, [facility], 157, cm, 10/21/19 16:24:00 EDT, Height Start Date: 05/06/20 Status: Ordered metFORMIN 1000 mg oral tablet 1 tablet = 1,000 mg, By Mouth, 2 times a day, # 180 tablet, 0 Refills, Maintenance, 05/06/20 10:56:00 EST, Tablet, [facility], ID# [id number], 157, cm, 10/21/19 16:24:00 EDT, Height Start [...] By Mouth, Daily at bedtime, ID # [id number], # 90 tablet, Refills 1, Tot. Refills1, Maintenance, 05/06/20 10:56:00 EST, Route to Pharmacy Electronically, [facility], 157, cm, 10/21/19 16:24:00 EDT, Height Start Date: 05/06/20 Status: Ordered Ventolin HFA 108 mcg/inh inhalation aerosol with adapter 1 puffs, Inhalation, 4 times a day, PRN for wheezing, # 3 each, 3 Refills, Maintenance, 04/25/19 14:03:00 EST, Aerosol, [facility], 157, cm, 04/25/19 13:53:00 EST, [...]
--- OUTSIDE RECORDS SUMMARY | 2023-04-22 12:26 | XMS_ITS | Continuity of Care Document ---
Author Name Unknown Organization [facility] lt Address [address] [place] [address]- Care Team Providers Care Customer Service Receptionist Name Role Phone Emperatriz PEREZ, Benigno Stout Primary Care Physician [phone] Encounter [facility] Date(s): 11/18/22 - 12/18/22 [facility] Adult [address] [place] [address]- Allergies, Adverse Reactions, Alerts Substance Reaction Severity [...] inactivated 2 02/08/13 Gi rachael SARS-CoV-2 mRNA ([id number]) vax 12/08/21 Recorded SARS-CoV-2 (COVID-19) mRNA BNT-162b2 [...] Vaccine (oldterm) 11 01/31/99 Given 1Result Comment: [facility]# [id number] 2Admin Note: FLUARIX 3Admin Note: [facility] 4Admin Note: per pt rcvd deven 5Result Comment: [10/18/2013] #3 6Result Comment: [04/18/2013] #1 7Result Comment: [04/18/2013] #1 8Location History: [facility] daniella falk 9Admin Note: rcvd elsewhere 10Admin Note: rcvd elsewhere 11Admin Note: historical data Medications aspirin 81 mg oral tablet 1 tablet, By Mouth, Daily, # 30 tablet, 0 Refills, Maintenance, Tablet Start Date: 02/19/10 Status: Ordered atorvastatin 20 mg oral tablet 1 tablet, By Mouth, Daily, # 90 tablet, 1 Refills, 09/21/22 13:03:00 EDT, [facility], 157, [...] Refills, Maintenance, 04/20/22 16:50:00 EST, Liquid, [facility]/pharmacy #[id number], Partial fill upon patient request if [...] each, 1 Refills, Maintenance, 12/12/22 7:03:00 EDT, [place], [facility], 1 sprays Nares, Both 2 times a day, 155.2, cm, 11/22/22 14:28:00 EDT, Height, 83.8, kg, 05/26/22 11:19:00 EST, Dry... Start Date: 12/12/22 Status: Ordered folic acid 1 mg oral tablet 1 mg, 1, tablet, By Mouth, Daily, # 90 tablet, Refills 0, Tot. Refills 0, Maintenance, 12/06/16 9:36:33, Route to Pharmacy Electronically, [id number], [facility] Start Date: 12/06/16 [...] tablet, 3 Refills, Maintenance, 12/22/21 8:04:00 EDT, [facility], Partial fill upon patient request if the prescription is for a schedule II opioid drug., 157, cm, 11/18/21 13:13:00 EDT,... Start Date: 12/22/21 Status: Ordered losartan 100 mg oral tablet 1 tablet, By Mouth, Daily, # 90 tablet, 1 Refills, Maintenance, 11/18/22 15:06:00 EDT, [facility], 157, cm, 06/17/22 10:48:00 EST, Height, 83.8, kg, 05/26/22 11:19:00 EST, Dry Weight Start Date: 11/18/22 Status: Ordered metFORMIN 1000 mg oral tablet 1 tablet, By Mouth, 2 times a day, # 180 tablet, 1 Refills, 07/04/22 12:11:00 EST, [facility], 157, [...] 09/21/22 13:03:00 EDT, Route to Pharmacy Electronically, [facility], 157, cm, 06/17/22 10:48:00 EST, Height, 83.8, kg, 05/26/22 11:19:00 EST, Dry Weight Start Date: 09/21/22 Status: Ordered triamcinolone 0.1% topical ointment 1 application, Topically, 3 times a day, for 7 days, # 30 Gm, 5 Refills, Acute 01/03/23 5:10:00 EDT, 11/22/22 5:10:00 EDT, Ointment, [facility], Partial fill [...] Member Role: [employer] Provider Address: Address: [address] [place] [id number]- Name: Emperatriz PEREZ, Benigno Stout Position: [facility] Physician - Primary Care Member Role: PCP Address: Address: [address] [place] [id number]- Name: Aime GEIGER, Nati Position: [facility] RN Member Role: Primary Care Nurse Care Team Related Persons Name: JOSE ALFONSO Address: home [address] [place] [address]
--- NOTE | 2023-04-22 13:12 | PC.NURSE ---
provider bedside speaking w/ pt at this time. nasal spray administered by provider.
[2023-04-22] MEDS: Labetalol HCL 200 MG TABLET PO (13:33)
[2023-04-22] MEDS: Losartan Potassium 50 MG TABLET 100 MG PO (13:33)
[2023-04-22] MEDS: Oxymetazoline HCl 0.05 % Nasal 15 ML SPRAY 2 SPRAY NOSTRIL-B (13:33)
[2023-04-22] MEDS: hydroCHLOROthiazide 12.5 MG TABLET PO (13:34)
--- NOTE | 2023-04-22 13:37 | PC.NURSE ---
silver nitrate administered by provider. bleeding controlled at this time. medication administered per provider order. will reassess BP/bleeding. call ness placed within reach.
--- NOTE | 2023-04-22 13:48 | ED.EPISTAXIS ---
History of Present Illness General Chief Complaint: Epistaxis Stated Complaint: epigastric pain high bp Time Seen by Provider: 04/22/23 12:57 Source: patient, family and EMS Mode of arrival: EMS Limitations: no limitations History of Present Illness HPI Narrative: 73-year-old female with history of hypertension presents the ER with complaints of right-sided epistaxis which began at 10:00. Patient is on aspirin only. No additional AC therapy use. She did not take any of her morning medications. Related Data Home Medications Medication Instructions Recorded Confirmed albuterol sulfate 90 mcg/actuation inhalation 04/22/23 aerosol inhaler aspirin 81 mg tablet 81 mg PO DAILY 04/22/23 04/22/23 atorvastatin 20 mg tablet 20 mg PO DAILY 04/22/23 04/22/23 fluticasone propionate 50 spray intranasal 04/22/23 mcg/actuation nasal spray,suspension hydrochlorothiazide 12.5 mg capsule 12.5 mg PO DAILY 04/22/23 04/22/23 labetalol 200 mg tablet 200 mg PO BID 04/22/23 04/22/23 levothyroxine 112 mcg tablet 112 mcg PO DAILY 04/22/23 04/22/23 losartan 100 mg tablet 100 mg PO DAILY 04/22/23 04/22/23 metformin 1,000 mg tablet 1,000 mg PO BID 04/22/23 04/22/23 trazodone 100 mg tablet 100 mg PO BEDTIME 04/22/23 04/22/23 Allergies Allergy/AdvReac Type Severity Reaction Status Date / Time No Known Allergies Allergy Verified 04/22/23 11:49 Review of Systems Review of Systems: Yes all other systems are reviewed and are negative Constitutional: Constitutional: Reports no additional constitutional complaints, Denies body ache(s), Denies chills, Denies fever(s), Denies headache(s) and Denies weakness Eyes: Eyes: Reports no additional eye complaints and Denies change in vision ENT: Reports system reviewed and no additional complaints, except as documented, Denies dizziness, Denies headache(s), Reports epistaxis, Denies nasal congestion, Denies nasal discharge and Denies neck pain Cardiovascular: Cardiovascular: Reports no additional cardiovascular complaints, Denies chest pain, Denies leg edema and Denies dyspnea Respiratory: Respiratory: Reports no additional respiratory complaints, Denies cough and Denies dyspnea Gastrointestinal: Gastrointestinal: Reports no additional gastrointestinal complaints, Denies abdominal pain, Denies diarrhea, Denies nausea and Denies vomiting Genitourinary: Genitourinary: Reports no additional female genitourinary complaints and Denies urinary incontinence Musculoskeletal: Musculoskeletal: Reports no additional musculoskeletal complaints, Denies back pain, Denies arthralgias, Denies joint swelling, Denies neck pain, Denies numbness and Denies tingling Integumentary/Breasts: Skin/Breast: Reports system reviewed and no additional complaints, except as docu and Denies rash Neurologic: Reports system reviewed and no additional complaints, except as documented, Denies Abnormal speech present, Denies dizziness, Denies headache(s), Denies numbness, Denies tingling and Denies weakness PMF Past Medical History Attestation statement: The following information was validated with the patient. Source: old records reviewed and nursing notes reviewed Medical History Vitamin B12 deficiency (non anemic) Vertigo (07/20/20) Trigger thumb Osteopenia (10/19/19) Mitral insufficiency Insomnia Fatty liver Familial hyperlipidemia Elevated homocysteine Diverticulosis Diabetes mellitus type 2, controlled Benign essential hypertension Asthma Aphthous ulcer of mouth Iron (Fe) deficiency anemia (09/08/21) Acquired hypothyroidism Social History Social History Alcohol intake: current Alcohol intake frequency: holidays/special occasions only Smoked in Last 30 Days: No Use of substances other than those prescribed or required for medical reasons: No Advance Directives: Yes Advance Directives Information Provided: No Advance Directives on File: No Physical Exam Vital Signs: Vital Signs: Last Vital Signs Temp 98.7 F 04/22/23 11:53 Pulse 67 04/22/23 15:21 Resp 16 04/22/23 15:21 BP 167/70 H 04/22/23 15:21 Pulse Ox 98 04/22/23 15:21 O2 Del Method Room Air 04/22/23 15:21 BMI result Body Mass Index 34.2 Const: General: cooperative, healthy appearing, comfortable and no acute distress Orientation/consciousness: patient oriented x3 Limitations: no limitations HEENT: Head: Yes normal to inspection Ears: hearing grossly normal bilaterally and TM's normal bilaterally General nose exam: Normal external nose present and Epistaxis present on the right anterior source and active bleeding Face and sinus: Yes normal facial exam Mouth: Normal oral and palatal mucosa present Throat: Yes posterior oropharynx normal, Yes tonsils normal and Yes uvula midline Eyes: General: appearance normal, both eyes and all related structures Pupils: Equal, round and reactive pupils present Neck: Neck: Yes normal visual inspection Chest: Chest palpation & inspection: normal inspection of the chest Resp: Effort & Inspection: normal respiratory effort Auscultation: clear to auscultation bilaterally Cardio: Rate: regular rate Rhythm: regular rhythm Peripheral pulses: Peripheral pulses 2+ throughout GI: Inspection: Yes normal to inspection Palpation (GI): Soft to palpation and nontender Auscultation: normal bowel sounds Back/Spine/Pelvis: Thoracic/Lumbar Spine: thoracic and lumbar spine normal to inspection Skin: General skin exam: no rashes or lesions noted Neuro: General: patient oriented x3, no focal motor deficits and normal sensation to monofilament Cranial nerves: Yes Equal, round and reactive pupils present Cognition (Neuro): normal cognition Speech: No Abnormal speech present Gait exam (Neuro): Normal gait present Motor exam (neuro): 5/5 motor strength present throughout Extrem: General: Yes normal to inspection Course Course Course Narrative: The patient was monitored for 3-1/2 hours with no additional bleeding after the bleeding was stopped with silver nitrate sticks. She did receive her morning blood pressure medication and her blood pressure improved. Plan for discharge home. Reviewed worrisome signs and symptoms of when to return to the emergency room. Comfortable with plan for discharge home Medications Administered Discontinued Medications Generic Name Dose Route Start Last Admin Trade Name Leonidas PRN Reason Stop Dose Admin Hydrochlorothiazide 12.5 mg 04/22/23 13:20 04/22/23 13:34 Hydrochlorothiazide 12.5 Mg Tablet PO 04/22/23 13:21 12.5 mg ONCE ONE Administration Protocol Labetalol HCl 200 mg 04/22/23 13:20 04/22/23 13:33 Labetalol Hcl 200 Mg Tablet PO 04/22/23 13:21 200 mg ONCE ONE Administration Protocol Losartan Potassium 100 mg 04/22/23 13:20 04/22/23 13:33 Losartan Potassium 50 Mg Tablet PO 04/22/23 13:21 100 mg ONCE ONE Administration Protocol Oxymetazoline HCl 2 spray 04/22/23 12:57 04/22/23 13:33 Oxymetazoline Hcl 0.05 % Nasal 15 Ml [place] NOSTRIL-B 04/22/23 12:58 2 spray ONCE ONE Administration Medical Decision Making Medical Decision Making [facility] Narrative: 73-year-old female with history of hypertension presents the ER with complaints of right-sided epistaxis which began at 10:00.? Patient is on aspirin only.? No additional AC therapy use.? She did not take any of her morning medications. Right anterior nose bleed noted. Tried Afrin twice with no success. Silver nitrate sticks were used Patient quite hypertensive. Patient did not take any from morning blood pressure medications. Will medicate here Differential Diagnosis Differential Diagnoses: The differential diagnosis associated with the presentation includes epistaxis Admission/Observation Consideration of admission/observation: Escalation of care including admission/observation considered Bleeding resolved with no evidence of posterior nosebleed requiring urgent ENT consultation. Independent Historian Clinical information obtained from an independent historian. History obtained from or confirmed by: Spouse and EMS Procedures Epistaxis Control Time Out Performed: Yes Nostril: Yes right Direct inspection: Yes anterior source identified Direct inspection method: Yes otoscope Clots removed by: Yes blowing nose Epistaxis treatment: Yes silver nitrate cautery Results of treatment: Yes bleeding controlled Complications: Yes none Discharge Plan Discharge Clinical Impression: Epistaxis Patient Disposition: Home, Self-Care Instructions: Nosebleed (ED) Additional Instructions: We did cauterize an area on your nose on the right side. Please avoid touching the area, blowing your nose You will need to return if it starts to bleed again and does not improve with direct pressure Your blood pressure was elevated when you came in. It did improve after receiving her blood pressure medications. Please continue your home medications Prescriptions: No Action atorvastatin 20 mg tablet 20 mg PO DAILY labetalol 200 mg tablet 200 mg PO BID trazodone 100 mg tablet 100 mg PO BEDTIME metformin 1,000 mg tablet 1,000 mg PO BID hydrochlorothiazide 12.5 mg capsule 12.5 mg PO DAILY albuterol sulfate 90 mcg/actuation HFA aerosol inhaler inhalation losartan 100 mg tablet 100 mg PO DAILY fluticasone propionate 50 mcg/actuation spray,suspension intranasal levothyroxine 112 mcg tablet 112 mcg PO DAILY aspirin 81 mg Tablet 81 mg PO DAILY Referrals: Benigno Awan MD [Primary Care Provider] - 1 week
[2023-04-22 14:15] VITALS: BP 197/80; RESP 18
[2023-04-22 15:21] VITALS: BP 167/70; PULSE 67; RESP 16; O2SAT 98
--- NOTE | 2023-04-22 15:21 | PC.NURSE ---
BP decreased post medication administration - provider aware. nose bleed remains under control. pt ambulated to bathroom w/ steady gait/no difficulties. pt denies pain/has no complaints. pt awaiting on d/c paperwork at this time.
== END 2023-04-22 15:48 | disposition home or self-care (01) ==
PROVIDERS: Emergency Provider Student in an Organized Health Care Education/Training Program; PCP Family Medicine
DX: R04.0 Epistaxis (principal); I10 Essential (primary) hypertension; E11.9 Type 2 diabetes mellitus without complications; Z79.82 Long term (current) use of aspirin
CPT/HCPCS: 30901; 99283; 99284

== ENCOUNTER 2023-05-02 21:47 | Emergency (ER) | payer MEDICARE, SELFPAY ==
[2023-05-02] MEDS: Oxymetazoline HCl 0.05 % Nasal 15 ML SPRAY 2 SPRAY NOSTRIL-B (22:00)
[2023-05-02 22:01] VITALS: BP 202/108; BP 208/85; PULSE 64; PULSE 68; RESP 18; TEMP 36.8; O2SAT 98; O2SAT 99; BMI 34.0
--- NOTE | 2023-05-02 22:17 | ED_ITS ---
History of Present Illness General Chief Complaint: Epistaxis Stated Complaint: CC of epistaxis, prev cauterized at [facility] due to HTN Time Seen by Provider: 05/02/23 21:51 Source: patient Mode of arrival: ambulatory History of Present Illness HPI Narrative: 73-year-old female who arrives via EMS with recurrence of epistaxis, atraumatic in nature. She states she was unable to stop a 30 minutes and that prompted her decision to call EMS. She is not taking any blood thinners. Related Data Home Medications Medication Instructions Recorded Confirmed albuterol sulfate 90 mcg/actuation inhalation 04/22/23 aerosol inhaler aspirin 81 mg tablet 81 mg PO DAILY 04/22/23 04/22/23 atorvastatin 20 mg tablet 20 mg PO DAILY 04/22/23 04/22/23 fluticasone propionate 50 spray intranasal 04/22/23 mcg/actuation nasal spray,suspension hydrochlorothiazide 12.5 mg capsule 12.5 mg PO DAILY 04/22/23 04/22/23 labetalol 200 mg tablet 200 mg PO BID 04/22/23 04/22/23 levothyroxine 112 mcg tablet 112 mcg PO DAILY 04/22/23 04/22/23 losartan 100 mg tablet 100 mg PO DAILY 04/22/23 04/22/23 metformin 1,000 mg tablet 1,000 mg PO BID 04/22/23 04/22/23 trazodone 100 mg tablet 100 mg PO BEDTIME 04/22/23 04/22/23 Allergies Allergy/AdvReac Type Severity Reaction Status Date / Time No Known Allergies Allergy Verified 05/02/23 21:57 Review of Systems Review of Systems: Pertinent positives and negatives as stated in HPI [facility] Past Medical History Source: nursing notes reviewed Onset Date is defined in the Problem List Problems that require an onset date and time if occurred within 24 hrs of arrival to the ED Aortic Dissection and Rupture; Neurologic impairment; Cardiopulmonary Arrest; Endotracheal Intubation; Insertion or Replacement of Mechanical Circulatory Assist Device Medical History Vitamin B12 deficiency (non anemic) Vertigo (07/20/20) Trigger thumb Osteopenia (10/19/19) Mitral insufficiency Insomnia Fatty liver Familial hyperlipidemia Elevated homocysteine Diverticulosis Diabetes mellitus type 2, controlled Benign essential hypertension Asthma Aphthous ulcer of mouth Iron (Fe) deficiency anemia (09/08/21) Acquired hypothyroidism Social History Social History Alcohol intake: current Alcohol intake frequency: holidays/special occasions only Physical Exam Vital Signs: Vital Signs: Last Vital Signs Temp 98.2 F 05/02/23 22:01 Pulse 64 05/02/23 22:01 Resp 18 05/02/23 22:01 BP 208/85 H 05/02/23 22:01 Pulse Ox 98 05/02/23 22:01 O2 Del Method Room Air 05/02/23 22:01 BMI result Body Mass Index 34.0 VITAL SIGNS: Reviewed. GENERAL: Well developed, well nourished, in no acute distress. HEAD: Normocephalic/atraumatic EYES: PERRLA, EOMI EARS: Ext canals without abnormality NOSE: Nares patent bilateral, the nose is not bleeding and there is no obvious vessel at this time. OROPHARYNX: no oral lesions noted, posterior pharynx clear LUNGS: Normal breath sounds. No adventitious sounds or accessory muscle use. SpO2<98> CARDIOVASCULAR: Regular rate and rhythm without noted murmurs ABDOMEN: Soft, non-tender, non-distended with bowel sounds. MUSCULOSKELETAL: No tenderness, deformities, or effusions noted on gross inspection. EXTREMITIES: No cyanosis, clubbing or edema. SKIN: Inspection of the skin reveals no rashes NEUROLOGIC: Alert and oriented x 4. Strength and sensation to light touch were grossly intact x 4. Medications Administered Discontinued Medications Generic Name Dose Route Start Last Admin Trade Name Freq PRN Reason Stop Dose Admin Oxymetazoline HCl 2 spray 05/02/23 21:51 05/02/23 22:00 Oxymetazoline Hcl 0.05 % Nasal 15 Ml [place] NOSTRIL-B 05/02/23 21:52 2 spray ONCE ONE Administration Medical Decision Making Medical Decision Making MDM Narrative: 73-year-old female with a traumatic epistaxis, suspect that it is primarily due to low humidity the/cold temperatures/superficial vessels. No obvious superficial vessel identified and no current epistaxis at the time interview. Proceeded with application of Afrin, with continued hemostasis and will discharge patient home. Differential Diagnosis Differential Diagnoses: The differential diagnosis associated with the presentation includes Please see the discussion above Admission/Observation Consideration of admission/observation: Escalation of care including admission/observation considered Please see the discussion above External Record Review External record reviewed: Outpatient record, Prior outpatient labs and Prior outpatient radiology Discharge Plan Discharge Clinical Impression: Epistaxis Patient Disposition: Home, Self-Care Instructions: Nosebleed (ED) Additional Instructions: 1. Recommend the use of [id number] saline spray, 3 to 4 times a day, also recommend using cool mist humidifier at your bedside at night. 2. During the day I recommend the use of petroleum jelly, just a little bit on the inside of the nasal septum in both nostrils. 3. If your nose starts bleeding again, recommend applying a nose clamp for 5 minutes. Recheck your nose, if it is still bleeding, recommend clearing it by blowing your nose and then applying 2 sprays of the Afrin in each nostril, reapply the nose clamp and wait 5 minutes. If after the 1st 5 minutes the nose is still bleeding attempt 1 more use of Afrin with application of the nose clamp for 5 minutes. If this does not stop your nose bleed please call 911. 4. Please call your primary care doctor and arrange for follow-up appointment. Return to the ER for any worsening symptoms. Prescriptions: No Action atorvastatin 20 mg tablet 20 mg PO DAILY labetalol 200 mg tablet 200 mg PO BID trazodone 100 mg tablet 100 mg PO BEDTIME metformin 1,000 mg tablet 1,000 mg PO BID hydrochlorothiazide 12.5 mg capsule 12.5 mg PO DAILY albuterol sulfate 90 mcg/actuation HFA aerosol inhaler inhalation losartan 100 mg tablet 100 mg PO DAILY fluticasone propionate 50 mcg/actuation spray,suspension intranasal levothyroxine 112 mcg tablet 112 mcg PO DAILY aspirin 81 mg Tablet 81 mg PO DAILY
== END 2023-05-02 23:03 | disposition home or self-care (01) ==
LOC: HO.ED 22:41
PROVIDERS: Emergency Provider Student in an Organized Health Care Education/Training Program
DX: R04.0 Epistaxis (principal); E11.9 Type 2 diabetes mellitus without complications; I10 Essential (primary) hypertension; E78.5 Hyperlipidemia, unspecified; D50.9 Iron deficiency anemia, unspecified; Z79.82 Long term (current) use of aspirin; Z79.02 Long term (current) use of antithrombotics/antiplatelets; Z79.84 Long term (current) use of oral hypoglycemic drugs; Z79.899 Other long term (current) drug therapy
CPT/HCPCS: 99283; 99284

== ENCOUNTER 2023-12-14 18:40 | Emergency (ER) | payer MEDICARE, SELFPAY ==
[2023-12-14 18:44] VITALS: BP 145/61; PULSE 75; RESP 16; TEMP 36.6; O2SAT 97; BMI 32.2
--- NOTE | 2023-12-14 18:44 | ED_ITS ---
HPI - Recheck/Abnormal Lab/Rx General Chief Complaint: Recheck/Abnormal Lab/Rx Stated Complaint: critical level of Pottasium/creo levels off Time Seen by Provider: 12/14/23 19:58 Source: patient Mode of arrival: ambulatory Limitations: no limitations History of Present Illness ED Provider: antionette JEFFERSON narrative: Patient's history of iron deficiency anemia hypertension diabetes had routine labs done earlier today at 15:00 at 18:00 PCP called her to go to the hospital for potassium of 6.1 and elevated creatinine level patient never had high potassium in the past not eating foods with high potassium lately on arrival patient is in the repeat labs done which showed potassium 4.4 creatinine of 1.53 patient is asymptomatic as such Related Data Home Medications ?Medication ?Instructions ?Recorded ?Confirmed albuterol sulfate 90 mcg/actuation inhalation 04/22/23 aerosol inhaler aspirin 81 mg tablet 81 mg PO DAILY 04/22/23 04/22/23 atorvastatin 20 mg tablet 20 mg PO DAILY 04/22/23 04/22/23 fluticasone propionate 50 spray intranasal 04/22/23 mcg/actuation nasal spray,suspension hydrochlorothiazide 12.5 mg capsule 12.5 mg PO DAILY 04/22/23 04/22/23 labetalol 200 mg tablet 200 mg PO BID 04/22/23 04/22/23 levothyroxine 112 mcg tablet 112 mcg PO DAILY 04/22/23 04/22/23 losartan 100 mg tablet 100 mg PO DAILY 04/22/23 04/22/23 metformin 1,000 mg tablet 1,000 mg PO BID 04/22/23 04/22/23 trazodone 100 mg tablet 100 mg PO BEDTIME 04/22/23 04/22/23 Allergies Allergy/AdvReac Type Severity Reaction Status Date / Time theophylline Allergy Headache Verified 12/14/23 18:46 Review of Systems 2 Review of Systems: Yes all other systems are reviewed and are negative PMFSH Past Medical History Medical History Vitamin B12 deficiency (non anemic) Vertigo (07/20/20) Trigger thumb Osteopenia (10/19/19) Mitral insufficiency Insomnia Fatty liver Familial hyperlipidemia Elevated homocysteine Diverticulosis Diabetes mellitus type 2, controlled Benign essential hypertension Asthma Aphthous ulcer of mouth Iron (Fe) deficiency anemia (09/08/21) Acquired hypothyroidism Social History Social History Alcohol intake: current Alcohol intake frequency: a few times a month Smoked in Last 30 Days: No Use of substances other than those prescribed or required for medical reasons: No Advance Directives: Yes Advance Directives Information Provided: No Advance Directives on File: No Physical Exam 2 Vital Signs: Vital Signs: Last Vital Signs Temp 98.1 F 12/14/23 20:39 Pulse 66 12/14/23 20:39 Resp 16 12/14/23 20:39 BP 126/52 L 12/14/23 20:39 Pulse Ox 97 12/14/23 20:39 O2 Del Method Room Air 12/14/23 20:39 BMI result Body Mass Index 32.2 Appearance: Alert. Oriented X3. No acute distress. Eyes: Mild pallor ENT: Pharynx normal. Oral Mucosa moist Neck: Normal inspection. Neck supple. CVS: Normal heart rate and rhythm. Pulses normal. Respiratory: No respiratory distress. Equal air entry bilateral, no wheezing/rales/rhonchi Abdomen: Soft and nontender. Bowel sounds are present, no mass palpable, no CVA tenderness Skin: Skin warm and dry. Normal skin color. Normal skin turgor. Extremities: No lower extremity edema. No calf tenderness Neuro: Oriented X 3. No motor deficit. No sensory deficit.No cerebellar signs , cranial nerves II-XII intact Course Course Course Narrative: This is a Rapid Medical Examination (RME) performed by Tanya Camarena PA-C in triage. Full HPI, ROS, assessment and treatment plan per primary provider in the Main ED. 73 yo female with history of iron deficiency anemia, HTN on losartan, DM2 who presents to the ER for evaluation of an elevated potassium of 6.1 and SCr 1.1 on labs done with her quilting machine helper. No chest pain or muscle pain. She thinks she is dehydrated as she has been not drinking a lot of fluids. Plan: repeat labs, IVF Medications Administered Discontinued Medications Generic Name Dose Route Start Last Admin Trade Name Freq PRN Reason Stop Dose Admin Sodium Chloride 1,000 mls @ 999 mls/hr 12/14/23 19:00 12/14/23 19:48 Ns IVCONT 12/14/23 20:00 999 mls/hr .Q1H1M ADELAIDA Administration Medical Decision Making Medical Decision Making MDM Narrative: Patient is sent for hyperkalemia repeat labs in our ER showed normal potassium level of 4.4 likely patient has had lab error. Patient received IV fluids in the ER advised to drink plenty of fluids will discharge patient home Differential Diagnosis Differential Diagnoses: The differential diagnosis associated with the presentation includes Lab Data [facility] Lab Attestation statement: I reviewed the patient's lab results. 12/14/23 19:03 12/14/23 19:03 Labs: Lab Results 12/14/23 Range/Units 19:03 WBC 7.8 (4.8-10.8) X10*3/uL RBC 3.40 L (4.20-5.50) X10*6/uL Hgb 10.1 L (12.0-16.0) g/dl Hct 30.3 L (37.0-47.0) % MCV 89.1 (80.0-98.0) fL MCH 29.7 (27.0-33.0) pg MCHC 33.3 (31.0-35.0) g/dl RDW 13.1 (11.0-16.0) % Plt Count 238 (160-400) X10*3/uL MPV 8.8 L (9.4-12.3) fL Immature Gran % (Auto) 0.4 (0.0-0.4) % Neut % (Auto) 64.8 (45-73) % Lymph % (Auto) 22.4 (20-40) % Charlton % (Auto) 6.4 (2-11) % Eos % (Auto) 5.4 H (0-4) % Baso % (Auto) 0.6 (0-2) % Lymph # (Auto) 1.8 (1.2-4.9) X10*3/uL Charlton # (Auto) 0.5 (0.1-1.2) X10*3/uL Eos # (Auto) 0.4 (0.0-0.4) X10*3/uL Baso # (Auto) 0.1 (0.0-0.2) X10*3/uL Abs Immat Gran (auto) 0.03 (0.00-0.03) X10*3/uL Absolute Neuts (auto) 5.1 (2.0-8.3) x10*3/uL Absolute Nucleated RBC 0.000 (0.0-0.012) X10*3/uL Nucleated RBC % (auto) 0.0 (0.0-0.2) /100WBC Sodium 137 (135-145) mmol/L Potassium 4.4 (3.3-5.1) mmol/L Chloride 105 (96-108) mmol/L Carbon Dioxide 22 (22-29) mmol/L Anion Gap 14 (12-20) BUN 31 H (9-16) mg/dL Creatinine 1.53 H (0.5-1.4) mg/dL Estim Creat Clear Calc 33.0 Estimated GFR 33 Random Glucose 230 H (60-115) mg/dL Calcium 10.1 (8.4-10.2) mg/dL Magnesium 1.7 (1.6-2.6) mg/dL Total Bilirubin 0.4 (0.0-1.0) mg/dL Direct Bilirubin 0.2 (0.0-0.5) mg/dL AST 12 (5-31) U/L ALT 16 (0-31) U/L Alkaline Phosphatase 65 (39-117) U/L Total Protein 6.5 (6.5-8.0) g/dL Albumin 4.2 (3.5-5.0) g/dL Independent Interpretation I performed an independent interpretation of an: EKG Interpretation: Normal sinus rhythm heart rate 71 beats per minute normal interval normal axis no acute ST T wave changes no acute ischemia Discharge Plan Discharge Clinical Impression: Acute hyperkalemia Patient Disposition: Home, Self-Care Instructions: Hyperkalemia (ED) Additional Instructions: Your elevated potassium level is likely from lab error our lab showed normal potassium level Drink plenty of fluids and follow up with your PCP Prescriptions: No Action atorvastatin 20 mg tablet 20 mg PO DAILY labetalol 200 mg tablet 200 mg PO BID trazodone 100 mg tablet 100 mg PO BEDTIME metformin 1,000 mg tablet 1,000 mg PO BID hydrochlorothiazide 12.5 mg capsule 12.5 mg PO DAILY albuterol sulfate 90 mcg/actuation HFA aerosol inhaler inhalation losartan 100 mg tablet 100 mg PO DAILY fluticasone propionate 50 mcg/actuation spray,suspension intranasal levothyroxine 112 mcg tablet 112 mcg PO DAILY aspirin 81 mg Tablet 81 mg PO DAILY Interventions: ED Discharge Assessment Last Done: 12/14/23 20:39 Discharge Date/Time: 12/14/23 20:40 Print Language: [place]
--- NOTE | 2023-12-14 18:46 | ECG_ITS ---
Test Reason : HYPERKALEMIA Blood Pressure : / mmHG Vent. Rate : 071 BPM Atrial Rate : 071 BPM P-R Int : 130 ms QRS Dur : 086 ms QT Int : 374 ms P-R-T Axes : 037 -08 039 degrees QTc Int : 406 ms Normal sinus rhythm Nonspecific ST abnormality Abnormal ECG No previous ECGs available Referred By: Bhargavi Camarena Electronically Signed By:JEF ORTIZ
[2023-12-14 19:06] LABS: MANUAL DIFF FLAG NO
[2023-12-14 19:11] LABS: Basophils Absolute Auto 0.1 X10*3/uL (0.0-0.2); Basophils Percent Auto 0.6 % (0-2); Eosinophils Absolute Auto 0.4 X10*3/uL (0.0-0.4); Eosinophils Percent Auto 5.4 % (0-4); Hematocrit 30.3 % (37.0-47.0); Hemoglobin 10.1 g/dl (12.0-16.0); Imm Gran Abs Auto 0.03 X10*3/uL (0.00-0.03); Imm Gran Pct Auto 0.4 % (0.0-0.4); Lymphocytes Absolute Auto 1.8 X10*3/uL (1.2-4.9); Lymphocytes Percent Auto 22.4 % (20-40); Mean Corpuscular HGB Conc 33.3 g/dl (31.0-35.0); Mean Corpuscular Hemoglobin 29.7 pg (27.0-33.0); Mean Corpuscular Volume 89.1 fL (80.0-98.0); Mean Platelet Volume 8.8 fL (9.4-12.3); Monocytes Absolute Auto 0.5 X10*3/uL (0.1-1.2); Monocytes Percent Auto 6.4 % (2-11); Neutrophils Absolute Auto 5.1 x10*3/uL (2.0-8.3); Neutrophils Percent Auto 64.8 % (45-73); Platelet Count 238 X10*3/uL (160-400); Red Cell Distribution Width 13.1 % (11.0-16.0); White Blood Count 7.8 X10*3/uL (4.8-10.8)
[2023-12-14 19:43] LABS: Alanine Aminotransferase 16 U/L (0-31); Albumin Level 4.2 g/dL (3.5-5.0); Alkaline Phosphatase 65 U/L (39-117); Anion Gap 14 (12-20); Aspartate Amino Transferase 12 U/L (5-31); Bilirubin Direct 0.2 mg/dL (0.0-0.5); Bilirubin Total 0.4 mg/dL (0.0-1.0); Blood Urea Nitrogen 31 mg/dL (9-16); Calcium 10.1 mg/dL (8.4-10.2); Carbon Dioxide 22 mmol/L (22-29); Chloride 105 mmol/L (96-108); Estimated Glomerular Filt Rate 33; Glucose Random 230 mg/dL (60-115); Magnesium 1.7 mg/dL (1.6-2.6); Potassium 4.4 mmol/L (3.3-5.1); Sodium 137 mmol/L (135-145); Total Protein 6.5 g/dL (6.5-8.0)
[2023-12-14] MEDS: 0.9 % Sodium Chloride 1,000 ML 999 ML IVCONT (19:48)
--- NOTE | 2023-12-14 19:49 | PC.NURSE ---
this rn assumed care of pt, pt a&ox4, respirations even and unlabored. pt reports having labs drawn at PCP and receiving a critical phone call of potassium 6.1 as well as critical values of kidney function. pt reports she has not been staying hydrated. pt denies chest pain and palpations at this time. pt normal sinus on tele 60-63bpm. 20G placed in left ac and fluids administered at this time.
[2023-12-14 20:30] VITALS: BP 126/52; PULSE 66; RESP 16; TEMP 36.7; O2SAT 97
[2023-12-14 20:39] VITALS: BP 126/52; PULSE 66; RESP 16; TEMP 36.7; O2SAT 97
== END 2023-12-14 20:40 | disposition home or self-care (01) ==
PROVIDERS: Physician Assistant; Emergency Provider Internal Medicine; PCP Family Medicine
DX: E87.5 Hyperkalemia (principal); R79.89 Other specified abnormal findings of blood chemistry; R94.31 Abnormal electrocardiogram [ECG] [EKG]; Z79.899 Other long term (current) drug therapy
CPT/HCPCS: 36415; 80048; 80076; 83735; 85025; 93005; 99283; 99285